=== PATIENT | female | born 1960 | race Caucasian/White ===

== ENCOUNTER → 2017-02-24 09:11 | Outpatient (CLI) | payer BC, SELFPAY ==
[2017-02-24 10:40] LABS: Alanine Aminotransferase 40 U/L (12-78); Albumin Level 3.9 gm/dL (3.4-5.0); Albumin/Globulin Ratio 1.1 (1.1-1.8); Alkaline Phosphatase 78 U/L (46-116); Anion Gap 13.1 mEq/L (5-15); Aspartate Amino Transferase 20 U/L (15-37); Bilirubin,Total 0.7 mg/dL (0.2-1.0); Blood Urea Nitrogen 17 mg/dL (7-18); Carbon Dioxide 27 mmol/L (21.0-32.0); Chloride 99 mmol/L (98-107); Chol/HDL Ratio 3.8 (1-3.5); Cholesterol 176 mg/dL (140-200); Creatinine,Serum 0.55 mg/dL (0.55-1.02); Estimated Glomerular Filt Rate > 60 ml/min (>60); GFR (African American) > 60 ML/MIN (>60); Globulin 3.5 gm/dl (1.3-3.2); Glucose 280 mg/dL (74-106); HDL Cholesterol 46 mg/dL (29-89); LDL Cholesterol 79 mg/dL (0-130); Potassium 4.1 mmoL/L (3.5-5.1); Sodium 135 mmol/L (136-145); Total Protein,Serum 7.4 gm/dL (6.4-8.2); Triglycerides 257 mg/dL (30-200); VLDL Cholesterol 51 mg/dL (0-40)
== END ==
PROVIDERS: PCP Nurse Practitioner Family; Visit Provider Internal Medicine Cardiovascular Disease
DX: I25.10 Atherosclerotic heart disease of native coronary artery without angina pectoris (principal); E78.4 Other hyperlipidemia
CPT/HCPCS: 36415; 80053; 80061

== ENCOUNTER → 2017-03-07 16:15 | Outpatient (CLI) | payer BC, SELFPAY ==
[2017-03-07 17:12] LABS: Hemoglobin A1C 9.4 % (0.0-7.0)
== END ==
PROVIDERS: PCP Nurse Practitioner Family; Visit Provider Nurse Practitioner Family
DX: E11.8 Type 2 diabetes mellitus with unspecified complications (principal)
CPT/HCPCS: 36415; 83036

== ENCOUNTER → 2017-03-14 15:28 | Outpatient (CLI) | payer BC, SELFPAY ==
--- NOTE | 2017-03-14 15:39 | XR_ITS ---
XR chest 2V Ordering Physician: Vidhi Quan Patient Age: 56 years: Female HISTORY: ITS.REASON: COUGH TECHNIQUE: T and lateral chest COMPARISON :Portable chest 11/27/2015 also May 2007 chest film 120 FINDINGS Lungs clear. Nothing definitely acute no definitive pneumonia accentuated markings at the right infrahilar region medial right base are again noted but when current air-contrast digital technique is considered these features appear stable since May 2007. . Calcified nodes right paratracheal and right arminda reflect over elements disease. No pleural effusion no pneumothorax. Normal pulmonary vascularity. Chest wall intact. T-spine stable The heart is normal in size with likely coronary artery stents and calcification evident. . IMPRESSION: Stable chest with nothing definite acute Old granulomatous disease
== END ==
PROVIDERS: PCP Internal Medicine Adolescent Medicine; Visit Provider Nurse Practitioner Family
DX: R05 Cough (principal)
CPT/HCPCS: 71046

== ENCOUNTER → 2017-03-17 13:53 | Outpatient (CLI) | payer BC, SELFPAY | PROVIDERS: Family Provider Internal Medicine Adolescent Medicine; PCP Internal Medicine Adolescent Medicine; Visit Provider Nurse Practitioner Family | DX: E11.8 Type 2 diabetes mellitus with unspecified complications (principal) | CPT/HCPCS: 97802; G0108 ==

== ENCOUNTER → 2017-11-26 09:05 | Outpatient (CLI) | payer BC, SELFPAY ==
[2017-11-26 09:27] LABS: Basophils # 0.1 K/mm3 (0-0.2); Basophils % 0.5 % (0.1-2.0); Eosinophils # 0.3 K/mm3 (0.0-0.4); Eosinophils % 2.1 % (0.1-12.0); Hematocrit 43.1 % (37.0-47.0); Hemoglobin 14.2 g/dL (12.2-16.2); Lymphocytes # 3.3 K/mm3 (0.7-4.5); Lymphocytes % 24.8 K/mm3 (10-50); Mean Corpuscular HGB Conc 33.1 g/dL (31.8-35.4); Mean Corpuscular Volume 87.6 fl (81-99); Mean Platelet Volume 6.9 fl (7.4-10.4); Monocytes # 0.6 K/mm3 (0.1-1.0); Monocytes % 4.1 % (1.7-9.3); Neutrophils # 9.3 K/mm3 (1.8-7.8); Neutrophils % 68.6 % (37.0-80.0); Platelet Count 347 K/mm3 (142-424); Red Blood Count 4.92 M/mm3 (4.20-5.40); Red Cell Distribution Width 12.6 % (11.5-17.5); White Blood Count 13.5 K/mm3 (4.8-10.8)
[2017-11-26 10:27] LABS: Alanine Aminotransferase 106 U/L (12-78); Albumin Level 3.5 gm/dL (3.4-5.0); Albumin/Globulin Ratio 0.9 (1.1-1.8); Alkaline Phosphatase 112 U/L (46-116); Aspartate Amino Transferase 153 U/L (15-37); Bilirubin,Total 0.7 mg/dL (0.2-1.0); Blood Urea Nitrogen 8 mg/dL (7-18); Calcium 8.9 mg/dL (8.5-10.1); Carbon Dioxide 29 mmol/L (21.0-32.0); Chloride 103 mmol/L (98-107); Chol/HDL Ratio 4.7 (1-3.5); Cholesterol 200 mg/dL (140-200); Creatinine,Serum 0.51 mg/dL (0.55-1.02); Estimated Glomerular Filt Rate 125 ml/min (>60); GFR (African American) 151 ML/MIN (>60); Globulin 3.9 gm/dl (1.3-3.2); Glucose 227 mg/dL (74-106); HDL Cholesterol 43 mg/dL (29-89); LDL Cholesterol 130 mg/dL (0-130); Sodium 139 mmol/L (136-145); Thyroid Stimulating Hormone 2.41 uIU/ml (0.358-3.740); Total Protein,Serum 7.4 gm/dL (6.4-8.2); Triglycerides 134 mg/dL (30-200); VLDL Cholesterol 27 mg/dL (0-40)
[2017-11-26 10:37] LABS: Erythrocyte Sedimentation Rate 55 mm/hr (0-30)
[2017-11-29 07:36] LABS: RA Latex Turbid. <10.0 IU/mL (0.0-13.9); Vitamin B12 1041 pg/mL (232-1245)
[2017-11-29 10:20] LABS: Creatinine, Urine 142.3 mg/dL (Not Estab.); Microalbumin, Urine 77.1 ug/mL (Not Estab.)
[2017-11-30 05:14] LABS: Hep A Ab, IgM Negative (Negative); Hepatitis B Core Antibody IgM Negative (Negative); Hepatitis B Surface Antigen Negative (Negative)
[2017-11-30 07:28] LABS: Anti-Cyclic Citrullinated Pept 21 units (0-19); Antinuclear Antibodies, IFA Positive (.)
[2017-11-30 07:30] LABS: Hepatitis C Antibody <0.1 s/co ratio (0.0-0.9)
[2017-12-01 07:10] LABS: Mitochondrial (M2) Antibody <20.0 Units (0.0-20.0)
== END ==
PROVIDERS: Internal Medicine Adolescent Medicine; PCP Nurse Practitioner Family; Visit Provider Nurse Practitioner Family
DX: I10 Essential (primary) hypertension (principal); E11.65 Type 2 diabetes mellitus with hyperglycemia; E11.42 Type 2 diabetes mellitus with diabetic polyneuropathy; E78.2 Mixed hyperlipidemia; M25.50 Pain in unspecified joint; R74.8 Abnormal levels of other serum enzymes; Z86.79 Personal history of other diseases of the circulatory system
CPT/HCPCS: 36415; 80053; 80061; 80074; 82043; 82570; 82607; 83036; 84443; 85025; 85651; 86038; 86200; 86256; 86431

== ENCOUNTER → 2018-02-25 09:32 | Outpatient (CLI) | payer BC, SELFPAY ==
[2018-02-25 11:23] LABS: Hemoglobin A1C 8.9 % (0.0-7.0)
[2018-02-25 13:09] LABS: Alanine Aminotransferase 82 U/L (12-78); Albumin Level 3.5 gm/dL (3.4-5.0); Albumin/Globulin Ratio 0.9 (1.1-1.8); Alkaline Phosphatase 112 U/L (46-116); Anion Gap 12.9 mEq/L (5-15); Aspartate Amino Transferase 81 U/L (15-37); Bilirubin,Total 0.5 mg/dL (0.2-1.0); Blood Urea Nitrogen 10 mg/dL (7-18); Calcium 8.8 mg/dL (8.5-10.1); Carbon Dioxide 30 mmol/L (21.0-32.0); Chloride 100 mmol/L (98-107); Cholesterol 204 mg/dL (140-200); Creatinine,Serum 0.49 mg/dL (0.55-1.02); Estimated Glomerular Filt Rate 131 ml/min (>60); GFR (African American) 159 ML/MIN (>60); Globulin 4.1 gm/dl (1.3-3.2); Glucose 199 mg/dL (74-106); HDL Cholesterol 41 mg/dL (29-89); LDL Cholesterol 134 mg/dL (0-130); Potassium 3.9 mmoL/L (3.5-5.1); Sodium 139 mmol/L (136-145); Total Protein,Serum 7.6 gm/dL (6.4-8.2); Triglycerides 147 mg/dL (30-200); VLDL Cholesterol 29 mg/dL (0-40)
[2018-02-26 04:12] LABS: Creatinine, Urine 177.4 mg/dL (Not Estab.); Microalbumin, Urine 58.7 ug/mL (Not Estab.)
== END ==
PROVIDERS: Internal Medicine Cardiovascular Disease; Visit Provider Nurse Practitioner Family
DX: E11.42 Type 2 diabetes mellitus with diabetic polyneuropathy (principal); E78.49 Other hyperlipidemia
CPT/HCPCS: 36415; 80053; 80061; 82043; 82570; 83036

== ENCOUNTER → 2018-05-30 16:45 | Outpatient (CLI) | payer BC, SELFPAY ==
--- NOTE | 2018-05-30 16:48 | MM_ITS ---
MM Dig screening mamm BI w/CAD ORDERING PHYSICIAN : Vidhi Quan PATIENT AGE: 57 years GENDER: Female COMPARISON: December 2014, November 2013 & December 2016 INDICATION: Routine screening mammogram. No hormones. No new complaints. Previous stereotactic biopsy right breast Noncontributory family history. TECHNIQUE: Standard CC and MLO images were obtained. R2 CAD reviewed. FINDINGS: Mild/moderate residual fibroglandular elements bilaterally, most apparent at the superior left breast. Slight heterogeneous breast with slow progression of fatty replacement over the past few years noted Prior films are helpful and supportive stable appearance. Stable mild asymmetry. . scattered small benign appearing round dense punctate calcifications bilaterally. Benign forms with only very slow progression. Can be followed safely. LEFT BREAST:No new areas of significant concern. Stable appearance of benign appearing likely intramammary lymph node at the deep axillary left breast. . The glandular tissue most evident towards upper-outer quadrant left breast but when all projections are considered I see no significant change here, stable appearance since MLO view from 2016 serves as best comparison Overall left breast shows no significant new findings RIGHT BREAST:No new areas of concern. Follow-up in one year IMPRESSION: ...... . stable bilateral mammogram No significant new findings. Mild/moderate breast density Bilateral follow-up in one year. BI-RADS Category: 2 Benign Finding(s) RECOMMENDED FOLLOW-UP: 1YR 1 YEAR FOLLOW-UP (A letter has been sent to the patient regarding results of the study.)
== END ==
PROVIDERS: PCP Nurse Practitioner Family; Visit Provider Nurse Practitioner Family
DX: Z12.31 Encounter for screening mammogram for malignant neoplasm of breast (principal)
CPT/HCPCS: 77067

== ENCOUNTER → 2018-06-07 15:26 | Outpatient (CLI) | payer BC, SELFPAY ==
--- NOTE | 2018-06-07 15:29 | CT_ITS ---
CT lung screening EXAM: CT LUNG LOW DOSE WO CONTRAST HISTORY: ITS.REASON: H/O NICOTINE DEPENDENCE ORDERING PHYSICIAN: Rosalio Nunez MD PATIENT AGE: 57 years COMPARISON: None TECHNIQUE: The exam was performed on a GE Light Speed [address] scanner using 2.90 mGy CTDI. A low dose helical CT CHEST was performed on a multi-detector scanner. All CT scans at the facility use one or more dose reduction, viz: automated exposure control, ma/kV adjustment per patient size (including targeted exams where dose is matched to indication, i.e. head), or iterative reconstruction technique. The LDCT was performed in a facility that meets the criteria for the screening program. Data regarding this exam was submitted to ACR which is an approved registry. The order for this exam indicates that it came as a result of a lung cancer screening counseling shard decision-making visit that included all the elements required of such a visit including smoking cessation. The radiologist interpreting this exam meets the CMS criteria for the LDCT lung cancer screening program. The exam is reported using the Lung-RADS classification scale and reported to the ACR registry. NOTE: This study was performed for the specific purposes of lung cancer screening and is not an alternative to diagnostic chest CT. RADIATION DOSE: CTDI vol(CT dose Index-volume) = 2.90mG DLP (Dose Length Product) = 107.07 mGcm FINDINGS: 5 mm noncalcified nodule right upper lobe image #20. 4 mm noncalcified nodule left upper lobe image #16 fibrotic changes left lung base. Hyperinflation with mild coarsening of the bronchovascular markings which may be related to smoking-related lung disease. Scattered small calcified nodes present. Severe coronary artery calcification is noted. Prior cholecystectomy. IMPRESSION: 1. Lung RADS Category: 2, benign 2. Other findings: COPD, coronary artery disease RECOMMENDATIONS: 12 month LDCT follow-up
== END ==
PROVIDERS: PCP Nurse Practitioner Family; Visit Provider Internal Medicine Adolescent Medicine
DX: Z12.2 Encounter for screening for malignant neoplasm of respiratory organs (principal); Z87.891 Personal history of nicotine dependence

== ENCOUNTER → 2018-10-14 07:23 | Outpatient (CLI) | payer BC, SELFPAY ==
[2018-10-14 10:38] LABS: Chol/HDL Ratio 5.4 (1-3.5); Cholesterol 211 mg/dL (140-200); HDL Cholesterol 39 mg/dL (29-89); LDL Cholesterol 149 mg/dL (0-130); Triglycerides 116 mg/dL (30-200); VLDL Cholesterol 23 mg/dL (0-40)
== END ==
PROVIDERS: PCP Nurse Practitioner Family; Visit Provider Internal Medicine Cardiovascular Disease
DX: E78.49 Other hyperlipidemia (principal)
CPT/HCPCS: 36415; 80061

== ENCOUNTER → 2019-01-22 09:49 | Outpatient (CLI) | payer BC, SELFPAY ==
--- NOTE | 2019-01-22 09:53 | XR_ITS ---
PROCEDURE: XR SACROILIAC JOINT BI MIN 3V CLINICAL INDICATION: SI JOINT PAIN Low back pain, left hip pain COMPARISON: No exams were available for comparison FINDINGS: No fusion lysis or sclerosis of the SI joints evident. There are mild osteoarthritic changes of the hips. No fracture or dislocation IMPRESSION: Mild osteoarthritic change of the hips, negative SI joints Dictated by: Dre Lynn MD 01/22/2019 20:07 Electronically signed by Dre Lynn MD in [place] 01/22/2019 20:07
== END ==
PROVIDERS: PCP Internal Medicine Adolescent Medicine; Visit Provider Nurse Practitioner Family
DX: M53.3 Sacrococcygeal disorders, not elsewhere classified (principal)
CPT/HCPCS: 72202

== ENCOUNTER → 2019-03-17 08:17 | Outpatient (CLI) | payer BC, SELFPAY ==
[2019-03-17 10:06] LABS: Alanine Aminotransferase 45 U/L (12-78); Albumin Level 3.5 gm/dL (3.4-5.0); Albumin/Globulin Ratio 0.9 (1.1-1.8); Alkaline Phosphatase 111 U/L (46-116); Anion Gap 12.1 mEq/L (5-15); Aspartate Amino Transferase 46 U/L (15-37); Bilirubin,Total 0.4 mg/dL (0.2-1.0); Blood Urea Nitrogen 10 mg/dL (7-18); Calcium 8.6 mg/dL (8.5-10.1); Carbon Dioxide 29 mmol/L (21.0-32.0); Chloride 102 mmol/L (98-107); Chol/HDL Ratio 2.6 (1-3.5); Cholesterol 142 mg/dL (140-200); Creatinine,Serum 0.63 mg/dL (0.55-1.02); Estimated Glomerular Filt Rate 98 ml/min (>60); GFR (African American) 118 ML/MIN (>60); Glucose 217 mg/dL (74-106); HDL Cholesterol 54 mg/dL (29-89); LDL Cholesterol 70 mg/dL (0-130); Potassium 4.1 mmoL/L (3.5-5.1); Sodium 139 mmol/L (136-145); Total Protein,Serum 7.5 gm/dL (6.4-8.2); Triglycerides 88 mg/dL (30-200); VLDL Cholesterol 18 mg/dL (0-40)
== END ==
PROVIDERS: Visit Provider Internal Medicine Cardiovascular Disease
DX: E11.9 Type 2 diabetes mellitus without complications (principal); Z79.4 Long term (current) use of insulin
CPT/HCPCS: 36415; 80053; 80061

== ENCOUNTER → 2019-04-19 10:24 | Outpatient (CLI) | payer BC, SELFPAY ==
[2019-04-22 17:41] LABS: QuantiFERON-TB Gold Plus Negative (Negative)
== END ==
PROVIDERS: Visit Provider Nurse Practitioner Family
DX: Z11.1 Encounter for screening for respiratory tuberculosis (principal)
CPT/HCPCS: 36415; 86480

== ENCOUNTER → 2019-06-18 13:33 | Outpatient (POV) | payer BC, SELFPAY | PROVIDERS: PCP Nurse Practitioner Family; Visit Provider Specialist | DX: M79.601 Pain in right arm (principal); M79.602 Pain in left arm | CPT/HCPCS: 95886; 95910 ==

== ENCOUNTER → 2019-08-07 11:22 | Outpatient (CLI) | payer BC, SELFPAY ==
--- NOTE | 2019-08-07 11:42 | XR_ITS ---
PROCEDURE: XR CHEST 2V CLINICAL HISTORY: PERSISTENT COUGH COMPARISON: CXR CHEST(2 VIEWS-NOT PORTABLE) from 10/04/2014 CXR1 CHEST-PORTABLE from 11/27/2015 CXR2V XR chest 2V from 03/14/2017 FINDINGS: Mild cardiomegaly without failure. There is evidence of old granulomatous disease. No lobar consolidation or collapse is evident. No acute bony abnormalities. IMPRESSION: No acute findings. Dictated by: Dre Lynn MD 08/07/2019 14:18 Electronically signed by Dre Lynn MD in [place] 08/07/2019 14:18
[2019-08-07 12:04] LABS: Basophils # 0.1 K/mm3 (0-0.2); Basophils % 0.5 % (0.1-2.0); Eosinophils # 0.2 K/mm3 (0.0-0.4); Eosinophils % 1.3 % (0.1-12.0); Hematocrit 43.9 % (37.0-47.0); Lymphocytes # 3.8 K/mm3 (0.7-4.5); Lymphocytes % 23.5 % (10-50); Mean Corpuscular HGB Conc 34.2 g/dL (31.8-35.4); Mean Corpuscular Volume 93.5 fl (81-99); Mean Platelet Volume 7.7 fl (7.4-10.4); Monocytes # 0.8 K/mm3 (0.1-1.0); Monocytes % 4.9 % (1.7-9.3); Neutrophils # 11.4 K/mm3 (1.8-7.8); Neutrophils % 69.8 % (37.0-80.0); Platelet Count 271 K/mm3 (142-424); Red Cell Distribution Width 12.4 % (11.5-17.5); White Blood Count 16.3 K/mm3 (4.8-10.8)
[2019-08-07 12:08] LABS: MANUAL DIFFERENTIAL MANUAL DIFFERENTIAL (MANUAL DIFF)
[2019-08-07 12:18] LABS: Eosinophils % 2 % (0-3); Lymphocytes % 25 % (10-50); Monocytes % 5 % (2-9); Neutrophils % 68 % (42-76); Platelet Estimate Normal; RBC Morphology Normal; Total Cells Counted 100
[2019-08-07 12:45] LABS: Alanine Aminotransferase 51 U/L (12-78); Albumin Level 4.6 g/dl (3.5-5.0); Albumin/Globulin Ratio 1.2 (1.1-1.8); Alkaline Phosphatase 113 U/L (38-126); Anion Gap 15.3 mEq/L (5-15); Aspartate Amino Transferase 79 U/L (14-36); Bilirubin,Total 0.6 mg/dl (0.2-1.3); Blood Urea Nitrogen 17 mg/dl (7-17); Calcium 10.6 mg/dl (8.4-10.2); Carbon Dioxide 30 mmol/L (22.0-30.0); Chloride 97 mmol/L (98-107); Estimated Glomerular Filt Rate 128 ml/min (>60); GFR (African American) 154 ML/MIN (>60); Glucose 229 mg/dl (74-100); Potassium 4.3 mmoL/L (3.5-5.1); Sodium 138 mmol/L (136-145); Total Protein,Serum 8.6 g/dl (6.3-8.2)
[2019-08-07 13:02] LABS: 25-OH Vitamin D, Total 18.8 ng/mL (30-100)
[2019-08-08 18:10] LABS: Vitamin B12 721 pg/mL (232-1245)
== END ==
PROVIDERS: Visit Provider Nurse Practitioner Family
DX: R05 Cough (principal); R19.01 Right upper quadrant abdominal swelling, mass and lump; R53.83 Other fatigue; E55.9 Vitamin D deficiency, unspecified
CPT/HCPCS: 36415; 71046; 80053; 82306; 82607; 85007; 85025

== ENCOUNTER → 2019-08-10 11:06 | Outpatient (CLI) | payer BC, SELFPAY ==
--- NOTE | 2019-08-10 11:18 | CT_ITS ---
PROCEDURE: CT ABDOMEN PELVIS WO/W CON CLINICAL INDICATION: ABD PAIN Palpable abnormality in the right upper quadrant, right upper quadrant mass COMPARISON: No exams were available for comparison TECHNIQUE: IV Contrast: 75ML OPTIRAY 350 Oral Contrast 450ml Redicat Axial images obtained with sagittal and coronal reformats. All CT scans at the facility use one or more dose reduction, viz: automated exposure control, ma/kV adjustment per patient size (including targeted exams where dose is matched to indication, i.e. head), or iterative reconstruction technique. FINDINGS: LOWER THORAX: There are mild atelectatic or fibrotic changes in the left lung base. There is extensive coronary artery calcification and/or stents noted ABDOMEN & PELVIS: A BB is placed in the right upper quadrant denoting the area of palpable concern. No subcutaneous soft tissue mass is evident. The liver is slightly enlarged. The liver measures 24 cm cephalad caudad extending to approximately 6 cm above the iliac crest. There is some minimal irregularity of the liver surface. This could be seen with early cirrhosis. Please correlate with liver function test. The only organ deep to the area of palpable concern is a liver. No soft tissue masses are apparent. The spleen, adrenal glands, and pancreas have an unremarkable appearance. There has been a prior cholecystectomy. There are few scattered small mesenteric lymph nodes. There are small stones in the lower pole of the left kidney the largest of which measures approximately 5 mm. No intestinal obstruction or free air. No evidence of appendicitis. There are few colonic diverticula but no evidence of diverticulitis. No pelvic mass or abnormal fluid collection. Suspect small bilateral ovarian cyst which could be confirmed with ultrasound if clinically warranted No acute bony findings. IMPRESSION: 1. Mild hepatomegaly. There is some minimal irregularity of the liver surface anteriorly which could be seen with mild cirrhosis. No space-occupying lesion of the liver. 2. No soft tissue mass to correspond to the area of palpable concern. The area of palpable concern may represent the liver. 3. Left nephrolithiasis Dictated by: Dre Lynn MD 08/11/2019 06:48 Electronically signed by Dre Lynn MD in [place] 08/11/2019 06:48
== END ==
PROVIDERS: PCP Nurse Practitioner Family; Visit Provider Nurse Practitioner Family
DX: R19.01 Right upper quadrant abdominal swelling, mass and lump (principal)
CPT/HCPCS: 74178; Q9967

== ENCOUNTER → 2019-08-24 15:06 | Outpatient (CLI) | payer BC, SELFPAY ==
[2019-08-24 15:40] LABS: Basophils # 0.1 K/mm3 (0-0.2); Basophils % 0.5 % (0.1-2.0); Eosinophils # 0.2 K/mm3 (0.0-0.4); Eosinophils % 1.1 % (0.1-12.0); Hematocrit 42.5 % (37.0-47.0); Lymphocytes # 3.8 K/mm3 (0.7-4.5); Mean Corpuscular HGB Conc 35.3 g/dL (31.8-35.4); Mean Corpuscular Hemoglobin 31.6 pg (27.0-31.2); Mean Corpuscular Volume 89.4 fl (81-99); Mean Platelet Volume 7.3 fl (7.4-10.4); Monocytes # 0.7 K/mm3 (0.1-1.0); Monocytes % 4.7 % (1.7-9.3); Neutrophils # 10.4 K/mm3 (1.8-7.8); Neutrophils % 68.6 % (37.0-80.0); Platelet Count 276 K/mm3 (142-424); Red Blood Count 4.76 M/mm3 (4.20-5.40); Red Cell Distribution Width 12.3 % (11.5-17.5); White Blood Count 15.2 K/mm3 (4.8-10.8)
[2019-08-24 15:55] LABS: MANUAL DIFFERENTIAL MANUAL DIFFERENTIAL (MANUAL DIFF)
[2019-08-24 16:06] LABS: Chloride 100 mmol/L (98-107); Potassium 3.9 mmoL/L (3.5-5.1); Sodium 136 mmol/L (136-145)
[2019-08-24 16:09] LABS: Alanine Aminotransferase 53 U/L (12-78); Albumin Level 4.1 g/dl (3.5-5.0); Albumin/Globulin Ratio 1.1 (1.1-1.8); Alkaline Phosphatase 106 U/L (38-126); Anion Gap 12.9 mEq/L (5-15); Aspartate Amino Transferase 68 U/L (14-36); Bilirubin,Total 0.8 mg/dl (0.2-1.3); Blood Urea Nitrogen 10 mg/dl (7-17); Carbon Dioxide 27 mmol/L (22.0-30.0); Estimated Glomerular Filt Rate 165 ml/min (>60); GFR (African American) 200 ML/MIN (>60); Globulin 3.7 g/dL (1.3-3.2); Total Protein,Serum 7.8 g/dl (6.3-8.2)
[2019-08-24 16:10] LABS: Calcium 9.5 mg/dl (8.4-10.2); Glucose 288 mg/dl (74-100)
[2019-08-24 16:32] LABS: Lymphocytes % 27 % (10-50); Monocytes % 6 % (2-9); Neutrophils % 67 % (42-76); Platelet Estimate Normal; RBC Morphology Normal; Total Cells Counted 100
[2019-08-24 16:44] LABS: Ferritin 84.7 ng/ml (11.1-264)
[2019-08-26 15:08] LABS: Peripheral Smear Review Scanned Result
== END ==
PROVIDERS: Visit Provider Nurse Practitioner Family
DX: D72.829 Elevated white blood cell count, unspecified (principal); K76.0 Fatty (change of) liver, not elsewhere classified
CPT/HCPCS: 36415; 80053; 82728; 85007; 85025

== ENCOUNTER → 2019-10-24 07:48 | Outpatient (CLI) | payer BC, SELFPAY ==
--- NOTE | 2019-10-24 07:51 | CT_ITS ---
PROCEDURE: CT LUNG SCREENING CLINICAL INDICATION: H/O NICOTINE DEPENDENCE Current smoker COMPARISON: CT LUNGSCREEN CT lung screening from 06/07/2018 TECHNIQUE: The exam was performed on a GE Light Speed [address] scanner using 2.90 mGy CTDI. A low dose helical CT CHEST was performed on a multi-detector scanner. All CT scans at the facility use one or more dose reduction, viz: automated exposure control, ma/kV adjustment per patient size (including targeted exams where dose is matched to indication, i.e. head), or iterative reconstruction technique. The LDCT was performed in a facility that meets the criteria for the screening program. Data regarding this exam was submitted to ACR which is an approved registry. The order for this exam indicates that it came as a result of a lung cancer screening counseling shard decision-making visit that included all the elements required of such a visit including smoking cessation. The radiologist interpreting this exam meets the [facility] criteria for the LDCT lung cancer screening program. The exam is reported using the Lung-RADS classification scale and reported to the ACR registry. NOTE: This study was performed for the specific purposes of lung cancer screening and is not an alternative to diagnostic chest CT. RADIATION DOSE: CTDI vol(CT dose Index-volume) = 2.90mG DLP (Dose Length Product) = 96.38 mGcm FINDINGS: COPD. 5 mm nodule right upper lobe image 34 not readily apparent on the previous exam. Calcified granuloma right upper lobe. 3 mm right upper lobe nodule image number 20 unchanged. 3 mm right upper lobe nodule image number 19 probably unchanged. Atelectatic/fibrotic changes are present in the left lung base. OTHER FINDINGS: Extensive coronary artery calcification and/or stents noted IMPRESSION: Lung-RADS Category 3 Probably Benign regarding new 5 mm right upper lobe nodule Follow-up: [address] Chest without and with contrast. Dictated by: Dre Lynn MD 10/30/2019 13:37 Dre Lynn MD in [place] 10/30/2019 13:37
== END ==
PROVIDERS: PCP Nurse Practitioner Family; Visit Provider Nurse Practitioner Family
DX: Z87.891 Personal history of nicotine dependence (principal)

== ENCOUNTER → 2019-11-12 09:42 | Outpatient (CLI) | payer BC, SELFPAY ==
[2019-11-12 10:30] VITALS: PULSE 88; PULSE 90
== END ==
PROVIDERS: PCP Nurse Practitioner Family; Visit Provider Nurse Practitioner Family
DX: R05 Cough (principal)
CPT/HCPCS: 94060; 94618; 94640; 94726; 94729

== ENCOUNTER → 2020-02-04 15:05 | Outpatient (CLI) | payer BC, SELFPAY ==
[2020-02-04 17:00] VITALS: BMI 33.3
== END ==
PROVIDERS: PCP Nurse Practitioner Family; Visit Provider Nurse Practitioner Family
DX: Z71.3 Dietary counseling and surveillance (principal); E11.9 Type 2 diabetes mellitus without complications
CPT/HCPCS: 97802

== ENCOUNTER → 2020-05-22 10:45 | Outpatient (CLI) | payer BC, SELFPAY ==
--- NOTE | 2020-05-22 10:46 | CT_ITS ---
PROCEDURE: CT CHEST WO CON CLINICAL INDICATION: Lung nodule followup COMPARISON: CT CT LUNG SCREENING from 10/24/2019 TECHNIQUE: Axial images obtained with sagittal and coronal reformats. All CT scans at the facility use one or more dose reduction, viz: automated exposure control, ma/kV adjustment per patient size (including targeted exams where dose is matched to indication, i.e. head), or iterative reconstruction technique. FINDINGS: HEART AND MEDIASTINAL STRUCTURES: The heart size is normal. Atherosclerotic vascular calcification of the thoracic aorta and the coronary arteries are noted. No pericardial effusions. Calcified lymph nodes noted in the mediastinum. No significant hilar lymphadenopathy within the limitations of unenhanced study. LUNGS AND PLEURAL SPACES: Atelectasis is noted in the left lower lobe. Calcified granuloma in the right middle lobe. No lobar consolidation, pleural effusions or pneumothorax. No suspicious lung nodules are noted. Centrilobular and paraseptal emphysematous changes are noted bilaterally. 5 millimeter nodule noted on the prior study is not visualized on the current study. The central tracheobronchial tree is patent. BONY STRUCTURES: Minor degenerative changes of the visualized thoracic spine. UPPER ABDOMEN: Cholecystectomy is noted. Few splenic calcifications likely secondary to prior granulomatous disease. Surface irregularity and nodularity of the liver, acute raises the concern for cirrhosis. Otherwise the visualized upper abdominal solid organs are unremarkable within the limitations of the study. ADDITIONAL FINDINGS: No other significant abnormalities. IMPRESSION: Previously noted 5 millimeter nodule is not visualized on the current study. No focal consolidation or pleural effusions. Findings are suggestive of cirrhosis of the liver. Clinical and biochemical correlation is recommended. Dictated by: Anju Magdaleno 05/22/2020 13:57 Anju Magdaleno in [place] 05/22/2020 13:57
== END ==
PROVIDERS: PCP Nurse Practitioner Family; Visit Provider Internal Medicine Pulmonary Disease
DX: R91.8 Other nonspecific abnormal finding of lung field (principal)
CPT/HCPCS: 71250

== ENCOUNTER → 2020-06-25 09:19 | Outpatient (CLI) | payer BC, SELFPAY ==
[2020-06-25 10:39] LABS: Chloride 102 mmol/L (98-107); Potassium 3.9 mmoL/L (3.5-5.1); Sodium 136 mmol/L (136-145)
[2020-06-25 10:42] LABS: Alanine Aminotransferase 31 U/L (12-78); Albumin Level 4.1 g/dl (3.5-5.0); Albumin/Globulin Ratio 1.2 (1.1-1.8); Alkaline Phosphatase 113 U/L (38-126); Anion Gap 11.9 mEq/L (5-15); Aspartate Amino Transferase 39 U/L (14-36); Blood Urea Nitrogen 9 mg/dl (7-17); Calcium 9.1 mg/dl (8.4-10.2); Carbon Dioxide 26 mmol/L (22.0-30.0); Cholesterol 154 mg/dl (140-200); Estimated Glomerular Filt Rate 165 ml/min (>60); GFR (African American) 199 ML/MIN (>60); Globulin 3.3 g/dL (1.3-3.2); Glucose 266 mg/dl (74-100); HDL Cholesterol 64 mg/dl (40-60); Total Protein,Serum 7.4 g/dl (6.3-8.2); Triglycerides 102 mg/dl (30-150); VLDL Cholesterol 20 mg/dL (0-40)
[2020-06-25 10:43] LABS: Chol/HDL Ratio 2.4 (1-3.5)
[2020-06-25 10:53] LABS: Direct LDL Cholesterol 70.31 mg/dL (100-129)
== END ==
PROVIDERS: Visit Provider Internal Medicine Cardiovascular Disease
DX: E78.49 Other hyperlipidemia (principal)
CPT/HCPCS: 36415; 80053; 80061

== ENCOUNTER → 2020-09-13 08:38 | Outpatient (CLI) | payer BC, SELFPAY ==
[2020-09-13 09:10] LABS: Basophils # 0.1 K/mm3 (0-0.2); Basophils % 0.8 % (0.1-2.0); Eosinophils # 0.2 K/mm3 (0.0-0.4); Eosinophils % 1.4 % (0.1-12.0); Hematocrit 43.9 % (37.0-47.0); Hemoglobin 15.1 g/dL (12.2-16.2); Lymphocytes # 4.9 K/mm3 (0.7-4.5); Mean Corpuscular HGB Conc 34.3 g/dL (31.8-35.4); Mean Corpuscular Hemoglobin 30.5 pg (27.0-31.2); Mean Platelet Volume 8.3 fl (7.4-10.4); Monocytes # 0.8 K/mm3 (0.1-1.0); Monocytes % 4.4 % (1.7-9.3); Neutrophils # 10.9 K/mm3 (1.8-7.8); Neutrophils % 64.4 % (37.0-80.0); Platelet Count 263 K/mm3 (142-424); Red Blood Count 4.93 M/mm3 (4.20-5.40); White Blood Count 16.9 K/mm3 (4.8-10.8)
[2020-09-13 09:12] LABS: MANUAL DIFFERENTIAL MANUAL DIFFERENTIAL (MANUAL DIFF)
[2020-09-13 09:19] LABS: Eosinophils % 4 % (0-3); Lymphocytes % 26 % (10-50); Monocytes % 6 % (2-9); Neutrophils % 64 % (42-76); Platelet Estimate Normal; RBC Morphology Normal; Total Cells Counted 100
[2020-09-13 09:28] LABS: Creatinine,Urine Random 242 mg/dL (Not Estab.)
[2020-09-13 09:28] LABS: Hemoglobin A1C 8.7 % (4.0-6.0)
[2020-09-13 09:30] LABS: Microalbumin/Creatinine Ratio 16.8
[2020-09-13 09:33] LABS: Alanine Aminotransferase 38 U/L (12-78); Albumin Level 4.2 g/dl (3.5-5.0); Albumin/Globulin Ratio 1.3 (1.1-1.8); Alkaline Phosphatase 120 U/L (38-126); Anion Gap 9.3 mEq/L (5-15); Aspartate Amino Transferase 44 U/L (14-36); Bilirubin,Total 0.7 mg/dl (0.2-1.3); Blood Urea Nitrogen 9 mg/dl (7-17); Calcium 8.9 mg/dl (8.4-10.2); Carbon Dioxide 31 mmol/L (22.0-30.0); Chloride 101 mmol/L (98-107); Chol/HDL Ratio 2.3 (1-3.5); Cholesterol 162 mg/dl (140-200); Estimated Glomerular Filt Rate 165 ml/min (>60); GFR (African American) 199 ML/MIN (>60); Globulin 3.3 g/dL (1.3-3.2); Glucose 242 mg/dl (74-100); HDL Cholesterol 70 mg/dl (40-60); Potassium 4.3 mmoL/L (3.5-5.1); Sodium 137 mmol/L (136-145); Total Protein,Serum 7.5 g/dl (6.3-8.2); Triglycerides 139 mg/dl (30-150); VLDL Cholesterol 28 mg/dL (0-40)
[2020-09-13 09:44] LABS: Direct LDL Cholesterol 72.37 mg/dL (100-129)
[2020-09-13 10:03] LABS: Thyroid Stimulating Hormone 3.38 uIU/mL (0.465-4.68)
== END ==
PROVIDERS: Visit Provider Internal Medicine Adolescent Medicine
DX: E11.65 Type 2 diabetes mellitus with hyperglycemia (principal); I10 Essential (primary) hypertension; E78.2 Mixed hyperlipidemia; R60.9 Edema, unspecified
CPT/HCPCS: 36415; 80053; 80061; 82043; 82570; 83036; 84443; 85007; 85025

== ENCOUNTER → 2020-11-28 08:00 | Outpatient (CLI) | payer BC, SELFPAY ==
[2020-11-28 08:50] VITALS: PULSE 100; PULSE 97
== END ==
PROVIDERS: PCP Nurse Practitioner Family; Visit Provider Internal Medicine Pulmonary Disease
DX: R06.09 Other forms of dyspnea (principal)
CPT/HCPCS: 94060; 94640; 94727; 94729

== ENCOUNTER → 2021-01-21 13:33 | Outpatient (CLI) | payer BC, SELFPAY ==
--- NOTE | 2021-01-21 | CA_ITS ---
APPROVED REPORT EXAM: Comprehensive 2D, Doppler, and color-flow Echocardiogram Pipe Changer: Arpita Larsen CRT Ht: 5 ft 5 in Wt: 217lbs BSA: 2.05 BP: 137/73 mmHg Indications: Murmur, Diabetes, CAD, Hyperlipidemia, Hypertension/HDD, smoker, CAD, GERD 2D Dimensions LVOT 1.95 cm (M/F) 1.5-2.5 LA Volume 38.10 mL LA Volume Index 18.60 mL/m2 (M/F) 16-34 M-Mode Dimensions RVDd 2.49 cm (0.9-2.6) LA Diam 3.71 cm (1.9-4.0) LVDd 5.99 cm (3.5-5.7) Ao Diam 3.51 cm (2.0-3.7) LVDs 3.21 cm (3.5-5.7) IVSd 1.53 cm (0.6-1.1) PWd 0.92 cm (0.6-1.1) EF (Teich) 77.00% FS 46.40% EDV (Teich) 179.30 mL ESV (Teich) 41.30 mL LV Diastology MED E' 4.20 (< 7 cm/sec) MED A' 8.70 cm/s LAT E' 5.40 (<10 cm/sec) LAT A' 10.50 cm/s Aortic Valve LVOT Max 157.00 (70-110 cm/s) LVOT VTI 33.38 cm AoV Peak Ariel. 253.00 (50-130 cm/s) AO Peak GR. 25.60 mmHg AO Mean GR. 14.00 (<5 mmHg) AO VTI 47.79 (18-25 cm) ERIN (VTI) 2.09 (2.5-4.5 cm2) Pulmonary Valve PV Peak Velocity 115.00 (50-150 cm/s) Tricuspid Valve TR P. Velocity 134.00 cm/s RAP Estimate 10.00 mmHg RVSP 17.20 mmHg Left Ventricle Left atrium is mildly enlarged, left ventricle is normal size, mild concentric left ventricular hypertrophy, visually estimated ejection fraction 55 to 60% with no regional wall motion abnormality, grade 1 diastolic dysfunction seen without tissue Doppler evidence of raise left atrial pressure. Right Ventricle Right atrium and right ventricle are normal size and contractility. Aortic Valve Aortic valve is minimally thickened and fibrosed, the mean gradient across valve is 15 mmHg, valve area is 1.63 cm??? represents mild aortic stenosis, there is no aortic insufficiency. Mitral Valve Mitral valve grossly normal, there is trace mitral regurgitation. Tricuspid Valve Tricuspid grossly normal, there is trace tricuspid regurgitation, tricuspid regurgitation jet velocity is inadequate for calculation of the right ventricular systolic pressure. Pulmonic Valve Pulmonic valve is poorly visualized. Great Vessels Aortic root is normal size. Inferior vena cava normal size with normal inspiratory collapse. Pericardium No significant pericardial effusion noted. Conclusion 1. Mildly enlarged left atrium, normal left ventricular size, mild concentric left ventricular hypertrophy, visually estimated ejection fraction 55% with no regional wall motion abnormality, grade 1 diastolic dysfunction seen without tissue Doppler evidence of raise left atrial pressure. 2. Thickened and calcified aortic valve with mild aortic stenosis, valve area is 1.63 cm???. There is no aortic insufficiency. 3. Trace mitral and tricuspid regurgitation. 4. No significant pericardial effusion noted. 5. Inferior vena cava is normal size with normal inspiratory collapse. Electronically signed by : Thomas Mathew MD 01/21/2021 21:12:51
== END ==
PROVIDERS: PCP Nurse Practitioner Family; Visit Provider Internal Medicine Cardiovascular Disease
DX: R01.1 Cardiac murmur, unspecified (principal)
CPT/HCPCS: 93306

== ENCOUNTER → 2021-02-19 10:46 | Outpatient (CLI) | payer BC, SELFPAY ==
--- NOTE | 2021-02-19 10:50 | CA_ITS ---
APPROVED REPORT Roll Scale Man: Jen Lal RVT Laterality: Bilateral Study Quality: Good Indications: BRUIT,, Carotid stenosis Risk Factors Hypertension: Hyperlipidemia Diabetes Doppler Spectral Velocity Analysis ECA (R) 294.70/30.80 cm/s ECA (L) 262.00/25.00 cm/s dICA (R) 99.40/24.60 cm/s dICA (L) 132.30/33.40 cm/s Ras (R) 81.30/23.50 cm/s Ras (L) 121.20/37.60 cm/s pICA (R) 64.20/20.30 cm/s pICA (L) 96.10/26.50 cm/s dCCA (R) 68.40/17.10 cm/s dCCA (L) 86.40/15.30 cm/s pCCA (R) 81.30/16.00 cm/s pCCA (L) 139.30/25.10 cm/s Vert (R) 40.40/11.10 cm/s Vert (L) 36.20/15.30 cm/s ICA/CCA 1.45 ICA/CCA 1.53 Findings Study suggests 20-49% stenosis of the right internal cartoid artery. Study suggests 20-49% stenosis of the left internal cartoid artery. Antegrade flow seen bilateral vertebral arteries. 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 Study suggests 20-49% stenosis of the left internal cartoid artery. Antegrade flow seen bilateral vertebral arteries. Electronically signed by : Dre Lynn MD 02/19/2021 14:48:50
== END ==
PROVIDERS: PCP Nurse Practitioner Family; Visit Provider Internal Medicine Cardiovascular Disease
DX: I25.10 Atherosclerotic heart disease of native coronary artery without angina pectoris (principal)
CPT/HCPCS: 93880

== ENCOUNTER → 2021-03-05 08:14 | Outpatient (CLI) | payer BC, SELFPAY | PROVIDERS: PCP Nurse Practitioner Family; Visit Provider Nurse Practitioner | DX: Z20.822 Contact with and (suspected) exposure to COVID-19 (principal) | CPT/HCPCS: C9803; U0003; U0005 ==

== ENCOUNTER → 2021-04-16 14:50 | Outpatient (CLI) | payer BC, SELFPAY ==
--- NOTE | 2021-04-16 14:58 | XR_ITS ---
FINAL REPORT CLINICAL HISTORY: PAIN DUE TO TRAUMA, lateral ankle pain post fall FINDINGS: RIGHT ANKLE Three views demonstrate of the right ankle were obtained. There is soft tissue swelling about the ankle, particularly laterally. There is a moderate plantar spur. Tracy deformity is identified. There may be small avulsion along the dorsal aspect of the distal talus. Avulsed fragment measures 7 mm, age indeterminate. IMPRESSION: Possible small avulsion along the dorsal aspect of the distal talus, age indeterminate. Reviewed, Interpreted and Dictated by Parminder Gann MD Transcribed by Ambreen Barrett Authenticated by Parminder Gann MD on 04/16/2021 03:58:[address] [facility]
--- NOTE | 2021-04-16 14:58 | XR_ITS ---
FINAL REPORT CLINICAL HISTORY: PAIN DUE TO TRAUMA, lateral leg pain post fall FINDINGS: RIGHT TIBIA FIBULA Two views demonstrate no acute fracture or dislocation. The joint spaces appear normal. The visualized bony structures are well aligned. No soft tissue abnormality is seen. IMPRESSION: No acute process. Reviewed, Interpreted and Dictated by Parminder Gann MD Transcribed by Ambreen Barrett Authenticated by Parminder Gann MD on 04/16/2021 03:58:39 PM [facility]
== END ==
PROVIDERS: PCP Nurse Practitioner Family; Visit Provider Nurse Practitioner Family
DX: M25.571 Pain in right ankle and joints of right foot (principal); G89.11 Acute pain due to trauma
CPT/HCPCS: 73590; 73610

== ENCOUNTER → 2021-05-01 13:40 | Outpatient (CLI) | payer BC, SELFPAY ==
--- NOTE | 2021-05-01 13:41 | CT_ITS ---
FINAL REPORT TECHNIQUE: Thin section axial CT images with coronal and sagittal reformats were performed of the right ankle. Three-D reformatted images were also obtained and reviewed. This study was performed with techniques to keep radiation doses as low as reasonably achievable (ALARA). Individualized dose reduction techniques using automated exposure control or adjustment of mA and/or kV according to the patient''s size were employed. CLINICAL HISTORY: FRACTURE EVALUATION; patient feel 1 month ago; bruising at proximal ankle and proximal foot FINDINGS: There is a calcification superior to the distal talus, small avulsion fracture not excluded. Small avulsion fracture is seen at the anterior aspect of the lateral malleolus on series 3, image 62. There is also a small, nondisplaced fracture at the lateral aspect of the anterior calcaneus seen on series 3 image 72. There is no significant callus formation seen. Mild degenerative changes are noted. IMPRESSION: Multiple fractures as above without significant callus formation seen. Reviewed, Interpreted and Dictated by Jace Spears III, MD Transcribed by Chetna Zimmer Authenticated by Jace Spears III, MD on 05/01/2021 03:32:19 PM [facility]
== END ==
PROVIDERS: PCP Nurse Practitioner Family; Visit Provider Podiatrist
DX: M25.571 Pain in right ankle and joints of right foot (principal); S92.101A Unspecified fracture of right talus, initial encounter for closed fracture; S92.151A Displaced avulsion fracture (chip fracture) of right talus, initial encounter for closed fracture
CPT/HCPCS: 73700

== ENCOUNTER → 2021-05-06 11:50 | Outpatient (CLI) | payer BC, SELFPAY ==
--- NOTE | 2021-05-06 | CA_ITS ---
APPROVED REPORT Exam: Pharmacologic Technologist: Rajwinder Lackey, Ht: 5 ft 4 in Wt: 227 lbs BSA: 2.06 m2 HR: 90 bpm BP: 138/71 mmHg Indications: CAD, HTN Medical History Medications: Aspirin,,,,, Metoprolol,,,,, Losartan,,,,, Pantoprazole,,,,, Ropinirole,,,,, INSULIN,,,,, Albuterol,,,,, Montelukast,,,,, Januvia,,,,, Nitroglycerin,,,,, AZelastine,,,,, Xyzal,,,,, Stress Test Details Test: LEXISCAN HR Resting HR: 90 bpm Max Heart Rate (APMHR): 162.679610 bpm Max HR Achieved: 112 bpm Target HR (85% APMHR): 137.378912 bpm % of APMHR: 69.14 Recovery HR: 99 bpm BP Resting BP: 138/71 mmHg Max BP: 143/69 mmHg Recovery BP: 143.0/69.0 mmHg ECG Resting ECG: NSR, PVC's, low woltage QRS Clinical Exercise duration: 04:00 min Highest Stage Achieved: Exercise capacity: 1.0 METs Stress ECG Conclusion Symptoms: Fleeting CP (1 episode), SOA, malaise. Arrhythmias/Ectopy: Occ PVC. ST-T Changes: No significant changes. Conclusion: Unremarkable Lexiscan stress. Myoview images reported separately. Electronically signed by : Thomas Mathew MD 05/06/2021 19:28:23
--- NOTE | 2021-05-06 12:06 | NM_ITS ---
APPROVED REPORT Exam: Nuclear Stress Test Indication: CAD, HTN, H/O WA, HYPERLIPIDEMIA, TOB USE, FM HX., Patient Location: Outpatient Stress Tech: Rajwinder Vidal [place] Tech:Leslie Izquierdo, ARRT RT (R)(N)(M) Ht: 5 ft 4 in Wt: 227 lbs Bra Size: 40C HR: 90 bpm BP: 138/71 mmHg BSA: 2.06 m2 BMI: 38.9 History: CAD, HTN, H/O WA, HYPERLIPIDEMIA, TOB USE, FM HX., Procedure: Patient received a 0.4 mg of intravenous Lexiscan, resting heart rate 90 bpm, resting blood pressure 138/71 mmHg, with Lexiscan maximum heart rate achived was 111 bpm which is Less than 85 % of the maximum predicted heart rate and blood pressure was 114/59 mmHg. C.P., SOA Electrocardiogram Resting electrocardiogram shows sinus rhythm, with Lexiscan there is less than 1.[address] segment depression from the baseline EKG. The EKG portion of the Lexiscan is nondiagnostic. Cardiac Stress and Resting SPECT Images: Cardiac Stress and Resting SPECT images were obtained using technetium 99m Myoview 31.8 mCi stress and 10.50 mCi at rest. Gated SPECT analysis of segmental wall motion and calculation of ejection fraction also done. Cardiac stresstest images show uniform myocardial activity without segmental perfusion abnormality computer derived ejection fraction is 61% with no regional wall motion abnormality, there is transient ischemic dilatation of the left ventricle seen. Conclusion: 1. The EKG portion of the Lexiscan is nondiagnostic. 2. No scintigraphic evidence of reversible ischemia seen, computer derived ejection fraction 61% with no regional wall motion abnormality, however there is transient ischemic dilatation of the left ventricle seen, raising the concern for presence of balanced ischemia. 3. Abnormal Lexiscan Myoview study. Electronically signed by : Thomas Mathew MD 05/06/2021 19:31:03
== END ==
PROVIDERS: PCP Nurse Practitioner Family; Visit Provider Nurse Practitioner Family
DX: I25.10 Atherosclerotic heart disease of native coronary artery without angina pectoris (principal)
CPT/HCPCS: 78452; 93017; A9502; J2785

== ENCOUNTER → 2021-05-16 09:22 | Outpatient (CLI) | payer BC, SELFPAY ==
[2021-05-16 11:25] LABS: Chloride 100 mmol/L (98-107); Potassium 4.2 mmoL/L (3.5-5.1); Sodium 137 mmol/L (136-145)
[2021-05-16 11:27] LABS: Alanine Aminotransferase 24 U/L (12-78); Aspartate Amino Transferase 29 U/L (14-36); Blood Urea Nitrogen 11 mg/dl (7-17); Estimated Glomerular Filt Rate 127 ml/min (>60); GFR (African American) 153 ML/MIN (>60)
[2021-05-16 11:28] LABS: Albumin Level 3.8 g/dl (3.5-5.0); Albumin/Globulin Ratio 1.3 (1.1-1.8); Alkaline Phosphatase 115 U/L (38-126); Anion Gap 10.2 mEq/L (5-15); Bilirubin,Total 0.6 mg/dl (0.2-1.3); Calcium 8.6 mg/dl (8.4-10.2); Carbon Dioxide 31 mmol/L (22.0-30.0); Chol/HDL Ratio 1.9 (1-3.5); Cholesterol 148 mg/dl (140-200); Glucose 200 mg/dl (74-100); HDL Cholesterol 78 mg/dl (40-60); Total Protein,Serum 6.8 g/dl (6.3-8.2); Triglycerides 93 mg/dl (30-150); VLDL Cholesterol 19 mg/dL (0-40)
[2021-05-16 11:39] LABS: Direct LDL Cholesterol 63.08 mg/dL (100-129)
== END ==
PROVIDERS: Visit Provider Nurse Practitioner Family
DX: I25.10 Atherosclerotic heart disease of native coronary artery without angina pectoris (principal)
CPT/HCPCS: 36415; 80053; 80061

== ENCOUNTER → 2021-05-18 10:51 | Outpatient (CLI) | payer BC, SELFPAY ==
--- NOTE | 2021-05-18 10:55 | XR_ITS ---
FINAL REPORT CLINICAL HISTORY: fracture evaluation wt bearing views COMPARISON: CT dated May 01, 2021 FINDINGS: RIGHT FOOT: Three views of the right foot were obtained. There is a fracture at the anterolateral aspect of the calcaneus but is suboptimally visualized. There are mild degenerative changes. There is a small plantar calcaneal spur. There is a calcification in the region of the distal Achilles tendon. There is no soft tissue abnormality. IMPRESSION: Fracture at the anterolateral aspect of the calcaneus. Reviewed, Interpreted and Dictated by Jace Spears III, MD Transcribed by Jerome Duarte Authenticated by Jace Spears III, MD on 05/18/2021 12:28:06 PM [facility]
== END ==
PROVIDERS: PCP Nurse Practitioner Family; Visit Provider Podiatrist
DX: S82.61XA Displaced fracture of lateral malleolus of right fibula, initial encounter for closed fracture (principal); S92.001A Unspecified fracture of right calcaneus, initial encounter for closed fracture; S92.101A Unspecified fracture of right talus, initial encounter for closed fracture
CPT/HCPCS: 73630

== ENCOUNTER → 2021-05-26 07:50 | Outpatient (CLI) | payer BC, SELFPAY ==
--- NOTE | 2021-05-26 07:50 | CT_ITS ---
FINAL REPORT TECHNIQUE: Axial images were obtained from the lung apex to the mid abdomen by computed tomography. Coronal reformatted images were obtained. This study was performed with techniques to keep radiation doses as low as reasonably achievable, (ALARA). Individualized dose reduction techniques using automated exposure control or adjustment of mA and/or kV according to the patient''s size were employed. CLINICAL HISTORY: f/u lung nodule COMPARISON: October 24, 2019 and May 22, 2020 FINDINGS: There is no axillary adenopathy. There is no hilar or mediastinal adenopathy. Heart size is normal. There are severe coronary artery calcifications. There is no pericardial or pleural effusion. On the limited images of the upper abdomen, the liver has a nodular contour which is worrisome for cirrhosis. On the lung window images there are stable 3 mm nodules in the right upper lobe on image 16. There is a 2 mm stable nodule in the lateral left upper lobe, also seen on image 16. There is calcified granuloma in the right middle lobe. There is mild scarring. IMPRESSION: Stable nodules as described. Liver has a nodular contour, worrisome for cirrhosis. Reviewed, Interpreted and Dictated by Jace Spaers III, MD Transcribed by Pat Kelley Authenticated by Jace Spears III, MD on 05/26/2021 11:29:39 AM [facility]
== END ==
PROVIDERS: PCP Nurse Practitioner Family; Visit Provider Internal Medicine Pulmonary Disease
DX: R91.8 Other nonspecific abnormal finding of lung field (principal)
CPT/HCPCS: 71250

== ENCOUNTER 2021-05-29 10:00 | Outpatient (RCR) | payer BC, SELFPAY | END 2021-05-29 10:05 | disposition home or self-care (01) | LOC: PT 10:00 | PROVIDERS: PCP Nurse Practitioner Family; Visit Provider Podiatrist | DX: M25.571 Pain in right ankle and joints of right foot (principal); M25.371 Other instability, right ankle; S92.151A Displaced avulsion fracture (chip fracture) of right talus, initial encounter for closed fracture; S92.001A Unspecified fracture of right calcaneus, initial encounter for closed fracture; S82.61XA Displaced fracture of lateral malleolus of right fibula, initial encounter for closed fracture | CPT/HCPCS: 97010; 97014; 97163; G0283 ==

== ENCOUNTER 2021-06-10 15:35 | Emergency (ER) | payer BC, SELFPAY ==
[2021-06-10 16:13] VITALS: BP 141/78; PULSE 76; RESP 16; TEMP 36.6; O2SAT 100; BMI 36.3
[2021-06-10 16:16] LABS: Adenovirus,PCR Not Detected (NotDetected); Bordetella Pertussis Not Detected (NotDetected); Chlamydophila Pneumoniae, PCR Not Detected (NotDetected); Coronavirus 19, PCR Not Detected (NotDetected); Coronavirus 229E Not Detected (NotDetected); Coronavirus NL63 Not Detected (NotDetected); Coronavirus OC43 Not Detected (NotDetected); Coronovirus HKU1,PCR Not Detected (NotDetected); Human Metapneumovirus Not Detected (NotDetected); Influenza A, PCR Not Detected (NotDetected); Influenza AH1, 2009 Not Detected (NotDetected); Influenza AH1, PCR Not Detected (NotDetected); Influenza AH3,PCR Not Detected (NotDetected); Influenza B, PCR Not Detected (NotDetected); Mycoplasma Pneumoniae, PCR Not Detected (NotDetected); Parainfluenza 1, PCR Not Detected (NotDetected); Parainfluenza 2, PCR Not Detected (NotDetected); Parainfluenza 3, PCR Not Detected (NotDetected); Parainfluenza 4, PCR Not Detected (NotDetected); Respiratory Syncytial Virus Not Detected (NotDetected); Rhinovirus/Enterovirus Not Detected (NotDetected)
--- NOTE | 2021-06-10 16:20 | HMH.EDUTC ---
[facility] Disposition Clinical Impression: Encounter for laboratory testing for COVID-19 virus Disposition: Home, Self-Care Condition on Discharge: Good Instructions: DI for COVID-19 (Suspected or Confirmed ) Additional Instructions: Your Test results should be back possible later today or Tomorrow and you can access your results on the [facility] my health portal Follow up with your Family Doctor as needed Return if needed Straight to ER if any life threatening symptoms Referrals: Vidhi Quan APRN [Primary Care Provider] - As needed Time of Disposition: 16:23 Medical Decision Making - [place] Inquiry Pt receiving controlled substance: No [place] was queried for this patient: No Vital Signs: 06/10/21 16:13 Temperature 97.8 F Temperature Source Oral Pulse Rate [Right Radial] 76 Respiratory Rate 16 Blood Pressure [Right Arm] 141/78 H Blood Pressure Mean [Right Arm] 99 Blood Pressure Source [Right Arm] Automatic Cuff Blood Pressure Position [Right Arm] Sitting 02 Sat by Pulse Oximetry 100 Oxygen Delivery Method Room Air - Lab Data Lab results reviewed: Yes: I reviewed the patient's lab results. Orders (Tests/Meds): ORDERS Category Date Time Status Full Resp Panel w/COVID ([facility]) Routine Lab 06/10/21 16:10 Received [facility] HPI - General Stated complaint: covid test Time Seen by Provider: 06/10/21 16:20 Mode of Arrival: Ambulatory Source of Information: Patient Limitations: No Limitations Description of Symptoms (Recalled from Triage Doc. by RN): Requesting COVID test for a procedure HEENT Symptoms (Recalled from RN notes): No Resp Symptoms (Recalled from RN notes): No Skin Symptoms (Recalled from RN notes): No MS Symptoms (Recalled from RN notes): No Functional Status (Recalled from RN notes): n/a - History of Present Illness Provider Complaint: Patient states that she is suppose to have procedure done on Tuesday at [facility] and they wanted her to come in and get a COVID test before her procedure Denies any symptoms or exposures - Related Data Home Medications Medication Instructions Recorded Confirmed Amitriptyline HCl [Elavil 25mg 25 mg PO DAILY 06/15/18 05/18/21 tablet] Aspirin [Aspir 81] 81 mg PO DAILY 06/15/18 05/18/21 Insulin Regular, Human [Humulin R 100 unit SQ TID 06/15/18 05/18/21 U-500 Kwikpen] Levocetirizine Dihydrochloride 5 mg PO DAILY 06/15/18 05/18/21 [Xyzal] Melatonin/Pyridoxine HCl (B6) 1 each PO DAILY 06/15/18 05/18/21 [Melatonin 10 mg Tablet] Metoprolol Succinate 25 mg PO DAILY 06/15/18 05/18/21 Nitroglycerin 0.3 mg SL DAILYP PRN 06/15/18 05/18/21 Pantoprazole Sodium [Protonix 40mg 40 mg PO DAILY 06/15/18 05/18/21 tablet] Ropinirole HCl [Ropinirole ER] 4 mg PO DAILY 06/15/18 05/18/21 evolocumab 140 mg/mL subcutaneous mg SQ 11/14/19 05/18/21 pen injector ropinirole 2 mg tablet 2 mg PO DAILY 11/14/19 05/18/21 losartan 50 mg tablet 50 mg PO tab 04/21/21 05/18/21 sitagliptin 100 mg tablet 100 mg PO tab 04/21/21 05/18/21 Previous Rx's Medication Instructions Recorded benzonatate 100 mg capsule 100 mg PO BID PRN #60 cap 11/14/19 albuterol sulfate 90 mcg/actuation 1 inh INHALATION QID 90 Days #8.5 g 12/08/20 aerosol inhaler azelastine 137 mcg (0.1 %) nasal 1 spray INTRANASAL BID 90 Days #90 12/08/20 spray aerosol ml montelukast 10 mg tablet 10 mg PO DAILY 90 Days #90 tab 12/08/20 triamcinolone acetonide 55 mcg 2 spray INTRANASAL DAILY 90 Days 12/08/20 nasal spray aerosol #16.9 ml budesonide-formoterol HFA 160 2 puff INHALATION BID 90 Days 05/07/21 mcg-4.5 mcg/actuation aerosol #10.2 g inhaler Allergies Allergy/AdvReac Type Severity Reaction Status Date / Time amoxicillin [From AUGMENTIN] Allergy Unknown I-RASH Verified 05/18/21 11:35 clavulanic acid Allergy Unknown I-RASH Verified 05/18/21 11:35 [From AUGMENTIN] nadolol [NADOLOL] Allergy Unknown I-RASH Verified 05/18/21 11:35 neomycin [NEOMYCIN] Allergy Unknown Verified 05/18/21 11
[2021-06-10 16:34] VITALS: BP 141/78; PULSE 76; RESP 16; TEMP 36.6; O2SAT 100
== END 2021-06-10 16:35 | disposition home or self-care (01) ==
PROVIDERS: Emergency Provider Nurse Practitioner; PCP Nurse Practitioner Family
DX: Z11.52 Encounter for screening for COVID-19 (principal)
CPT/HCPCS: 87581; 87632; 87798; 99212; C9803; G0463; U0003; U0005

== ENCOUNTER → 2021-07-22 12:41 | Outpatient (CLI) | payer BC, SELFPAY ==
[2021-07-22 13:09] LABS: Basophils # 0.2 K/mm3 (0-0.2); Basophils % 1.9 % (0.1-2.0); Eosinophils # 0.3 K/mm3 (0.0-0.4); Eosinophils % 2.7 % (0.1-12.0); Hematocrit 37.6 % (37.0-47.0); Hemoglobin 12.1 g/dL (12.2-16.2); Lymphocytes # 2.6 K/mm3 (0.7-4.5); Lymphocytes % 20.8 % (10-50); Mean Corpuscular HGB Conc 32.2 g/dL (31.8-35.4); Mean Corpuscular Hemoglobin 28.5 pg (27.0-31.2); Mean Corpuscular Volume 88.7 fl (81-99); Mean Platelet Volume 7.6 fl (7.4-10.4); Monocytes # 0.9 K/mm3 (0.1-1.0); Monocytes % 7.3 % (1.7-9.3); Neutrophils # 8.3 K/mm3 (1.8-7.8); Neutrophils % 67.4 % (37.0-80.0); Platelet Count 347 K/mm3 (142-424); Red Blood Count 4.25 M/mm3 (4.20-5.40); Red Cell Distribution Width 14.2 % (11.5-17.5); White Blood Count 12.3 K/mm3 (4.8-10.8)
[2021-07-22 13:59] LABS: Alanine Aminotransferase 21 U/L (12-78); Albumin Level 3.6 g/dl (3.5-5.0); Albumin/Globulin Ratio 0.9 (1.1-1.8); Alkaline Phosphatase 139 U/L (38-126); Anion Gap 13.9 mEq/L (5-15); Aspartate Amino Transferase 33 U/L (14-36); Bilirubin,Total 0.4 mg/dl (0.2-1.3); Blood Urea Nitrogen 7 mg/dl (7-17); Carbon Dioxide 30 mmol/L (22.0-30.0); Chloride 99 mmol/L (98-107); Estimated Glomerular Filt Rate 127 ml/min (>60); GFR (African American) 153 ML/MIN (>60); Globulin 3.9 g/dL (1.3-3.2); Glucose 265 mg/dl (74-100); Magnesium 1.6 mg/dl (1.6-2.3); Potassium 3.9 mmoL/L (3.5-5.1); Sodium 139 mmol/L (136-145); Total Protein,Serum 7.5 g/dl (6.3-8.2)
== END ==
PROVIDERS: PCP Nurse Practitioner Family; Visit Provider Nurse Practitioner Family
DX: R06.00 Dyspnea, unspecified (principal); I25.10 Atherosclerotic heart disease of native coronary artery without angina pectoris
CPT/HCPCS: 36415; 80053; 83735; 85025

== ENCOUNTER 2021-08-07 22:11 | Emergency (ER) | payer BC, SELFPAY ==
--- NOTE | 2021-08-07 22:09 | ECG_ITS ---
APPROVED REPORT Exam: Resting ECG HR:115 bpm ECG Measurements Heart Rate 115 AXES DE 183 P 57 QRSd 79 QRS 71 QT 436 T 68 QTc 504 Conclusion SINUS TACHYCARDIA WITH FREQUENT VENTRICULAR PREMATURE COMPLEXES POSSIBLE LEFT ATRIAL ENLARGEMENT [-0.1mV P-WAVE IN V1/V2] NONSPECIFIC ST & T-WAVE ABNORMALITY ABNORMAL RHYTHM ECG UNCONFIRMED REPORT Electronically signed by : Rosalio Nunez MD 08/09/2021 18:43:07
[2021-08-07 22:11] VITALS: BP 134/78; PULSE 121; RESP 26; TEMP 36.9; O2SAT 88; BMI 35.3
[2021-08-07 22:16] VITALS: BP 134/78; PULSE 119; O2SAT 95; BMI 35.3
[2021-08-07 22:17] LABS: Coronavirus 19, PCR Not Detected (NotDetected); Influenza A, PCR Not Detected (NotDetected); Influenza B, PCR Not Detected (NotDetected)
--- NOTE | 2021-08-07 22:17 | XR_ITS ---
PROCEDURE INFORMATION: Exam: XR Chest Exam date and time: 08/07/2021 10:33 PM Age: 60 years old Clinical indication: Shortness of breath; Sternal or substernal pain; Prior surgery; Surgery date: 1-6 months; Patient HX: Cabg 5 weeks ago, chf, SOB, cough, ; additional info: Chest pain TECHNIQUE: Imaging protocol: Radiologic exam of the chest. Views: 2 views. COMPARISON: CT CHEST WO CON 05/26/2021 8:07 AM FINDINGS: Lungs: Bibasilar pulmonary opacities, better evaluated on CT. Pleural spaces: Pleural effusions Heart/Mediastinum: Enlarged cardiac silhouette consistent with pericardial effusion. Metallic cardiac valve prosthesis. Bones/joints: Median sternotomy. Organs: Cholecystectomy. IMPRESSION: 1. Enlarged cardiac silhouette consistent with pericardial effusion. 2. Bibasilar pulmonary opacities, better evaluated on CT. Recommend imaging follow-up until complete resolution.
--- NOTE | 2021-08-07 22:18 | CT_ITS ---
PROCEDURE INFORMATION: Exam: CTA Chest With Contrast Exam date and time: 08/07/2021 10:44 PM Age: 60 years old Clinical indication: Sternal or substernal pain; Prior surgery; Surgery date: 1-6 months; Surgery type: Cabg 6 weeks ago; Additional info: Chest pain TECHNIQUE: Imaging protocol: Computed tomographic angiography of the chest with contrast. 3D rendering (Not supervised by radiologist): MIP and/or 3D reconstructed images were created by the technologist. Radiation optimization: All CT scans at this facility use at least one of these dose optimization techniques: automated exposure control; mA and/or kV adjustment per patient size (includes targeted exams where dose is matched to clinical indication); or iterative reconstruction. Contrast material: ISOVUE 370; Contrast volume: 70 ml; Contrast route: INTRAVENOUS (IV); COMPARISON: CT CHEST WO CON 05/26/2021 8:07 AM FINDINGS: Pulmonary arteries: Evaluation for pulmonary embolism is limited secondary to respiratory motion artifact without definite evidence of pulmonary embolism. Aorta: No thoracic aortic aneurysm. Atherosclerotic calcifications. Lungs: Large consolidative opacity at the right lung base. Pleural spaces: Moderate size left pleural effusion with adjacent atelectasis/consolidation. Heart: Moderate to large pericardial effusion. Lymph nodes: No significant intrathoracic lymphadenopathy. Liver: Nodular contour of the liver consistent with cirrhosis. 3.4 cm low-attenuation lesion in the liver, indeterminate, possibly HCC. Gallbladder and bile ducts: Cholecystectomy. Spleen: Several calcified splenic granulomas. Bones/joints: Median sternotomy. Soft tissues: No discreet soft tissue mass. IMPRESSION: 1. Evaluation for pulmonary embolism is limited secondary to respiratory motion artifact without definite evidence of pulmonary embolism. 2. Nodular contour of the liver consistent with cirrhosis. 3.4 cm low-attenuation lesion in the liver, indeterminate, possibly HCC. Correlate with MR. 3. Moderate to large pericardial effusion. 4. Moderate size left pleural effusion with adjacent atelectasis/consolidation. Recommend imaging follow-up until complete resolution. 5. Large consolidative opacity at the right lung base. Recommend imaging follow-up until complete resolution as malignancy may have a similar appearance.
[2021-08-07 22:29] LABS: Alanine Aminotransferase 17 U/L (12-78); Albumin Level 4.1 g/dl (3.5-5.0); Albumin/Globulin Ratio 0.8 (1.1-1.8); Alkaline Phosphatase 121 U/L (38-126); Amylase 49 U/L (30-110); Anion Gap 12.5 mEq/L (5-15); Aspartate Amino Transferase 31 U/L (14-36); Bilirubin,Total 0.5 mg/dl (0.2-1.3); Blood Urea Nitrogen 6 mg/dl (7-17); Calcium 9.3 mg/dl (8.4-10.2); Carbon Dioxide 31 mmol/L (22.0-30.0); Chloride 101 mmol/L (98-107); Creatinine Clearance Estimated 181 mL/min (50-200); Estimated Glomerular Filt Rate 127 ml/min (>60); GFR (African American) 153 ML/MIN (>60); Globulin 5.3 g/dL (1.3-3.2); Glucose 98 mg/dl (74-100); Lipase 23 U/L (23-300); Potassium 3.5 mmoL/L (3.5-5.1); Sodium 141 mmol/L (136-145); Total Protein,Serum 9.4 g/dl (6.3-8.2)
[2021-08-07 22:35] LABS: C-Reactive Protein 81.9 mg/L (0-4)
[2021-08-07 22:37] LABS: Basophils # 0.4 K/mm3 (0-0.2); Basophils % 1.8 % (0.1-2.0); Eosinophils # 0.2 K/mm3 (0.0-0.4); Hematocrit 43.8 % (37.0-47.0); Hemoglobin 13.9 g/dL (12.2-16.2); Lymphocytes # 2.6 K/mm3 (0.7-4.5); Lymphocytes % 12.5 % (10-50); Mean Corpuscular HGB Conc 31.8 g/dL (31.8-35.4); Mean Corpuscular Hemoglobin 27.4 pg (27.0-31.2); Mean Corpuscular Volume 86.1 fl (81-99); Mean Platelet Volume 7.7 fl (7.4-10.4); Monocytes # 1.2 K/mm3 (0.1-1.0); Monocytes % 5.7 % (1.7-9.3); Neutrophils # 16.7 K/mm3 (1.8-7.8); Platelet Count 449 K/mm3 (142-424); Red Blood Count 5.09 M/mm3 (4.20-5.40); Red Cell Distribution Width 15.1 % (11.5-17.5); White Blood Count 21.2 K/mm3 (4.8-10.8)
--- NOTE | 2021-08-07 22:41 | PC.NURSE ---
PT gone to RAD
[2021-08-07 22:42] LABS: MANUAL DIFFERENTIAL MANUAL DIFFERENTIAL (MANUAL DIFF); NT Pro Brain Natriuretic Pep. 152 pg/mL (0-125)
[2021-08-07 22:48] LABS: Procalcitonin 0.133 ng/mL (0.0-2.0); Troponin I < 0.01 ng/ml (0.00-0.034)
--- NOTE | 2021-08-07 22:53 | PC.NURSE ---
Pt back from RAD
[2021-08-07 23:00] VITALS: BP 170/85; PULSE 80; RESP 24; O2SAT 94
[2021-08-07 23:05] LABS: Hypochromasia 1+; Lymphocytes % 14 % (10-50); Monocytes % 2 % (2-9); Neutrophils % 80 % (42-76); Platelet Estimate Slight Increase; Total Cells Counted 100
[2021-08-07 23:15] LABS: Lactic Acid 1.5 mmol/L (0.7-2.1)
--- NOTE | 2021-08-07 23:22 | HMH.EDCP ---
ED Disposition Clinical Impression: Pericardial effusion, acute Disposition: Xfer Short-Term Hosp Condition on Discharge: Serious Referrals: Vidhi Quan APRN [Primary Care Provider] - - Critical Care Critical Care Time: Yes Attestation: On 08/07/21, the high probability of a clinically significant, sudden or life threatening deterioration of the following system(s) required my full and direct attention, intervention and personal management. The time I documented below is in addition to time spent performing reported procedures but includes the following listed in this critical care notation. Total Critical Care Time: 45 Vital system(s) involved:: Circulatory Failure My critical care processes included: Assessment & monitoring of V/S, Initial and Re-exams, Data Review/Interpretation, Coordinating Care, Medication Orders and management, Documentation Medical Decision Making - Medical Records Medical records reviewed: Yes: I reviewed the patient's medical records. - [place] Inquiry Pt receiving controlled substance: No Vital Signs: 08/07/21 22:11 Temperature 98.4 F Temperature Source Oral Pulse Rate [Left Radial] 121 H Respiratory Rate 26 H Blood Pressure [Right Arm] 134/78 Blood Pressure Mean [Right Arm] 96 Blood Pressure Source [Right Arm] Automatic Cuff Blood Pressure Position [Right Arm] Sitting 02 Sat by Pulse Oximetry 88 L Oxygen Delivery Method Room Air - Lab Data Lab results reviewed: Yes: I reviewed the patient's lab results. Lab Results 08/07/21 22:12: WBC 21.2 H*, RBC 5.09, Hgb 13.9, Hct 43.8, MCV 86.1, MCH 27.4, MCHC 31.8, RDW 15.1, Plt Count 449 H, MPV 7.7, Neut % (Auto) 79.0, Lymph % (Auto) 12.5, [place] % (Auto) 5.7, Eos % (Auto) 1.0, Baso % (Auto) 1.8, Neut # (Auto) 16.7 H, Lymph # (Auto) 2.6, [place] # (Auto) 1.2 H, Eos # (Auto) 0.2, Baso # (Auto) 0.4 H, Total Counted 100, Neutrophils % (Manual) 80 H, Band Neutrophils % 4.0, Lymphocytes % (Manual) 14, Monocytes % (Manual) 2, Platelet Estimate Slight increase, Hypochromasia 1+, ESR 54 H 08/07/21 22:12: Sodium 141, Potassium 3.5, Chloride 101, Carbon Dioxide 31 H, Anion Gap 12.5, BUN 6 L, Creatinine 0.50 L, Estimated Creat Clear 181, Estimated GFR 127, Est GFR ( Amer) 153, Glucose 98, Calcium 9.3, Total Bilirubin 0.5, AST 31, ALT 17, Alkaline Phosphatase 121, Troponin I < 0.01, C-Reactive Protein 81.9 H, Total Protein 9.4 H D, Albumin 4.1, Globulin 5.3 H, Albumin/Globulin Ratio 0.8 L, Amylase 49, Lipase 23, Procalcitonin 0.133 08/07/21 22:12: NT-Pro-B Natriuret Pep 152 H 08/07/21 22:14: SARS-CoV-2 (PCR) Not detected, Influenza A Untype (PCR) Not detected, Influenza Type B (PCR) Not detected 08/07/21 22:59: Lactate 1.5 08/07/21 23:47: Urine Color Yellow, Urine Appearance Clear, Urine pH 8.5, Ur Specific [place] 1.010, Urine Protein Negative, Urine Glucose (UA) Negative, Urine Ketones Negative, Urine Blood Trace-i, Urine Nitrate Negative, Urine Bilirubin Negative, Urine Urobilinogen 0.2, Ur Leukocyte Esterase Negative, Urine RBC 3-5, Ur Squamous Epith Cells 5-10 Result diagrams: 08/07/21 22:12 08/07/21 22:12 Orders (Tests/Meds): ED MEDICATIONS Discontinued Medications Generic Name Dose Route Start Last Admin Trade Name Freq PRN Reason Stop Dose Admin Iopamidol 70 ml 08/07/21 22:56 08/07/21 22:57 Iopamidol-370 (76%);100ml Bottle IV 08/07/21 22:57 70 ml ONCE ONE Administration Nitroglycerin 1 gm 08/07/21 22:22 08/07/21 22:25 Nitroglycerin 1 Gm Ointment TD 08/07/21 22:23 1 gm ONCE ONE Administration Sodium Chloride 10 ml 08/07/21 22:56 08/07/21 22:57 Sodium Chloride 0.9% 10ml Syr (Rad Only) IV 08/07/21 22:57 10 ml ONCE ONE Administration Sodium Chloride 40 ml 08/07/21 22:57 08/07/21 22:58 0.9 % Sodium Chloride 50 Ml Vial IV 08/07/21 22:58 40 ml ONCE ONE Administration ORDERS Category Date Time Status Troponin I Q3H Lab 08/08/21 01:30 Ordered Troponin I Q3H Lab 08/08/21 04:30 [place]
[2021-08-07 23:25] LABS: Erythrocyte Sedimentation Rate 54 mm/hr (0-30)
[2021-08-07 23:51] LABS: Microscopic, Urine URINE MICROSCOPIC (MICROSCOPIC)
[2021-08-07 23:52] LABS: Appearance,Urine CLEAR (Clear); Bilirubin,Urine Negative (Negative); Blood, Urine TRACE-I (Negative); Color,Urine YELLOW (Yellow); Glucose,Urine (UA) Negative (Negative); Ketones,Urine Negative (Negative); Leukocyte Esterase,Urine Negative (Negative); Nitrate,Urine Negative (Negative); PH,Urine 8.5 (5.0-8.5); Protein,Urine Negative (Negative); Urobilinogen,Urine 0.2 EU/dl (0.2)
--- NOTE | 2021-08-08 00:06 | PC.NURSE ---
Dr. Whyte at [facility] being paged at this time
[2021-08-08 00:16] VITALS: BP 139/87; PULSE 111; RESP 24; O2SAT 93
--- NOTE | 2021-08-08 00:17 | PC.NURSE ---
Pt has been accepted at [facility] by Dr. Whyte, waiting for a call back for a bed assignment
[2021-08-08 00:28] VITALS: BP 139/87; PULSE 107; RESP 29; TEMP 36.9; O2SAT 95
[2021-08-08 00:46] VITALS: BP 129/70; PULSE 103; RESP 33; O2SAT 93
--- NOTE | 2021-08-08 00:48 | PC.NURSE ---
PATIENT CONSENT FOR TRANSFER SIGNED. REPORT CALLED TO AUGUST MANRIQUEZ AT [address] [place] [address].
--- NOTE | 2021-08-08 00:50 | PC.NURSE ---
LATE ENTRY 08/07/21 2300: PT REPOSITIONED FOR COMFORT. FAMILY REMAINS AT BEDSIDE. PT UPDATED AND AWARE OF POSSIBLE TRANSFER. WCM.
[2021-08-08 01:08] VITALS: BP 133/87; PULSE 102; RESP 28; TEMP 36.7; O2SAT 95
== END 2021-08-08 01:11 | disposition short-term general hospital (02) ==
PROVIDERS: Emergency Provider Emergency Medicine; PCP Nurse Practitioner Family
DX: I31.3 Pericardial effusion (noninflammatory) (principal); R06.02 Shortness of breath; R07.9 Chest pain, unspecified; Z20.822 Contact with and (suspected) exposure to COVID-19; I10 Essential (primary) hypertension; I25.10 Atherosclerotic heart disease of native coronary artery without angina pectoris; K21.9 Gastro-esophageal reflux disease without esophagitis; E78.5 Hyperlipidemia, unspecified; E11.9 Type 2 diabetes mellitus without complications; F17.200 Nicotine dependence, unspecified, uncomplicated; Z79.02 Long term (current) use of antithrombotics/antiplatelets; Z79.4 Long term (current) use of insulin; Z79.82 Long term (current) use of aspirin; Z99.81 Dependence on supplemental oxygen; Z88.0 Allergy status to penicillin; Z88.1 Allergy status to other antibiotic agents; Z88.3 Allergy status to other anti-infective agents; Z95.5 Presence of coronary angioplasty implant and graft; Z95.1 Presence of aortocoronary bypass graft; Z82.49 Family history of ischemic heart disease and other diseases of the circulatory system; Z81.2 Family history of tobacco abuse and dependence
CPT/HCPCS: 71046; 71275; 80053; 81001; 82150; 83605; 83690; 83880; 84145; 84484; 85007; 85025; 85651; 86140; 87040; 93005; 99285; C9803; Q9967; U0003; U0005

== ENCOUNTER → 2021-09-02 13:03 | Outpatient (CLI) | payer BC, SELFPAY ==
--- NOTE | 2021-09-02 13:07 | XR_ITS ---
FINAL REPORT CLINICAL HISTORY: SOA, f/u for pleural effusion. Smoker, COPD COMPARISON: 07/28/2021 FINDINGS: TWO-VIEW CHEST There is mild cardiomegaly. The patient is status post median sternotomy. Calcified right paratracheal and hilar lymph nodes are identified. There is pleural and parenchymal scarring at the bases. There is no pneumothorax. IMPRESSION: Pleural and parenchymal scarring at the bases. Reviewed, Interpreted and Dictated by Parminder Gann MD Transcribed by Ambreen Barrett Authenticated and . [facility]
== END ==
PROVIDERS: PCP Nurse Practitioner Family; Visit Provider Internal Medicine Pulmonary Disease
DX: R06.02 Shortness of breath (principal)
CPT/HCPCS: 71046

== ENCOUNTER → 2021-09-02 15:14 | Outpatient (CLI) | payer BC, SELFPAY | PROVIDERS: PCP Nurse Practitioner Family; Visit Provider Internal Medicine Pulmonary Disease | DX: J96.92 Respiratory failure, unspecified with hypercapnia (principal) | CPT/HCPCS: 82803 ==

== ENCOUNTER → 2021-09-11 07:41 | Outpatient (CLI) | payer BC, SELFPAY ==
--- NOTE | 2021-09-11 07:41 | CT_ITS ---
FINAL REPORT TECHNIQUE: Axial images were obtained from the lung apex to the mid abdomen by computed tomography. Coronal reformatted images were obtained. This study was performed with techniques to keep radiation doses as low as reasonably achievable, (ALARA). Individualized dose reduction techniques using automated exposure control or adjustment of mA and/or kV according to the patient''s size were employed. CLINICAL HISTORY: Pneumonia COMPARISON: May 26, 2021 and August 07, 2021 FINDINGS: There are postoperative changes from median sternotomy. There is persistent fluid in the anterior mediastinum which is likely postoperative. There is no axillary adenopathy. There is no hilar or mediastinal adenopathy. Heart size is normal. There is a small left pleural effusion which is improved. There is a fluid collection in the medial lower right thorax which is stable and may represent a loculated pleural effusion versus localized pericardial effusion. Limited images of the upper abdomen demonstrate postoperative changes from cholecystectomy. The liver has an irregular contour which may represent cirrhosis, stable. There are several less than 5 mm pulmonary nodules in the upper lobes which are stable. There is right lower lobe atelectasis or pneumonia which is stable. There are mild changes of emphysema. IMPRESSION: Improved small left pleural effusion. Right lower lobe atelectasis or pneumonia, stable. Stable fluid collection in the medial lower right thorax, may represent a loculated pleural effusion versus a localized pericardial effusion. Reviewed, Interpreted and Dictated by Jace Spears III, MD Transcribed by Pat Kelley Authenticated and [facility]
--- NOTE | 2021-09-11 07:41 | FL_ITS ---
FINAL REPORT CLINICAL HISTORY: open heart sx x 2 months ago, difficulty breathing, fluoro time-0.32 FINDINGS: SNIFF TEST HISTORY: Shortness of breath. FINDINGS: A sniff test was performed under fluoroscopy. There is elevation of the right hemidiaphragm. There was paradoxical movement of the right hemidiaphragm with normal breathing and sniff maneuver. FLUOROSCOPY TIME: 32 seconds IMPRESSION: Paradoxical movement of the right hemidiaphragm. Films reviewed , interpreted and dictated by Dr. Spears. Transcribed by Casey Camacho PA-C. Reviewed, Interpreted and Dictated by Jace Spears III, MD Transcribed by JAI Cannon Authenticated and [facility]
== END ==
PROVIDERS: PCP Nurse Practitioner Family; Visit Provider Internal Medicine Pulmonary Disease
DX: R91.8 Other nonspecific abnormal finding of lung field (principal); J98.6 Disorders of diaphragm
CPT/HCPCS: 71250; 76000

== ENCOUNTER → 2021-09-26 09:31 | Outpatient (CLI) | payer BC, SELFPAY | PROVIDERS: PCP Nurse Practitioner Family; Visit Provider Internal Medicine Pulmonary Disease | DX: Z01.812 Encounter for preprocedural laboratory examination (principal); Z20.822 Contact with and (suspected) exposure to COVID-19; R06.09 Other forms of dyspnea | CPT/HCPCS: C9803; U0003; U0005 ==

== ENCOUNTER 2021-09-28 11:48 | Day surgery (SDC) | payer BC, SELFPAY ==
[2021-09-24 11:13] VITALS: BMI 32.9
[2021-09-28] VITALS (10 sets, daily range): BP systolic 115–164; BP diastolic 68–99; PULSE 22–106; RESP 16–24; TEMP 36.2; O2SAT 90–98
--- NOTE | 2021-09-28 | FL_ITS ---
FINAL REPORT CLINICAL HISTORY: Bronchoscopy Fluro Time 2.26 mGy 87.18 FINDINGS: FLUOROSCOPY IN THE OR HISTORY: Bronchoscopy FINDINGS: Fluoroscopy was provided by the radiology department for the clinical service. 3 intraoperative films were obtained during the procedure. Fluoroscopy time:2.26 minutes. IMPRESSION: Intraoperative fluoroscopy Reviewed, Interpreted and Dictated by Jace Spears III, MD Transcribed by JAI Menendez Authenticated and [facility]
[2021-09-28 12:22] LABS: POC Glucose,Bedside 184 (70-110)
--- NOTE | 2021-09-28 12:51 | HMH.ANESCL ---
[facility] Anesthesia Checklist - Patient Identification Patient Identification: Arm Band - Structural Data Admitted From: Home Planned Operative Procedure/s: Bronchoscopy Consent for Planned Operative Procedure(s) Verified: Yes Verified Documents: Surgical Consent, History and Physical - NPO Status Verified Time NPO: 00:00 - Additional verifications Anesthesia Reactions: No Hx Blood Transfusions: No Blood Transfusion Reaction: No - Airway Assessment C-Spine Mobility Assessed: Yes (mp2) TMJ Mobility Assessed: Yes Dentition: Good Dentition - Neurological Assessment Level of Consciousness: Awake, Alert - Anesthesia Plan Anesthesia Risk discussed: Yes Anesthesia Plan: Verified ASA Class: III Anesthesia Type: General [facility] History I have reviewed the patient's past medical history: Yes Medical History: Reports:: Asthma, Chronic Obstructive Pulmonary Disease (COPD), Coronary Artery Disease, Diabetes Mellitus Type 2, Gastroesophageal Reflux Disease(GERD), Hyperlipidemia, Hypertension Denies:: Cancer, Diabetes Mellitus Type 1, Internal Pacemaker, Lung Disease, MRSA, Seizures *Have you ever received a pneumonia vaccine?: Yes *Have you received a flu vaccine this season?: Yes Other Medical History: Reports: Liver Disease. Denies: Blood Transfusion Reaction Anesthesia experience/problems:: nac Laterality Cases: Bilateral: Tonsillectomy Other Surgeries: Yes: Cardiac Catheterization, Cardiac Surgery, Cholecystectomy, Coronary Stent, , Dilation and Curettage, Open Heart Surgery. No: Pacemaker Amputation: No Fractures: No - *Social History Last grade of school completed: 11th or 12th Smoking Status: Current every day smoker Tobacco Type: cigarettes # Packs/Day (cigarettes): 1 Alcohol Intake: never Substance Use Type: denies use *Occupational Status:: retired Housing: house Household Members: spouse *Travel in the last 8 weeks: None Family Hx:: Cancer, Heart Attack
--- NOTE | 2021-09-28 14:37 | XR_ITS ---
FINAL REPORT TECHNIQUE: Single view chest CLINICAL HISTORY: post bronchoscopy, cough COMPARISON: 09/11/2021 FINDINGS: A single view of the chest was obtained. Patient is status post median sternotomy. The heart and mediastinum are within normal limits. There is right base atelectasis or pneumonia, worse from prior exam. There are small bilateral pleural effusions or pleural thickening. Elevation is seen of the right hemidiaphragm. There is no pneumothorax. Osseous structures are unremarkable. IMPRESSION: Worsening right base atelectasis or pneumonia with small bilateral pleural effusions or pleural thickening. Reviewed, Interpreted and Dictated by Jace Spears III, MD Transcribed by Chetna Zimmer Authenticated and [facility]
[2021-09-28 14:48] LABS: POC Glucose,Bedside 191 (70-110)
--- NOTE | 2021-09-28 14:54 | SUR.PHASEI ---
Chest x-ray ordered by Dr. Basilio completed in PACU. Read by Dr. Basilio and OK to be D/C
--- NOTE | 2021-09-28 14:55 | SUR.PHASEI ---
Respiratory at bedside giving duoneb ordered by Dr. Basilio
--- NOTE | 2021-09-28 15:04 | HMH.BRONCH ---
- Procedure: Date: 09/28/21 Patient Date of :: 1960 Procedure Performed:: Bronchoscopy with airway examination, alveolar lavage and transbronchial lung biopsy Indications:: Right lower lobe collapse, recurrent pneumonia Performing Provider:: Ivonne Basilio MD Referring Provider:: Dr: Vidhi Quan APRN Sedation:: General anesthesia Procedure:: Bronchoscopy with airway examination, bronchoalveolar lavage and transbronchial lung biopsy: A clean DIAGNOSTIC bronchoscopy was advanced through the ET tube and airways were examined up to subsegmental bronchi. Airways appeared grossly normal, no evidence of mucoid secretions, mucous plugging active bleeding/old blood clots noted. No evidence of mucous plugging/mucoid secretions noted in the right lower lobe bronchus. Bronchoalveolar lavage was performed in the RIGHT LOWER LOBE with instillation of 60 cc normal saline with return of 30 cc back. BAL fluid was sent for cell count and differential along with bacterial fungal and AFB stain and cultures. Transbronchial biopsy was performed in the RIGHT LOWER LOBE with a total of 7 biopsies performed, 5 biopsy specimens were sent in formalin for cytopathologic examination. The other 2 biopsy samples, were sent one each in two separate normal saline specimen cups for bacterial fungal and AFB stain cultures. Special request was also made for the pathologist to evaluate for AFB and fungal organisms on the cytopathologic examination. Patient tolerated the procedure with no acute complications. We will follow the patient in pulmonary clinic in 7 to 10 days. Findings:: Please see the procedure note Recommendations:: Please see the procedure note. Follow in clinic in 7 to 10 days as previously scheduled Complications:: None Estimated blood obtained (mL): 2
--- NOTE | 2021-09-29 06:57 | P.PN_ITS ---
[facility] Anesthesia Record Part I Intake, IV Amount: 900 Estimated blood loss (mL): 0 Urine output (mL): 0 Blood Pressure: 164/98 SaO2: 94 Pulse Rate: 101 Respiratory Rate: 18 Temperature: 97.1 F Patient is:: Awake Stable to PACU at:: 14:45
[2021-09-29 07:00] VITALS: BP 164/98; PULSE 101; RESP 18; TEMP 36.2; O2SAT 94
--- NOTE | 2021-09-29 14:08 | HMH.ANESII ---
[facility] Anesthesia Record Part II Discharge Time: 15:05 Destination: Surgical Day Care (OP Surgery) PACU nurse assessment reviewed?: Yes Patient Condition:: Good Anesthesia Complications:: None Swallowing reflex intact?: Yes Cyanosis?: No Blood Pressure: 124/77 Pulse Rate: 97 Temperature: 97.2 F Mental Status: Alert & Oriented Pain level:: 0 Nausea and/or vomitting:: None Intake, IV Amount: 0
[2021-09-29 14:09] VITALS: BP 124/77; PULSE 97; TEMP 36.2
== END 2021-09-28 15:40 | disposition home or self-care (01) ==
LOC: OR 11:48
PROVIDERS: PCP Nurse Practitioner Family; Visit Provider Internal Medicine Pulmonary Disease
PROC: (CPT 31624; principal; 2021-09-28 13:15)
DX: J98.11 Atelectasis (principal); Z87.01 Personal history of pneumonia (recurrent); Z79.899 Other long term (current) drug therapy; E11.9 Type 2 diabetes mellitus without complications; Z79.4 Long term (current) use of insulin; I10 Essential (primary) hypertension; R05.3 Chronic cough; J30.9 Allergic rhinitis, unspecified; F17.210 Nicotine dependence, cigarettes, uncomplicated
CPT/HCPCS: 31624; 31628; 71045; 76000; 82962; 87070; 87102; 87116; 87186; 87205; 87206; 89051; 94640; J2405

== ENCOUNTER 2021-10-01 08:52 | Outpatient (RCR) | payer BC, SELFPAY | END 2021-11-27 10:00 | disposition home or self-care (01) | LOC: PT 08:52 | DX: I25.10 Atherosclerotic heart disease of native coronary artery without angina pectoris (principal) | CPT/HCPCS: 93798 ==

== ENCOUNTER → 2021-10-23 11:32 | Outpatient (CLI) | payer BC, SELFPAY | PROVIDERS: PCP Nurse Practitioner Family; Visit Provider Internal Medicine Pulmonary Disease | DX: R06.02 Shortness of breath (principal) | CPT/HCPCS: 94762 ==

== ENCOUNTER → 2021-11-13 11:27 | Outpatient (CLI) | payer BC, SELFPAY | PROVIDERS: PCP Nurse Practitioner Family; Visit Provider Internal Medicine Pulmonary Disease | DX: R06.02 Shortness of breath (principal) | CPT/HCPCS: 94762 ==

== ENCOUNTER 2021-12-08 07:00 | Emergency (ER) | payer BC, SELFPAY ==
[2021-12-08] VITALS (10 sets, daily range): BP systolic 110–160; BP diastolic 56–86; PULSE 79–100; RESP 18–20; TEMP 36.7–37; O2SAT 93–100; BMI 33.1
[2021-12-08 07:42] LABS: Microscopic, Urine URINE MICROSCOPIC (MICROSCOPIC)
[2021-12-08 07:45] LABS: Basophils # 0.1 K/mm3 (0-0.2); Basophils % 0.8 % (0.1-2.0); Eosinophils # 0.2 K/mm3 (0.0-0.4); Eosinophils % 1.2 % (0.1-12.0); Hematocrit 41.5 % (37.0-47.0); Hemoglobin 13.5 g/dL (12.2-16.2); Lymphocytes # 3.4 K/mm3 (0.7-4.5); Lymphocytes % 18.8 % (10-50); Mean Corpuscular HGB Conc 32.5 g/dL (31.8-35.4); Mean Corpuscular Hemoglobin 27.2 pg (27.0-31.2); Mean Corpuscular Volume 83.5 fl (81-99); Mean Platelet Volume 7.6 fl (7.4-10.4); Monocytes % 5.3 % (1.7-9.3); Neutrophils # 13.3 K/mm3 (1.8-7.8); Neutrophils % 73.9 % (37.0-80.0); Platelet Count 352 K/mm3 (142-424); Red Blood Count 4.97 M/mm3 (4.20-5.40); Red Cell Distribution Width 16.9 % (11.5-17.5)
[2021-12-08 07:46] LABS: MANUAL DIFFERENTIAL MANUAL DIFFERENTIAL (MANUAL DIFF)
[2021-12-08 07:47] LABS: Appearance,Urine SL CLOUDY (Clear); Blood, Urine Negative (Negative); Color,Urine YELLOW (Yellow); Glucose,Urine (UA) Negative (Negative); Ketones,Urine Negative (Negative); Leukocyte Esterase,Urine Negative (Negative); Nitrate,Urine Negative (Negative); Protein,Urine TRACE (Negative); Urobilinogen,Urine 0.2 EU/dl (0.2)
[2021-12-08 07:47] LABS: Chloride 98 mmol/L (98-107); Potassium 4.1 mmoL/L (3.5-5.1); Sodium 138 mmol/L (136-145)
[2021-12-08 07:49] LABS: Alanine Aminotransferase 18 U/L (12-78); Aspartate Amino Transferase 33 U/L (14-36); Blood Urea Nitrogen 12 mg/dl (7-17); Creatinine Clearance Estimated 167 mL/min (50-200); Estimated Glomerular Filt Rate 126 ml/min (>60); GFR (African American) 153 ML/MIN (>60)
[2021-12-08 07:50] LABS: Albumin Level 4.2 g/dl (3.5-5.0); Alkaline Phosphatase 131 U/L (38-126); Anion Gap 11.1 mEq/L (5-15); Bilirubin,Total 0.9 mg/dl (0.2-1.3); Calcium 8.9 mg/dl (8.4-10.2); Carbon Dioxide 33 mmol/L (22.0-30.0); Globulin 4.2 g/dL (1.3-3.2); Glucose 186 mg/dl (74-100); Total Protein,Serum 8.4 g/dl (6.3-8.2)
[2021-12-08 07:54] LABS: Eosinophils % 1 % (0-3); Lymphocytes % 26 % (10-50); Monocytes % 5 % (2-9); Neutrophils % 68 % (42-76); Total Cells Counted 100
[2021-12-08 07:55] LABS: Platelet Estimate Normal; RBC Morphology Normal
[2021-12-08 07:56] LABS: Bacteria,Urine Trace /lpf; Bilirubin,Urine 1+ (Negative); RBC,Urine Occasional #/hpf (0-3); Squamous Epithelial Cell,Urine Occasional #/hpf (0-5)
--- NOTE | 2021-12-08 08:16 | PC.NURSE ---
DR. CHEN AT BEDSIDE FOR EVALUATION
--- NOTE | 2021-12-08 08:17 | CT_ITS ---
FINAL REPORT CLINICAL HISTORY: RLQ ABD PAIN COMPARISON: August 10, 2019 FINDINGS: CT OF THE ABDOMEN AND PELVIS WITH CONTRAST Axial CT images of the abdomen and pelvis were obtained after the administration of intravenous contrast. Coronal reformatted images were also obtained and reviewed.This study was performed with techniques to keep radiation doses as low as reasonably achievable (ALARA). Individualized dose reduction techniques using automated exposure control or adjustment of mA and/or kV according to the patient's size were employed. Abdomen: There is right basilar atelectasis. There is elevation of the right hemidiaphragm. The heart is normal in size. The liver has an irregular contour that may represent cirrhosis. There is evidence of cholecystectomy. The spleen is unremarkable. No adrenal mass is present. The pancreas has an unremarkable appearance. There is a 5 mm nonobstructing stone in the lower pole the left kidney. The aorta is normal in caliber. There is moderate vascular calcification. There is no free fluid or adenopathy. No mass or abnormal fluid collection is seen. Pelvis: The appendix is enlarged up to 9 mm with surrounding inflammation consistent with acute appendicitis. The urinary bladder is unremarkable. There is a 5.4 x 4 cm area of fluid in the right lower pelvis of uncertain etiology. There is a small amount of free fluid. There is no evidence of bowel obstruction. There is no free air. IMPRESSION: Acute appendicitis. 5.4 cm area of fluid in the right lower pelvis of uncertain etiology could represent abscess or ovarian cyst. Nonobstructing lower pole left renal stone. Reviewed, Interpreted and Dictated by Jace Spears III, MD Transcribed by Jerome Duarte Authenticated and [facility]
--- NOTE | 2021-12-08 08:17 | HMH.EDABDPAI ---
Discharge Plan Disposition Patient Disposition: Xfer Short-Term Hosp Chief Complaint: Abdominal Pain Prescriptions Prescriptions: No Action diluent, insulin aspart no.1 100 UNITS Insuln.Pen 29 units SQ TID Tresiba FlexTouch U-100 100 unit/mL (3 mL) insulin pen 66 unit SQ DAILY furosemide [Lasix] 20 mg tablet 20 mg PO DAILY potassium chloride 8 mEq capsule, extended release 8 meq PO DAILY levalbuterol tartrate [Xopenex HFA] 45 mcg/actuation HFA aerosol inhaler 2 inh IH Q6H PRN (Reason: shortness of breath or wheezing) 90 Days Qty: 15 3RF carvedilol 6.25 mg tablet 12.5 mg PO BID Rx Instructions: must administer with a meal/food ropinirole 2 mg tablet 2 mg PO DAILY evolocumab 140 mg/mL pen injector 140 mg SQ [id number] Januvia 100 mg tablet 100 mg PO DAILY (DME) pen needle, diabetic [Unifine Pentips] 32 gauge x 5/32 needle See Rx Instructions .ROUTE .MEDSUPPLY Qty: 50 Rx Instructions: As directed clopidogrel 75 mg tablet 75 mg PO DAILY aspirin 81 MG tablet,delayed release (DR/EC) 81 mg PO DAILY amitriptyline 25 MG tablet 25 mg PO DAILY nitroglycerin 0.3 MG tablet, sublingual 0.3 mg SL DAILYP PRN (Reason: Chest Pain) pantoprazole 40 MG tablet,delayed release (DR/EC) 40 mg PO DAILY levocetirizine 5 MG tablet 5 mg PO DAILY montelukast 10 MG tablet 10 mg PO DAILY budesonide-formoterol 10.2 GM HFA aerosol inhaler 2 puff IH BID losartan 25 mg tablet 25 mg PO DAILY budesonide-formoterol [Symbicort] 160-4.5 mcg/actuation HFA aerosol inhaler 2 puff inhalation BID Rx Instructions: Dispense as written azelastine 137 mcg (0.1 %) Aerosol,[place] 2 spray INTRANASAL BID Rx Instructions: administer into each nostril Referrals Follow up/Referrals: Vidhi Quan APRN [Primary Care Provider] - See instructions Clinical Impressions Clinical Impression: Acute appendicitis Instructions Patient Instructions: DI for Acute Abdominal Pain Discharge ED Provider: Pranav Mendoza Abdominal Pain HPI General Chief Complaint: Abdominal Pain Stated Complaint: possible appendicitis Time Seen by Provider: 12/08/21 08:00 Mode of Arrival: Ambulatory Source of Information: Patient and Medical Record Limitations: No Limitations Description of Symptoms (Recalled from ER Triage Doc. by RN): PT REPORTS ABDOMINAL PAIN THAT BEGAN YESTERDAY AM, PAIN NOW CONSTANT IN RLQ. DENIES FEVER, NO N/V/D History of Present Illness HPI narrative: progressive abd pain since yesterday - on rt side MD complaint: abdominal pain Onset (ago): day(s) Consistency: constant Location: RLQ Severity: moderate Associated symptoms: denies other symptoms Related Data Home Medications Medication Instructions Recorded Confirmed amitriptyline 25 mg tablet 25 mg PO DAILY Depression 06/15/18 12/08/21 aspirin 81 mg tablet,delayed 81 mg PO DAILY Heart disease 06/15/18 12/08/21 release levocetirizine 5 mg tablet 5 mg PO DAILY allergies 06/15/18 12/08/21 nitroglycerin 0.3 mg sublingual 0.3 mg sublingual DAILYP PRN Chest 06/15/18 12/08/21 tablet Pain pantoprazole 40 mg tablet,delayed 40 mg PO DAILY GERD 06/15/18 12/08/21 release evolocumab 140 mg/mL subcutaneous 140 mg SQ [id number] Cholesterol 11/14/19 12/08/21 pen injector ropinirole 2 mg tablet 2 mg PO DAILY RESTLESS LEGS 11/14/19 12/08/21 sitagliptin 100 mg tablet (Januvia) 100 mg PO DAILY BLOOD SUGAR 04/21/21 12/08/21 clopidogrel 75 mg tablet 75 mg PO DAILY Blood thinner 08/06/21 12/08/21 pen needle, diabetic 32 gauge x #50 ea 08/06/21 10/06/21/32 (Unifine Pentips) budesonide-formoterol HFA 160 2 puff inhalation BID COPD 08/07/21 12/08/21 mcg-4.5 mcg/actuation aerosol inhaler montelukast 10 mg tablet 10 mg PO DAILY ALLERGIES 08/07/21 12/08/21 furosemide 20 mg tablet (Lasix) 20 mg PO DAILY Fluid 09/02/21 12/08/21 potassium chloride 8
--- NOTE | 2021-12-08 08:25 | PC.NURSE ---
COVID SWAB COLLECTED
--- NOTE | 2021-12-08 08:27 | PC.NURSE ---
PT TO CT AT THIS TIME PER WC
[2021-12-08 08:30] LABS: Coronavirus 19, PCR Not Detected (NotDetected); Influenza A, PCR Not Detected (NotDetected); Influenza B, PCR Not Detected (NotDetected)
--- NOTE | 2021-12-08 08:39 | PC.NURSE ---
PT RETURNED FROM CT AT THIS TIME
--- NOTE | 2021-12-08 08:42 | PC.NURSE ---
PT PROVIDED PILLOW AND WARM BLANKET, CALL LIGHT WITHIN REACH
--- NOTE | 2021-12-08 09:15 | PC.NURSE ---
PT AND FAMILY UPDATED ON POC, AWAITING CT RESULTS. PT REQUESTING ICE CHIPS. MD ADVISES TO WAIT ON CT RESULTS
--- NOTE | 2021-12-08 10:05 | PC.NURSE ---
1000 DR. CHEN CALLED TO CHECK IN ON PT. NO CT RESULTS AVAILABLE AT THIS TIME. DR CHEN REQUESTS THIS NURSE ASK DR. TRINIDAD ASSUME CARE OF PT. DR. TRINIDAD NOTIFIED AT THIS TIME PER THIS NURSE. TRIAGE REPORT GIVEN TO DR. TRINIDAD PER THIS NURSE AT THIS TIME.
--- NOTE | 2021-12-08 10:36 | PC.NURSE ---
PT ASSISTED TO BR
--- NOTE | 2021-12-08 10:40 | PC.NURSE ---
PT AND FAMILY UPDATED ON POC, AWAITING CT RESULTS
--- NOTE | 2021-12-08 11:07 | PC.NURSE ---
PT AND FAMILY UPDATED ON POC, AWAITING CT RESULTS
--- NOTE | 2021-12-08 11:09 | PC.NURSE ---
Called rad to check on status of CT results. They advised they will call me back.
--- NOTE | 2021-12-08 11:29 | PC.NURSE ---
called Dr Urbina per ER Doctor to speak with him about pt with an acute appendicitis. Waiting on Dr Urbina to call back
--- NOTE | 2021-12-08 11:34 | PC.NURSE ---
speaking with Dr Urbina at this time.
--- NOTE | 2021-12-08 11:41 | PC.NURSE ---
DR. CHANG AT BEDSIDE
[2021-12-08 11:48] LABS: POC Glucose,Bedside 162 (70-110)
--- NOTE | 2021-12-08 12:16 | EXP.SURG.CON ---
History of Present Illness *Admission Date: 12/08/21 *Reason for visit:: Appendicitis *History of present illness: I was called to reevaluate patient for acute appendicitis. Patient is a 61-year-old female who reports diffuse abdominal pain beginning yesterday on 12/07/2021 which now focally localized to the right lower quadrant became more constant. She was found to have a leukocytosis of 18,000. She underwent CT scan which revealed findings of an enlarged 9 mm appendix with surrounding inflammation consistent with acute appendicitis. However there is also a 5.4 cm area of loculated fluid in the right lower quadrant which was felt to be possible abscess or ovarian cyst. Surgical consultation was obtained. Patient apparently had undergone coronary artery bypass grafting at [facility] in June. She had developed pericardial effusion and required pericardial window. She had a prolonged ICU stay at that time in July. She has had some ongoing cardiopulmonary sequelae for some time. She had apparently developed findings of acute appendicitis during her critical care stay in the ICU at [facility] and had seen general surgeon, Dr. Morales, who treated her nonoperatively with intravenous antibiotics due to her acute critical illness. 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 Surgical History (Updated 12/08/21 @ 07:54 by Serenity Salmon RN) H/O section History of cholecystectomy S/P CABG x 3 Social History (Updated 12/08/21 @ 07:54 by Serenity Salmon RN) Smoking Status: Current every day smoker tobacco type: cigarettes packs per day: 1 alcohol intake: never substance use type: denies use current occupational status: retired Travel in the last 8 weeks: None household members: spouse housing: house caffeine: No Meds Home Medications and Allergies Home Medications Medication Instructions Recorded Confirmed Type amitriptyline 25 mg tablet 25 mg PO DAILY Depression 06/15/18 12/08/21 History aspirin 81 mg tablet,delayed 81 mg PO DAILY Heart disease 06/15/18 12/08/21 History release levocetirizine 5 mg tablet 5 mg PO DAILY allergies 06/15/18 12/08/21 History nitroglycerin 0.3 mg sublingual 0.3 mg sublingual DAILYP PRN Chest 06/15/18 12/08/21 History tablet Pain pantoprazole 40 mg tablet,delayed 40 mg PO DAILY GERD 06/15/18 12/08/21 History release evolocumab 140 mg/mL subcutaneous 140 mg SQ [id number] Cholesterol 11/14/19 12/08/21 History pen injector ropinirole 2 mg tablet 2 mg PO DAILY RESTLESS LEGS 11/14/19 12/08/21 History sitagliptin 100 mg tablet (Januvia) 100 mg PO DAILY BLOOD SUGAR 04/21/21 12/08/21 History clopidogrel 75 mg tablet 75 mg PO DAILY Blood thinner 08/06/21 12/08/21 History pen needle, diabetic 32 gauge x #50 ea 08/06/21 10/06/21 History /32 (Unifine Pentips) budesonide-formoterol HFA 160 2 puff inhalation BID COPD 08/07/21 12/08/21 History mcg-4.5 mcg/actuation aerosol inhaler montelukast 10 mg tablet 10 mg PO DAILY ALLERGIES 08/07/21 12/08/21 History furosemide 20 mg tablet (Lasix) 20 mg PO DAILY Fluid 09/02/21 12/08/21 History levalbuterol tartrate 45 2 inh inhalation Q6H PRN shortness 09/02/21 12/08/21 Rx mcg/actuation aerosol inhaler of breath or wheezing 90 days #15 (Xopenex HFA) grams potassium chloride 8 mEq 8 meq PO DAILY Supplement 09/02/21 12/08/21 History capsule,extended release carvedilol 6.25 mg tablet 12.5 mg PO BID bp 09/22/21 12/08/21 History diluent, insulin aspart no.1 29 units SQ TID Diabetes 09/22/21 12/08/21 History (Diluting Medium for Novolog injection solution) insulin degludec 100 unit/mL (3 66 unit SQ DAILY Diabetes 09/22/21 12/08/21 History mL) subcutaneous pen (Tresiba FlexTouch U-100 insulin) azelastine 137 mcg (0.1 %) nasal 2 spray intranasal BID Allergy 12/08/21 12/08/21 History spray aeros
--- NOTE | 2021-12-08 12:25 | PC.NURSE ---
called [facility] per ER Doctor to speak with surgeon for this pt. awaiting call back from [facility]
--- NOTE | 2021-12-08 12:31 | PC.NURSE ---
speaking with Dr. Haji, surgeon at [facility]
--- NOTE | 2021-12-08 12:37 | PC.NURSE ---
pt very anxious and crying , requesting something
--- NOTE | 2021-12-08 12:40 | PC.NURSE ---
DR. TRINIDAD AT BEDSIDE TO DISCUSS POC WITH PT
--- NOTE | 2021-12-08 12:45 | PC.NURSE ---
called [facility] per ER Doctor for this pt about being transferred for acute appendicitis.
--- NOTE | 2021-12-08 12:46 | PC.NURSE ---
[facility] asked for us to powershare the xrays to them and they would call us back as soon as they receive and look at them
--- NOTE | 2021-12-08 12:59 | PC.NURSE ---
speaking with [facility]
--- NOTE | 2021-12-08 14:43 | PC.NURSE ---
PT ASSISTED TO BR
--- NOTE | 2021-12-08 14:47 | PC.NURSE ---
speaking with [facility] at this time.
--- NOTE | 2021-12-08 14:51 | PC.NURSE ---
PT ACCEPTED AT AT THIS TIME PER DR. TRISTEN CASTILLO. WAITMICHELLE FOR BED ASSIGNMENT
--- NOTE | 2021-12-08 15:17 | PC.NURSE ---
PT UPDATED ON POC AT THIS TIME. FAMILY AT BEDSIDE NO NEEDS VOICED
--- NOTE | 2021-12-08 17:15 | PC.NURSE ---
made contact with Priscila about transferring pt to [facility]
--- NOTE | 2021-12-08 17:27 | PC.NURSE ---
1727 REPORT GIVEN TO MITRA BANKS AT AT THIS TIME
--- NOTE | 2021-12-08 18:00 | PC.NURSE ---
PT TO [facility]IA [facility] AT THIS TIME
== END 2021-12-08 18:00 | disposition short-term general hospital (02) ==
PROVIDERS: Student in an Organized Health Care Education/Training Program; Emergency Provider Emergency Medicine; PCP Nurse Practitioner Family
DX: K35.80 Unspecified acute appendicitis (principal); R06.02 Shortness of breath; D72.829 Elevated white blood cell count, unspecified; Z20.822 Contact with and (suspected) exposure to COVID-19; I97.89 Other postprocedural complications and disorders of the circulatory system, not elsewhere classified; E11.9 Type 2 diabetes mellitus without complications; F17.210 Nicotine dependence, cigarettes, uncomplicated; Z79.02 Long term (current) use of antithrombotics/antiplatelets; Z79.4 Long term (current) use of insulin; Z79.51 Long term (current) use of inhaled steroids; Z79.82 Long term (current) use of aspirin; Z79.899 Other long term (current) drug therapy; Z88.0 Allergy status to penicillin; Z88.1 Allergy status to other antibiotic agents; Z88.2 Allergy status to sulfonamides; Z88.3 Allergy status to other anti-infective agents; Z88.5 Allergy status to narcotic agent; Z88.8 Allergy status to other drugs, medicaments and biological substances; Z95.1 Presence of aortocoronary bypass graft
CPT/HCPCS: 74177; 80053; 81001; 82962; 85007; 85025; 96374; 96375; 99285; C9803; J0692; Q9967; U0003; U0005

== ENCOUNTER → 2022-01-15 11:23 | Outpatient (CLI) | payer BC, SELFPAY | PROVIDERS: PCP Surgery; Visit Provider Nurse Practitioner Family | DX: Z11.52 Encounter for screening for COVID-19 (principal) | CPT/HCPCS: C9803; U0003; U0005 ==

== ENCOUNTER → 2022-01-27 10:07 | Outpatient (CLI) | payer BC, SELFPAY ==
[2022-01-27 10:53] LABS: Basophils # 0.1 K/mm3 (0-0.2); Basophils % 0.7 % (0.1-2.0); Eosinophils # 0.5 K/mm3 (0.0-0.4); Eosinophils % 3.7 % (0.1-12.0); Hematocrit 35.9 % (37.0-47.0); Hemoglobin 11.7 g/dL (12.2-16.2); Lymphocytes % 15.9 % (10-50); Mean Corpuscular HGB Conc 32.5 g/dL (31.8-35.4); Mean Corpuscular Hemoglobin 27.9 pg (27.0-31.2); Mean Corpuscular Volume 85.7 fl (81-99); Mean Platelet Volume 7.7 fl (7.4-10.4); Monocytes # 0.5 K/mm3 (0.1-1.0); Monocytes % 3.8 % (1.7-9.3); Neutrophils # 9.8 K/mm3 (1.8-7.8); Platelet Count 401 K/mm3 (142-424); Red Blood Count 4.19 M/mm3 (4.20-5.40); Red Cell Distribution Width 14.4 % (11.5-17.5); White Blood Count 12.9 K/mm3 (4.8-10.8)
[2022-01-27 11:25] LABS: Alanine Aminotransferase 17 U/L (12-78); Albumin Level 3.3 g/dl (3.5-5.0); Albumin/Globulin Ratio 1.2 (1.1-1.8); Alkaline Phosphatase 128 U/L (38-126); Anion Gap 11.6 mEq/L (5-15); Aspartate Amino Transferase 24 U/L (14-36); Bilirubin,Total 0.8 mg/dl (0.2-1.3); Blood Urea Nitrogen 16 mg/dl (7-17); Calcium 8.9 mg/dl (8.4-10.2); Carbon Dioxide 32 mmol/L (22.0-30.0); Chloride 96 mmol/L (98-107); Estimated Glomerular Filt Rate 126 ml/min (>60); GFR (African American) 153 ML/MIN (>60); Globulin 2.8 g/dL (1.3-3.2); Glucose 246 mg/dl (74-100); Magnesium 1.3 mg/dl (1.6-2.3); Phosphorous 3.6 mg/dl (2.5-4.5); Potassium 3.6 mmoL/L (3.5-5.1); Sodium 136 mmol/L (136-145); Total Protein,Serum 6.1 g/dl (6.3-8.2)
== END ==
PROVIDERS: PCP Internal Medicine Adolescent Medicine; Visit Provider Nurse Practitioner Acute Care
DX: C18.1 Malignant neoplasm of appendix (principal); K75.81 Nonalcoholic steatohepatitis (NASH); K74.60 Unspecified cirrhosis of liver; D72.829 Elevated white blood cell count, unspecified; E11.9 Type 2 diabetes mellitus without complications; Z79.4 Long term (current) use of insulin
CPT/HCPCS: 36415; 80053; 83735; 84100; 85025

== ENCOUNTER → 2022-02-16 10:10 | Outpatient (CLI) | payer BC, SELFPAY ==
--- NOTE | 2022-02-16 10:16 | CT_ITS ---
FINAL REPORT CLINICAL HISTORY: ADENOCARCINOMA OF APPENDIX COMPARISON: 12/22/2021 FINDINGS: Axial CT images of the chest were obtained with contrast. Coronal reformatted images were also obtained. This study was performed with techniques to keep radiation doses as low as reasonably achievable, (ALARA). Individualized dose reduction techniques using automated exposure control or adjustment of mA and/or KV according to the patient's size were employed. The patient is status post median sternotomy. There is no evidence of mediastinal or hilar mass or adenopathy. No axillary mass or adenopathy is identified. On lung window images, no pulmonary mass or dominant pulmonary nodule is identified. No localized pulmonary inflammatory process is identified. There is right lower lobe atelectasis. Note is made of mild scarring. IMPRESSION: No mass or localized inflammatory process. Reviewed, Interpreted and Dictated by Jace Spears III, MD Transcribed by Ambreen Barrett Authenticated and [facility]
--- NOTE | 2022-02-16 10:16 | CT_ITS ---
FINAL REPORT TECHNIQUE: Postcontrast axial images through the abdomen and pelvis were performed. This study was performed with techniques to keep radiation doses as low as reasonably achievable, (ALARA). Individualized dose reduction techniques using automated exposure control or adjustment of mA and/or kV according to the patient's size were employed. CLINICAL HISTORY: ADENOCARCINOMA OF APPENDIX COMPARISON: 12/08/2021 FINDINGS: Abdomen: The liver is normal in size and attenuation. The patient is status post cholecystectomy. There is no evidence of biliary ductal dilatation. The spleen is unremarkable. The adrenals are normal. The pancreas is unremarkable. There is a 3 mm nonobstructing left renal stone. The aorta is normal in caliber. There is no evidence of adenopathy. There is a small amount of ascites. Pelvis: There are postoperative changes from appendectomy. There is a small amount of free fluid. There has been interval hysterectomy. Previously identified right adnexal cystic mass is no longer visualized. The urinary bladder is unremarkable. No free air, abscess or adenopathy is identified. IMPRESSION: Interval postoperative changes from appendectomy and hysterectomy. Small amount of abdominal and pelvic ascites. Nonobstructing left renal stone. Reviewed, Interpreted and Dictated by Jace Spears III, MD Transcribed by Ambreen Barrett Authenticated and [facility]
== END ==
PROVIDERS: PCP Internal Medicine Adolescent Medicine; Visit Provider Internal Medicine
DX: C18.1 Malignant neoplasm of appendix (principal)
CPT/HCPCS: 71260; 74177; Q9967

== ENCOUNTER 2022-03-10 08:28 | Outpatient (CLI) | payer BC, SELFPAY ==
[2022-03-10] VITALS (24 sets, daily range): BP systolic 102–135; BP diastolic 53–72; PULSE 75–98; RESP 16–18; O2SAT 95–97; BMI 30.2
[2022-03-10 09:03] LABS: Basophils % 0.3 % (0.1-2.0); Eosinophils # 0.2 K/mm3 (0.0-0.4); Eosinophils % 1.9 % (0.1-12.0); Hematocrit 32.1 % (37.0-47.0); Hemoglobin 10.3 g/dL (12.2-16.2); Lymphocytes # 2.3 K/mm3 (0.7-4.5); Lymphocytes % 28.3 % (10-50); Mean Corpuscular HGB Conc 32.2 g/dL (31.8-35.4); Mean Corpuscular Hemoglobin 26.8 pg (27.0-31.2); Mean Corpuscular Volume 83.1 fl (81-99); Mean Platelet Volume 7.9 fl (7.4-10.4); Monocytes # 0.4 K/mm3 (0.1-1.0); Monocytes % 4.6 % (1.7-9.3); Neutrophils # 5.2 K/mm3 (1.8-7.8); Neutrophils % 64.9 % (37.0-80.0); Platelet Count 251 K/mm3 (142-424); Red Blood Count 3.86 M/mm3 (4.20-5.40); Red Cell Distribution Width 15.2 % (11.5-17.5)
[2022-03-10 09:08] LABS: Alanine Aminotransferase 16 U/L (12-78); Albumin Level 3.4 g/dl (3.5-5.0); Albumin/Globulin Ratio 1.1 (1.1-1.8); Alkaline Phosphatase 93 U/L (38-126); Anion Gap 8.5 mEq/L (5-15); Aspartate Amino Transferase 24 U/L (14-36); Bilirubin,Total 0.2 mg/dl (0.2-1.3); Blood Urea Nitrogen 12 mg/dl (7-17); Calcium 8.4 mg/dl (8.4-10.2); Carbon Dioxide 29 mmol/L (22.0-30.0); Chloride 105 mmol/L (98-107); Creatinine Clearance Estimated 191 mL/min (50-200); Estimated Glomerular Filt Rate 163 ml/min (>60); GFR (African American) 198 ML/MIN (>60); Globulin 3.2 g/dL (1.3-3.2); Glucose 306 mg/dl (74-100); Potassium 3.5 mmoL/L (3.5-5.1); Sodium 139 mmol/L (136-145); Total Protein,Serum 6.6 g/dl (6.3-8.2)
== END 2022-03-10 16:35 | disposition home or self-care (01) ==
LOC: INF 08:28
PROVIDERS: PCP Internal Medicine Adolescent Medicine; Visit Provider Internal Medicine Medical Oncology
DX: Z51.11 Encounter for antineoplastic chemotherapy (principal); C7A.020 Malignant carcinoid tumor of the appendix
CPT/HCPCS: 80053; 85025; 96411; 96413; 96415; 96417; J0640; J2469; J7060; J9190; J9263

== ENCOUNTER → 2022-03-15 10:00 | Outpatient (CLI) | payer BC, SELFPAY ==
[2022-03-15 10:08] VITALS: BMI 30.4
[2022-03-15 10:15] LABS: Microscopic, Urine URINE MICROSCOPIC (MICROSCOPIC)
[2022-03-15 10:17] LABS: Appearance,Urine CLEAR (Clear); Bilirubin,Urine Negative (Negative); Blood, Urine 2+ (Negative); Color,Urine YELLOW (Yellow); Glucose,Urine (UA) TRACE (Negative); Ketones,Urine TRACE (Negative); Leukocyte Esterase,Urine TRACE (Negative); Nitrate,Urine Negative (Negative); Protein,Urine TRACE (Negative); Specific Gravity, Urine 1.025 (1.005-1.030); Urobilinogen,Urine 0.2 EU/dl (0.2)
[2022-03-15 10:39] LABS: Bacteria,Urine Trace /lpf; Squamous Epithelial Cell,Urine Occasional #/hpf (0-5)
== END ==
PROVIDERS: PCP Nurse Practitioner Family; Visit Provider Internal Medicine Medical Oncology
DX: C18.1 Malignant neoplasm of appendix (principal)
CPT/HCPCS: 81001; 87086

== ENCOUNTER 2022-03-17 09:47 | Outpatient (CLI) | payer BC, SELFPAY ==
[2022-03-17 09:52] VITALS: BMI 30.4
[2022-03-17 10:09] LABS: Basophils # 0.1 K/mm3 (0-0.2); Basophils % 0.5 % (0.1-2.0); Eosinophils # 0.1 K/mm3 (0.0-0.4); Eosinophils % 1.5 % (0.1-12.0); Hematocrit 31.8 % (37.0-47.0); Hemoglobin 10.7 g/dL (12.2-16.2); Lymphocytes # 1.9 K/mm3 (0.7-4.5); Lymphocytes % 23.2 % (10-50); Mean Corpuscular HGB Conc 33.7 g/dL (31.8-35.4); Mean Corpuscular Hemoglobin 27.4 pg (27.0-31.2); Mean Corpuscular Volume 81.4 fl (81-99); Mean Platelet Volume 8.5 fl (7.4-10.4); Monocytes # 0.2 K/mm3 (0.1-1.0); Monocytes % 2.8 % (1.7-9.3); Platelet Count 269 K/mm3 (142-424); Red Blood Count 3.91 M/mm3 (4.20-5.40); Red Cell Distribution Width 15.2 % (11.5-17.5); White Blood Count 8.4 K/mm3 (4.8-10.8)
[2022-03-17 10:10] VITALS: BP 114/59; PULSE 92; RESP 18; O2SAT 96
[2022-03-17 10:14] LABS: Chloride 102 mmol/L (98-107); Potassium 3.6 mmoL/L (3.5-5.1); Sodium 137 mmol/L (136-145)
[2022-03-17 10:16] LABS: Alanine Aminotransferase 18 U/L (12-78); Aspartate Amino Transferase 23 U/L (14-36); Blood Urea Nitrogen 10 mg/dl (7-17); Creatinine Clearance Estimated 192 mL/min (50-200); Estimated Glomerular Filt Rate 163 ml/min (>60); GFR (African American) 198 ML/MIN (>60)
[2022-03-17 10:17] LABS: Albumin Level 3.6 g/dl (3.5-5.0); Albumin/Globulin Ratio 1.1 (1.1-1.8); Alkaline Phosphatase 86 U/L (38-126); Anion Gap 10.6 mEq/L (5-15); Bilirubin,Total 0.3 mg/dl (0.2-1.3); Calcium 8.5 mg/dl (8.4-10.2); Carbon Dioxide 28 mmol/L (22.0-30.0); Globulin 3.3 g/dL (1.3-3.2); Glucose 297 mg/dl (74-100); Total Protein,Serum 6.9 g/dl (6.3-8.2)
[2022-03-17 11:10] VITALS: BP 123/75; PULSE 86; RESP 16
== END 2022-03-17 11:15 | disposition home or self-care (01) ==
LOC: INF 09:47
PROVIDERS: PCP Nurse Practitioner Family; Visit Provider Internal Medicine Medical Oncology
DX: C18.1 Malignant neoplasm of appendix (principal); E86.0 Dehydration
CPT/HCPCS: 80053; 85025; 96360; J1642

== ENCOUNTER 2022-03-24 08:22 | Outpatient (CLI) | payer BC, SELFPAY ==
[2022-03-24] VITALS (13 sets, daily range): BP systolic 88–154; BP diastolic 55–77; PULSE 75–98; RESP 16–18; O2SAT 97; BMI 30.4
[2022-03-24 08:50] LABS: Basophils # 0.1 K/mm3 (0-0.2); Basophils % 0.7 % (0.1-2.0); Eosinophils # 0.2 K/mm3 (0.0-0.4); Hematocrit 35.1 % (37.0-47.0); Hemoglobin 11.4 g/dL (12.2-16.2); Lymphocytes # 2.6 K/mm3 (0.7-4.5); Lymphocytes % 29.7 % (10-50); Mean Corpuscular HGB Conc 32.5 g/dL (31.8-35.4); Mean Corpuscular Hemoglobin 26.1 pg (27.0-31.2); Mean Corpuscular Volume 80.4 fl (81-99); Mean Platelet Volume 7.7 fl (7.4-10.4); Monocytes # 0.6 K/mm3 (0.1-1.0); Monocytes % 6.8 % (1.7-9.3); Neutrophils # 5.3 K/mm3 (1.8-7.8); Neutrophils % 60.7 % (37.0-80.0); Platelet Count 281 K/mm3 (142-424); Red Blood Count 4.37 M/mm3 (4.20-5.40); White Blood Count 8.7 K/mm3 (4.8-10.8)
[2022-03-24 08:51] LABS: Chloride 104 mmol/L (98-107); Potassium 4.1 mmoL/L (3.5-5.1); Sodium 139 mmol/L (136-145)
[2022-03-24 08:54] LABS: Alanine Aminotransferase 18 U/L (12-78); Albumin Level 3.8 g/dl (3.5-5.0); Albumin/Globulin Ratio 1.1 (1.1-1.8); Alkaline Phosphatase 109 U/L (38-126); Anion Gap 10.1 mEq/L (5-15); Aspartate Amino Transferase 26 U/L (14-36); Bilirubin,Total 0.3 mg/dl (0.2-1.3); Blood Urea Nitrogen 11 mg/dl (7-17); Carbon Dioxide 29 mmol/L (22.0-30.0); Creatinine Clearance Estimated 154 mL/min (50-200); Estimated Glomerular Filt Rate 126 ml/min (>60); GFR (African American) 153 ML/MIN (>60); Globulin 3.4 g/dL (1.3-3.2); Total Protein,Serum 7.2 g/dl (6.3-8.2)
[2022-03-24 08:55] LABS: Calcium 8.8 mg/dl (8.4-10.2); Glucose 309 mg/dl (74-100)
--- NOTE | 2022-03-24 14:46 | PC.NURSE ---
1335-5FU 750MG GIVEN IVP AT THIS TIME. 5 FU 4450MG DELIVERED FROM [facility]. MED AND DOSE VERIFIED WITH FROYLAN NICHOLS RN. HOOKED PT UP TO INFUSE OVER 46 HRS AT HOME. MADE CALL TO HOME HEALTH TO UNHOOK FROM 5FU ON 03/26/22 AT 1140.
== END 2022-03-24 13:50 | disposition home or self-care (01) ==
LOC: INF 08:22
PROVIDERS: PCP Nurse Practitioner Family; Visit Provider Internal Medicine Medical Oncology
DX: Z51.11 Encounter for antineoplastic chemotherapy (principal); C7A.020 Malignant carcinoid tumor of the appendix; C18.1 Malignant neoplasm of appendix
CPT/HCPCS: 80053; 85025; 96368; 96411; 96413; 96415; J0640; J2469; J7060; J9190; J9263

== ENCOUNTER 2022-04-07 08:19 | Outpatient (CLI) | payer BC, SELFPAY ==
[2022-04-07] VITALS (15 sets, daily range): BP systolic 92–143; BP diastolic 51–83; PULSE 73–92; RESP 16–18; O2SAT 96; BMI 30.4
[2022-04-07 08:46] LABS: ABG Base Excess 0.1 mmol/L (-2.4-2.3); ABG HCO3 24.6 mmhg (22.0-26.0); ABG Oxygen Saturation 95 % (90-100); ABG PCO2 38.6 mmhg (35.0-45.0); ABG PH 7.42 mmol/L (7.35-7.45); ABG PO2 74.5 mmhg (80-100); ABG TCO2 25.8 mmhg (23-27)
[2022-04-07 08:47] LABS: Allen's Test ACCEPTABLE; Oxygen ROOM AIR %; Source Right Radial
[2022-04-07 08:56] LABS: Basophils # 0.1 K/mm3 (0-0.2); Basophils % 1.3 % (0.1-2.0); Eosinophils # 0.1 K/mm3 (0.0-0.4); Eosinophils % 1.4 % (0.1-12.0); Hematocrit 33.6 % (37.0-47.0); Hemoglobin 10.8 g/dL (12.2-16.2); Lymphocytes # 2.8 K/mm3 (0.7-4.5); Lymphocytes % 29.6 % (10-50); Mean Corpuscular HGB Conc 32.1 g/dL (31.8-35.4); Mean Corpuscular Hemoglobin 26.3 pg (27.0-31.2); Mean Corpuscular Volume 81.9 fl (81-99); Mean Platelet Volume 7.6 fl (7.4-10.4); Monocytes # 0.5 K/mm3 (0.1-1.0); Monocytes % 5.1 % (1.7-9.3); Neutrophils % 62.6 % (37.0-80.0); Platelet Count 187 K/mm3 (142-424); Red Cell Distribution Width 17.2 % (11.5-17.5); White Blood Count 9.6 K/mm3 (4.8-10.8)
[2022-04-07 08:58] LABS: Chloride 106 mmol/L (98-107); Potassium 3.4 mmoL/L (3.5-5.1); Sodium 138 mmol/L (136-145)
[2022-04-07 09:00] LABS: Blood Urea Nitrogen 11 mg/dl (7-17); Creatinine Clearance Estimated 192 mL/min (50-200); Estimated Glomerular Filt Rate 163 ml/min (>60); GFR (African American) 198 ML/MIN (>60)
[2022-04-07 09:01] LABS: Alanine Aminotransferase 19 U/L (12-78); Albumin Level 3.5 g/dl (3.5-5.0); Albumin/Globulin Ratio 1.1 (1.1-1.8); Alkaline Phosphatase 109 U/L (38-126); Anion Gap 6.4 mEq/L (5-15); Aspartate Amino Transferase 25 U/L (14-36); Bilirubin,Total 0.4 mg/dl (0.2-1.3); Calcium 8.1 mg/dl (8.4-10.2); Carbon Dioxide 29 mmol/L (22.0-30.0); Globulin 3.3 g/dL (1.3-3.2); Glucose 301 mg/dl (74-100); Total Protein,Serum 6.8 g/dl (6.3-8.2)
--- NOTE | 2022-04-07 15:02 | PC.NURSE ---
1415-5FU 4450MG DELIVERED BY [facility] FOR CONTINUOUS IV INFUSION X46 HRS. MED AND DOSE VERIFIED WITH FROYLAN NICHOLS RN AND HOOKED UP TO PORT FOR HOME INFUSION. NOTIFIED HOME HEALTH THAT PT WOULD BE DUE TO BE UNHOOKED AT 1215 ON 04/09/22.
--- NOTE | 2022-04-09 14:36 | PC.NURSE ---
Home health nurse, paco robertson called to report pt c/o cramping in hands, lips and legs. pt reported having difficulty walking due to cramps. Sergei BENTON was contacted at 1431, gave orders to have pt come in and have her cmp, mag and phos checked and give 1 liter of fluids, or have the pt go to the ER. Pt was called immediately afterwards at 1433 and was given the options. pt refused to come have labs checked. she stated that she didnt think it was a fluid problem because she had been drinking lots of fluids. pt was instructed to go to the ER if condition worsens.
--- NOTE | 2022-04-09 14:43 | PC.NURSE ---
pt called back at 1443 and had changed her mind and wanted to come in to have her labs checked and get a liter of fluids. pt was instructed to come in as soon as she could and was agreeable.
== END 2022-04-07 14:20 | disposition home or self-care (01) ==
LOC: INF 08:20
PROVIDERS: Internal Medicine Pulmonary Disease; PCP Nurse Practitioner Family; Visit Provider Internal Medicine Medical Oncology
DX: C18.1 Malignant neoplasm of appendix (principal); Z51.11 Encounter for antineoplastic chemotherapy
CPT/HCPCS: 80053; 82803; 85025; 96368; 96411; 96413; 96415; J0640; J2469; J7060; J9190; J9263

== ENCOUNTER 2022-04-09 14:54 | Outpatient (CLI) | payer BC, SELFPAY ==
--- NOTE | 2022-04-09 10:10 | PC.NURSE ---
1010-pt appears to be ok; v/s stable; no cramps at this time;pt walking normally and up to restroom
--- NOTE | 2022-04-09 13:55 | PC.NURSE ---
1555-notified with lab results; notified rn immediately; new order for calcium carbonate 500mg po once and pt to d/c home.
[2022-04-09 14:59] VITALS: BMI 30.4
[2022-04-09 15:05] VITALS: BP 135/73; PULSE 88; RESP 18; TEMP 36.1; O2SAT 96
[2022-04-09 15:20] LABS: Basophils # 0.1 K/mm3 (0-0.2); Basophils % 0.7 % (0.1-2.0); Eosinophils # 0.1 K/mm3 (0.0-0.4); Eosinophils % 0.7 % (0.1-12.0); Hematocrit 34.1 % (37.0-47.0); Hemoglobin 11.1 g/dL (12.2-16.2); Lymphocytes # 2.5 K/mm3 (0.7-4.5); Lymphocytes % 26.4 % (10-50); Mean Corpuscular HGB Conc 32.6 g/dL (31.8-35.4); Mean Corpuscular Hemoglobin 26.6 pg (27.0-31.2); Mean Corpuscular Volume 81.7 fl (81-99); Mean Platelet Volume 8.3 fl (7.4-10.4); Monocytes # 0.3 K/mm3 (0.1-1.0); Monocytes % 2.7 % (1.7-9.3); Neutrophils # 6.6 K/mm3 (1.8-7.8); Neutrophils % 69.4 % (37.0-80.0); Platelet Count 200 K/mm3 (142-424); Red Blood Count 4.17 M/mm3 (4.20-5.40); Red Cell Distribution Width 17.1 % (11.5-17.5); White Blood Count 9.5 K/mm3 (4.8-10.8)
[2022-04-09 15:24] LABS: Chloride 103 mmol/L (98-107); Potassium 3.6 mmoL/L (3.5-5.1); Sodium 137 mmol/L (136-145)
[2022-04-09 15:27] LABS: Alanine Aminotransferase 20 U/L (12-78); Albumin Level 3.7 g/dl (3.5-5.0); Albumin/Globulin Ratio 1.1 (1.1-1.8); Alkaline Phosphatase 103 U/L (38-126); Anion Gap 6.6 mEq/L (5-15); Aspartate Amino Transferase 29 U/L (14-36); Bilirubin,Total 0.6 mg/dl (0.2-1.3); Blood Urea Nitrogen 15 mg/dl (7-17); Calcium 8.3 mg/dl (8.4-10.2); Carbon Dioxide 31 mmol/L (22.0-30.0); Creatinine Clearance Estimated 192 mL/min (50-200); Estimated Glomerular Filt Rate 163 ml/min (>60); GFR (African American) 198 ML/MIN (>60); Globulin 3.3 g/dL (1.3-3.2); Glucose 248 mg/dl (74-100); Magnesium 1.9 mg/dl (1.6-2.3)
[2022-04-09 15:28] LABS: Phosphorous 3.2 mg/dl (2.5-4.5)
--- NOTE | 2022-04-09 16:20 | PC.NURSE ---
1620-pt d/c home; pt ambulate out the door;
== END 2022-04-09 16:20 | disposition home or self-care (01) ==
LOC: INF 14:55
PROVIDERS: PCP Nurse Practitioner Family; Visit Provider Internal Medicine Medical Oncology
DX: Z45.2 Encounter for adjustment and management of vascular access device (principal); C18.1 Malignant neoplasm of appendix
CPT/HCPCS: 80053; 83735; 84100; 85025; 96360; J1642

== ENCOUNTER → 2022-11-03 12:58 | Outpatient (CLI) | payer BC, SELFPAY | PROVIDERS: PCP Nurse Practitioner Family; Visit Provider Internal Medicine Pulmonary Disease | DX: R06.09 Other forms of dyspnea (principal) | CPT/HCPCS: 94010; 94618 ==

== ENCOUNTER 2022-11-23 13:23 | Outpatient (CLI) | payer BC, SELFPAY | END 2022-11-23 13:40 | disposition home or self-care (01) | LOC: INF 13:25 | PROVIDERS: PCP Nurse Practitioner Family; Visit Provider Nurse Practitioner Family | DX: Z45.2 Encounter for adjustment and management of vascular access device (principal) | CPT/HCPCS: 96523; J1642 ==

== ENCOUNTER → 2022-12-22 09:47 | Outpatient (POV) | payer BC, SELFPAY ==
--- NOTE | 2022-12-22 10:01 | EXP.PAIN.OV ---
HPI Data of Consult Patient: new to practice Consult date: 12/22/22 Requesting Physician: Domenica Brown APRN Primary Care Provider: Vidhi Quan APRN Consult Narrative Reason for consult: Shingles History of present illness: Ms. Javier is a 62 year old female who presents today as a new patient. She is a referral from Ronna Quan's office. Today she rates her pain a 4 out of 10. Patient states the pain is on at her right flank/right abdomen area. Patient states this has been going on for the last 5 weeks and states she had not had any specific injury or trauma. She states all of a sudden that she started experiencing burning, stabbing, electrical sensations in and around her abdomen on the right side. Patient states she did go to her primary care provider who did do additional examination and work-up and did believe it was related to a shingles outbreak. Patient was prescribed Valtrex and gabapentin however she states she did not notice any additional improvement with this. Patient states she still has not had any rash appearing in this area however the pain sensations continue. She states that the pain can be random and does change from the different sensations. Patient does state the pain interferes with her ability perform activities of daily living such as cooking and cleaning. Patient does state that she has diabetes and can be affected by steroids. She states that her primary care provider did want us to know that she does not need any additional steroids in the injection if possible. Patient was recently prescribed lidocaine patches that she does state have started to help. She does also state that the symptoms seem worse at night. Patient is currently managed with diazepam 5 mg and gabapentin 100 mg. Her [place] has been reviewed and is appropriate. CC: Domenica Brown APRN [facility] Disclaimer: The information contained in this section may have been updated after the patient was seen, as this information can be updated by other users. 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 Sleep disorder breathing Smoking greater than 30 pack years Surgical History H/O section History of appendectomy History of cholecystectomy S/P CABG x 3 Family History Other Cancer Coronary artery disease Social History Smoking Status: Current every day smoker tobacco type: cigarettes packs per day: 1 alcohol intake: never substance use type: denies use current occupational status: retired Travel in the last 8 weeks: None household members: spouse housing: house caffeine: No Review of Systems Review of Systems Review of systems:: pertinent systems reviewed and negative unless documented below Review of systems (narrative): Review of Systems: General: No recent weight changes, no fever, no sleep disturbances Respiratory: No cough, no shortness of air, no recurring pulmonary infections Cardiovascular/peripheral vascular: No chest pain, no palpitations, no edema, no shortness of breath Gastrointestinal: No new onset incontinence, normal bowel movements reported Genitourinary: No new onset incontinence Musculoskeletal: Right abdomen, right flank pain Psychiatric: [Normal mood/affect] Neurological: [Denies weakness in extremities], [denies balance issues] Meds Home Medications and Allergies Home Medications Medication Instructions Recorded Confirmed Type amitriptyline 25 mg tablet 25 mg PO DAILY Depression
[2022-12-22 10:21] VITALS: BP 127/61; PULSE 89; RESP 18; O2SAT 97; BMI 33.5
== END ==
PROVIDERS: PCP Nurse Practitioner Family; Visit Provider Nurse Practitioner Family
DX: B02.9 Zoster without complications (principal)
CPT/HCPCS: 99202; G0463

== ENCOUNTER 2022-12-23 11:41 | Day surgery (SDC) | payer BC, SELFPAY ==
--- NOTE | 2022-12-23 11:52 | EXP.PAIN.PRO ---
Procedure Date: 12/23/22 Time: 11:52 Anesthesiologist:: Domenica Brown APRN Complications:: None Pre-procedure Diagnosis:: Acute shingles right flank/right abdomen Post-procedure Diagnosis:: Same Indications for Procedure:: Patient is a pleasant 62-year-old female who presents today for trigger point injections of her right flank and right abdomen related to an acute shingles outbreak. Patient does rate her pain today a 4/10. patient denies any new trauma or injury. She does state that today seems a little bit better than yesterday. Patient is currently prescribed Valtrex and gabapentin along with numbing cream and lidocaine patches. Patient is prescribed diazepam 5 mg and gabapentin 100 mg from outside providers. Her [place] has been reviewed and is appropriate. Physical Exam: General: Alert and oriented x3, no acute distress, pleasant and cooperative Lungs: Respirations even and unlabored, symmetrical chest expansion Eyes: PERRL Musculoskeletal: Flexion and extension of lumbar [spine] somewhat guarded secondary to pain, point tenderness along right abdomen/right flank Neurological: Speech clear, no gross sensory deficit Procedure Details:: Patient was taken to the procedure room with noninvasive monitoring such as a noninvasive blood pressure cuff and pulse oximeter applied to the patient. The area around her right flank/right abdomen were cleansed with ChloraPrep as a cleansing solution. Palpating around her right flank and abdomen areas of point tenderness or marked and using a 25-gauge sterile needle approximately 2 mL of bupivacaine 0.25% were injected incrementally with a total of 10 mL injected in total. Needle was withdrawn and Band-Aids applied to the sites of the injections. Patient tolerated the procedure well with no complications. Plan and Disposition:: Patient tolerated the procedure well and was discharged neurologically intact. Patient will return to clinic in 2 weeks for reevaluation of symptoms and plan of care. Patient has been instructed to contact the clinic with any concerns before the next appointment. Dr. Song has reviewed this note and agrees with this plan of care. This note was dictated using voice recognition software and make contain errors or omissions.
[2022-12-23 12:38] VITALS: BP 121/62; PULSE 86; RESP 18; O2SAT 97
[2022-12-23 12:43] VITALS: BP 121/62; PULSE 86; RESP 18; O2SAT 97; BMI 33.5
== END 2022-12-23 12:10 | disposition home or self-care (01) ==
PROVIDERS: PCP Nurse Practitioner Family; Visit Provider Nurse Practitioner Family
DX: B02.8 Zoster with other complications (principal)
CPT/HCPCS: 20552

== ENCOUNTER 2023-01-28 14:33 | Outpatient (CLI) | payer BC, SELFPAY ==
[2023-01-28 14:43] VITALS: BMI 33.5
== END 2023-01-28 15:30 | disposition home or self-care (01) ==
PROVIDERS: PCP Nurse Practitioner Family; Visit Provider Nurse Practitioner Acute Care
DX: K75.81 Nonalcoholic steatohepatitis (NASH) (principal); K74.60 Unspecified cirrhosis of liver; Z45.2 Encounter for adjustment and management of vascular access device
CPT/HCPCS: 36591; J1642

== ENCOUNTER 2023-03-22 13:56 | Outpatient (CLI) | payer BC, SELFPAY ==
[2023-03-22] MEDS: SODIUM CHLORIDE 0.9% 10ML FLUSH SYRINGE 10 ML IV (14:17)
== END 2023-03-22 14:20 | disposition home or self-care (01) ==
LOC: INF 13:57
PROVIDERS: PCP Nurse Practitioner Family; Visit Provider Nurse Practitioner Family
DX: Z45.2 Encounter for adjustment and management of vascular access device (principal)
CPT/HCPCS: 96523; J1642

== ENCOUNTER 2023-03-24 12:13 | Outpatient (CLI) | payer BC, SELFPAY ==
--- NOTE | 2023-03-24 12:24 | XR_ITS ---
FINAL REPORT CLINICAL HISTORY: RT SIDED CHEST PAIN,ACUTE FEBRILE ILLNESS FINDINGS: 2 views of the chest were obtained . The heart is normal in size. A right chest port is in place with the tip in the SVC. Calcified right paratracheal lymph nodes are noted. Patient is status post CABG. The mediastinum is within normal limits. The lungs are clear. There is no pneumothorax. Osseous structures are unremarkable. IMPRESSION: No acute cardiopulmonary process. Reviewed, Interpreted and Dictated by Nica Sultana MD Transcribed by Chetna Zimmer Authenticated and [facility]
== END 2023-03-24 23:59 ==
LOC: RAD 12:14
PROVIDERS: PCP Nurse Practitioner Family; Visit Provider Nurse Practitioner Family
DX: R07.89 Other chest pain (principal); R50.9 Fever, unspecified; Z95.9 Presence of cardiac and vascular implant and graft, unspecified
CPT/HCPCS: 71046

== ENCOUNTER 2023-06-15 11:46 | Outpatient (CLI) | payer BC, SELFPAY ==
[2023-06-15] MEDS: SODIUM CHLORIDE 0.9% 10ML FLUSH SYRINGE 10 ML IV (12:00)
== END 2023-06-15 12:10 | disposition home or self-care (01) ==
PROVIDERS: PCP Nurse Practitioner Family; Visit Provider Nurse Practitioner Family
DX: Z45.2 Encounter for adjustment and management of vascular access device (principal)
CPT/HCPCS: 96523; J1642

== ENCOUNTER 2023-08-08 10:11 | Outpatient (CLI) | payer BC, SELFPAY | END 2023-08-08 23:59 | disposition home or self-care (01) | LOC: LAB.DROPOF 10:13 | PROVIDERS: PCP Nurse Practitioner Family; Visit Provider Internal Medicine Pulmonary Disease | DX: J18.9 Pneumonia, unspecified organism (principal); R05.9 Cough, unspecified; F17.210 Nicotine dependence, cigarettes, uncomplicated | CPT/HCPCS: 87070; 87116; 87186; 87205; 87206 ==

== ENCOUNTER 2023-09-01 12:48 | Outpatient (CLI) | payer BC, SELFPAY ==
[2023-09-01 14:55] VITALS: BMI 34.3
== END 2023-09-01 23:59 | disposition home or self-care (01) ==
LOC: DIETICIAN 12:49
PROVIDERS: PCP Nurse Practitioner Family; Visit Provider Nurse Practitioner Family
DX: E11.9 Type 2 diabetes mellitus without complications; K75.81 Nonalcoholic steatohepatitis (NASH)
CPT/HCPCS: 97802

== ENCOUNTER 2023-09-23 12:45 | Outpatient (CLI) | payer BC, SELFPAY ==
[2023-09-23] MEDS: SODIUM CHLORIDE 0.9% 10ML FLUSH SYRINGE 10 ML IV (12:50)
== END 2023-09-23 12:50 | disposition home or self-care (01) ==
LOC: INF 12:46
PROVIDERS: PCP Nurse Practitioner Family; Visit Provider Nurse Practitioner Family
DX: R42 Dizziness and giddiness (principal)
CPT/HCPCS: 96523; J1642

== ENCOUNTER 2023-10-05 13:52 | Outpatient (POV) | payer BC, SELFPAY | END 2023-10-05 23:59 | disposition home or self-care (01) | LOC: SC 13:52 | PROVIDERS: Visit Provider Specialist/Technologist | DX: Z00.00 Encounter for general adult medical examination without abnormal findings (principal) ==

== ENCOUNTER 2023-11-29 08:32 | Outpatient (CLI) | payer BC, SELFPAY ==
--- NOTE | 2023-11-29 08:37 | MM_ITS ---
PROCEDURE INFORMATION: Exam: MG Bilateral Screening 3D Mammography Exam date and time: 11/29/2023 8:31 AM Age: 63 years old Clinical indication: Screening. No family history of breast cancer. TECHNIQUE: Imaging protocol: Bilateral Screening tomosynthesis and 2D mammography including computer-aided detection (CAD) when performed. COMPARISON: 1. MG SCBI MM Dig screening mamm BI w/CAD 05/30/2018 4:55 PM 2. MG DMSB DIG MAMM-SCREEN NISHANT W/CAD 01/11/2017 4:57 PM 3. MG DMDBAV DIG MAMM-DX NISHANT W ADD VIEWS 12/19/2015 2:56 PM 4. MG DMSB DIG MAMM-SCREEN NISHANT 12/08/2015 8:53 AM FINDINGS: MAMMOGRAPHY: Breast composition: There are scattered areas of fibroglandular density. Mass: No suspicious mass. Architectural distortion: None. Calcifications: No suspicious calcifications. Asymmetric density: None. Skin thickening: None. Axillary adenopathy: None. IMPRESSION: No mammographic evidence of malignancy. Annual screening is recommended unless otherwise clinically indicated. ASSESSMENT: BI-RADS Category 1: Negative.
--- NOTE | 2023-11-29 08:37 | XR_ITS ---
FINAL REPORT CLINICAL HISTORY: screening COMPARISON: None FINDINGS: Using L1-4, the bone mineral density of the spine is 1.253 g/cm2, corresponding to T-score of 1.9 which is within normal limits. Using the left hip, the bone mineral density of the femoral neck is 0.775 g/cm2, corresponding to a T-score of -0.7 which is within normal limits. Using the right hip, the bone mineral density of the femoral neck is 0.803 g/cm2, corresponding to a T-score of -0.4 which is within normal limits. FRAX not reported because all T-scores at or above -1.0. NOTE: T-score: Standard deviation compared with peak bone mass of young adult mean. *Following the recommendations of the International Society of Bone densitometry, classification of hip BMD is based on the lower of two T-scores; total hip or femoral neck. IMPRESSION: Normal bone mineral density of the lumbar spine and hips. Reviewed, Interpreted and Dictated by Jace Spears III, MD Transcribed by Sangita Marroquin Authenticated and [facility]
== END 2023-11-29 23:59 | disposition home or self-care (01) ==
LOC: RAD 08:33
PROVIDERS: PCP Nurse Practitioner Family; Visit Provider Nurse Practitioner Family
DX: Z78.0 Asymptomatic menopausal state (principal); Z12.31 Encounter for screening mammogram for malignant neoplasm of breast
CPT/HCPCS: 77063; 77067; 77080

== ENCOUNTER 2023-12-20 12:59 | Outpatient (CLI) | payer BC, SELFPAY ==
[2023-12-20] MEDS: SODIUM CHLORIDE 0.9% 10ML FLUSH SYRINGE 10 ML IV (13:15)
== END 2023-12-20 13:15 | disposition home or self-care (01) ==
LOC: INF 13:00
PROVIDERS: PCP Nurse Practitioner Family; Visit Provider Nurse Practitioner Family
DX: Z45.2 Encounter for adjustment and management of vascular access device (principal)
CPT/HCPCS: 96523; J1642

== ENCOUNTER 2024-02-08 12:46 | Outpatient (CLI) | payer BC, SELFPAY ==
[2024-02-08] MEDS: SODIUM CHLORIDE 0.9% 10ML FLUSH SYRINGE 10 ML IV (13:20)
== END 2024-02-08 13:25 | disposition home or self-care (01) ==
LOC: INF 12:47
PROVIDERS: PCP Nurse Practitioner Family; Visit Provider Nurse Practitioner Family
DX: Z45.2 Encounter for adjustment and management of vascular access device (principal)
CPT/HCPCS: 96523; J1642

== ENCOUNTER 2024-05-17 12:39 | Outpatient (CLI) | payer BC, SELFPAY ==
[2024-05-17 13:30] VITALS: PULSE 73; PULSE 74
[2024-05-17] MEDS: LEVALBUTEROL 1.25MG/3ML NEB 1.25 MG IH (13:30)
== END 2024-05-17 23:59 | disposition home or self-care (01) ==
LOC: RT 12:41
PROVIDERS: PCP Nurse Practitioner Family; Visit Provider Internal Medicine Pulmonary Disease
DX: R06.09 Other forms of dyspnea (principal)
CPT/HCPCS: 94060; 94618; 94640; 94726; 94729; J7614

== ENCOUNTER 2024-05-21 12:13 | Outpatient (CLI) | payer BC, SELFPAY ==
--- NOTE | 2024-05-21 12:18 | XR_ITS ---
FINAL REPORT CLINICAL HISTORY: LT HIP PAIN..no truama COMPARISON: None FINDINGS: LEFT HIP: 3 views of the left hip demonstrate no acute fracture or dislocation. Moderate degenerative change of the left hip joint is present. The visualized bony structures are well aligned. No soft tissue abnormality is seen. IMPRESSION: Moderate degenerative change with no acute bony abnormality. Reviewed, Interpreted and Dictated by Nica Sultana MD Transcribed by Marquita Lamas Authenticated and . [facility]
== END 2024-05-21 23:59 | disposition home or self-care (01) ==
LOC: RAD 12:14
PROVIDERS: PCP Nurse Practitioner Family; Visit Provider Nurse Practitioner Family
DX: M25.552 Pain in left hip (principal)
CPT/HCPCS: 73502

== ENCOUNTER 2024-06-19 09:00 | Outpatient (RCR) | payer BC, SELFPAY ==
--- NOTE | 2024-06-01 17:44 | HMH.PTOPEV ---
PT Outpatient Evaluation Rehab PT Outpatient Evaluation Start: 06/01/24 17:29 Freq: Status: Active Protocol: Document 06/01/24 17:29 CARISSA (Rec: 06/01/24 17:44 PHOCAMILA [id number]) E-signed By Eugene Cee, PT Outpatient Therapy Subjective History Subjective History This is the initial PT eval for Jada Javier, 63 yowf who presents with c/o L hip pain x ~ 6 mos, since I started line dancing. She reports increased activity continues to contribute to her pain, but she wants to remain as active as possible. She reports pain ins activity dependent and worse with dancing or walking. She has no c/o numbness or tingling at this time. 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 She underwent multiple rounds of chemo due to her cancer. Chief Complaint Pain,Stiff Symptom Type Ache,Sharp,Dull,Stabbing Symptoms Relieved By Rest/Positioning Symptoms Aggravated By Physical Activity Prior Functional Limitations None Current Functional Limitations Housework,Standing,Recreation Activity,Walking,Bending/ Stooping Symptom Description Activity Dependent Level of pain today (0-10) 4 Pain scale - at its best (0-10) 0 Pain scale - at its worst (0-10) 8 Hip/Knee Eval Gait Observation General Gait Pattern Observation No Deviations/Normal Assistive Device Assistive Devices None / NA Palpation Tenderness left Knee Palpation Overall Comment L greater troch and piriformis 2/4, B psoas and ASIS 2/4. Hip Palpation Findings Tenderness MMT Hip Flexion Strength Grade 4 Good Hip Abduction Strength Grade 4 Good Hip Adduction Strength Grade 5 Normal Hip External Rotation Strength Grade 5 Normal Hip Internal Rotation Strength Grade 5 Normal Knee Extension Strength Grade 5 Normal Knee Flexion Strength Grade 5 Normal ROM Hip ROM Reason Not Measured Within Functional Limits Knee ROM Reason Not Measured Within Functional Limits Special Tests Hip Bowstring (Cram) Test Negative Right,Positive Left Hip Olivia Test Negative Left,Negative Right Sciatic Nerve Tension Test Negative Left,Negative Right Hip Scouring (Quadrant) Test Negative Left,Negative Right Lower Extremity Functional Index Activities Today, do you or would you have any difficulty at all with: a.Any of your usual work, housework or A little bit of difficulty school activities b. Your usual hobbies, recreational or A little bit of difficulty sporting activities c. Getting into or out of the bath No difficulty d. Walking between rooms No difficulty e. Putting on your shoes or socks A little bit of difficulty f. Squatting Quite a bit of difficulty g. Lifting an object, like a bag of No difficulty groceries from the floor h. Performing light activities around No difficulty your home i. Performing heavy activities around A little bit of difficulty your home j. Getting into or out of a car No difficulty k. Walking 2 blocks A little bit of difficulty l. Walking a mile A little bit of difficulty m. Going up or down 10 stairs (about 1 No difficulty flight of stairs) n. Standing for 1 hour A little bit of difficulty o. Sitting for 1 hour No difficulty p. Running on even ground Moderate difficulty q. Running on uneven ground Moderate difficulty r. Making sharp turns while running fast A little bit of difficulty s. Hopping Moderate difficulty t. Rolling over in bed No difficulty LEFI Score Lower Extremity Functional Index Score 63 Miscellaneous Dx PT Eval Objective Objective NICOLE test: negative B, FADIR test: negative B, Post hip thrust test: negative B, SI gapping and compression test: negative B. L hamstring and L piriformis with mildly increased tightness. Outpatient Therapy Assessment Impairments Problems/Impairmments Palpation Tenderness,Impaired Strength,Impaired Endurance, Impaired Walking,Impaired Standing,Impaired Household Care,Impaired Recreational Activities,Subjective C/O Pain ,Impaired Self Care/Self Management Prognosis Rehab Potential Good Comment Signs and symptoms most consistent with L side trochanteric bursitis with associated muscle tightness and tendinopathy. Skilled therapy is indicated to aid pt improvement in strength of the L hip and core, decrease pain, and to decrease muscle tightness in order to aid pt return to PLOF with all recreational activity. 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 Number of Weeks 4 Decreased Palpation Tenderness Yes: 0/4 L hip Increase Strength Yes: L hip 5/5 throughout Improve Ability For Household Care Yes: without increased pain Return to Recreational Activities Yes: without increased pain Improve LEFI Score Yes: at least 75 Decrease Subjective C/O Pain Yes: 3/10 at worst L hip Patient to be Ind w/ Advanced HEP Yes Outpatient Therapy Plan of Care Treatment Plan May Include Therapeutic Exercise Including Home Yes Exercise Program Manual Therapy Techniques Yes Neuromuscular Re-education Yes Therapeutic Activities to Return to Yes Previous Functional/Work Level ADL/Self Care Education Yes Dry Needling Yes Thermal Modalities Yes Electrical Stimulation Yes Ultrasound/Phonophoresis Yes Orthotics/Bracing/Splinting Yes Massage Yes Eval/Re-Eval Yes Frequency Times per week 2 Duration Number of Weeks 4 Addendums This patient is a candidate for social No or vocational rehab? Patient/Guardian verbally acknowledges Yes understanding of treatment program and consents to further treatment? Patient/Guardian verbally acknowledges Yes understanding of diagnosis, prognosis and goals for treatment? Eval Complexity PT Charges 75242 - High Complexity Shoulder/Elbow Eval Shoulder Objective Measurements Elbow Objective Measurements PHYSICIAN CERTIFICATION: I certify the specified therapy services for Milena Javier are required, authorized, and reviewed every 30 days.
== END 2024-06-19 23:59 | disposition home or self-care (01) ==
LOC: PT 09:00
PROVIDERS: Visit Provider Nurse Practitioner Family
DX: M25.552 Pain in left hip (principal)
CPT/HCPCS: 97014; 97035; 97110; 97163; G0283

== ENCOUNTER 2024-06-26 10:52 | Outpatient (RCR) | payer BC, SELFPAY | END 2024-06-26 23:59 | disposition home or self-care (01) | LOC: PT 10:52 | PROVIDERS: Visit Provider Nurse Practitioner Family | DX: S03.00XA Dislocation of jaw, unspecified side, initial encounter (principal); R42 Dizziness and giddiness; X58.XXXA Exposure to other specified factors, initial encounter ==

== ENCOUNTER 2024-12-14 15:42 | Outpatient (CLI) | payer BC, SELFPAY ==
--- OUTSIDE RECORDS SUMMARY | 2024-11-05 11:38 | XMS_ITS | Encounter Summary ---
Author Organization Healthcare Address [address] [place] [address] Care Team Providers Care Trace Evidence Technician Name Role Phone Rosalio Nunez MD Primary Care Provider [phone] Eddie Joy MD Unavailable Reason for Referral * Imaging (Routine) - Closed Specialty Diagnoses / Procedures Referred By Contac t Referred To Contact Radiology Diagnoses Mucinous adenocarcinoma of appendix (CMS/HCC) Procedures CT Abdomen Pelvis w IV Contrast Ondina Hooks MD [address] [address] Phone: tel: fax: Referral ID Status Reason Start Date Expiration Date Visits Re quested Visits Authorized [id number] Closed 08/06/2024 02/05/2026 1 1 * Imaging (Routine) - Closed Specialty Diagnoses / Procedures Referred By Contdimitry t Referred To Contact Radiology Diagnoses Mucinous adenocarcinoma of appendix (CMS/HCC) Procedures CT Chest w IV Contrast Ondina Hooks MD [address] [address] Phone: tel: fax: Referral ID Status Reason Start Date Expiration Date Visits Re quested Visits Authorized [id number] Closed 08/06/2024 02/05/2026 1 1 Reason for Visit * Imaging (Routine) - Closed Specialty Diagnoses / Procedures Referred By Contac t Referred To Contact Radiology Diagnoses Mucinous adenocarcinoma of appendix (CMS/HCC) Procedures CT Abdomen Pelvis w IV Contrast Ondina Hooks MD [address] [place] [address] Phone: tel: fax: Referral ID Status Reason Start Date Expiration Date Visits Re quested Visits Authorized [id number] Closed 08/06/2024 02/05/2026 1 1 Encounter Details Date Type Department Care Team (Latest Contact Info) Description 11/05/2024 11:38 AM EDT - 11/05/2024 11:59 PM EDT Hospital Encounter [facility] [address] [place] [address] Mucinous adenocarcinoma of appendix (CMS/HCC) Discharge Disposition: Home or Self Care Social History Tobacco Use Types Packs/Day Years Used Date Smoking Tobacco: Every Day Cigarettes 1 46.8 Started: 02/21/1978 Passive Smoke Exposure: Current Smokeless Tobacco: Never Alcohol Use Standard Drinks/Week Comments Not Currently 0 (1 standard drink = 0.6 oz pur e alcohol) Prior history PHQ-2 Answer Date Recorded Patient Health Questionnaire-2 Score 0 11/05/2024 PHQ-9 Answer Date Recorded Patient Health Questionnaire-9 Score 0 09/13/2024 CAGE ASSESSMENT Answer Date Recorded Cage unable to access Not on file 01/22/2022 Cage max number of drinks Not on file 2021 Cage Beverages a week Not on file 01/22/2022 Have you ever felt you should CUT down on your d rinking? 0 01/22/2022 Have you been ANNOYED by people criticizing your drinking? 0 01/22/2022 Have you felt GUILTY about your drinking? 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 0 01/22/2022 CAGE Questionnaire Score 0 022 PHQ-2A Answer Date Recorded Patient Health Questionnaire-2 Score 0 01/18/2023 Comments No Sex and Gender Information Value Date Recorded Sex Assigned at Not on file Legal Sex Female 7:48 PM EDT Gender Identity Female 12/08/2021 10:37 PM EDT Sexual Orientation Straight 12/08/2021 10 :37 PM EDT documented as of this encounter Functional Status * Are you deaf or do you have serious difficulty hearing? Answer Date of Assessment Author No 12/09/2021 4:30 PM EDT Darinel Acosta * Are you blind or do you have serious difficulty seeing, even when wearing glasses? Answer Date of Assessment Author No 12/09/2021 4:30 PM EDT Darinel Acosta * Do you have serious difficulty walking or climbing stairs? Answer Date of Assessment Author No 12/09/2021 4:30 PM EDT Darinel Acosta * Do you have serious difficulty dressing or bathing? Answer Date of Assessment Author No 12/09/2021 4:30 PM EDT Darinel Acosta * Over the past 2 weeks, how often have you been bothered by any of the following problems? Question Answer Date of Assessment Author Little interest or pleasure in doing things Not at all 11/05/2024 3:15 PM EDT Paulina Ojeda Feeling down, depressed, or hopeless Not at all 11/05/2024 3:15 PM EDT Paulina Ojeda Patient Health Questionnaire -2 Score 0 11/05/2024 3:15 PM EDT Paulina Ojeda * Question Answer Date of Assessment Author Thoughts that you would be b genesis off or hurting yourself in some way Not at all 11/05/2024 3:15 PM EDT Paulina Ojeda * How difficult have these problems made it for you to do your work, take care of things at home, or get along with other people? Answer Date of Assessment Author Somewhat difficult 11/05/2024 3:15 PM EDT Paulina Ojeda documented as of this encounter Mental Status * Because of a physical, mental, or emotional condition, do you have serious difficulty concentrating, remembering, or making decisions? (5 years old or older) Answer Entry Date Author No 12/09/2021 4:30 PM EDT Darinel Acosta documented in this encounter Medications at Time of Discharge amitriptyline (Elavil) 25 MG tablet Take 1 tablet by mouth nightly. b complex vitamins capsule Take 1 capsule by mouth daily. Basaglar KwikPen 100 UNIT/ML injection pen 4 budesonide-formoter ol (Symbicort) 160-4.5 MCG/ACT inhaler Inhale 2 puffs 2 times a day. Rinse mouth with water after use to reduce aftertaste and incidence of candidiasis. Do not swallow. ELDERBERRY PO Take 1 tablet by mouth 1 (one) time each day. empagliflozin (Jardiance) 25 MGIndications:Type 2 diabetes mellitus with other specified complication, with long-term current use of insulin Take 1 tablet (25 mg) by mouth 1 (one) time each day. 90 tablet 2 5 fluconazole (Diflucan) 150 MG tablet 5 furosemide (Lasix) 20 MG tablet Take 1 tablet by mouth daily as needed. hydrocortisone 2.5 % ointment 5 insulin aspart (NovoLOG) 100 UNIT/ML injection vial Take as directed in writtensliding scale directions before meals. 2 units: 50 for glucose greater than 150 2 Lactobacillus Rhamnosus, GG, ( Probiotic Digestive Care) capsule Take 1 capsule by mouth 1 (one) time each day. levalbuterol (Xopenex) 45 MCG/ACT inhaler Inhale 2 puffs every 6 hours as needed. levocetirizine (Xyzal Allergy 24HR) 5 MG tablet Take by mouth 1 (one) time each day in the evening. losartan (Cozaar) 25 MG tabletIndications:C oronary artery disease involving chalk[place] heart, unspecified vessel or lesion type, unspecified whether angina present Take 0.5 tablets (12.5 mg) by mouth 1 (one) time each day. 45 tablet 3 5 03/23/19 26 mometasone (Nasonex) 50 MCG/ACT nasal spray 09/07/19 2 3 montelukast (Singulair) 10 MG tablet Take 1 tablet by mouth nightly. Mounjaro 5 MG/0.5ML solution auto-injector solution pen-injector INJECT 1 PEN SUBCUTANEOUSLY ONCE A WEEK 5 nitroglycerin (Nitrostat) 0.[address] 1 tablet under the tongue. Nurtec 75 MG orally disintegrating tablet 5 ondansetron ODT (Zofran-ODT) 8 MG disintegrating tablet 5 pantoprazole (Protonix) 40 MG EC tablet Take 1 tablet by mouth daily before breakfast. Do not crush, chew, or split. potassium chloride ER (Micro-K) 10 MEQ ER capsule 5 Repatha SureClick 140 MG/ML solution auto-injector autoinjectorIndicat ions:Coronary artery disease involving chalk[place] heart, unspecified vessel or lesion type, unspecified whether angina present INJECT 1 ML (140 MG) UNDER THE SKIN EVERY 14 (FOURTEEN) DAYS KEEP IN REFRIGERATOR 2 mL 2 5 rOPINIRole (Requip) 2 MG tablet Take 2 tablets by mouth nightly. traZODone (Desyrel) 100 MG tablet 5 bisacodyl (Bisacodyl EC) 5 MG EC tablet Take all 4 tablets at 4 PM on day before colonoscopy 4 tablet 5 clopidogrel (Plavix) 75 MG tabletIndications:C oronary artery disease involving chalk[place] coronary artery of chalk[place] heart without angina pectoris Take 1 tablet (75 mg) by mouth 1 (one) time each day. 90 tablet 2 5 Continuous Glucose Sensor (FreeStyle Oneal 3 Sensor) misc change every 14 days as directed 5 diazePAM (Valium) 5 MG tablet every 6 (six) hours if needed. 3 Insulin Aspart FlexPen 100 UNIT/ML solution pen-injector 5 lidocaine-prilocain e (Emla) 2.5-2.5 % cream FOR PORT 30 g 1 4 ondansetron ODT (Zofran-ODT) 4 MG disintegrating tablet Take 1 tablet (4 mg) by mouth every 8 hours as needed for nausea or vomiting. 20 tablet 5 ASX-BIg-LdOi-NaSulf -Na Asc-C (MoviPrep) 100 g reconstituted solution At 5 PM on day before colonoscopy, mix and drink first dose. Mix and drink second dose 6 hours before you leave home on day of colonoscopy 1 each 5 Procto-Med HC 2.5 % rectal cream 3 Sodium Fluoride 5000 PPM 1.1 % gel dental gel 5 apixaban (Eliquis) 5 MG tablet Take 1 tablet by mouth 2 times a day. 60 tablet 2 5 11/27/19 25 carvedilol (Coreg) 12.5 MG tabletIndications:C oronary artery disease involving chalkyitsik heart, unspecified vessel or lesion type, unspecified whether angina present,Primary hypertension TAKE 1 TABLET (12.5 MG) BY MOUTH 2 (TWO) TIMES A DAY WITH MEALS 180 tablet 2 5 11/20/19 25 documented as of this encounter Miscellaneous Notes * Tucker Ceron Larisa - 11/05/2024 11:54 AM EDT Images from the original note were not included. 1639 Caring for Yourself after Contrast Imaging If you had ORAL contrast: ? You can go back to your normal diet and activities as tolerated. ? Drink plenty of fluids, unless told otherwise. If you had IV contrast: ? You can go back to your normal diet and activities as tolerated. ? Drink plenty of fluids, unless told otherwise. ? Leave a bandage on the site for 30 minutes (where the IV was inserted or blood was drawn). If you had Intravesical (bladder) contrast: ? Return to normal diet and activity. What you need to know about delayed reaction to IV contrast What is IV Contrast? ? Contrast is a dye that is put into your body through an IV. ? It is used for imaging scans such as CT scans and MRIs. ? The contrast makes blood vessels, organs and other parts of your body show up better on the scan. What do I need to do after IV contrast? ? Drink lots of fluids. This will help flush the contrast out of your system. ? Drink 2-3 extra glasses or bottles of water within 4 hours of your scan. What is a contrast reaction? ? A contrast reaction is a bad side effect from the contrast dye. ? It is rare but it does happen. ? They can be mild - such as sneezing, itching, or hives. ? They can be severe - such as trouble breathing, throat swelling, and irregular heart beat. When do these reactions happen? ? They often happen right after the contrast is injected. ? Some happen hours after going home. Go to the nearest Emergency Department right away if you have any of these symptoms after you leavethe clinic or hospital. ? Sneezing ? Itching in your mouth, throat, eyes, ears, or skin ? Rash or hives ? Throwing up or stomach sickness ? High heart rate or ?racing? of your heart ? Feeling dizzy or woozy ? Feeling short of breath or like you can?t take a deep breath ? Feeling very anxious for no other reason It is very important that these reactions be treated. Tell the doctor or nurse that you are having a reaction to IV contrast dye. Do not ignore any sign of a reaction! All reactions must be assessed by a doctor. Call 911 if you are alone and your reaction is more than mild sneezing or itching. If you have a mild reaction, call to speak with a Radiologist, explain that you havehad a contrast reaction, as this needs to be added to your medical record. documented in this encounter Plan of Treatment Upcoming Encounters Date Type Department Care Team (Late st Contact Info) Description 03/26/2025 1:30 PM EST Office Visit [facility] [address] [place] [address] Ab Blair PA [address] [facility] [address] [place] [address] 04/29/2025 12:20 PM EDT Appointment [facility] [address] [place] [id number] 04/29/2025 3:10 PM EDT Office Visit [facility] [address] [place] [id number] Ondina Hooks MD [address] [facility] [address] [place] [address] 09/24/2025 1:00 PM EDT Appointment [facility] [address] [facility] [address] [place] [address] 09/24/2025 3:00 PM EDT Office Visit [facility] [address] [facility] [place] [address] documented as of this encounter Procedures Procedure Name Priority Date/Time Associated Diagnosis Comments CT ABDOMEN PELVIS W IV CONTRAST Routine 11/05/2024 12:49 PM EDT Mucinous adenocarcinoma of appendix (CMS/HCC) CT CHEST W IV CONTRAST Routine 11/05/2024 12:49 PM EDT Mucinous adenocarcinoma of appendix (CMS/HCC) documented in this encounter Results * CT Abdomen Pelvis w IV Contrast (11/05/2024 12:49 PM EDT) Anatomical Region Laterality Modality Abdomen, Pelvis Computed Tomogra phy Impressions 11/05/2024 1:23 PM EDT Chest: Improvement seen in the previously noted nodules within the lung. No signs of progression of disease. Abdomen/pelvis: No evidence of local recurrence or metastatic disease. CRITICAL RESULT: No. COMMUNICATION: Per this written report. Drafted by Eva Fierro MD on 11/05/2024 1:16 PM Final report signed by Eva Fierro MD on 11/05/2024 1:23 PM Narrative 11/05/2024 1:23 PM EDT CLINICAL INDICATION: adenocarcinoma of appendix TECHNIQUE: Multiple axial CT images were obtained from thoracic inlet through pubic symphysis following administration of IV contrast, Omnipaque 300, 100 mL. Reformatted images of the abdomen and pelvis in the coronal and sagittal planes were generated from the axial data set to facilitate diagnostic accuracy. Total DLP (Dose-Length Product): 627.16 mGy.cm (accession [id number]), 627.16 mGy.cm (accession [id number]). Please note: The reported value represents the total of one or more individual components during the CT acquisition on this date and at this time, and as such, the same value may appear in more than one CT report depending on the interpreting/reporting physicians. COMPARISON: 07/23/2024 FINDINGS: Chest: Mediastinum: Slight Improvement in the filling defects within the SVC suggesting chronic thrombus. Vascular calcification seen within the thoracic aorta and great vessels. Thyroid is homogeneous. Cardiac chambers are within normal limits. Extensive coronary artery calcifications identified. Calcification seen within the lymph nodes suggesting old healed granulomatous disease. There is no bulky hilar or axillary adenopathy. Minimal bronchial wall thickening in the perihilar regions. Lungs/pleura: Previously seen tiny 2 mm nodule posteriorly within the left lung apex is no longer visualized. The previously described nodule within the right lower lobe near the fissure is no longer visualized on today's examination. A 5 mm nodule seen near the left fissure in the left lower lobe has decreased in size on today's examination. There are no new pulmonary nodules identified. Some atelectatic changes identified lung bases. Calcified granuloma identified within the right middle lobe is stable. No pleural effusion or pneumothorax. Musculoskeletal and Body Wall: The bony structures are unremarkable. Minimal multilevel degenerative changes seen within the spine. Sternotomy wires are in place. Mild diastases identified and lower sternum. Abdomen/Pelvis: Solid abdominal organs: Liver is homogeneous in appearance. Gallbladder is been surgically removed. No biliary ductal dilatation. The pancreas is homogeneous in appearance. The spleen is unremarkable. Both adrenal glands are within normal limits. Symmetric enhancement of the renal parenchyma. No stones or distention seen of the renal collecting system. Lymph Nodes: No abdominal or retroperitoneal lymphadenopathy. No pelvic adenopathy. Vasculature: Vasculature calcification seen diffusely throughout the abdominal aorta and iliac vessels. GI Tract: Stomach is unremarkable. No significant wall thickening. No obvious obstruction. The small bowel is unremarkable. Some nonspecific fluid-filled mid small bowel loops. Surgical staple line identified at the cecum from prior appendectomy. Colon is unremarkable. No obvious obstruction. Decompression of the sigmoid colon with wall thickening likely related to the underdistention. No significant surrounding inflammatory changes present. Mesentery/Peritoneum: No suspicious mesenteric or peritoneal abnormality. Pelvic Viscera: The bladder is mildly distended. No gross mass or lesion. The uterus has been surgically removed. Free Fluid: None Musculoskeletal and Body Wall: Bony structures reveal degenerative changes seen within the spine. No ventral abdominal wall mass. Small umbilical hernia containing fat and bowel with no signs of strangulation. Procedure Note Eva Fierro MD - 11/05/2024 CLINICAL INDICATION: adenocarcinoma of appendix TECHNIQUE: Multiple axial CT images were obtained from thoracic inlet through pubicsymphysis following administration of IV contrast, Omnipaque 300, 100 mL.Reformatted images of the abdomen and pelvis in the coronal and sagittalplanes were generated from the axial data set to facilitate diagnosticaccuracy. Total DLP (Dose-Length Product): 627.16 mGy.cm (accession [id number]),627.16 mGy.cm (accession [id number]). Please note: The reported valuerepresents the total of one or more individual components during the CTacquisition on this date and at this time, and as such, the same value mayappear in more than one CT report depending on the interpreting/reportingphysicians. COMPARISON: 07/23/2024 FINDINGS: Chest: Mediastinum: Slight Improvement in the filling defects within the SVCsuggesting chronic thrombus. Vascular calcification seen within thethoracic aorta and great vessels. Thyroid is homogeneous. Cardiac chambersare within normal limits. Extensive coronary artery calcificationsidentified. Calcification seen within the lymph nodes suggesting oldhealed granulomatous disease. There is no bulky hilar or axillaryadenopathy. Minimal bronchial wall thickening in the perihilar regions. Lungs/pleura: Previously seen tiny 2 mm nodule posteriorly within the leftlung apex is no longer visualized. The previously described nodule withinthe right lower lobe near the fissure is no longer visualized on today'sexamination. A 5 mm nodule seen near the left fissure in the left lowerlobe has decreased in size on today's examination. There are no newpulmonary nodules identified. Some atelectatic changes identified lungbases. Calcified granuloma identified within the right middle lobe isstable. No pleural effusion or pneumothorax. Musculoskeletal and Body Wall: The bony structures are unremarkable.Minimal multilevel degenerative changes seen within the spine. Sternotomywires are in place. Mild diastases identified and lower sternum. Abdomen/Pelvis: Solid abdominal organs: Liver is homogeneous in appearance. Gallbladder isbeen surgically removed. No biliary ductal dilatation. The pancreas ishomogeneous in appearance. The spleen is unremarkable. Both adrenal glandsare within normal limits. Symmetric enhancement of the renal parenchyma.No stones or distention seen of the renal collecting system. Lymph Nodes: No abdominal or retroperitoneal lymphadenopathy. No pelvicadenopathy. Vasculature: Vasculature calcification seen diffusely throughout theabdominal aorta and iliac vessels. GI Tract: Stomach is unremarkable. No significant wall thickening. Noobvious obstruction. The small bowel is unremarkable. Some nonspecificfluid-filled mid small bowel loops. Surgical staple line identified at thececum from prior appendectomy. Colon is unremarkable. No obviousobstruction. Decompression of the sigmoid colon with wall thickeninglikely related to the underdistention. No significant surroundinginflammatory changes present. Mesentery/Peritoneum: No suspicious mesenteric or peritonealabnormality. Pelvic Viscera: The bladder is mildly distended. No gross mass or lesion.The uterus has been surgically removed. Free Fluid: None Musculoskeletal and Body Wall: Bony structures reveal degenerative changesseen within the spine. No ventral abdominal wall mass. Small umbilicalhernia containing fat and bowel with no signs of strangulation. IMPRESSION: Chest: Improvement seen in the previously noted nodules within the lung.No signs of progression of disease. Abdomen/pelvis: No evidence of local recurrence or metastatic disease. CRITICAL RESULT: No. COMMUNICATION: Per this written report. Drafted by Eva Fierro MD on 11/05/2024 1:16 PM Final report signed by Eva Fierro MD on 11/05/2024 1:23 PM Ondina Hooks MD IMG CT PROCEDURES Final Result * CT Chest w IV Contrast (11/05/2024 12:49 PM EDT) Anatomical Region Laterality Modality Chest Computed Tomogra phy Impressions 11/05/2024 1:23 PM EDT Chest: Improvement seen in the previously noted nodules within the lung. No signs of progression of disease. Abdomen/pelvis: No evidence of local recurrence or metastatic disease. CRITICAL RESULT: No. COMMUNICATION: Per this written report. Drafted by Eva Fierro MD on 11/05/2024 1:16 PM Final report signed by Eva Fierro MD on 11/05/2024 1:23 PM Narrative 11/05/2024 1:23 PM EDT CLINICAL INDICATION: adenocarcinoma of appendix TECHNIQUE: Multiple axial CT images were obtained from thoracic inlet through pubic symphysis following administration of IV contrast, Omnipaque 300, 100 mL. Reformatted images of the abdomen and pelvis in the coronal and sagittal planes were generated from the axial data set to facilitate diagnostic accuracy. Total DLP (Dose-Length Product): 627.16 mGy.cm (accession [id number]), 627.16 mGy.cm (accession [id number]). Please note: The reported value represents the total of one or more individual components during the CT acquisition on this date and at this time, and as such, the same value may appear in more than one CT report depending on the interpreting/reporting physicians. COMPARISON: 07/23/2024 FINDINGS: Chest: Mediastinum: Slight Improvement in the filling defects within the SVC suggesting chronic thrombus. Vascular calcification seen within the thoracic aorta and great vessels. Thyroid is homogeneous. Cardiac chambers are within normal limits. Extensive coronary artery calcifications identified. Calcification seen within the lymph nodes suggesting old healed granulomatous disease. There is no bulky hilar or axillary adenopathy. Minimal bronchial wall thickening in the perihilar regions. Lungs/pleura: Previously seen tiny 2 mm nodule posteriorly within the left lung apex is no longer visualized. The previously described nodule within the right lower lobe near the fissure is no longer visualized on today's examination. A 5 mm nodule seen near the left fissure in the left lower lobe has decreased in size on today's examination. There are no new pulmonary nodules identified. Some atelectatic changes identified lung bases. Calcified granuloma identified within the right middle lobe is stable. No pleural effusion or pneumothorax. Musculoskeletal and Body Wall: The bony structures are unremarkable. Minimal multilevel degenerative changes seen within the spine. Sternotomy wires are in place. Mild diastases identified and lower sternum. Abdomen/Pelvis: Solid abdominal organs: Liver is homogeneous in appearance. Gallbladder is been surgically removed. No biliary ductal dilatation. The pancreas is homogeneous in appearance. The spleen is unremarkable. Both adrenal glands are within normal limits. Symmetric enhancement of the renal parenchyma. No stones or distention seen of the renal collecting system. Lymph Nodes: No abdominal or retroperitoneal lymphadenopathy. No pelvic adenopathy. Vasculature: Vasculature calcification seen diffusely throughout the abdominal aorta and iliac vessels. GI Tract: Stomach is unremarkable. No significant wall thickening. No obvious obstruction. The small bowel is unremarkable. Some nonspecific fluid-filled mid small bowel loops. Surgical staple line identified at the cecum from prior appendectomy. Colon is unremarkable. No obvious obstruction. Decompression of the sigmoid colon with wall thickening likely related to the underdistention. No significant surrounding inflammatory changes present. Mesentery/Peritoneum: No suspicious mesenteric or peritoneal abnormality. Pelvic Viscera: The bladder is mildly distended. No gross mass or lesion. The uterus has been surgically removed. Free Fluid: None Musculoskeletal and Body Wall: Bony structures reveal degenerative changes seen within the spine. No ventral abdominal wall mass. Small umbilical hernia containing fat and bowel with no signs of strangulation. Procedure Note Eva Fierro MD - 11/05/2024 CLINICAL INDICATION: adenocarcinoma of appendix TECHNIQUE: Multiple axial CT images were obtained from thoracic inlet through pubicsymphysis following administration of IV contrast, Omnipaque 300, 100 mL.Reformatted images of the abdomen and pelvis in the coronal and sagittalplanes were generated from the axial data set to facilitate diagnosticaccuracy. Total DLP (Dose-Length Product): 627.16 mGy.cm (accession [id number]),627.16 mGy.cm (accession [id number]). Please note: The reported valuerepresents the total of one or more individual components during the CTacquisition on this date and at this time, and as such, the same value mayappear in more than one CT report depending on the interpreting/reportingphysicians. COMPARISON: 07/23/2024 FINDINGS: Chest: Mediastinum: Slight Improvement in the filling defects within the SVCsuggesting chronic thrombus. Vascular calcification seen within thethoracic aorta and great vessels. Thyroid is homogeneous. Cardiac chambersare within normal limits. Extensive coronary artery calcificationsidentified. Calcification seen within the lymph nodes suggesting oldhealed granulomatous disease. There is no bulky hilar or axillaryadenopathy. Minimal bronchial wall thickening in the perihilar regions. Lungs/pleura: Previously seen tiny 2 mm nodule posteriorly within the leftlung apex is no longer visualized. The previously described nodule withinthe right lower lobe near the fissure is no longer visualized on today'sexamination. A 5 mm nodule seen near the left fissure in the left lowerlobe has decreased in size on today's examination. There are no newpulmonary nodules identified. Some atelectatic changes identified lungbases. Calcified granuloma identified within the right middle lobe isstable. No pleural effusion or pneumothorax. Musculoskeletal and Body Wall: The bony structures are unremarkable.Minimal multilevel degenerative changes seen within the spine. Sternotomywires are in place. Mild diastases identified and lower sternum. Abdomen/Pelvis: Solid abdominal organs: Liver is homogeneous in appearance. Gallbladder isbeen surgically removed. No biliary ductal dilatation. The pancreas ishomogeneous in appearance. The spleen is unremarkable. Both adrenal glandsare within normal limits. Symmetric enhancement of the renal parenchyma.No stones or distention seen of the renal collecting system. Lymph Nodes: No abdominal or retroperitoneal lymphadenopathy. No pelvicadenopathy. Vasculature: Vasculature calcification seen diffusely throughout theabdominal aorta and iliac vessels. GI Tract: Stomach is unremarkable. No significant wall thickening. Noobvious obstruction. The small bowel is unremarkable. Some nonspecificfluid-filled mid small bowel loops. Surgical staple line identified at thececum from prior appendectomy. Colon is unremarkable. No obviousobstruction. Decompression of the sigmoid colon with wall thickeninglikely related to the underdistention. No significant surroundinginflammatory changes present. Mesentery/Peritoneum: No suspicious mesenteric or peritonealabnormality. Pelvic Viscera: The bladder is mildly distended. No gross mass or lesion.The uterus has been surgically removed. Free Fluid: None Musculoskeletal and Body Wall: Bony structures reveal degenerative changesseen within the spine. No ventral abdominal wall mass. Small umbilicalhernia containing fat and bowel with no signs of strangulation. IMPRESSION: Chest: Improvement seen in the previously noted nodules within the lung.No signs of progression of disease. Abdomen/pelvis: No evidence of local recurrence or metastatic disease. CRITICAL RESULT: No. COMMUNICATION: Per this written report. 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) documented in this encounter Administered Medications Inactive Administered Medications - up to 3 most recent administrations Medication Order MAR Action Action Date Dose Rate Site iohexol (OMNIPaque) 300 MG/ML injection 100 mL 100 mL, Intravenous, Once in imaging, 1 dose, Starting on 11/05/24 at 1154, Until Tue11/05/24 at 1240, Routine, Imaging Protocol Orders Given 11/05/2024 12:40 PM EDT 100 mL iohexol (OMNIPaque) 9 MG/ML oral contrast 500 mL 500 mL, Oral, Once in imaging, 1 dose, Starting on Tue11/05/24 at 1154, Until Tue11/05/24 at 1243, Routine, Imaging Protocol Orders Given 11/05/2024 12:43 PM EDT 500 mL documented in this encounter Additional Health Concerns Assessment Noted Time PHQ-9 Depression Total Score: 0 09/14/19 3:36 PM EDT A fall risk assessment has been complete d for the patient 11/05/2024 3:14 PM EDT A Body Mass Index follow-up plan has been documented for the patient 09/14/2024 9:17 AM EDT documented as of this encounter Care Teams Trace Evidence Technician Relationship Specialty Start Date End Date Rosalio Nunez MD [address] [place] [address] PCP - General 07/04/20 Eddie Joy MD [address] [place] [phone] Service Attending Cardiology 01/01/22 documented as of this encounter
--- OUTSIDE RECORDS SUMMARY | 2024-11-05 15:10 | XMS_ITS | Encounter Summary ---
Author Organization Healthcare Address [address] [place] [address] Care Team Providers Care Conference Center Manager Name Role Phone Rosalio Nunez MD Primary Care Provider [phone] Eddie Joy MD Unavailable Reason for Visit * Reason Comments Follow-up Encounter Details Date Type Department Care Team ([facility] st Contact Info) Description 11/05/2024 3:10 PM EDT Office Visit [facility] Multidisciplinary Oncology Clinic [address] [place] [address] Ondina Hooks MD [address] [address] Mucinous adenocarcinoma of appendix (CMS/HCC) (Primary Dx) Social History Tobacco Use Types Packs/Day Years [...] drink first t keith in the morning (EYE-GI TECH) to steady your nerves or to get [...] PM EDT documented as of this encounter Last Filed Vital Signs Vital Sign Reading Time Taken Comments Blood Pressure 121/73 11/05/2024 3:03 PM EDT Pulse 88 11/05/2024 3:03 PM EDT Temperature 36.8 C (98.2 F) 11/05/2024 3:03 PM EDT Respiratory Rate - - Oxygen Saturation 97% 11/05/2024 3:03 PM EDT Inhaled Oxygen Concentration - - Weight 89.4 kg (197 lb 1.5 oz) 11/05/2024 3:03 P M EDT Height 175.3 cm (5' 9 ) 11/05/2024 3:03 PM EDT Body Mass Index 29.11 11/05/2024 3:03 PM EDT documented in this encounter Functional Status * Are you [...] EDT Darinel Acosta documented in this encounter Miscellaneous Notes * Progress Notes - Beatriz Garcia, - 11/05/2024 3:10 PM EDT Images from the original note were not included. MEDICAL ONCOLOGY FOLLOW-UP NOTE Patient Information Patient Name: Milena Javier Date of : 1960 REFERRING PHYSICIAN: No referring provider defined for this encounter. 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 See Oncology History below. 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 Patient underwent a CABG in June at [place]. This was complicated by a pericardial effusion, and had to be readmitted for that. She also had a pleural effusion diagnosed during that time. She did cardiac and pulmonary rehab, and was doing much better. In July, she was diagnosed at outside hospitalwith appendicitis, but given her significant history, was treated with antibiotics. 12/09/21 she presented to with recurrent appendicitis, and was taken to the operating room for laparoscopic appendectomy. At that time, she had finished cardiac rehab and was exercising an hour a day and was feltsafe for surgery. She was discharged from the hospital the same day. Unfortunately, pathology came b k as goblet cell adenocarcinoma. Intraoperatively, patient was noted to have contained perforatedappendix with surrounding abscess to the cecum, terminal ileum, other small bowel, lateral abdominal wall, mesentery, and omentum. There was no succus or purulent drainage noted. -Diagnosed with appendiceal goblet cell adenocarcinoma: G1, pT3, LVI+ and invasion of the proximal margin. Contained abscess to cecum with contained perforation. -12/22/21: CT CAP w/ nonspecific pulmonary nodules but no evidence of metastatic disease. -01/20/22: Exploratory Laparotomy, Omentectomy, Destruction of Intra-abdominal tumor 5 cm, Deliveryof Heated Intraperitoneal Chemotherapy to deep tissue space ([facility] weight-based dose 90 min) Pathology: focal residual goblet cell adenocarcinoma, pN1a (1 of 15 Lns) -03/18/22: CT AP postsurgical changes, no evidence of disease -04/13/22: Patient had been undergoing treatment at [facility] with FOLFOX. Completed 3 cycles, last cycle 04/07/22. Transferring care to . -10/12/22: CT C/A/P: ADALGISA Mucinous adenocarcinoma of appendix (CMS/HCC) 12/17/2021 Initial Diagnosis Mucinous adenocarcinoma of appendix (CMS/HCC) 01/20/2022 - 01/20/2022 Research Study Participant [id number] Arm B: mitoMYcin Weight-Based HiPEC Plan Provider: Ondina Hooks MD Treatment goal: [No plan goal] Line of treatment: [No plan line of treatment] Associated studies: Flat dose vs. weight-based IP chemotherapy for CRS/HIPEC 01/20/2022 Cancer Staged Staging form: Appendix - Carcinoma, AJCC 8th Edition, Pathologic stage from 01/20/2022: Stage IIIB (pT3, pN1a, cM0) - Signed by Ondina Hooks MD on 02/18/2022 04/21/2022 - 08/17/2022 Chemotherapy fluorouracil (Adrucil) 4,450 mg in sodium chloride 0.9% 500 mL chemo infusion - for home use, 2,400mg/m2 = 4,450 mg, Intravenous, Over 46 hours, 5 of 5 cycles Dose modification: 1,920 mg/m2 (original dose 2,400 mg/m2, Cycle 3), 1,800 mg/m2 (original dose 2,400 mg/m2, Cycle 4) Administration: 4,450 mg (04/21/2022), 4,450 mg (05/04/2022), 4,450 mg (05/18/2022), 4,450 mg (06/01/2022), 3,550 mg (06/15/2022), 3,550 mg (06/29/2022), 3,550 mg (07/20/2022), 3,350 mg (08/03/2022), 3,350 mg (08/17/2022) OXALIplatin (Eloxatin) 125 mg in dextrose 5 % 250 mL chemo IVPB, 68 mg/m2 = 125 mg (80 % of original dose 85 mg/m2), Intravenous, Once, 5 of 5 cycles Dose modification: 68 mg/m2 (original dose 85 mg/m2, Cycle 1), 50 mg/m2 (original dose 85 mg/m2, Cycle 3, Reason: Toxicity/Complication, Comment: neuropathy) Administration: 125 mg (04/21/2022), 125 mg (05/04/2022), 127.5 mg (05/18/2022), 125 mg (06/01/2022), 95mg (06/15/2022), 95 mg (06/29/2022), 95 mg (07/20/2022), 95 mg (08/03/2022), 95 mg (08/17/2022) aprepitant (Cinvanti) 130 MG/18ML IV 130 mg, 130 mg, Intravenous, Once, 5 of 5 cycles Administration: 130 mg (04/21/2022), 130 mg (05/04/2022), 130 mg (05/18/2022), 130 mg (06/01/2022), 130 mg (06/15/2022), 130 mg (06/29/2022), 130 mg (07/20/2022), 130 mg (08/03/2022), 130 mg (08/17/2022) Past Medical, Surgical, Family and Social History Reviewed in this encounter by me personally. Subjective She presents today to clinic with her sister. She voices that overall she is feeling very well. Sheis pleased to know that her lung nodules have disappeared. Spending time with close family frequently and going to adventism. Denies shortness of air, nausea, vomiting, diarrhea, constipation, abdominalpain. Review of Systems: 14 ROS was conducted and is otherwise negative unless noted in HPI. Objective Visit Vitals BP 121/73 Pulse 88 Temp 36.8 ??C (98.2 ??F) Wt Readings from Last 6 Encounters: 11/05/24 89.4 kg (197 lb 1.5 oz) 09/21/24 90.6 kg (199 lb 11.8 oz) 09/13/24 88.9 kg (196 lb) 08/06/24 90 kg (198 lb 8 oz) 04/24/24 88.5 kg (195 lb 1.7 oz) 03/23/24 87.7 kg (193 lb 5.5 oz) BSA: Estimated body surface area is 1.91 meters squared as calculated from the following: Height as of this encounter: 1.626 m (5' 4 ). Weight as of this encounter: 81.1 kg (178 lb 12.7 oz). Performance Status ECOG 0 EXAM General: No acute distress; sitting upright in a chair, speaking in full sentences Head: normocephalic, atraumatic EENT: sclera clear , no proptosis or lid lag; nose patent Cardiac: 1+ bilateral lower extremity edema, systolic murmur appreciated in aortic and pulmonic areas, capillary refill <3 seconds Lungs: no audible wheezing or cough, on room air Abdomen: soft, NTND, umbilical hernia, weight stable Neuro: AAOx3, follows commands, speech intact , normal hearing Skin: no obvious rashes : deferred, no urinary complaints, no CVA tenderness per pt MSK: moving upper extremities well , ROM intact. facial muscles appear symmetrical Heme: no obvious bruising, no pallor Psych: appropriate mood & affect LABORATORIES AND STUDIES: reviewed by me personally WBC 13.42 (H) Hgb 12.2 PLT 279 HCT 39.3 PTT ?? INR ?? antiXa ?? Na 137 Cl 103 BUN 8 Gluc 168 (H) K 4.1 Co2 22 Creat 0.53 (L) Tot Prot 6.9 AST 24 Tot bili 0.4 Alkphos 89 Alb ?? ALT 18 Dir bili ?? Ca 9.0 iCa ?? Mg ?? Phos ?? Lactate ?? Prealbumin, Plasma Date Value Ref Range Status 01/07/2022 11.7 (L) 20.0 - 41.0 mg/dL Final 12/17/2021 14.6 (L) 20.0 - 41.0 mg/dL Final 12/09/2021 9.5 (L) 20.0 - 41.0 mg/dL Final CEA, Serum Date Value Ref Range Status 08/06/2024 5.6 (H) <4.0 ng/mL Final 04/24/2024 4.3 (H) <4.0 ng/mL Final 11/01/2023 4.0 (H) <4.0 ng/mL Final Narrative & Impression CLINICAL INDICATION: adenocarcinoma of appendix TECHNIQUE: Multiple axial CT images were obtained from thoracic inlet through pubic symphysis following administration of IV contrast, Omnipaque 300, 100 mL. Reformatted images of the abdomen and pelvis in the coronal and sagittal planes were generated from the axial data set to facilitate diagnostic accuracy. Total DLP (Dose-Length Product): 627.16 mGy.cm (accession [id number]), 627.16 mGy.cm (accession [id number]). Please note: The reported value represents the [...] lower lobe near the fissure is no longervisualized on today's examination. A 5 mm nodule seen near the left fissure in the left lower lobe has decreased in size on today's examination. There are no new pulmonary nodules identified. Some atelectatic changes identified lung bases. Calcified granuloma identified within the right middle lobeis stable. No pleural effusion or pneumothorax. Musculoskeletal and Body Wall: The bony structures are unremarkable. Minimal multilevel degenerative changes seen within the spine. Sternotomy wires are in place. Mild diastases identified and lower sternum. Abdomen/Pelvis: Solid abdominal organs: Liver is homogeneous in appearance. Gallbladder is been surgically removed.No biliary ductal dilatation. The pancreas is homogeneous [...] within the lung. No signs of progression ofdisease. Abdomen/pelvis: No evidence of local recurrence or metastatic disease. Assessment/Plan 1. Cancer management : Milena Javier is a 61 y.o. female with pT3, grade 1 appendcieal goblet adenocarcinoma. This represents a life threatening illness for which urgent cancer treatment is indicated. - s/p CRS and HIPEC Dec 2021 - Next Gen Sequencing: see above - Regimen: FOLFOX completed a total of 6 cycles July 2022 PLAN - Okay to continue with surveillance scans - Scans, labs and Signatera today - CT scans performed today prior to appointment demonstrate improvement seen in the previously noted nodules within the lung. No signs of progression of disease in chest or abdomen. - RTC in [address] CAP and Yang. #Filling defect in SVT poss from thrombosis - Demonstrated on CT scan 07/2024. CT scan performed 11/05/2024 demonstrates slight improvement in filling defect within SVC. - She is currently on Plavix - Following with cardio Oncology, has planned follow-up echo in 1 year #Pulmonary nodules - Significantly improved as above, most of the nodules have disappeared. Has single remaining 5 mm nodule in left lower lobe that has decreased in size. 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 Following w/ Dr. Joy #Insulin Dependent Type 2 DM - A1c improving per patient #Pulmonary Dysfunction - complicated by ongoing tobacco use and recent pneumothorax/effusion. # on Plavix for stent and s/p CABG # Tobacco use disorder - Have previously counseled extensively at other appointments, she was contemplative at that time I updated the plan of care. Modifications of drug dose and schedule as well as the initiation of supportive care interventions are often necessary because of expected toxicities. This varies individually based on patient tolerability, prior treatments and comorbidities. The optimal delivery of anticancer agents requires a healthcare delivery team experienced in the use of anticancer agents and the management of associated toxicities in patients with cancer. 45 minutes were spent with the patient of which 30 or more were counseling minutes regarding plan and coordination of care and follow up lab and/or scan review, scheduling, symptom management, and possible treatment side effects of anti-cancer therapy. Beatriz Garcia DO, MS Hematology & Oncology Fellow Physician Cosigned by Ondina Hooks MD at 11/06/2024 9:07 AM EDT Associated attestation - Ondina Hooks MD - 11/06/2024 9:07 AM EDT I saw and evaluated the patient with the resident/fellow. I discussed the case with the resident/fellow and agree with the findings and plan as documented. I personally visualized the radiology scans above and gave copies of scans. No evidence of disease. Yang pending today 35 minutes were spent with the patient of which 23 or more were counseling minutes regarding plan and coordination of care and follow up scheduling, symptom management, and possible treatment side effects. documented in this encounter Plan of Treatment Upcoming Encounters Date Type Department Care Team ([facility] st Contact Info) Description 03/26/2025 1:30 PM EST Office Visit [facility] Medicine Specialties [address] [place] [address] Ab Blair PA [address] [place] [address] 04/29/2025 12:20 PM EDT Appointment [facility] [address] [place] [address] 04/29/2025 3:10 PM EDT Office Visit [facility] Multidisciplinary Oncology [facility] [address] [place] [phone] Ondina Hooks MD 800 [facility] [address] [place] [address] 09/24/2025 1:00 PM EDT Appointment [facility] Echo [address] [facility] [address] [place] [phone] 09/24/2025 3:00 PM EDT Office Visit [facility] [address] [facility] [address] [place] [phone] documented as of this encounter Procedures Procedure Name Priority Date/Time Associated Diagnosis Comments CBC WITH AUTO DIFFERENTIAL Routine 11/05/2024 2:28 PM EDT Mucinous adenocarcinoma of appendix (CMS/HCC) COMPREHENSIVE METABOLIC PANEL, PLASMA Routine 11/05/2024 2:28 PM EDT Mucinous adenocarcinoma of appendix (CMS/HCC) documented in this encounter Results * Signatera Only Single Draw (11/05/2024 2:28 PM EDT) SIGNATERA TEST RESULT NEGATIVE 6:02 PM EDT [facility] SIGNATERA MTM READOUT 0 MTM/ml 6:02 PM EDT [facility] Comment: Please see the attached PDF for more information. Limitations Signatera is a personalized, tumor-informed test for the longitudinal detection of circulating tumor DNA (ctDNA). Interval testing is recommended for all patients. Studies have demonstrated that when ctDNA is detected (Signatera Positive) following surgery or definitive treatment, the risk for disease relapse is high without further treatment. Conversely, when ctDNA is not detected, the patient may be considered at lower risk for relapse. For those with multiple timepoints, upward trending ctDNA levels are suggestive of increasing tumor burden (1,2). For a single time point in isolation, the absolute MTM/mL value has no known clinical significance and should not be compared across patients. Test results should be interpreted in context of other clinicopathological features. ctDNA detection sensitivity may be limited due to blood collection within two weeks of surgery and while the patient is on therapy. Signatera is a quantitative test and reports in units of mean tumor molecules per ml (MTM/mL), which is comprised of three measured components (plasma volume, cell free DNA (cfDNA) concentration, and Variant Allele Frequency (VAF)). The MTM/mL number will be qualified if any measured component falls outside the analytical measurement range for that component. The analytical sensitivity is 95% at the limit of detection (0.3 MTM/mL). Results obtained are specific to the assessed time point. A negative test result does not definitively indicate the absence of cancer. This test is not designed to detect or report germline variation, nor does it infer hereditary cancer risk for the patient. Each Signatera assay is designed to a single tumor for a given patient. At this time, multiple personalized Signatera assays cannot be developed for the same patient. This test is designed to detect ctDNA from the assayed tumor only; new primary tumors will not be detected. There is a low risk that a new primary may share a variant that could interfere with the Signatera test. Testing cannot be performed in patients who are , have a history of bone marrow transplant, or history of blood transfusion within three months. This test is expected to have limited sensitivity in cancer types such as GIST, renal cell carcinomas, primary brain tumors, and lymphoma due to limited ctDNA shed. 1 Paul SV, Edmar SYC, Janene LOVE, et al. Personalized circulating tumor DNA analysis as a predictive biomarker in solid tumor patients treated with pembrolizumab. Nature Cancer. 2020;1(9):873-881. 2 Alisa MENDEZ, Alina Hart, et al., Circulating Tumor DNA in Stage III Colorectal Cancer, beyond Minimal Residual Disease Detection, toward Assessment of Adjuvant Therapy Efficacy and Clinical Behavior of Recurrences. Clin Cancer Res. 202; 28(3):507-517. Methodology FFPE samples are assessed by a pathologist to identify tumor margins and percent tumor content. Tumor DNA is extracted using Qiagen AllPrep. Whole genomic DNA is isolated from peripheral blood using QIAamp DNA Blood Mini Kit to provide a baseline DNA sequence. Circulating tumor DNA (ctDNA) is extracted from plasma derived from whole blood samples collected in cell-free DNA blood tubes (Yahoo!) using the QIAsymphony automated or manual extraction method (Qiagen). Using a proprietary algorithm, putative, clonal variants present in the tumor but absent in the germline DNA are identified to design the customized multiplex PCR assay. Whole-exome sequencing is performed on tumor and peripheral blood DNA using the proprietary Questli whole-exome sequencing assay. Pathology services are performed at [facility], [address] [place] [address] A, [place], [place] [address] [place] [address], and whole exome sequencing is performed at [facility] (CLIA ID# [id number]), [address] [place] [address]. Disclaimer The extraction, library preparation, and sequencing for this test were performed by [employer] [address] [place] [address] [address] [place] [address], [place] [address] (CLIA ID [id number]). The data analysis and reporting for this test were performed by [email or web address] [address], [place] [address] (CLIA ID [id number]). This test was developed and its performance characteristics determined by [email or web address]. The test has not been cleared or approved by the U.S. Food and Drug Administration (FDA). CAP accredited, ISO 72697 certified, and CLIA certified. Pathology services and whole exome sequencing for this test were performed by [facility], [address] [place] [address] (CLIA ID [id number]). 2020 [employer]. All Rights Reserved. Blood Venous blood specimen / Unknown Venipuncture / Unknown 11/05/2024 2:28 PM EDT 11/05/2024 2:30 PM EDT us Ondina Hooks MD [facility] BLOOD ORDERABLES Final R esult [facility] [address] [place] [address], * (ABNORMAL) Comprehensive Metabolic Panel, Plasma (11/05/2024 2:28 PM EDT) Glucose, Plasma 168(H) 74 - 99 mg/dL 11/05/2024 3:39 PM EDT [facility] BUN, Plasma 8 8 - 23 mg/dL 11/05/2024 3:39 PM EDT [facility] Creatinine, Plasma 0.53(L) 0.60 - 1.10 mg/dL 11/05/2024 3:39 PM EDT [facility] BUN/Creatinine Ratio 11/05/2024 3:39 PM EDT [facility] Sodium, Plasma 137 136 - 145 mmol/L 11/05/2024 3:39 PM EDT [facility] Potassium, Plasma 4.1 3.6 - 4.9 mmol/L 11/05/2024 3:39 PM EDT [facility] Chloride, Plasma 103 97 - 107 mmol/L 11/05/2024 3:39 PM EDT [facility] CO2, Plasma 22 22 - 29 mmol/L 11/05/2024 3:39 PM EDT [facility] Anion Gap 12 6 - 16 mmol/L 11/05/2024 3:39 PM EDT [facility] Total Calcium, Plasma 9.0 8.9 - 10.2 mg/dL 11/05/2024 3:39 PM EDT [facility] Total Protein 6.9 6.3 - 7.9 g/dL 11/05/2024 3:39 PM EDT [facility] Albumin, Plasma 4.0 3.5 - 5.2 g/dL 11/05/2024 3:39 PM EDT [facility] AST, Plasma 24 10 - 35 U/L 11/05/2024 3:39 PM EDT [facility] Comment:Hemolyzed, result ma y be falsely increased. ALT, Plasma 18 10 - 35 U/L 11/05/2024 3:39 PM EDT [facility] Alkaline Phosphatase, Plasma 89 46 - 142 U/L 11/05/2024 3:39 PM EDT [facility] Total Bilirubin, Plasma 0.4 0.2 - 1.1 mg/dL 11/05/2024 3:39 PM EDT [facility] eGFRcr 104.7 mL/min/1.7 3m*2 11/05/2024 3:39 PM EDT [facility] Comment:Reported eGFRcr in m L/min/1.73m2 is based the CKD-EPI 2020 equation that does not use a race coefficient. Blood Venous blood specimen / Unknown Venipuncture / Unknown 11/05/2024 2:28 PM EDT 11/05/2024 3:07 PM EDT us Ondina Hooks MD LAB BLOOD ORDERABLES Final Resu lt [facility] [address] [place] [address] * (ABNORMAL) CBC and Differential (11/05/2024 2:28 PM EDT) WBC Count 13.42(H) 3.70 - 10.30 10*3/uL LAB HEMATOLOGY METHOD 11/05/2024 3:48 PM EDT [facility] RBC Count 5.33(H) 3.90 - 5.20 10*6/uL LAB HEMATOLOGY METHOD 11/05/2024 3:48 PM EDT [facility] HGB 12.2 11.2 - 15.7 g/dL LAB HEMATOLOGY METHOD 11/05/2024 3:48 PM EDT [facility] HCT 39.3 34.0 - 45.0 % LAB HEMATOLOGY METHOD 11/05/2024 3:48 PM EDT [facility] Platelet Count 279 155 - 369 10*3/uL LAB HEMATOLOGY METHOD 11/05/2024 3:48 PM EDT [facility] MCV 74(L) 79 - 98 fL LAB HEMATOLOGY METHOD 11/05/2024 3:48 PM EDT [facility] MCH 22.9(L) 26.0 - 32.0 pg LAB HEMATOLOGY METHOD 11/05/2024 3:48 PM EDT [facility] MCHC 31.0 30.7 - 35.5 g/dL LAB HEMATOLOGY METHOD 11/05/2024 3:48 PM EDT [facility] RDW 20.1(H) 11.5 - 14.5 % LAB HEMATOLOGY METHOD 11/05/2024 3:48 PM EDT [facility] MPV 9.3 8.8 - 12.5 fL LAB HEMATOLOGY METHOD 11/05/2024 3:48 PM EDT [facility] nRBC 0.0 <=0.0 per 100 WBCs LAB HEMATOLOGY METHOD 11/05/2024 3:48 PM EDT [facility] Differential Type Automated LAB HEMATOLOGY METHOD 11/05/2024 3:48 PM EDT [facility] Neutrophils % 68 % LAB HEMATOLOGY METHOD 11/05/2024 3:48 PM EDT [facility] Lymphocytes % 23 % LAB HEMATOLOGY METHOD 11/05/2024 3:48 PM EDT [facility] Monocytes % 6 % LAB HEMATOLOGY METHOD 11/05/2024 3:48 PM EDT [facility] Eosinophils % 2 % LAB HEMATOLOGY METHOD 11/05/2024 3:48 PM EDT [facility] Basophils % 0 % LAB HEMATOLOGY METHOD 11/05/2024 3:48 PM EDT [facility] Immature Granulocytes % 1 % LAB HEMATOLOGY METHOD 11/05/2024 3:48 PM EDT [facility] Neutrophils Absolute 9.18(H) 1.60 - 6.10 10*3/uL LAB HEMATOLOGY METHOD 11/05/2024 3:48 PM EDT [facility] Lymphocytes Absolute 3.05 1.20 - 3.90 10*3/uL LAB HEMATOLOGY METHOD 11/05/2024 3:48 PM EDT [facility] Monocytes Absolute 0.86 0.30 - 0.90 10*3/uL LAB HEMATOLOGY METHOD 11/05/2024 3:48 PM EDT [facility] Eosinophils Absolute 0.20 0.00 - 0.50 10*3/uL LAB HEMATOLOGY METHOD 11/05/2024 3:48 PM EDT [facility] Basophils Absolute 0.06 0.00 - 0.10 10*3/uL LAB HEMATOLOGY METHOD 11/05/2024 3:48 PM EDT [facility] Immature Granulocytes Absolute 0.07(H) 0.00 - 0.06 10*3/uL LAB HEMATOLOGY METHOD 11/05/2024 3:48 PM EDT [facility] Blood Venous blood specimen / Unknown Venipuncture / Unknown 11/05/2024 2:28 PM EDT 11/05/2024 3:37 PM EDT Narrative [facility] - 11/05/2024 3:48 PM EDT Therapeutic decision making should be based on absolute values, rather than percentages. us Ondina Hooks MD LAB BLOOD ORDERABLES Final Resu lt [facility] [address] [place] [address] documented in this encounter Visit Diagnoses Diagnosis Mucinous adenocarcinoma of appendix (CMS/HCC)- Primary documented in this encounter Additional Health Concerns Assessment Noted Time PHQ-9 Depression Total Score: 0 09/14/19 3:36 PM EDT A fall risk assessment has been complete d for the patient 11/05/2024 3:14 PM EDT A Body Mass Index follow-up plan has been documented for the patient 09/14/2024 9:17 AM EDT documented as of this encounter Care Teams Conference Center Manager Relationship Specialty Start Date End Date Rosalio Nunez MD [address] [place] [address] PCP - General 07/04/20 Eddie Joy MD [address] [place] [address] Service Attending Cardiology 01/01/22 documented as of this encounter
--- NOTE | 2024-12-14 15:44 | MM_ITS ---
PROCEDURE INFORMATION: Exam: MG Bilateral Screening 3D Mammography Exam date and time: 12/14/2024 3:58 PM Age: 64 years old Clinical indication: Screening examination TECHNIQUE: Imaging protocol: Bilateral Screening tomosynthesis and 2D mammography including computer-aided detection (CAD) when performed. COMPARISON: MG MM DIG SCREENING MAMM BI W/CAD 11/29/2023 8:31 AM FINDINGS: MAMMOGRAPHY: Breast composition: There are scattered areas of fibroglandular density. Mass: None. Architectural distortion: None. Calcifications: No suspicious calcifications. Asymmetric density: None. Skin thickening: None. Axillary adenopathy: None. IMPRESSION: No mammographic evidence of malignancy. Annual screening is recommended unless otherwise clinically indicated. ASSESSMENT: BI-RADS Category 1: Negative.
--- OUTSIDE RECORDS SUMMARY | 2024-12-14 15:46 | XMS_ITS | Data Portability ---
Author Organization [facility], CKS OCALA CLOSED Address [address] [place] [address] Care Team Providers Care Spin Instructor Name Role Phone TRUNG YEH Primary Care Provider [phone] LA NENA ARMSTRONG [employer] [phone] DULCE MARIA ANDERSON Director Corporate Security JAMES ARORA Youth Teacher Assessment Encounter Date Assessment Date Assessment LastModified by Organization Details LastModified Time 10/18/2024 10/18/2024 3 mo f/u [email or web address] Not available 09/22 10:50:47 11/28/2024 11/28/2024 3 mo f/u [email or web address] Not available 09/2024 08:29:36 Plan of Treatment Reminders Order Date Submit Date Provider Last Modified By Organization Details Last Modified Time Details Appointments DERM VISIT 2024 01:10P Sheng LOPEZ MD Not available Not available Not available DERM PROCEDUR E 2024 02:40P Sheng KNIGHT MD Not available Not available Not available RECHECK 2025 10:45A Sheng METZGER APRN Not available Not available Not available Lab glucose, fingerst ick, blood 2024 [id number] 8 [facility], [address] [facility] [address] [facility], [place], [address], 12/06/2024 10:59:28 hemoglob in A1C, fingerst ick 2024 025 [email or web address] 8 [facility], [address] [place], [address], 12/06/2024 10:59:28 glucose, fingerst ick, blood 2024 025 [email or web address] [id number] [facility], [address] [place], [address], 08/22/2024 11:35:29 hemoglob in A1C, fingerst ick 2024 025 [email or web address] 8 [facility], [address] [place], [address], 08/22/2024 11:35:29 Referral None recorded . Procedures None recorded . Surgeries excision of cyst (SURG) 2024 025 [facility], [address] [place] [address], [address], 10/24/2024 10:07:09 Imaging None recorded . Medication Orders Mounjaro 5 mg/0.5 mL subcutan eous pen injector 2024 025 [facility], [address], [place], [address], 12/06/2024 10:59:34 Basaglar KwikPen U-100 Insulin 100 unit/mL (3 mL) subcutan eous [address] [facility], [address] [place] [address], [facility], [place], [address], 12/06/2024 11:06:28 insulin aspart (U-100) 100 unit/mL (3 mL) subcutan eous pen [address] [facility], [address] [place] [address], [facility], [place], [address], 12/06/2024 11:06:27 Jardianc e [address] [facility], [address] [place] [address], [facility], [place], [address], 12/06/2024 11:06:29 desonide 0.05 % topical cream [address] [place] [address], [address] [place] [address] 2, [place], [address], 11/28/2024 08:47:50 fluticas one propiona te 0.005 % topical ointment [address] [place] [address], [address] [place] [address] 2, [place], [address], 10/18/2024 12:31:11 hydrocor tisone 2.5 % topical ointment [address], [address] [place] [address] 2, [place], [address], 09/03/2024 15:52:20 Mounjaro 2.5 mg/0.5 mL subcutan eous pen injector 2024 [facility], [address] [place] [address] 2, [place], [address], 09/14/2024 11:09:04 Mounjaro 5 mg/0.5 mL subcutan eous pen injector [address] [facility], [address] [place] [address] 2, [place], [address], 08/22/2024 11:38:54 Patient TargetsNo targets recorded. Patient Instructions Encounter Date Encounter Id Patient Instructions Last Modified By Organization Details Last Modified Time 08/22/2024 [id number] [email or web address] Not available 02/2024 08:14:19 12/06/2024 [id number] medical record request* - Please send last lab results: BMP/CMP, TSH, LIPID PANEL, URINE MICROALBUMIN (if available). Thanks! [email or web address] Not available 12/13/2024 10:41:35 [email or web address] Not available 11/21 10:06:40 Reason for Referral None Reported. Results Created Date Observation Date Name Description Value Unit Range Abnormal Flag Note LastModifiedBy Organization Detail LastModifiedTime 08/23/1908/22/2024 hemog lobin A1C, finge rstic k hemoglobin A1C % 7.3 4.0 - 5.6 Not Available [facility] [address], [address], 08/21/2024 08:14:20 08/23/19 25 08/22/2024 gluco se, finge rstic k, blood glucose, fingerstick 154 mg/dL 70 - 100 Not Available [facility] [address], [address], 08/21/2024 08:14:20 12/07/19 25 12/06/2024 hemog lobin A1C, finge rstic k hemoglobin A1C % 6.1 4.0 - 5.6 Not Available [facility] [address], [address], 12/05/2024 10:06:42 12/07/1912/06/2024 gluco se, finge rstic k, blood glucose, fingerstick 227 mg/dL 70 - 100 Not Available [facility] [address], [address], 12/05/2024 10:06:41 Result Notes None recorded. Problems Name Problem SNOMED Code Status Onset Date Resolution Date Notes Provider Name and Address Organization Details Recorded Time Malignant neoplasm of appendix 016629050 Active 2022 Diagnosed Nov [address] [facility] LUL LANZA PA-C [address] [place] [address], [address], [facility] 3 10:02:59 Uncontrol led type 2 diabetes mellitus 882903177 Active 2024 RAY METZGER, PATIENT INSURANCE CLERK [address] [place], [address], [facility] 5 10:07:29 Hyperlipi demia 14753790 Active 2024 RAY METZGER, PATIENT INSURANCE CLERK [address] [place], [address], [facility] 5 10:06:43 Hypoglyce vivek due to type 2 diabetes mellitus 992519270195 103 Active 2024 RAY METZGER, PATIENT INSURANCE CLERK [address] [place], [address], [facility] 5 10:06:43 Essential hypertens ion 33708472 Active 2024 RAY METZGER, PATIENT INSURANCE CLERK [address] [place], [address], [facility] 5 10:06:43 Obesity 147231630 Active 2024 RAY METZGER, PATIENT INSURANCE CLERK [address] [place], [address], [facility] 5 10:06:43 Problem Notes None recorded. Procedures Surgical History Date Name Laterality Status Provider Name and Address Organization Details Recorded Time 5 DAK - Destruction BN Lesions completed Lul Huggins [facility] 09/03/2024 11:56:54 3 Destruction BN Lesions completed Sangita Marie [facility] 07/06/2022 09:44:45 tooth extraction, multiple completed Rebecca Kennedy [facility] 12/06/2024 10:36:05 Imaging Results None recorded. Procedure Notes None recorded. Medical Equipment None Reported. Allergies Allergen ID Allergen Name Allergen Category Reaction Reaction Severity Criticality Documentation Date Start Date Code Code System Note Provider Name and Address Organization Details Recorded Time 442948 Augmentin medicatio n Not available Not available Not available 01/16/20162006 43087 2 RxNorm Comme nt: Creat ed By: Gulshan navarroCr eated Date: 2006 9:48: 09 AM; Not Available [facility] 6 02:49:04 399243 Levaquin medicatio n Not available Not available Not available 01/16/20162006 19564 2 RxNorm Comme nt: Creat ed By: Gulshan mckeon;Cr eated Date: 2006 9:49: 17 AM; Not Available [facility] 6 02:49:05 626708 nadolol medicatio n Not available Not available Not available 01/16/20162006 7226 RxNorm Comme nt: Creat ed By: Gulshan mckeon;Cr eated Date: 2006 9:49: 43 AM; Not Available [facility] 6 02:49:05 008559 Topamax medicatio n Not available Not available Not available 01/16/20162006 07008 3 RxNorm Comme nt: Creat ed By: Gulshan mckeon;Cr eated Date: 2006 9:48: 44 AM; Not Available [facility] 6 03:08:18 567006 neomycin medicatio n Not available Not available Not available 12/19/2017 7299 RxNorm [facility] 8 10:27:25 968187 Tanzeum medicatio n Not available Not available Not available 12/19/2017 12953 01 RxNorm [facility] 8 10:27:35 224306 Substance with sulfonami de structure and antibacte rial mechanism of action (substanc e) medicatio n Not available Not available Not available 12/19/2017 17370 8003 SNOMED [facility] 8 10:28:06 148855 atorvasta tin medicatio n myalgias (muscle pain) severe Not available 08/02/2018 99646 RxNorm Pt repor ts stati ns cause leg cramp s and pain. [facility] 9 13:19:59 Medications Name Sig Start Date Stop Date Status Note LastModified by Organization Details LastModified Time roseann jeronimo request 12/09 completed Not Available Not Available Not Available Singulair 10 mg tablet Take 1 tablet every day by oral route. active Not Available Not Available No t Available desonide 0.05 % topical cream apply to affected areas on underarm s Once to twice daily for up to 2 weeks then prn for flares 2024 active Not Available Not Available Not Avai lable carvedilo l 6.25 mg tablet Take 2 tablets twice a day by oral route. active Not Available Not Available No t Available benzonata te 200 mg capsule Take 1 capsule 3 times a day by oral route. active Not Available Not Available No t Available Diflucan 150 mg tablet Take 1 tab today and 1 tab in 3 days 07/30 completed Not Available Not Available Not Available clopidogr el 75 mg tablet Take 1 tablet every day by oral route. active no longer taking Not Available Not Available Not Available fluticaso ne propionat e 0.005 % topical ointment apply to affected area on under arms twice daily for up to 10-14 days or until clear then decrease to 1-2 times weekly to maintain improvem ent 2024 active Not Available Not Available Not Avai lable amitripty line 25 mg tablet Take 1 tablet every day by oral route. active Not Available Not Available No t Available ropinirol e 2 mg tablet Take 1 tablet every day by oral route at bedtime. active Not Available Not Available No t Available Lasix 20 mg tablet Take 1 tablet every day by oral route. active Not Available Not Available No t Available pantopraz ole 40 mg tablet,de layed release Take 1 tablet every day by oral route. active Not Available Not Available No t Available losartan 25 mg tablet Take 0.5 tablets every day by oral route. active 1/2 tablet daily Not Available Not Available Not Available Valtrex 1 gram tablet Take 1 tablet 3 times a day by oral route. active pt currentl y has shingles Not Available Not Available Not Available lisinopri l 5 mg tablet Take 1 tablet every day by oral route. 12/24 completed Not Available Not Available Not Available Levaquin 500 mg tablet Take 1 tablet every 24 hours by oral route. active Not Available Not Available No t Available gabapenti n 100 mg capsule Take 1 capsule 3 times a day by oral route. active pt currentl y has shingles Not Available Not Available Not Available metoprolo l succinate ER 25 mg tablet,ex tended release 24 hr Take 1 tablet every day by oral route. 09/14 completed Not Available Not Available Not Available Nasonex 50 mcg/actua tion [place] 2 sprays every day by intranas al route. 09/14 completed Not Available Not Available Not Available hydrocort isone 2.5 % topical ointment APPLY A THIN LAYER TO THE AFFECTED AREA (armpits ) BY TOPICAL ROUTE 2 TIMES PER DAY FOR 2 WEEKS, THEN USE 2X WEEKLY NEEDED 2024 active Not Available Not Available Not Avai lable Depakote 250 mg tablet,de layed release Two times a day 12/19 completed Duration : 10 days;New quency: bid;Medi cation Descript ion: divalpro ex sodium; Dosage:1 ; Route:or al; refills: 5; Quantity :60 enteric coated tablet Not Available Not Available Not Available Asprin Ec Low Dose 81 mg tablet,de layed release Take 1 tablet every day by oral route. 09/02 completed Not Available Not Available Not Available Novolog Mix 70-30 FlexPen U-100 Insulin 100 unit/mL subcutane ous pen Inject 60 units 3 times a day by subcutan eous route. 06/09 completed Not Available Not Available Not Available insulin aspart (U-100) 100 unit/mL (3 mL) subcutane ous pen Inject 20units before breakfas t, 20u before lunch, and 20u before dinner Plus SSI. Max daily dose 75 units 2024 active Not Available Not Available Not Avai lable levalbute rol HFA 45 mcg/actua tion aerosol inhaler Inhale 2 puffs every 6 hours by inhalati on route. active Not Available Not Available No t Available vitamin B complex 08/01 completed Not Available Not Available Not Available potassium OTC 1QD 06/09 completed Not Available Not Available Not Available Coretta 12/26 completed Not Available Not Available Not Available [place] 3 08/01 completed Not Available Not Available Not Available Nitrogylc viridiana active Not Available Not Available Not Available Seroquel 50 mg tablet Take 1 tablet every day by oral route. active no longer taking Not Available Not Available Not Available Januvia 100 mg tablet Take 1 tablet every day by oral route for 90 days. 01/17 completed Not Available Not Available Not Available Symbicort 160 mcg-4.5 mcg/actua tion HFA aerosol inhaler Inhale 2 puffs twice a day by inhalati on route. active Not Available Not Available No t Available Xyzal 5 mg tablet Take 1 tablet every day by oral route. active Not Available Not Available No t Available Probiotic UNKNOWN DOSE 1QD active Not Available Not Available No t Available melatonin -WILLIE-wili erian 6 mg-30 mg-50 mg tablet Take by oral route. 07/30 completed Not Available Not Available Not Available Eliquis 5 mg tablet Take 1 tablet every day by oral route in the morning. active Not Available Not Available No t Available Jardiance 10 mg tablet Take 1 tablet every day by oral route. 06/09 completed Not Available Not Available Not Available Jardiance 25 mg tablet Take 1 tablet every day by oral route in the morning for 30 days. 2024 active Not Available Not Available Not Avai lable mometason e 100 mcg/actua tion HFA aerosol inhaler Inhale 2 puffs twice a day by inhalati on route. 09/14 completed Not Available Not Available Not Available Repatha SureClick 140 mg/mL subcutane ous pen injector Inject 1 mL every 2 weeks by subcutan eous route. active Not Available Not Available No t Available Tresiba FlexTouch U-100 insulin 100 unit/mL (3 mL) subcutane ous pen Inject 60 units every day by subcutan eous route at bedtime for 30 days. 04/13 completed Not Available Not Available Not Available Humulin R U-500 (Conc) Insulin Kwikpen 500 unit/mL (3 mL) subcutane ous Inject up to 140u before meals 3x/day 10/09 completed Not Available Not Available Not Available Basaglar KwikPen U-100 Insulin 100 unit/mL (3 mL) subcutane ous Inject 50 units every day by subcutan eous route in the evening for 30 days. 2024 active Not Available Not Available Not Avai lable Omnipod Dash Pods (Gen 4) subcutane ous cartridge 09/14 completed Not Available Not Available Not Available Glucagon (HCl) Emergency Kit 1 mg solution for injection Inject 1mg in case of EMERGENC Y and call 9-1-1 2021 active Not Available Not Available Not Avai lable Mounjaro 5 mg/0.5 mL subcutane ous pen injector INJECT 1 PEN SUBCUTAN EOUSLY ONCE A WEEK active Not Available Not Available No t Available Mounjaro 2.5 mg/0.5 mL subcutane ous pen injector INJECT 1 SYRINGE SUBCUTAN EOUSLY ONCE A WEEK active Not Available Not Available No t Available Mounjaro 12/05 completed Not Available Not Available Not Available FreeStCreativeLive Oneal 3 Sensor device CHANGE SENSOR EVERY 14 DAYS 2024 active Not Available Not Available Not Avai lable Vitals Date Recorded Body height Body mass index (BMI) Body weight Heart rate Systolic And Diastolic Provider Name and Address Organization Details Last Updated DateTime 08/22/2024 162.56 cm 34.7 kg/m2 29240.66 g 78 /min 112/70 mm[Hg] [facility] 11:09:37 Date Recorded Body height Body mass index (BMI) Body weight Heart rate Systolic And Diastolic Provider Name and Address Organization Details Last Updated DateTime 12/06/2024 162.56 cm 32.8 kg/m2 49916.14 g 96 /min 110/66 mm[Hg] Rebecca Kennedy [facility] 12/06/2024 10:31:21 Social History Question Answer Notes LastModified by Organizat ion Details LastModified Time Tobacco Smoking Status Current Every Day Smoker Isabel Arias [facility] 12/19/2017 10:33:40 What Is Your Level Of Caffeine Consumption? Moderate Information not available 12/19/2017 Sunscreen Use? Yes Informati on not available 09/03/2024 Tanning Bed Use No Informat ion not available 09/03/2024 What Was The Date Of Your Most Recent Tobacco Screening? 12/06/2024 [email or web address] Information not available 12/06/2024 How Much Tobacco Do You Smoke? 0.5 PPD Information not available 12/19/2017 Sex: Female Functional Status Question Answer Note LastModified by Organizat ion Details LastModified Time Do you or have you ever used any other forms of tobacco or nicotine? No Information not available 09/03/2024 What is your level of alcohol consumption? Occasional Information not available 12/19/2017 Mental Status None recorded. Family History Relationship Description Onset Age of this Age Resolved Age Notes LastModified by Organization Details LastModified Time Father Malignant neoplasm of colon travizee Not available 2024 11:23:49 Father Heart disease travizee Not available 2024 11:23:49 Mother Malignant neoplasm of uterus travizee Not available 2024 11:23:49 Mother Peptic ulcer travizee Not avail able 05/02/2024 11:23:49 Mother Heart disease [email or web address] Not available 08/21 11:46:45 Brother Heart disease travizee Not available 2024 11:23:49 Brother Diabetes mellitus travizee Not available 2024 11:23:49 Paternal Grandmother Arthritis travizee Not available 01/2025 11:23:49 Paternal Aunt Arthritis travizee Not a vailable 05/02/2024 11:23:49 Son Seizure travizee Not available 05/02/2024 11:23:49 Notes:HEART STENT- 2X MOTHER Medical History Condition Response Pancreatitis N Gout N Thyroid Disease N Macular Degeneration N Kidney Stones N Hyperthyroidism N Heart Arrhythmia N Emphysema Y Hernia Y Glaucoma N Hypothyroidism N Depression Y COPD Y Pneumonia Y Thyroid nodule mass N Varicose Veins N Anxiety Disorder N Hypercalcemia N Autoimmune disease N Arthritis N Esophagus/swallowing trouble N Shingles Y Acid Reflux (GERD) Y Cancer Y Hypoglycemia N Stroke N Melanoma N Thyroid cyst N Alcohol Overuse/Alcohol Abuse N High Cholesterol Y Skin Cancer N Liver Disease Y Rheumatoid Arthritis N Kidney Disease N Allergies/Hayfever Y Heart Problems Y Squamous Cell Carcinoma N Black Lung N Gallbladder Disease Y Migraines Y Kidney or Bladder Problems N Goiter N Acne Y Skin Problems N Nervous Breakdown N Chest Pain Y Stomach trouble Y Colon Polyps Y Ulcers N Heart Attack (ME) Y Osteopenia N Other Skin Condition Y Diabetes Y Rheumatic Fever N High triglycerides Y Bleeding Disorder N Tuberculosis N AIDS/HIV N Congestive Heart Failure (CHF) N Eczema N Diverticulitis N Cataract N Asthma Y Epilepsy/Seizures N Basal Cell Carcinoma N Sleep Apnea N Heart Disease Y Hypertension Y Osteoporosis N Gynecological HistoryNo gynecological history recorded. Obstetrics History GPAL:G 0 P 0 0 0 0 Immunizations Vaccine Type Date Status Note Provider Nam e and Address Organization Details Recorded Time Td (adult), 2 Lf tetanus toxoid, preservative free, adsorbed 6 completed Not Available [facility] 12/06/2024 10:17:32 Tdap 2 completed Not Available [facility] 12/06/2024 10:17:32 Hep A, adult 2 completed Not Available [facility] 12/06/2024 10:17:32 Influenza, split virus, quadrivalent, PF 9 completed Not Available [facility] 12/06/2024 10:17:32 Influenza, split virus, quadrivalent, PF 1 completed Not Available [facility] 12/06/2024 10:17:32 COVID-19, mRNA, LNP-S, PF, 100 mcg/0.5mL dose or 50 mcg/0.25mL dose 1 completed Not Available [facility] 12/06/2024 10:17:32 Influenza, recombinant, quadrivalent, PF 2 completed Not Available [facility] 12/[facility]/2024 10:17:32 COVID-19, mRNA, LNP-S, bivalent, PF, 50 mcg/0.5 mL or 25mcg/0.25 mL dose 2 completed Not Available [facility] 12/06/2024 10:17:32 Pneumococcal conjugate PCV20, polysaccharide [id number] conjugate, adjuvant, PF 3 completed Not Available [facility] 12/06/2024 10:17:32 Influenza, split virus, quadrivalent, PF 3 completed Not Available [facility] 12/06/2024 10:17:32 RSV, bivalent, protein subunit RSVpreF, diluent reconstituted, 0.5 mL, PF 3 completed Not Available [facility] 12/06/2024 10:17:32 COVID-19, mRNA, LNP-S, PF, александр-sucrose, 30 mcg/0.3 mL 3 completed Not Available [facility] 12/06/2024 10:17:32 Influenza, split virus, quadrivalent, PF 3 completed Not Available [facility] 12/06/2024 10:17:32 zoster recombinant 4 completed Not Available [facility] 12/06/2024 10:17:32 Influenza, recombinant, quadrivalent, PF 4 completed Not Available [facility] 12/06/2024 10:17:32 COVID-19, mRNA, LNP-S, PF, 50 mcg/0.5 mL 4 completed Not Available [facility] 12/06/2024 10:17:32 Tdap 4 completed Not Available [facility] 12/06/2024 10:17:32 Influenza, split virus, quadrivalent, preservative 8 completed Isabel Arias [facility] 03/14/2018 12:09:27 Influenza, split virus, quadrivalent, preservative 0 completed RAY METZGER APRN [address] [place], [address], [facility] 02/04/2020 11:14:47 SARS-COV-2 (COVID-19) vaccine, UNSPECIFIED 1 completed RAY METZGER APRN [address] [place], [address], [facility] 05/05/2020 15:01:14 SARS-COV-2 (COVID-19) vaccine, UNSPECIFIED 1 completed RAY METZGER APRN [address] [place], [address], [facility] 05/05/2020 15:01:31 Past Encounters Encounter ID Performer Location Encounter Start Date Encounter Closed Date Diagnosis/Indication Diagnosis SNOMED-CT Code Diagnosis ICD10 Code Diagnosis IMO Codes Diagnosis Note [id number] RAY METZGER APRN ENDOCRINO [facility] [address] [place] [address] 12/19/2017 10:09:53 12/19/2017 17:09:14 Uncontrolled type 2 diabetes mellitus 614224433 E11.65 Diabetes mellitus Type 2, uncontroll ed. L ast A1c 10 % 03/03/17. G oal A1C by ADA criteria is less than 7%. Random blood glucose 130. Recommenda tions: -Discussed diabetes and impact of diet and exercise. Discussed potential treatment options, side effects, and cost. Discussed that our options are limited. She has only been on Jardiance for 1-2 weeks and states that her blood sugar has improved significan tly. Discussed risk of recurrent yeast infections with SGLT2 medication s. Patient states she has an RX for diflucan as she thinks she is starting to get a yeast infection now. Will continue Jardiance another 2-3 weeks. If recurrent yeast infections , we will stop and switch from basal-bolu s to Humulin R U-500 d/t the current volume/dos e she is taking (i.e. >200unit/d ay). Agreed on the following: -Continue januvia 100mg daily -Continue jardiance 10mg daily -Continue tresiba 80 units every bedtime. -For now, continue novolog 70/30 60 units three time daily with meals. - Patient is instructed to restrict her carbohydra rock (less than 45 g per meal and less than 15 g per snack). Instructed on carbohydra te counting and importance of carbohydra te consistenc y. Handout given and reviewed. Patient states she has already made changes to her diet and does not think she could improve any more at this time. - Monitor blood glucose at least 2 times per day before breakfast and before dinner or at bedtime and any time she feels low. Blood glucose goals reviewed (i.e. fasting 80-130, post-prand ial <180, and hypoglycem ia <70). Patient advised to call our office if recurrent hypoglycem ia. - Untoward consequenc es of uncontroll ed diabetes discussed, including but not limited to peripheral diabetic neuropathy , diabetic nephropath y, diabetic retinopath y, heart attack, and stroke. - Dietitian referral: Declined - Encouraged to be active (30 minutes of moderate intensity exercise i.e. walking 5 times weekly). Weight loss will help with insulin sensitizat ion. - Hypoglycem ia symptoms explained and treatment for this reviewed. - Patient is up to date on foot exam. - Patient is up to date on eye exam. - Patient is up to date on urine testing for microalbum in. JIMBO yes; ARB no - Patient verbalized understand ing of treatment plan. All questions answered. -Last labs on 12/01/17 BUN 8 Cr 0.51 GFR 151 AST 153 ALT 106 TSH 2.41 MACR positive Hyperlipidemia [id number] E78.5 Goal LDL is under 100 mg/dl. Last LDL: 130 on 12/01/17 Triglyceri selam: 134 Continue dietary changes as recommende d. LFTs are currently elevated. Statin not recommende d at this time. Will continue to monitor. Essential hypertension [id number] I10 Goal B.P is less than 140/90 mmHg. Continue current anti-hyper tensive medication s as appropriat e per patient s PCP. Obesity [id number] E66.9 Dietary recommenda tions as above. Exercise recommenda tions as above. [id number] DELPHINEFAMILIA TESFAYE MD RHEUMATOL [facility] [address] [place] [address] 12/26/2017 13:13:39 12/27/2017 08:14:44 Generalized osteoarthritis [id number] M15.9 she has clinical evidence of generalize d osteoarthr itis. Has modest involvemen t of the hands especially the first carpometac arpal joints modest involvemen t of the acromiocla vicular joints. Modest involvemen t of bilateral knee joints as well as bilateral hip joints. These osteoarthr itic joints are contributi ng to her pains. Further, she has evidence of chronic uncontroll ed diabetes as well as significan t elevation of liver enzymes which could be multifacto rial. Has some component of peripheral neuropathy likely secondary to her underlying diabetes. No evidence of any inflammato ry joint disease or inflammato ry muscle disease noted. Similarly no evidence of any connective tissue disease process noted. I educated her about her osteoarthr itis and its natural course. I emphasized on lifestyle modificati ons including weight loss along with low impact exercises. I also encouraged her to participat e in good diabetes control. I do not see indication s for the use of any additional anti inflammato ry medication s and especially with her recent elevated liver enzymes, would suggest to avoid nonsteroid al anti-infla mmatory medication s. However, a low-dose Cymbalta at 30 mg once a day can be helpful. Erythrocyt e sedimentation rate above reference range [id number] R70.0 Modest at 55 mm/hr, if calculated for her age, gender and weight besides co-morbid conditions , falls around 40 mm/hr. Further is influenced by Diabetes and liver inflammati on. I do not see any evidence of an inflammato ry joint or inflammato ry muscle disease. in summary, at present she does not have any evidence of systemic inflammato ry autoimmune disease process and I do not see any need for further investigat ions. [id number] RAY METZGER APRN ENDOCR[facility] [address] [place] [address] 03/14/2018 11:11:33 03/14/2018 15:16:51 Uncontrolled type 2 diabetes mellitus [id number] E11.65 Diabetes mellitus Type 2, uncontroll ed. R ecent A1c 8.9% on 02/25/18, down from 10 % 03/03/17. G oal A1C by ADA criteria is less than 7%. Random blood glucose 185. Recommenda tions: -Discussed the [place] Food and Drug Administra tion (FDA) is warning that cases of a rare but serious infection of the genitals and area around the genitals have been reported with the class of type 2 diabetes medicines called sodium-glu cose cotranspor ter-2 (SGLT2) inhibitors . This serious rare infection, called necrotizin g fasciitis of the perineum, is also referred to as Hilda s gangrene. Patient would be at higher risk given her history of recurrent yeast infections . Recommend that she stop jardiance. Also, discussed switching to U-500 for better stability and convenienc e. -Continue januvia 100mg daily -Stop jardiance 10mg daily -Stop tresiba -Stop novolog 70/30. -Start Humulin R U-500. Inject 95 units three times daily before meals. Give this insulin 20-30 before the meal. - Patient is instructed to restrict her carbohydra rock (less than 45 g per meal and less than 15 g per snack). Reinforced importance of carbohydra te consistenc y. - Monitor blood glucose at least 2 times per day before breakfast and before dinner or at bedtime and any time she feels low. Blood glucose goals reviewed (i.e. fasting 80-130, post-prand ial <180, and hypoglycem ia <70). Patient advised to call our office if recurrent hypoglycem ia. - Untoward consequenc es of uncontroll ed diabetes discussed, including but not limited to peripheral diabetic neuropathy , diabetic nephropath y, diabetic retinopath y, heart attack, and stroke. - Dietitian referral: No: Discussed again today, patient to consider. - Encouraged to be active (30 minutes of moderate intensity exercise i.e. walking 5 times weekly). Weight loss will help with insulin sensitizat ion. - Hypoglycem ia symptoms explained and treatment for this reviewed. - Patient is up to date on foot exam. - Patient is up to date on eye exam. - Patient is up to date on urine testing for microalbum in. JIMBO yes; ARB no - Patient verbalized understand ing of treatment plan. All questions answered. -Last labs on 12/01/17 BUN 8 Cr 0.51 GFR 151 AST 153 ALT 106 TSH 2.41 MACR positive Hyperlipidemia [id number] E78.5 Goal LDL is under 100 mg/dl. Last LDL: 130 on 12/01/17 Triglyceri selam: 134 Continue dietary changes as recommende d. LFTs are currently elevated. Statin not recommende d at this time. Will continue to monitor. Essential hypertension [id number] I10 Goal B.P is less than 140/90 mmHg. Continue current anti-hyper tensive medication s as appropriat e per patient s PCP. [id number] RAY METZGER APRN ENDOCR[facility] [address] [place] [address] 06/09/2018 13:55:43 06/12/2018 10:43:32 Uncontrolled type 2 diabetes mellitus [id number] E11.65 Diabetes mellitus Type 2, uncontroll ed. A 1c in office today 9.0%, slightly up from 8.9% on 02/25/18. G oal A1C by ADA criteria is less than 7%. Random blood glucose 313. Recommenda tions: -Recommend increasing dinner dose of U-500, patient declined. Encouraged optimized diet and exercise. -Continue januvia 100mg daily -Continue Humulin R U-500. Inject 100u before breakfast, 100u before lunch, and 120 units before dinner before meals. Give this insulin 20-30 before the meal. - Patient is instructed to restrict her carbohydra rock (less than 45 g per meal and less than 15 g per snack). Reinforced importance of carbohydra te consistenc y and dietary discretion . - Monitor blood glucose at least 2 times per day before breakfast and before dinner or at bedtime and any time she feels low. Blood glucose goals reviewed (i.e. fasting 80-130, post-prand ial <180, and hypoglycem ia <70). Patient advised to call our office if recurrent hypoglycem ia. - Untoward consequenc es of uncontroll ed diabetes discussed, including but not limited to peripheral diabetic neuropathy , diabetic nephropath y, diabetic retinopath y, heart attack, and stroke. - Dietitian referral: Declined: Referral declined. - Encouraged to be active (30 minutes of moderate intensity exercise i.e. walking 5 times weekly). Weight loss will help with insulin sensitizat ion. - Hypoglycem ia symptoms explained and treatment for this reviewed. - Patient is up to date on foot exam. - Patient is up to date on eye exam. - Patient is up to date on urine testing for microalbum in. JIMBO yes; ARB no - Patient verbalized understand ing of treatment plan. All questions answered. -Last labs on 12/01/17 BUN 8 Cr 0.51 GFR 151 AST 153 ALT 106 TSH 2.41 MACR positive Hyperlipidemia 42758704 E78.5 Goal LDL is under 100 mg/dl. Last LDL: 130 on 12/01/17 Triglyceri selam: 134 Continue dietary changes as recommende d. LFTs are currently elevated. Statin not recommende d at this time. Will continue to monitor. Essential hypertension [id number] I10 Goal B.P is less than 140/90 mmHg. Continue current anti-hyper tensive medication s as appropriat e per patient s PCP. [id number] RAY METZGER APRN END[facility]CR[facility] [address] [place] [address] 09/08/2018 14:25:40 09/11/2018 06:26:40 Uncontrolled type 2 diabetes mellitus [id number] E11.65 Diabetes mellitus Type 2, uncontroll ed. A 1c in office today 10.3%, up from 9.0% 06/09/18. G oal A1C by ADA criteria is less than 7%. Random blood glucose 276. Recommenda tions: -Discussed adding GLP-1. However, patient reports feeling deathly ill for 1 week after trying tanzeum in the past. Agreed to continue to adjust the insulin. -Continue januvia 100mg daily -Increase Humulin R U-500. Inject 105u before breakfast, 105u before lunch, and 125 units before dinner before meals. Give this insulin 20-30 before the meal. - Patient is instructed to restrict her carbohydra rock (less than 45 g per meal and less than 15 g per snack). Reinforced importance of carbohydra te consistenc y and dietary discretion . - Monitor blood glucose at least 2 times per day before breakfast and before dinner or at bedtime and any time she feels low. Blood glucose goals reviewed (i.e. fasting 80-130, post-prand ial <180, and hypoglycem ia <70). Patient advised to call our office if recurrent hypoglycem ia. - Untoward consequenc es of uncontroll ed diabetes discussed, including but not limited to peripheral diabetic neuropathy , diabetic nephropath y, diabetic retinopath y, heart attack, and stroke. - Dietitian referral: Declined: - Encouraged to be active (30 minutes of moderate intensity exercise i.e. walking 5 times weekly). Weight loss will help with insulin sensitizat ion. - Hypoglycem ia symptoms explained and treatment for this reviewed. - Patient is up to date on foot exam. - Patient is up to date on eye exam. - Patient is up to date on urine testing for microalbum in. JIMBO yes; ARB no - Patient verbalized understand ing of treatment plan. All questions answered. -Last labs on 12/01/17 BUN 8 Cr 0.51 GFR 151 AST 153 ALT 106 TSH 2.41 MACR positive Hyperlipidemia 72248543 E78.5 Goal LDL is under 100 mg/dl. Last LDL: 130 on 12/01/17 Triglyceri selam: 134 Continue dietary changes as recommende d. LFTs elevated. Statin not recommende d at this time. Will continue to monitor. Essential hypertension [id number] I10 Goal B.P is less than 140/90 mmHg. Continue current anti-hyper tensive medication s as appropriat e per patient s PCP. [id number] RAY METZGER APRN END[facility] [address] [place] [address] 12/20/2018 09:34:58 12/20/2018 10:22:12 Uncontrolled type 2 diabetes mellitus [id number] E11.65 Diabetes mellitus Type 2, uncontroll ed. A 1c in office today 9.3%, down from 10.3% 09/08/18. G oal A1C by ADA criteria is less than 7%. Random blood glucose 279. Recommenda tions: -Discussed adding GLP-1 but pt reports previous intoleranc e. Discussed adding SGLT2 but pt had recurrent yeast infections in the past. Discussed insulin pump therapy (i.e. omnipod), pt declined. Offered referral to MNT, pt declined stating she doesn't want anyone telling her what to eat, as she is not ready to give up candy and freeze drinks. Agreed on the following: -Continue januvia 100mg daily -Increase Humulin R U-500. Inject 115u before breakfast, 115u before lunch, and 140 units before dinner before meals. Give this insulin 20-30 before the meal. - Patient is instructed to restrict her carbohydra rock (less than 45 g per meal and less than 15 g per snack). Reinforced importance of carbohydra te consistenc y and dietary discretion . - Monitor blood glucose at least 2 times per day before breakfast and before dinner or at bedtime and any time she feels low. Blood glucose goals reviewed (i.e. fasting 80-130, post-prand ial <180, and hypoglycem ia <70). Patient advised to call our office if recurrent hypoglycem ia. - Untoward consequenc es of uncontroll ed diabetes discussed, including but not limited to peripheral diabetic neuropathy , diabetic nephropath y, diabetic retinopath y, heart attack, and stroke. - Dietitian referral: Declined: - Encouraged to be active (30 minutes of moderate intensity exercise i.e. walking 5 times weekly). Weight loss will help with insulin sensitizat ion. - Hypoglycem ia symptoms explained and treatment for this reviewed. - Patient is up to date on foot exam. - Patient is up to date on eye exam. - Patient is up to date on urine testing for microalbum in. JIMBO yes; ARB no - Patient verbalized understand ing of treatment plan. All questions answered. -Last labs on 12/01/17- labs as ordered BUN 8 Cr 0.51 GFR 151 AST 153 ALT 106 TSH 2.41 MACR positive Hyperlipidemia [id number] E78.5 Goal LDL is under 100 mg/dl. Last LDL: 130 on 12/01/17 Triglyceri selam: 134 Continue dietary changes as recommende d. Continue repatha per cardiology . Will call for recent FLP. Essential hypertension [id number] I10 Goal B.P is less than 140/90 mmHg. Continue current anti-hyper tensive medication s as appropriat e per patient s PCP. Obesity [id number] E66.9 Dietary recommenda tions as above. Exercise recommenda tions as above. [id number] RAY METZGER APRN END[facility] [address] [place] [address] 03/21/2019 13:12:33 03/22/2019 12:00:02 Uncontrolled type 2 diabetes mellitus [id number] E11.65 Diabetes mellitus Type 2, uncontroll ed. A 1c in office today 9.0%, down from 9.3% 12/20/18. G oal A1C by ADA criteria is less than 7%. Random blood glucose 305. Recommenda tions: -Discussed adding GLP-1 but pt reports previous intoleranc e. Discussed adding SGLT2 but pt had recurrent yeast infections in the past. Discussed insulin pump therapy (i.e. omnipod), pt declined. Offered referral to MNT again, pt declined. Advised pt that we cannot treat dietary indsicreti on, she verbalized understand ing. Agreed on the following: -Continue januvia 100mg daily -Continue Humulin R U-500. Inject 115u before breakfast, 115u before lunch, and 140 units before dinner before meals. Give this insulin 20-30 before the meal. - Patient is instructed to restrict her carbohydra rock (less than 45 g per meal and less than 15 g per snack). Reinforced importance of carbohydra te consistenc y and dietary discretion . - Monitor blood glucose at least 2 times per day before breakfast and before dinner or at bedtime and any time she feels low. Blood glucose goals reviewed (i.e. fasting 80-130, post-prand ial <180, and hypoglycem ia <70). Patient advised to call our office if recurrent hypoglycem ia. - Untoward consequenc es of uncontroll ed diabetes discussed, including but not limited to peripheral diabetic neuropathy , diabetic nephropath y, diabetic retinopath y, heart attack, and stroke. - Dietitian referral: Declined: - Encouraged to be active (30 minutes of moderate intensity exercise i.e. walking 5 times weekly). Weight loss will help with insulin sensitizat ion. - Hypoglycem ia symptoms explained and treatment for this reviewed. - Patient is up to date on foot exam. - Patient is up to date on eye exam. - Patient is up to date on urine testing for microalbum in. JIMBO yes; ARB no - Patient verbalized understand ing of treatment plan. All questions answered. -Last labs on 12/20/18 BUN 11 Cr 0.58 GFR 103 AST 66 ALT 50 TSH 1.510 MACR negative Hyperlipidemia 74809352 E78.5 Goal LDL is under 100 mg/dl. Last LDL: 130 on 12/01/17 Triglyceri selam: 134 Continue dietary changes as recommende d. Continue repatha per cardiology . Essential hypertension 15784659 I10 Goal B.P is less than 140/90 mmHg. Continue current anti-hyper tensive medication s as appropriat e per patient s PCP. Obesity 421743642 E66.9 Dietary recommenda tions as above. Exercise recommenda tions as above. [id number] RAY METZGER APRN END[facility]CR[facility] [address] [place] [address] 07/27/2019 11:19:21 07/27/2019 11:52:39 Uncontrolled type 2 diabetes mellitus [id number] E11.65 Diabetes mellitus Type 2, uncontroll ed. A 1c in office today 9.5%, up from 9.0%, 03/21/19. G oal A1C by ADA criteria is less than 7%. Random blood glucose 168. Recommenda tions: -(Intolera nce to GLP1, recurrent yeast infections , declines insulin pump therapy (i.e. omnipod), declines MNT). Again, advised pt that we cannot treat dietary indiscreti on, she verbalized understand ing. Agreed on the following: -Continue januvia 100mg daily -Increase Humulin R U-500. Inject 120u before breakfast, 120u before lunch, and 145 units before dinner before meals. Give this insulin 20-30 before the meal. - Patient is instructed to restrict her carbohydra rock (less than 45 g per meal and less than 15 g per snack). Reinforced importance of carbohydra te consistenc y and dietary discretion . Cut back on Freeze drinks to 1/day, limit bed time snacking, limit carbs at mealtime. - Monitor blood glucose at least 2 times per day before breakfast and before dinner or at bedtime and any time she feels low. Blood glucose goals reviewed (i.e. fasting 80-130, post-prand ial <180, and hypoglycem ia <70). Patient advised to call our office if recurrent hypoglycem ia. - Untoward consequenc es of uncontroll ed diabetes discussed AGAIN, including but not limited to peripheral diabetic neuropathy , diabetic nephropath y, diabetic retinopath y, heart attack, and stroke. - Dietitian referral: Declined: - Encouraged to be active (30 minutes of moderate intensity exercise i.e. walking 5 times weekly). Weight loss will help with insulin sensitizat ion. - Hypoglycem ia symptoms explained and treatment for this reviewed. - Patient is up to date on foot exam. - Patient is up to date on eye exam. - Patient is up to date on urine testing for microalbum in. JIMBO yes; ARB no - Patient verbalized understand ing of treatment plan. All questions answered. -Last labs on 12/20/18 BUN 11 Cr 0.58 GFR 103 AST 66 ALT 50 TSH 1.510 MACR negative Spent 25 total minutes with the patient today in counseling regarding informatio n documented in my assessment and plan above. The time represents more than 50% of the encounter. Hyperlipidemia 73115750 E78.5 Goal LDL is under 100 mg/dl. Last LDL: 130 on 12/01/17 Triglyceri selam: 134 Continue dietary changes as recommende d. Continue repatha per cardiology . Essential hypertension 55068305 I10 Goal B.P is less than 140/90 mmHg. Continue current anti-hyper tensive medication s as appropriat e per patient s PCP. Obesity 803549162 E66.9 Dietary recommenda tions as above. Exercise recommenda tions as above. Candidiasis of vagina 72 [id number] B37.3 -Will give courtesy one time RX for diflucan. [id number] RAY METZGER APRN [facility] [address] [place] [address] 11/05/2019 10:09:08 11/05/2019 11:01:11 Uncontrolled type 2 diabetes mellitus [id number] E11.65 Diabetes mellitus Type 2, uncontroll ed. A 1c in office today 9.1%, down from 9.5%, 07/25/19. G oal A1C by ADA criteria is less than 7%. Random blood glucose 215. Recommenda tions: -(Intolera nce to GLP1, recurrent yeast infections , declines insulin pump therapy (i.e. omnipod), declines MNT). Again, advised pt that we cannot treat dietary indiscreti on, she verbalized understand ing. Agree with recommenda tion for gastric sleeve, pt declined. Offered referral for MNT, pt states she is always scheduled with someone else in [facility]. Agreed on the following: -Continue januvia 100mg daily -Continue Humulin R U-500. Inject 120u before breakfast, 120u before lunch, and 140 units before dinner before meals. Give this insulin 20-30 before the meal. - Patient is instructed to restrict her carbohydra rock (less than 45 g per meal and less than 15 g per snack). Reinforced importance of carbohydra te consistenc y and dietary discretion . Cut back on Freeze drinks to 1/day, limit bed time snacking, limit carbs at mealtime. - Monitor blood glucose at least 2 times per day before breakfast and before dinner or at bedtime and any time she feels low. Blood glucose goals reviewed (i.e. fasting 80-130, post-prand ial <180, and hypoglycem ia <70). Patient advised to call our office if recurrent hypoglycem ia. - Untoward consequenc es of uncontroll ed diabetes discussed AGAIN, including but not limited to peripheral diabetic neuropathy , diabetic nephropath y, diabetic retinopath y, heart attack, and stroke. - Dietitian referral: Declined: - Encouraged to be active (30 minutes of moderate intensity exercise i.e. walking 5 times weekly). Weight loss will help with insulin sensitizat ion. - Hypoglycem ia symptoms explained and treatment for this reviewed. - Patient is up to date on foot exam. - Patient is up to date on eye exam. - Patient is up to date on urine testing for microalbum in. JIMBO yes; ARB no - Patient verbalized understand ing of treatment plan. All questions answered. -Last labs on 12/20/18 BUN 11 Cr 0.58 GFR 103 AST 66 ALT 50 TSH 1.510 MACR negative Spent 25 total minutes with the patient today in counseling regarding informatio n documented in my assessment and plan above. The time represents more than 50% of the encounter. Hyperlipidemia 55405102 E78.5 Goal LDL is under 100 mg/dl. Last LDL: 130 on 12/01/17 Triglyceri selam: 134 Continue dietary changes as recommende d. Continue repatha per cardiology . Essential hypertension 38187561 I10 Goal B.P is less than 140/90 mmHg. Continue current anti-hyper tensive medication s as appropriat e per patient s PCP. Obesity 956309670 E66.9 Dietary recommenda tions as above. Exercise recommenda tions as above. [id number] RAY METZGER APRN END[facility]CR[facility] [address] [place] [address] 02/04/2020 10:18:30 02/04/2020 14:15:19 Uncontrolled type 2 diabetes mellitus [id number] E11.65 Diabetes mellitus Type 2, uncontroll ed. A 1c in office today 8.2%, down from 9.1%, 11/05/19. G oal A1C by ADA criteria is less than 7%. Random blood glucose 132. Recommenda tions: -Hx: (Intoleran ce to GLP1, recurrent yeast infections , declines insulin pump therapy (i.e. omnipod), declines MNT). -Previousl y, pt reported intoleranc e to Tanzeum. She is interested in rybelsus. Advised pt that these meds are in the same class and she could have the same side effects (GI upset) with the rybelsus. She would like to try it. Agreed on the following: -Continue januvia 100mg daily -Continue Humulin R U-500. Inject up to 100u before breakfast, lunch, and 100-150 units before dinner before meals. Give this insulin 20-30 before the meal. -Start rybelsus 3mg once daily 30-60min before your first meal in the AM. Free medical sample provided. PT WILL CALL FOR 7MG DOSE IF SHE TOLERATES STARTER DOSE. Discussed stopping januvia if she is able to tolerate rybelsus. GLP-1 therapy benefits and risks were discussed in length with patient. Benefits include: lowering appetite, delaying gastric emptying, limiting hepatic glucose output, weight loss, improving insulin release at the time of a meal. Common side effects are nausea and vomiting, which are often self-limit ed with limiting portion size and meal fat content. Risk of pancreatit is was discussed and for what symptoms to go to the ER. We think the benefits of this medication outweigh the risk of pancreatit is. Questionab le concern of stimulatin g pancreatic cancer to grow is being evaluated at this time. In rats, therapy have been shown to cause thyroid C-cell tumors or hyperplasi a. At this time it is unclear if GLP1 therapy increases the risk of thyroid cancer in humans, and currently we think the benefits of this medication outweigh the risk. - Patient is instructed to restrict her carbohydra rock (less than 45 g per meal and less than 15 g per snack). Reinforced importance of carbohydra te consistenc y and dietary discretion . Cautioned against increasing carbs in a vegan/plan t-based diet. - Monitor blood glucose at least 2 times per day before breakfast and before dinner or at bedtime and any time she feels low. Blood glucose goals reviewed (i.e. fasting 80-130, post-prand ial <180, and hypoglycem ia <70). Patient advised to call our office if recurrent hypoglycem ia. - Untoward consequenc es of uncontroll ed diabetes discussed AGAIN, including but not limited to peripheral diabetic neuropathy , diabetic nephropath y, diabetic retinopath y, heart attack, and stroke. - Dietitian referral: Declined: Pt states she has an appt this afternoon. - Encouraged to be active (30 minutes of moderate intensity exercise i.e. walking 5 times weekly). Weight loss will help with insulin sensitizat ion. - Hypoglycem ia symptoms explained and treatment for this reviewed. - Patient is up to date on foot exam. - Patient is up to date on eye exam. - Patient is needs urine testing for microalbum in. JIMBO yes; ARB no - Patient verbalized understand ing of treatment plan. All questions answered. -Last labs on 11/05/19 BUN 10 Cr 0.40 GFR 165 AST 68 ALT 53 MACR negative 12/20/18 Spent 25 total minutes with the patient today in counseling regarding informatio n documented in my assessment and plan above. The time represents more than 50% of the encounter. Hyperlipidemia [id number] E78.5 Goal LDL is under 100 mg/dl. Last LDL: 130 on 12/01/17 Triglyceri selam: 134 Continue dietary changes as recommende d. Continue repatha per cardiology . Pt to forward recent lipid panel results. Essential hypertension [id number] I10 Goal B.P is less than 140/90 mmHg. Continue current anti-hyper tensive medication s as appropriat e per patient s PCP. Obesity 767526267 E66.9 Dietary recommenda tions as above. Exercise recommenda tions as above. [id number] RAY METZGER APRN [facility] [address] [place] [address] 05/05/2020 14:21:06 05/05/2020 15:07:00 Uncontrolled type 2 diabetes mellitus [id number] E11.65 Diabetes mellitus Type 2, uncontroll ed. A 1c in office today 8.5%, up from 8.2%, 02/04/20. G oal A1C by ADA criteria is less than 7%. Random blood glucose 223. Recommenda tions: -Hx: (Intoleran ce to GLP1 & metformin, recurrent yeast infections , declines insulin pump therapy (i.e. omnipod), declines MNT). Family history of CHF. -Continue januvia 100mg daily -Decrease Humulin R U-500. Inject up to 120u before breakfast, 110u before lunch, and 140 units before dinner before meals. Give this insulin 20-30 before the meal. - Patient is instructed to restrict her carbohydra rock (less than 45 g per meal and less than 15 g per snack). Reinforced importance of carbohydra te consistenc y and dietary discretion . - Monitor blood glucose at least 3 times per day before breakfast and before dinner or at bedtime and any time she feels low. Blood glucose goals reviewed (i.e. fasting 80-130, post-prand ial <180, and hypoglycem ia <70). Patient advised to call our office if recurrent hypoglycem ia. - Untoward consequenc es of uncontroll ed diabetes discussed AGAIN, including but not limited to peripheral diabetic neuropathy , diabetic nephropath y, diabetic retinopath y, heart attack, and stroke. - Dietitian referral: Declined: Pt states she has an appt this afternoon. - Encouraged to be active (30 minutes of moderate intensity exercise i.e. walking 5 times weekly). Weight loss will help with insulin sensitizat ion. - Hypoglycem ia symptoms explained and treatment for this reviewed. - Patient is up to date on foot exam. - Patient is up to date on eye exam. - Patient is needs urine testing for microalbum in. JIMBO yes; ARB no; Orders placed. - Patient verbalized understand ing of treatment plan. All questions answered. -Last labs on 11/05/19 BUN 10 Cr 0.40 GFR 165 AST 68 ALT 53 MACR negative 12/20/18 Hyperlipidemia [id number] E78.5 Goal LDL is under 100 mg/dl. Last LDL: 130 on 12/01/17 Triglyceri selam: 134 Continue dietary changes as recommende d. Continue repatha per cardiology . Pt to forward recent lipid panel results. Essential hypertension 58734644 I10 Goal B.P is less than 140/90 mmHg. Continue current anti-hyper tensive medication s as appropriat e per patient s PCP. Obesity 365181691 E66.9 Dietary recommenda tions as above. Exercise recommenda tions as above. [id number] RAY METZGER APRN [facility] [address] [place] [address] 07/30/2020 13:28:36 07/31/2020 10:18:12 Uncontrolled type 2 diabetes mellitus [id number] E11.65 Diabetes mellitus Type 2, uncontroll ed. A 1c in office today 9.0%, up from 8.5%, 05/05/20. G oal A1C by ADA criteria is less than 7%. Random blood glucose 206. Recommenda tions: -Hx: (Intoleran ce to GLP1 & metformin, recurrent yeast infections , declines insulin pump therapy (i.e. omnipod), declines MNT). Family history of CHF. Pt will optimize diet. -Continue januvia 100mg daily -Continue Humulin R U-500. Inject up to 120u before breakfast, 120u before lunch, and 140 units before dinner before meals. Give this insulin 20-30 before the meal. - Patient is instructed to restrict her carbohydra rock (less than 45 g per meal and less than 15 g per snack). Reinforced importance of carbohydra te consistenc y and dietary discretion . - Monitor blood glucose at least 3 times per day before breakfast and before dinner or at bedtime and any time she feels low. Blood glucose goals reviewed (i.e. fasting 80-130, post-prand ial <180, and hypoglycem ia <70). Patient advised to call our office if recurrent hypoglycem ia. - Untoward consequenc es of uncontroll ed diabetes discussed AGAIN, including but not limited to peripheral diabetic neuropathy , diabetic nephropath y, diabetic retinopath y, heart attack, and stroke. - Dietitian referral: Declined: Pt states she has an appt this afternoon. - Encouraged to be active (30 minutes of moderate intensity exercise i.e. walking 5 times weekly). Weight loss will help with insulin sensitizat ion. - Hypoglycem ia symptoms explained and treatment for this reviewed. - Patient is up to date on foot exam. - Patient is up to date on eye exam. - Patient is up to date on urine testing for microalbum in. JIMBO yes; ARB no; - Patient verbalized understand ing of treatment plan. All questions answered. -Last labs on 11/05/19 BUN 10 Cr 0.40 GFR 165 AST 68 ALT 53 MACR negative 05/05/20 Hyperlipidemia 59411929 E78.5 Goal LDL is under 100 mg/dl. Last LDL: 130 on 12/01/17 Triglyceri selam: 134 Continue dietary changes as recommende d. Continue repatha per cardiology . Pt to forward recent lipid panel results. Essential hypertension 66240126 I10 Goal B.P is less than 140/90 mmHg. Continue current anti-hyper tensive medication s as appropriat e per patient s PCP. Obesity 765757204 E66.9 Dietary recommenda tions as above. Exercise recommenda tions as above. [id number] RAY METZGER APRN [facility] [address] [place] [address] 10/22/2020 13:23:56 10/23/2020 10:41:18 Uncontrolled type 2 diabetes mellitus [id number] E11.65 Diabetes mellitus Type 2, uncontroll ed. A 1c in office today 8.5%, down from 9.0%, 07/30/20. G oal A1C by ADA criteria is less than 7%. Random blood glucose 149. Recommenda tions: -Hx: (Intoleran ce to GLP1 & metformin, recurrent yeast infections , declines insulin pump therapy (i.e. omnipod), declines MNT)). Family history of CHF. Pt will optimize diet. Agreed on the following: -Continue januvia 100mg daily -Continue Humulin R U-500. Inject up to 120u before breakfast, 120u before lunch, and 140 units before dinner before meals. Give this insulin 20-30 before the meal. - Patient is instructed to restrict her carbohydra rock (less than 45 g per meal and less than 15 g per snack). Reinforced importance of carbohydra te consistenc y and dietary discretion . - Monitor blood glucose at least 3 times per day before breakfast and before dinner or at bedtime and any time she feels low. Blood glucose goals reviewed (i.e. fasting 80-130, post-prand ial <180, and hypoglycem ia <70). Patient advised to call our office if recurrent hypoglycem ia. - Untoward consequenc es of uncontroll ed diabetes discussed AGAIN, including but not limited to peripheral diabetic neuropathy , diabetic nephropath y, diabetic retinopath y, heart attack, and stroke. - Dietitian referral: Declined: - Encouraged to be active (30 minutes of moderate intensity exercise i.e. walking 5 times weekly). Weight loss will help with insulin sensitizat ion. - Hypoglycem ia symptoms explained and treatment for this reviewed. - Patient is up to date on foot exam. - Patient is up to date on eye exam. - Patient is up to date on urine testing for microalbum in. JIMBO yes; ARB no; - Patient verbalized understand ing of treatment plan. All questions answered. -Last labs on 11/05/19- recent labs with PCP, we will request results BUN 10 Cr 0.40 GFR 165 AST 68 ALT 53 MACR negative 05/05/20 Hyperlipidemia 24913080 E78.5 Goal LDL is under 100 mg/dl. Last LDL: 130 on 12/01/17 Triglyceri selam: 134 Continue dietary changes as recommende d. Continue repatha per cardiology . Essential hypertension 81309412 I10 Goal B.P is less than 140/90 mmHg. Continue current anti-hyper tensive medication s as appropriat e per patient s PCP. Obesity 436801603 E66.9 Dietary recommenda tions as above. Exercise recommenda tions as above. [id number] RAY METZGER APRN [facility] [address] [place] [address] 01/21/2021 11:26:41 01/27/2021 12:57:25 Uncontrolled type 2 diabetes mellitus [id number] E11.65 Diabetes mellitus Type 2, uncontroll ed. A 1c in office today 7.7%, down from 8.5%, 10/22/20. G oal A1C by ADA criteria is less than 7%. Random blood glucose 277. Recommenda tions: -Hx: (Intoleran ce to GLP1 & metformin, recurrent yeast infections , declines insulin pump therapy (i.e. omnipod), declines MNT)). Family history of CHF. -Congratul ated pt on signficant improvemen t in A1c! Agreed on the following: -Continue januvia 100mg daily -Continue Humulin R U-500. Inject up to 120u before breakfast, 120u before lunch, and 140 units before dinner before meals. Give this insulin 20-30 before the meal. Decrease to 100 units if physical activity is anticipate d. - Patient is instructed to restrict her carbohydra rock (less than 45 g per meal and less than 15 g per snack). Reinforced importance of carbohydra te consistenc y and dietary discretion . - Monitor blood glucose at least 3 times per day before breakfast and before dinner or at bedtime and any time she feels low. Blood glucose goals reviewed (i.e. fasting 80-130, post-prand ial <180, and hypoglycem ia <70). Patient advised to call our office if recurrent hypoglycem ia. - Untoward consequenc es of uncontroll ed diabetes discussed, including but not limited to peripheral diabetic neuropathy , diabetic nephropath y, diabetic retinopath y, heart attack, and stroke. - Dietitian referral: Declined: - Encouraged to be active (30 minutes of moderate intensity exercise i.e. walking 5 times weekly). Weight loss will help with insulin sensitizat ion. - Hypoglycem ia symptoms explained and treatment for this reviewed. - Patient is up to date on foot exam. - Patient is up to date on eye exam. - Patient is up to date on urine testing for microalbum in. JIMBO yes; ARB no; - Patient verbalized understand ing of treatment plan. All questions answered. -Last labs on 09/13/20 BUN 9 Cr 0.40 GFR 165 AST 38 ALT 44TSH 3.38 MACR negative Hyperlipidemia 40628634 E78.5 Goal LDL is under 100 mg/dl. Last LDL: 79 on 09/13/20 Triglyceri selam: 139 Continue dietary changes as recommende d. Continue repatha per cardiology . Essential hypertension 99189442 I10 Goal B.P is less than 140/90 mmHg. Continue current anti-hyper tensive medication s as appropriat e per patient s PCP. Obesity 288004140 E66.9 Dietary recommenda tions as above. Exercise recommenda tions as above. [id number] RAY METZGER APRN [facility] [address] [place] [address] 04/15/2021 10:58:05 04/17/2021 14:36:31 Uncontrolled type 2 diabetes mellitus [id number] E11.65 Diabetes mellitus Type 2, uncontroll ed. A 1c in office today 8.1%, up from 7.7%, 01/21/21. G oal A1C by ADA criteria is less than 7%. Random blood glucose 336. Recommenda tions: -Hx: (Intoleran ce to GLP1 & metformin, recurrent yeast infections ). Family history of CHF. Discussed pump therapy (i.e. Omnipod). Pt is agreeable to MNT referral. Agreed on the following: -Continue januvia 100mg daily -Continue Humulin R U-500. Inject up to 120u before breakfast, 120u before lunch, and 140 units before dinner before meals. Give this insulin 20-30 before the meal. Decrease to 100 units if physical activity is anticipate d. - Patient is instructed to restrict her carbohydra rock (less than 45 g per meal and less than 15 g per snack). Reinforced importance of carbohydra te consistenc y and dietary discretion . - Monitor blood glucose at least 3 times per day before breakfast and before dinner or at bedtime and any time she feels low. Blood glucose goals reviewed (i.e. fasting 80-130, post-prand ial <180, and hypoglycem ia <70). Patient advised to call our office if recurrent hypoglycem ia. - Untoward consequenc es of uncontroll ed diabetes discussed, including but not limited to peripheral diabetic neuropathy , diabetic nephropath y, diabetic retinopath y, heart attack, and stroke. - Dietitian referral: Yes: Pt is agreeable. - Encouraged to be active (30 minutes of moderate intensity exercise i.e. walking 5 times weekly). Weight loss will help with insulin sensitizat ion. - Hypoglycem ia symptoms explained and treatment for this reviewed. - Patient is up to date on foot exam. - Patient is up to date on eye exam. - Patient is up to date on urine testing for microalbum in. JIMBO yes; ARB no; - Patient verbalized understand ing of treatment plan. All questions answered. -Last labs on 09/13/20 BUN 9 Cr 0.40 GFR 165 AST 38 ALT 44TSH 3.38 MACR negative Hyperlipidemia 65355457 E78.5 Goal LDL is under 100 mg/dl. Last LDL: 79 on 09/13/20 Triglyceri selam: 139 Continue dietary changes as recommende d. Continue repatha per cardiology . Essential hypertension 40357319 I10 Goal B.P is less than 140/90 mmHg. Continue current anti-hyper tensive medication s as appropriat e per patient s PCP. Obesity 508579348 E66.9 Dietary recommenda tions as above. Exercise recommenda tions as above. [id number] RAY METZGER APRN [facility] [address] [place] [address] 09/14/2021 13:34:31 09/14/2021 14:40:36 Uncontrolled type 2 diabetes mellitus 051441139 E11.65 Diabetes mellitus Type 2, uncontroll ed. A 1c in office today 7.6%, down from 8.1%, 04/15/21. G oal A1C by ADA criteria is less than 7%. Random blood glucose 252. Recommenda tions: -Hx: (Intoleran ce to GLP1 & metformin, recurrent yeast infections ). Family history of CHF. Recommend switching back to basal-bolu s insulin since requiremen ts have significan tly decreased. Recommend glucagon pen and CGM given variabilit y in BG readings and frequency of hypoglycem ia. We will see if it is covered by insurance. Agreed on the following: -Stop Humulin R U-500.-Sta rt tresiba (long-acti ng insulin). Inject 60 units once daily at bedtime.-S tart novolog (short-act ing insulin). Inject 25 units before meals 3x per day. If no meal, do not take this insulin.-C all in 1 week with logs.- Patient is instructed to restrict her carbohydra rock (less than 45 g per meal and less than 15 g per snack). Reinforced recommenda tions. - Monitor blood glucose at least 4 times per day before breakfast and before dinner or at bedtime and any time she feels low. Blood glucose goals reviewed (i.e. fasting 80-130, post-prand ial <180, and hypoglycem ia <70). Patient advised to call our office if recurrent hypoglycem ia. - Untoward consequenc es of uncontroll ed diabetes discussed, including but not limited to peripheral diabetic neuropathy , diabetic nephropath y, diabetic retinopath y, heart attack, and stroke. - Dietitian referral: Previously referred: - Encouraged to be active (30 minutes of moderate intensity exercise i.e. walking 5 times weekly). Weight loss will help with insulin sensitizat ion. - Hypoglycem ia symptoms explained and treatment for this reviewed. - Patient is up to date on foot exam. - Patient is up to date on eye exam. - Patient is up to date on urine testing for microalbum in. JIMBO yes; ARB no; - Patient verbalized understand ing of treatment plan. All questions answered. -Last labs on 09/13/20- request labs from recent hospitaliz ation BUN 9 Cr 0.40 GFR 165 AST 38 ALT 44TSH 3.38 MACR negative Hyperlipidemia 75509380 E78.5 Goal LDL is under 100 mg/dl. Last LDL: 79 on 09/13/20 Triglyceri selam: 139 Continue dietary changes as recommende d. Continue repatha per cardiology . Essential hypertension 27842551 I10 Goal B.P is less than 140/90 mmHg. Continue current anti-hyper tensive medication s as appropriat e per patient s PCP. Obesity 569307502 E66.9 Dietary recommenda tions as above. Exercise recommenda tions as above. Hypoglycem ia due to type 2 diabetes mellitus [id number] 76329 E11.649 -Hypoglyce vivek symptoms explained and treatment for this reviewed.- Recommend glucagon pen as a safety precaution (BG was as low as 46). [id number] RAY METZGER APRN [facility] [address] [place] [address] 12/24/2021 11:10:56 12/24/2021 12:21:38 Uncontrolled type 2 diabetes mellitus [id number] E11.65 Diabetes mellitus Type 2, uncontroll ed. A 1c in office today 7.4%, down from 7.6%, 09/14/21. G oal A1C by ADA criteria is less than 7%. Random blood glucose 95. Recommenda tions: -Hx: (Intoleran ce to GLP1 & metformin, recurrent yeast infections ). Family history of CHF. Agreed on the following: -Continue Januvia 100mg once daily.-Con tinue tresiba (long-acti ng insulin). Inject 72 units once daily at bedtime.-C ontinue novolog (short-act ing insulin). Inject up to 30 units before meals 3x per day. If no meal, do not take this insulin. - Patient is instructed to restrict her carbohydra rock (less than 45 g per meal and less than 15 g per snack). Reinforced recommenda tions. - Monitor blood glucose at least 4 times per day before breakfast and before dinner or at bedtime and any time she feels low. Blood glucose goals reviewed (i.e. fasting 80-130, post-prand ial <180, and hypoglycem ia <70). Patient advised to call our office if recurrent hypoglycem ia. - Untoward consequenc es of uncontroll ed diabetes discussed, including but not limited to peripheral diabetic neuropathy , diabetic nephropath y, diabetic retinopath y, heart attack, and stroke. - Dietitian referral: Previously referred: - Encouraged to be active (30 minutes of moderate intensity exercise i.e. walking 5 times weekly). Weight loss will help with insulin sensitizat ion. - Hypoglycem ia symptoms explained and treatment for this reviewed. - Patient is up to date on foot exam. - Patient is up to date on eye exam. - Patient needs urine testing for microalbum in. JIMBO yes; ARB no; - Patient verbalized understand ing of treatment plan. All questions answered. -Last labs on 12/09/21 BUN 9 Cr 0.39 GFR 114 AST 13 ALT 10 MACR negative (05/05/2020 ) Hyperlipidemia 80420364 E78.5 Goal LDL is under 100 mg/dl. Last LDL: 79 on 09/13/20 Triglyceri selam: 139 Continue dietary changes as recommende d. Continue repatha per cardiology . Essential hypertension 98391964 I10 Goal B.P is less than 140/90 mmHg. Continue current anti-hyper tensive medication s as appropriat e per patient s PCP. Obesity 860041640 E66.9 Dietary recommenda tions as above. Exercise recommenda tions as above. Hypoglycem ia due to type 2 diabetes mellitus [id number] 13872 E11.649 -Hypoglyce vivek symptoms explained and treatment for this reviewed.- Pt has glucagon pen at home. [id number] RAY METZGER APRN [facility] [address] [place] [address] 04/29/2022 10:58:51 04/29/2022 11:43:14 Uncontrolled type 2 diabetes mellitus 407666111 E11.65 Diabetes mellitus Type 2, uncontroll ed. A 1c in office today 9.1%, up from 7.4%, 12/24/21. G oal A1C by ADA criteria is less than 7%. Random blood glucose 235. Recommenda tions: -Hx: (Intoleran ce to GLP1 & metformin, recurrent yeast infections ). Family history of CHF. Agreed on the following: -Continue Januvia 100mg once daily.-Inc rease tresiba (long-acti ng insulin). Inject 44units once daily at bedtime.-I ncrease novolog (short-act ing insulin). Inject 20 units before meals 3x per day +SSI. If no meal, do not take this insulin.15 0-200= add 7l759-726= add 9d534-245= add 4y956-614= add 4u>351- add 5u - Patient is instructed to restrict her carbohydra rock (less than 45 g per meal and less than 15 g per snack). Reinforced recommenda tions. - Monitor blood glucose at least 4 times per day before breakfast and before dinner or at bedtime and any time she feels low. Blood glucose goals reviewed (i.e. fasting 80-130, post-prand ial <180, and hypoglycem ia <70). Patient advised to call our office if recurrent hypoglycem ia. - Untoward consequenc es of uncontroll ed diabetes discussed, including but not limited to peripheral diabetic neuropathy , diabetic nephropath y, diabetic retinopath y, heart attack, and stroke. - Dietitian referral: Previously referred: - Encouraged to be active (30 minutes of moderate intensity exercise i.e. walking 5 times weekly). Weight loss will help with insulin sensitizat ion. - Hypoglycem ia symptoms explained and treatment for this reviewed. - Patient is up to date on foot exam. - Patient is up to date on eye exam. - Patient needs urine testing for microalbum in. JIMBO yes; ARB no; - Patient verbalized understand ing of treatment plan. All questions answered. -Last labs on 12/09/21 BUN 9 Cr 0.39 GFR 114 AST 13 ALT 10 MACR negative (05/05/2020 ) Hyperlipidemia 79472267 E78.5 Goal LDL is under 100 mg/dl. Last LDL: 79 on 09/13/20 Triglyceri selam: 139 Continue dietary changes as recommende d. Continue repatha per cardiology . Essential hypertension 66934173 I10 Goal B.P is less than 140/90 mmHg. Continue current anti-hyper tensive medication s as appropriat e per patient s PCP. Obesity 265653346 E66.9 Dietary recommenda tions as above. Exercise recommenda tions as above. Hypoglycem ia due to type 2 diabetes mellitus [id number] 34196 E11.649 -Hypoglyce vivek symptoms explained and treatment for this reviewed.- Pt has glucagon pen at home. [id number] LUL LANZA PA-C [facility] [address] [place] [address] 07/06/2022 09:23:35 07/06/2022 10:18:31 Lentiginosis 110772476 L81.4 Benign reassuranc e Patient ad vised about exposure to the sun [id number] Z71.89 Counseled on sun protective clothing/h ats and daily UV protection with [facility] broad-spec trum SPF 30+ on exposed areas. Regular self-skin exams recommende d. Pt encouraged to RTC with any new/changi ng lesions. Inflamed s eborrheic keratosis [id number] L82.0 Benign reassuranc ePatient reports irritation due to location, requests treatment to remove lesion. Recommende d cryosurger yLN x 2see procedure notepatien t tolerated procedure wellAfter care instructio ns provided Raised maria c orrheic keratosis [id number] 44805 L82.1 Benign reassuranc e Acanthosis nigricans 402 [id number] L83 Benign reassuranc e Hemangioma [id number] D18 .00 Benign reassuranc e Skin tag [id number] L91.8 Benign reassuranc e [id number] RAY METZGER APRN [facility] [address] [place] [address] 09/02/2022 11:29:39 09/02/2022 12:08:53 Uncontrolled type 2 diabetes mellitus 302870195 E11.65 A 1c in office today 8.1%, down from 9.1%, 04/29/22. G oal A1C by ADA criteria is less than 7%. Random blood glucose 133. Recommenda tions: -Hx: (Intoleran ce to GLP1 & metformin, recurrent yeast infections ). Family history of CHF. Agreed on the following: -Continue Januvia 100mg once daily.-Inc rease tresiba (long-acti ng insulin). Inject 50units once daily at bedtime.-C ontinue novolog (short-act ing insulin). Inject 22 units before meals 3x per day +SSI. If no meal, do not take this insulin.15 0-200= add [id number]= add 4i063-138= add [id number]= add 4u>351- add 5u- Patient is instructed to restrict her carbohydra rock (less than 45 g per meal and less than 15 g per snack). Reinforced recommenda tions. - Monitor blood glucose at least 4 times per day before breakfast and before dinner or at bedtime and any time she feels low. Blood glucose goals reviewed (i.e. fasting 80-130, post-prand ial <180, and hypoglycem ia <70). Patient advised to call our office if recurrent hypoglycem ia. - Untoward consequenc es of uncontroll ed diabetes discussed, including but not limited to peripheral diabetic neuropathy , diabetic nephropath y, diabetic retinopath y, heart attack, and stroke. - Dietitian referral: Previously referred: - Encouraged to be active (30 minutes of moderate intensity exercise i.e. walking 5 times weekly). Weight loss will help with insulin sensitizat ion. - Hypoglycem ia symptoms explained and treatment for this reviewed. - Patient is up to date on foot exam. - Patient is up to date on eye exam. - Patient needs urine testing for microalbum in. JIMBO yes; ARB no; - Patient verbalized understand ing of treatment plan. All questions answered. -Last labs on 12/09/21 BUN 9 Cr 0.39 GFR 114 AST 13 ALT 10 MACR negative (05/05/2020 ) Hyperlipidemia 99548429 E78.5 Goal LDL is under 100 mg/dl. Last LDL: 79 on 09/13/20 Triglyceri selam: 139 Continue dietary changes as recommende d. Continue repatha per cardiology . Essential hypertension [id number] I10 Goal B.P is less than 140/90 mmHg. Continue current anti-hyper tensive medication s as appropriat e per patient s PCP. Obesity [id number] E66.9 Dietary recommenda tions as above. Exercise recommenda tions as above. Hypoglycem ia due to type 2 diabetes mellitus [id number] 68820 E11.649 -Hypoglyce vivek symptoms explained and treatment for this reviewed.- Pt has glucagon pen at home. [id number] RAY MEZTGER APRN [facility] [address] [place] [address] 12/09/2022 11:16:00 12/09/2022 13:39:22 Uncontrolled type 2 diabetes mellitus [id number] E11.65 A 1c in office today 8.6%, up from 8.1%, 09/02/22. G oal A1C by ADA criteria is less than 7%. Random blood glucose 209. Recommenda tions: -Hx: (Intoleran ce to GLP1 & metformin, recurrent yeast infections ). Family history of CHF. Agreed on the following: -Stop Januvia 100mg once daily.-Con tinue tresiba (long-acti ng insulin). Inject 50units once daily at bedtime.-C ontinue novolog (short-act ing insulin). Inject 22 units before meals 3x per day +SSI. If no meal, do not take this insulin.15 0-200= add [id number]= add [id number]= add 7i067-233= add 4u>351- add 5u-Start Jardiance 25mg once daily in the AM. *Free medical sample given.SGLT -2 inhibitor therapy mechanism of action, benefits [ A1c reduction and potential weight loss] and potential side effects including but not limited to polyuria, increased risk of genitourin kateryna tract infections i.e. yeast infection, hypotensio n and hyperkalem ia discuss in detail. Instructed patient to stop this medication should patient develop any nausea/vom iting/abdo dominguez pain/dehyd ration or severe hyperglyce vivek and call our office for further advice. Patient verbalized understand ing and agreed to start therapy. The [place]. Food and Drug Administra tion (FDA) is warning that cases of a rare but serious infection of the genitals and area around the genitals have been reported with the class of type 2 diabetes medicines called sodium-glu cose cotranspor ter-2 (SGLT2) inhibitors . This serious rare infection, called necrotizin g fasciitis of the perineum, is also referred to as Hilda s gangrene. Patients should seek medical attention immediatel y if you experience any symptoms of tenderness , redness, or swelling of the genitals or the area from the genitals back to the rectum, and have a fever above 100.4 F or a general feeling of being unwell.- Patient is instructed to restrict her carbohydra rock (less than 45 g per meal and less than 15 g per snack). Reinforced recommenda tions. - Monitor blood glucose at least 4 times per day before breakfast and before dinner or at bedtime and any time she feels low. Blood glucose goals reviewed (i.e. fasting 80-130, post-prand ial <180, and hypoglycem ia <70). Patient advised to call our office if recurrent hypoglycem ia. - Untoward consequenc es of uncontroll ed diabetes discussed, including but not limited to peripheral diabetic neuropathy , diabetic nephropath y, diabetic retinopath y, heart attack, and stroke. - Dietitian referral: Previously referred: - Encouraged to be active (30 minutes of moderate intensity exercise i.e. walking 5 times weekly). Weight loss will help with insulin sensitizat ion. - Hypoglycem ia symptoms explained and treatment for this reviewed. - Patient is up to date on foot exam. - Patient is up to date on eye exam. - Patient needs urine testing for microalbum in. JIMBO yes; ARB no; - Patient verbalized understand ing of treatment plan. All questions answered. -Last labs on 10/12/22 BUN 12 Cr 0.38 GFR 114 AST 18 ALT 13 MACR negative (05/05/2020 ) Hyperlipidemia 30530789 E78.5 Goal LDL is under 100 mg/dl. Last LDL: 79 on 09/13/20 Triglyceri selam: 139 Continue dietary changes as recommende d. Continue repatha per cardiology . Essential hypertension 81980365 I10 Goal B.P is less than 140/90 mmHg. Continue current anti-hyper tensive medication s as appropriat e per patient s PCP. Obesity 507847089 E66.9 Dietary recommenda tions as above. Exercise recommenda tions as above. Hypoglycem ia due to type 2 diabetes mellitus [id number] 01046 E11.649 -Hypoglyce vivek symptoms explained and treatment for this reviewed.- Pt has glucagon pen at home. [id number] RAY METZGER APRN [facility] [address] [place] [address] 04/13/2023 12:52:26 04/13/2023 13:58:06 Uncontrolled type 2 diabetes mellitus [id number] E11.65 A 1c in office today 8.2%, from 8.6%, 12/09/2022 G oal A1C by ADA criteria is less than 7%. Random blood glucose 157. Recommenda tions: -Hx: (Intoleran ce to GLP1 & metformin, recurrent yeast infections ). Family history of CHF. Discussed BG logs and A1c. Pt is discourage d. Recommend CGM for closer BG monitoring . Pt is agreeable to trial of [employer]. Sample sensor applied in office, instructed on use. Agreed on the following: -Continue Lantus (long-acti ng insulin). Inject 50units once daily at bedtime.-C ontinue novolog (short-act ing insulin). Inject 20-22 units before meals 3x per day +SSI. If no meal, do not take this insulin.15 0-200= add [id number]= add [id number]= add [id number]= add 4u>351- add 5u-Continu e Jardiance 25mg once daily in the AM.- Patient is instructed to restrict her carbohydra rock (less than 45 g per meal and less than 15 g per snack). Reinforced recommenda tions. - Monitor blood glucose at least 4 times per day before breakfast and before dinner or at bedtime and any time she feels low. Blood glucose goals reviewed (i.e. fasting 80-130, post-prand ial <180, and hypoglycem ia <70). Patient advised to call our office if recurrent hypoglycem ia. - Untoward consequenc es of uncontroll ed diabetes discussed, including but not limited to peripheral diabetic neuropathy , diabetic nephropath y, diabetic retinopath y, heart attack, and stroke. - Dietitian referral: Previously referred: - Encouraged to be active (30 minutes of moderate intensity exercise i.e. walking 5 times weekly). Weight loss will help with insulin sensitizat ion. - Hypoglycem ia symptoms explained and treatment for this reviewed. - Patient is up to date on foot exam. - Patient is up to date on eye exam. - Patient is up to date on urine testing for microalbum in. JIMBO yes; ARB no; - Patient verbalized understand ing of treatment plan. All questions answered. -Last labs on 10/12/22 BUN 12 Cr 0.38 GFR 114 AST 18 ALT 13 MACR negative 12/09/22 Hyperlipidemia 45710657 E78.5 Goal LDL is under 100 mg/dl. Last LDL: 79 on 09/13/20 Triglyceri selam: 139 Continue dietary changes as recommende d. Continue repatha per cardiology . Essential hypertension [id number] I10 Goal B.P is less than 140/90 mmHg. Continue current anti-hyper tensive medication s as appropriat e per patient s PCP. Obesity 514793732 E66.9 Dietary recommenda tions as above. Exercise recommenda tions as above. Hypoglycem ia due to type 2 diabetes mellitus [id number] 27848 E11.649 -Hypoglyce vivek symptoms explained and treatment for this reviewed.- Pt has glucagon pen at home. [id number] RAYANNALISA METZGER APRN [facility] [address] [place] [address] 07/27/2023 11:20:09 07/27/2023 12:12:01 Uncontrolled type 2 diabetes mellitus [id number] E11.65 A 1c in office today 8.3%, from 8.2%, 04/13/23. G oal A1C by ADA criteria is less than 7%. Random blood glucose 175. Recommenda tions: -Hx: (Intoleran ce to GLP1 & metformin, recurrent yeast infections ). Family history of CHF. UTT tanzeum d/t abd pain. UTT rybelsus d/t constant nausea. Discussed CGM reports. Agreed on the following: -Continue Basaglar (long-acti ng insulin). Inject 50units once daily at bedtime.-I ncrease novolog (short-act ing insulin). Inject 22 units before meals 3x per day +SSI. If no meal, do not take this insulin.15 0-200= add 6k791-525= add 4w748-175= add [id number]= add 4u>351- add 5u-Continu e Jardiance 25mg once daily in the AM.- Patient is instructed to restrict her carbohydra rock (less than 45 g per meal and less than 15 g per snack). Increase protein. Discussed balanced meals throughout the day. Limit evening snacking. - Monitor blood glucose at least 4 times per day before breakfast and before dinner or at bedtime and any time she feels low. Blood glucose goals reviewed (i.e. fasting 80-130, post-prand ial <180, and hypoglycem ia <70). Patient advised to call our office if recurrent hypoglycem ia. - Untoward consequenc es of uncontroll ed diabetes discussed, including but not limited to peripheral diabetic neuropathy , diabetic nephropath y, diabetic retinopath y, heart attack, and stroke. - Dietitian referral: Previously referred: - Encouraged to be active (30 minutes of moderate intensity exercise i.e. walking 5 times weekly). Weight loss will help with insulin sensitizat ion. - Hypoglycem ia symptoms explained and treatment for this reviewed. - Patient is up to date on foot exam. - Patient is up to date on eye exam. - Patient is up to date on urine testing for microalbum in. JIMBO yes; ARB no; - Patient verbalized understand ing of treatment plan. All questions answered. -Last labs on 10/12/22 BUN 12 Cr 0.38 GFR 114 AST 18 ALT 13 MACR negative 12/09/22 Hyperlipidemia [id number] E78.5 Goal LDL is under 100 mg/dl. Last LDL: 79 on 09/13/20 Triglyceri selam: 139 Continue dietary changes as recommende d. Continue repatha per cardiology . Essential hypertension 75037451 I10 Goal B.P is less than 140/90 mmHg. Continue current anti-hyper tensive medication s as appropriat e per patient s PCP. Obesity 861576917 E66.9 Dietary recommenda tions as above. Exercise recommenda tions as above. Hypoglycem ia due to type 2 diabetes mellitus [id number] 79680 E11.649 -Hypoglyce vivek symptoms explained and treatment for this reviewed.- Pt has glucagon pen at home. [id number] RAY METZGER APRN [facility] [address] [place] [address] 10/27/2023 11:42:15 10/27/2023 12:59:44 Uncontrolled type 2 diabetes mellitus [id number] E11.65 A 1c in office today 7.4%, from 8.3%, 07/27/23. G oal A1C by ADA criteria is less than 7%. Random blood glucose 212. Recommenda tions: -Hx: (Intoleran ce to GLP1 & metformin, recurrent yeast infections ). Family history of CHF. UTT tanzeum d/t abd pain. UTT rybelsus d/t constant nausea. Congratula boom pt on improvemen t in A1c! Discussed CGM reports. Agreed on the following: -Continue Basaglar (long-acti ng insulin). Inject 50units once daily at bedtime.-C ontinue novolog (short-act ing insulin). Inject 22 units before meals 3x per day +SSI. If no meal, do not take this insulin.15 0-200= add 6k026-553= add [id number]= add 8p867-554= add 4u>351- add 5u-Continu e Jardiance 25mg once daily in the AM.- Patient is instructed to restrict her carbohydra rock (less than 45 g per meal and less than 15 g per snack). Continue balanced meals throughout the day. - Monitor blood glucose at least 4 times per day before breakfast and before dinner or at bedtime and any time she feels low. Blood glucose goals reviewed (i.e. fasting 80-130, post-prand ial <180, and hypoglycem ia <70). Patient advised to call our office if recurrent hypoglycem ia. - Untoward consequenc es of uncontroll ed diabetes discussed, including but not limited to peripheral diabetic neuropathy , diabetic nephropath y, diabetic retinopath y, heart attack, and stroke. - Dietitian referral: Previously referred: - Encouraged to be active (30 minutes of moderate intensity exercise i.e. walking 5 times weekly). Weight loss will help with insulin sensitizat ion. - Hypoglycem ia symptoms explained and treatment for this reviewed. - Patient is up to date on foot exam. - Patient is up to date on eye exam. - Patient is up to date on urine testing for microalbum in. JIMBO yes; ARB no; - Patient verbalized understand ing of treatment plan. All questions answered. -Last labs on 07/26/23 BUN 14 Cr 0.67 GFR 100 AST 20 ALT 13 MACR negative 12/09/22 (lab orders printed for pt to have drawn at ) Hyperlipidemia 34361210 E78.5 Goal LDL is under 100 mg/dl. Last LDL: 58 on 07/26/23 Triglyceri selam: 140 Continue dietary changes as recommende d. Continue repatha per cardiology . Essential hypertension 34989478 I10 Goal B.P is less than 140/90 mmHg. Continue current anti-hyper tensive medication s as appropriat e per patient s PCP. Obesity 880160811 E66.9 Dietary recommenda tions as above. Exercise recommenda tions as above. Hypoglycem ia due to type 2 diabetes mellitus [id number] 39288 E11.649 -Hypoglyce vivek symptoms explained and treatment for this reviewed.- Pt has glucagon pen at home. [id number] RAY METZGER APRN [facility] [address] [address] 12/30/2023 10:34:08 01/02/2024 08:29:22 Uncontrolled type 2 diabetes mellitus [id number] E11.65 L ast A1c in office was 7.4%, 10/27/23. G oal A1C by ADA criteria is less than 7%. Recommenda tions: -Hx: (Intoleran ce to GLP1 & metformin, recurrent yeast infections ). Family history of CHF. UTT tanzeum d/t abd pain. UTT rybelsus d/t constant nausea. Congratula boom pt on improvemen t in BG readings! Discussed CGM reports. Agreed on the following: -Continue Basaglar (long-acti ng insulin). Inject 50units once daily at bedtime.-A djust novolog (short-act ing insulin). Inject 16*units before breakfast, decrease to 12-14*u before lunch, and 16-18u before dinner. Use SSI if needed. If no meal, do not take this insulin.15 0-200= add 0c429-741= add 2y854-293= add 2r394-477= add 4u>351- add 5u-Continu e Jardiance 25mg once daily in the AM.- Patient is instructed to restrict her carbohydra rock (less than 45 g per meal and less than 15 g per snack). Continue balanced meals throughout the day. - Monitor blood glucose at least 4 times per day before breakfast and before dinner or at bedtime and any time she feels low. Blood glucose goals reviewed (i.e. fasting 80-130, post-prand ial <180, and hypoglycem ia <70). Patient advised to call our office if recurrent hypoglycem ia. - Untoward consequenc es of uncontroll ed diabetes discussed, including but not limited to peripheral diabetic neuropathy , diabetic nephropath y, diabetic retinopath y, heart attack, and stroke. - Dietitian referral: Previously referred: - Encouraged to be active (30 minutes of moderate intensity exercise i.e. walking 5 times weekly). Weight loss will help with insulin sensitizat ion. - Hypoglycem ia symptoms explained and treatment for this reviewed. - Patient is up to date on foot exam. - Patient is up to date on eye exam. - Patient is up to date on urine testing for microalbum in. JIMBO yes; ARB no; - Patient verbalized understand ing of treatment plan. All questions answered. -Last labs on 07/26/23 BUN 14 Cr 0.67 GFR 100 AST 20 ALT 13 MACR negative 12/09/22 (lab orders printed for pt to have at ) Hyperlipidemia 71626680 E78.5 Goal LDL is under 100 mg/dl. Last LDL: 58 on 07/26/23 Triglyceri selam: 140 Continue dietary changes as recommende d. Continue repatha per cardiology . Essential hypertension 78404767 I10 Goal B.P is less than 140/90 mmHg. Continue current anti-hyper tensive medication s as appropriat e per patient s PCP. Obesity 576102138 E66.9 Dietary recommenda tions as above. Exercise recommenda tions as above. Hypoglycem ia due to type 2 diabetes mellitus [id number] 57637 E11.649 -Hypoglyce vivek symptoms explained and treatment for this reviewed.- Pt has glucagon pen at home. [id number] RAY METZGER APRN [facility] [address] [place] [address] 02/01/2024 11:12:24 02/01/2024 13:36:23 Uncontrolled type 2 diabetes mellitus [id number] E11.65 A 1c in office toady was 7.2%, from 7.4%, 10/27/23. G oal A1C by ADA criteria is less than 7%.Random BG in office 159. Recommenda tions: -Hx: (Intoleran ce to GLP1 & metformin, recurrent yeast infections ). Family history of CHF. UTT tanzeum d/t abd pain. UTT rybelsus d/t constant nausea. Congratula boom pt on improvemen t in BG readings! Discussed CGM reports. Discussed increasing basaglar, pt will decrease evening snacking instead. Agreed on the following: -Continue Basaglar (long-acti ng insulin). Inject 50units once daily at bedtime.-A djust novolog (short-act ing insulin). Inject 16*units before breakfast, decrease to 12-14*u before lunch, and 16-18u before dinner. Use SSI if needed. If no meal, do not take this insulin.15 0-200= add 9c867-065= add 6q886-370= add [id number]= add 4u>351- add 5u-Continu e Jardiance 25mg once daily in the AM.- Patient is instructed to restrict her carbohydra rock (less than 45 g per meal and less than 15 g per snack). Continue balanced meals throughout the day. - Monitor blood glucose at least 4 times per day before breakfast and before dinner or at bedtime and any time she feels low. Blood glucose goals reviewed (i.e. fasting 80-130, post-prand ial <180, and hypoglycem ia <70). Patient advised to call our office if recurrent hypoglycem ia. - Untoward consequenc es of uncontroll ed diabetes discussed, including but not limited to peripheral diabetic neuropathy , diabetic nephropath y, diabetic retinopath y, heart attack, and stroke. - Dietitian referral: Previously referred: - Encouraged to be active (30 minutes of moderate intensity exercise i.e. walking 5 times weekly). Weight loss will help with insulin sensitizat ion. - Hypoglycem ia symptoms explained and treatment for this reviewed. - Patient is up to date on foot exam. - Patient is up to date on eye exam. - Patient is up to date on urine testing for microalbum in. JIMBO yes; ARB no; - Patient verbalized understand ing of treatment plan. All questions answered. -Last labs on 07/26/23 BUN 14 Cr 0.67 GFR 100 AST 20 ALT 13 MACR negative 12/09/22 (lab orders printed for pt to have at ) Hyperlipidemia 50198765 E78.5 Goal LDL is under 100 mg/dl. Last LDL: 58 on 07/26/23 Triglyceri selam: 140 Continue dietary changes as recommende d. Continue repatha per cardiology . Essential hypertension 24161995 I10 Goal B.P is less than 140/90 mmHg. Continue current anti-hyper tensive medication s as appropriat e per patient s PCP. Obesity 696624977 E66.9 Dietary recommenda tions as above. Exercise recommenda tions as above. Hypoglycem ia due to type 2 diabetes mellitus [id number] 48331 E11.649 -Hypoglyce vivek symptoms explained and treatment for this reviewed.- Pt has glucagon pen at home. [id number] RAY METZGER APRN [facility] [address] [place] [address] 05/02/2024 11:23:22 05/02/2024 12:03:27 Uncontrolled type 2 diabetes mellitus [id number] E11.65 A 1c in office toady was 7.3%, from 7.2%, 02/01/24. G oal A1C by ADA criteria is less than 7%.Random BG in office 197. Recommenda tions: -Hx: (Intoleran ce to GLP1 & metformin, recurrent yeast infections ). Family history of CHF. UTT tanzeum d/t abd pain. UTT rybelsus d/t constant nausea. Discussed CGM reports. Agreed on the following: -Continue Basaglar (long-acti ng insulin). Inject 50units once daily at bedtime.-C ontinue novolog (short-act ing insulin). Inject 20units before breakfast, 20u before lunch, and 20u before dinner. Use SSI if needed. If no meal, do not take this insulin.15 0-200= add 8c185-715= add 6j365-069= add 3t687-319= add 4u>351- add 5u-Continu e Jardiance 25mg once daily in the AM.- Patient is instructed to restrict her carbohydra rock (less than 45 g per meal and less than 15 g per snack). Continue balanced meals throughout the day. Add protein with carbs at night. - Monitor blood glucose at least 4 times per day before breakfast and before dinner or at bedtime and any time she feels low. Blood glucose goals reviewed (i.e. fasting 80-130, post-prand ial <180, and hypoglycem ia <70). Patient advised to call our office if recurrent hypoglycem ia. - Untoward consequenc es of uncontroll ed diabetes discussed, including but not limited to peripheral diabetic neuropathy , diabetic nephropath y, diabetic retinopath y, heart attack, and stroke. - Dietitian referral: Previously referred: - Encouraged to be active (30 minutes of moderate intensity exercise i.e. walking 5 times weekly). Weight loss will help with insulin sensitizat ion. - Hypoglycem ia symptoms explained and treatment for this reviewed. - Patient is up to date on foot exam. - Patient is up to date on eye exam. - Patient is up to date on urine testing for microalbum in. JIMBO yes; ARB no; - Patient verbalized understand ing of treatment plan. All questions answered. -Last labs on 07/26/23 BUN 14 Cr 0.67 GFR 100 AST 20 ALT 13 MACR negative 12/09/22 (lab orders printed for pt to have at ) Hyperlipidemia 76345401 E78.5 Goal LDL is under 100 mg/dl. Last LDL: 58 on 07/26/23 Triglyceri selam: 140 Continue dietary changes as recommende d. Continue repatha per cardiology . Essential hypertension 83191817 I10 Goal B.P is less than 140/90 mmHg. Continue current anti-hyper tensive medication s as appropriat e per patient s PCP. Obesity 799575802 E66.9 Dietary recommenda tions as above. Exercise recommenda tions as above. Hypoglycem ia due to type 2 diabetes mellitus [id number] 93973 E11.649 -Hypoglyce vivek symptoms explained and treatment for this reviewed.- Pt has glucagon pen at home. [id number] RAY METZGER APRN [facility] [address] [place] [address] 08/22/2024 11:03:44 08/22/2024 11:45:18 Uncontrolled type 2 diabetes mellitus [id number] E11.65 A 1c in office today was 7.3%, same as 05/02/24. G oal A1C by ADA criteria is less than 7%.Random BG in office 154. Recommenda tions: -Hx: (Intoleran ce to GLP1 & metformin, recurrent yeast infections ). Family history of CHF. UTT tanzeum d/t abd pain. UTT rybelsus d/t constant nausea. Pt would like to try mounjaro. Discussed CGM reports. Agreed on the following: -Continue Basaglar (long-acti ng insulin). Inject 50units once daily at bedtime.-C ontinue novolog (short-act ing insulin). Inject 20units before breakfast, 20u before lunch, and 20u before dinner. Use SSI if needed. If no meal, do not take this insulin.15 0-200= add 6y073-593= add 8g680-969= add 5j906-588= add 4u>351- add 5u-Continu e Jardiance 25mg once daily in the AM.-Start mounjaro 2.5mg once weekly for 4 weeks, then increase to 5mg/wk thereafter . GLP-1 therapy benefits and risks were discussed in length with patient.Be nefits include: lowering appetite, delaying gastric emptying, limiting hepatic glucose output, weight loss, improving insulin release at the time of a meal.Commo n side effects are nausea and vomiting, which are often self-limit ed with limiting portion size and meal fat content.Ri sk of pancreatit is was discussed and for what symptoms to go to the ER. We think the benefits of this medication outweigh the risk of pancreatit is. Questionab le concern of stimulatin g pancreatic cancer to grow is being evaluated at this time.In rats, therapy have been shown to cause thyroid C-cell tumors or hyperplasi a. At this time it is unclear if GLP1 therapy increases the risk of thyroid cancer in humans, and currently we think the benefits of this medication outweigh the risk.There is a potential risk of retinopath y which may be temporary. - Patient is instructed to restrict her carbohydra rock (less than 45 g per meal and less than 15 g per snack). Continue balanced meals throughout the day. - Monitor blood glucose at least 4 times per day before breakfast and before dinner or at bedtime and any time she feels low. Blood glucose goals reviewed (i.e. fasting 80-130, post-prand ial <180, and hypoglycem ia <70). Patient advised to call our office if recurrent hypoglycem ia. - Untoward consequenc es of uncontroll ed diabetes discussed, including but not limited to peripheral diabetic neuropathy , diabetic nephropath y, diabetic retinopath y, heart attack, and stroke. - Dietitian referral: Previously referred: - Encouraged to be active (30 minutes of moderate intensity exercise i.e. walking 5 times weekly). Weight loss will help with insulin sensitizat ion. - Hypoglycem ia symptoms explained and treatment for this reviewed. - Patient is up to date on foot exam. - Patient is up to date on eye exam. - Patient is up to date on urine testing for microalbum in. JIMBO yes; ARB no; - Patient verbalized understand ing of treatment plan. All questions answered. -Last labs on 11/01/23BUN 13Cr 0.49GFR 107AST 21ALT 16TSH 1.79MACR negative Hyperlipidemia 65258692 E78.5 Goal LDL is under 100 mg/dl. Last LDL: 58 on 07/26/23 Triglyceri selam: 140 Continue dietary changes as recommende d. Continue repatha per cardiology . Essential hypertension 21066553 I10 Goal B.P is less than 140/90 mmHg. Continue current anti-hyper tensive medication s as appropriat e per patient s PCP. Obesity 611514289 E66.9 Dietary recommenda tions as above. Exercise recommenda tions as above. Hypoglycem ia due to type 2 diabetes mellitus [id number] 78349 E11.649 -Hypoglyce vivek symptoms explained and treatment for this reviewed.- Pt has glucagon pen at home. [id number] JAI ALVAREZ-C [address] [address] 09/03/2024 11:02:06 09/03/2024 12:55:11 Inflamed seborrheic keratosis [id number] L82.0 R20.8 - Benign appearing, reassuranc e given - Will TX with LN2 today given symptomati c nature (see proc note) - Sites may persist &/or recur after TX Acanthosis nigricans [id number] L83 692 No erythema/r emerita present on exam today. Acanthosis nigricans noted- Patient reports itching has been present for weeks-rickey hs. Reports itching is worse when she sweats- PCP thought cause was fungal. Pt reports no improvemen t with keto shampoo. Recommende d stopping antifungal rx- Pt has switched around/use d numerous different deodorants - Start HCT 2.5% ointment as directed- Recommende d trial of Vanicream deodorant & soap Pt to call with concerns or lack of improvemen t in pruritis [id number] KEARA LOPEZ MD [facility] [address] [place] [address] 10/18/2024 10:22:41 10/18/2024 12:18:09 Acanthosis nigricans [id number] L83 692 The nature of the diagnosis was discussed. Failed tx: ketoconazo le shampoo, HCT 2.5% ointmentPt has diabetes. Pt started Mounjaro 2 months ago. Disc once getting diabetes under control, can improve the skin.Pt has tried numerous types of deodorants .Rx prescribed for fluticason e propionate 0.005% topical ointment. Apply to AA on b/l axillae BID a9pptrx or until clear, then decrease to 1-2 times a week to maintain improvemen t. SE reviewed. Epidermoid cyst of skin [id number] L72.0 99255 The nature of the diagnosis was discussed. Will send order for excision. [id number] KEARA LOPEZ MD [address] [address] [place] [address] 11/28/2024 08:10:46 11/28/2024 08:46:17 Acanthosis nigricans [id number] L83 692 The nature of the diagnosis was discussed. Failed tx: ketoconazo le shampoo, HCT 2.5% ointmentPt has diabetes. Pt started Mounjaro, Disc once getting diabetes under control, can improve the skin.Pt has tried numerous types of deodorants .Start Desonide cream SE reviewed.R ec cerave itch cream for underarms ( samples given today) [id number] RAY METZGER APRN ENDOCRINO [address] [address] [place] [address] 12/06/2024 10:16:29 12/06/2024 11:01:36 Uncontrolled type 2 diabetes mellitus [id number] E11.65 A 1c in office today was 6.1%, from 7.3%, 7. G oal A1C by ADA criteria is less than 7%.Random BG in office 227. Recommenda tions: -Hx: (Intoleran ce to GLP1 & metformin, recurrent yeast infections ). Family history of CHF. UTT tanzeum d/t abd pain. UTT rybelsus d/t constant nausea. Pt would like to try mounjaro. Discussed CGM reports. Pt would like to wean off of novolog. Discussed increasing mounjaro dose. Pt will wait until next visit. Agreed on the following: -Continue Basaglar (long-acti ng insulin). Inject 44units once daily at bedtime.-C ontinue novolog (short-act ing insulin). Inject 10units before breakfast, 10u before lunch, and 10u before dinner. Use SSI if needed. If no meal, do not take this insulin.15 0-200= add 6u603-704= add 2f089-605= add 5s916-757= add 4u>351- add 5u-Continu e Jardiance 25mg once daily in the AM.-Contin ue mounjaro 5mg/wk.- Patient is instructed to restrict her carbohydra rock (less than 45 g per meal and less than 15 g per snack). Continue balanced meals throughout the day. Increase protein. - Monitor blood glucose at least 4 times per day before breakfast and before dinner or at bedtime and any time she feels low. Blood glucose goals reviewed (i.e. fasting 80-130, post-prand ial <180, and hypoglycem ia <70). Patient advised to call our office if recurrent hypoglycem ia. - Untoward consequenc es of uncontroll ed diabetes discussed, including but not limited to peripheral diabetic neuropathy , diabetic nephropath y, diabetic retinopath y, heart attack, and stroke. - Dietitian referral: Previously referred: - Encouraged to be active (30 minutes of moderate intensity exercise i.e. walking 5 times weekly). Weight loss will help with insulin sensitizat ion. - Hypoglycem ia symptoms explained and treatment for this reviewed. - Patient needs urine testing for microalbum in. JIMBO yes; ARB no; - Patient verbalized understand ing of treatment plan. All questions answered.- Last labs on 11/05/24 (reviewed oncology's note)BUN 8Cr 0.53GFR 104.7AST 24ALT 18MACR negative 11/01/23 Hyperlipidemia 24083506 E78.5 Goal LDL is under 100 mg/dl. Last LDL: 58 on 07/26/23 Triglyceri selam: 140 Continue dietary changes as recommende d. Continue repatha per cardiology . Essential hypertension 05217820 I10 Goal B.P is less than 140/90 mmHg. Continue current anti-hyper tensive medication s as appropriat e per patient s PCP. Obesity 117771885 E66.9 Dietary recommenda tions as above. Exercise recommenda tions as above. 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 Health Concerns Section Related Observation LastModified by Organization Detai ls LastModified Time None Recorded Concern Status LastModified by Organization Details LastModified Time None Recorded Advance Directives Directive None Recorded Payers Insurance Date Sequence Insurance Name Policy Number Policy Dobbs Covered Member ID Dobbs Member ID Guarantor Name 12/13/2024 1 [employer] [employer] [id number] Barrie Javier [id number] Milena Javier Notes Date Note Type Note Provider Name and Address Organization Details Recorded Time 08/22/2024 text/html ROS as noted in the HPI Mrs. Yaya (Rachael) is a 63 year old female patient with a past medical history significant for hypertension, hyperlipidemia, CAD with ME, cirrhosis, cancer of appendix (remission), and uncontrolled type 2 diabetes complicated by peripheral diabetic neuropathy, who is seen today for a follow up. At last visit, we continued her treatment regimen. Patient reports compliance. Oneal 3 is not accurate per pt. Pt wants to try mounjaro. 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 Current Treatment Regimen: Jardiance 25mg qAM Basaglar 50units qhsNovolog 22units acb and 22* acl, 22u acd + SS*150-200= add 6e209-538= add 2p198-547= add 8k514-313= add 4u>351- add 5u No recent episodes of hypoglycemia. Patient is able to recognize and treat appropriately. 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 155TIR 74%Low 0%Very low 0% Duration: chronic Self Care: monitoring glucose daily; seeing eye doctor regularly; checking feet regularly; Last dilated eye exam: 10/2022 [facility] ([facility] no DR per patient (retinal imaging) Associated Symptoms: no weight gain; no dizziness; no sweats; no headaches; no confusion; no increased appetite; no increase thirst; no increased urination; no blurred vision; no calluses on feet; no SOB; no heart palpitations/racing heart Reports: intermittent night sweats (menopause; stable); increased thirst/dry mouth (stable); burning/numbness of both feet (worse, taking amitriptyline); 8lb weight gain since last visit; Chronic Complications: Diabetic retinopathy: No Diabetic neuropathy: Yes-- Dr. Tejada- podiatry [place] Diabetic nephropathy: No Hypertension: Yes Hyperlipidemia: Yes RAY METZGER APRN [address] [place] [address], [phone], [facility] 08/22/2024 11:50:59 09/03/2024 text/html ROS as noted in the HPI LV 07/06/2022 PT is here to have some places removed. Spots are on left cheek and right forearm. PT also reports severe itching on underarms. JAMES ARORA PA-C [address] [place] [address], [phone], [facility] 09/04/2024 22:17:28 10/18/2024 text/html Here for: acanthosis nigricans, dx by James AroraLocation: under armsDuration: monthsFailed tx: hydorcortisone 2.5% ointment, keto shampooReports: gets worse with sweating, HCT does not seem strong enough KEARA LOPEZ MD [address] [place] [address], [phone], [facility] 10/18/2024 12:24:37 11/28/2024 text/html Here for: acanthosis nigricans, dx by James AroraLV: 10/15Location: under armsDuration: monthsFailed tx: hydorcortisone 2.5% ointment, keto shampooCurrent tx: fluticasone ointReports: burned the first time washed off after an hour. Burned on subsequent application. Tried using the hydorcortisone again - neither effective KEARA LOPEZ MD [address] [place], [address], [facility] 11/28/2024 08:47:02 12/06/2024 text/html ROS as noted in the HPI Mrs. Yaya (Rachael) is a 64 year old female patient with a past medical history significant for hypertension, hyperlipidemia, CAD with ME, cirrhosis, cancer of appendix (remission), and uncontrolled type 2 diabetes complicated by peripheral diabetic neuropathy, who is seen today for a follow up. At last visit, we started mounjaro. Patient reports compliance. Reports some nausea for 1-2 days after injection, controlled with jose enrique supplements. Oneal 3 is not accurate per pt. She has adjusted her insulin doses. Dental work recently, more soft foods. 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 Current Treatment Regimen: Jardiance 25mg qAM Basaglar 44*units qhsNovolog 10u TID*150-200= add 5l592-358= add 8k722-775= add 3a714-121= add 4u>351- add 5uMounjaro 5mg/wk No recent episodes of hypoglycemia. Patient is able to recognize and treat appropriately. 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 107TIR 99%Low 1%Very low 0% Last dilated eye exam: 10/2022 [facility] ([facility] no DR per patient (retinal imaging) Associated Symptoms: no weight gain; no dizziness; no sweats; no headaches; no confusion; no increased appetite; no increase thirst; no increased urination; no blurred vision; no calluses on feet; no SOB; no heart palpitations/racing heart Reports: intermittent night sweats (menopause; stable); increased thirst/dry mouth (stable); burning/numbness of both feet (worse, taking amitriptyline); 11lb weight loss since last visit; Chronic Complications: Diabetic retinopathy: No Diabetic neuropathy: Yes-- Dr. Tejada- podiatry [place] Diabetic nephropathy: No Hypertension: Yes Hyperlipidemia: Yes RAY METZGER, PATIENT INSURANCE CLERK [address] [place], [address], [facility] 12/06/2024 11:08:41 OBGyn Episode No OBEpisode recorded.
--- OUTSIDE RECORDS SUMMARY | 2024-12-14 15:46 | XMS_ITS | Encounter Summary ---
Author Organization Healthcare Address [address] [id number] Care Team Providers Care Photonics Engineering Technician Name Role Phone Rosalio Nunez MD Primary Care Provider [phone] Eddie Joy MD Unavailable Reason for Referral * Imaging (Routine) - Pending Review Specialty Diagnoses / Procedures [facility] Referred To Contact Radiology Diagnoses Mucinous adenocarcinoma of appendix (CMS/HCC) Procedures CT Abdomen Pelvis w IV Contrast Ondina Hooks MD [address] [address] Phone: tel: fax: Referral ID Status Reason Start Date Expiration Date V isits Requested Visits Authorized [id number] Pending Review 11/07/2024 05/09/2026 1 1 * Imaging (Routine) - Pending Review Specialty Diagnoses / Procedures [facility] Referred To Contact Radiology Diagnoses Mucinous adenocarcinoma of appendix (CMS/HCC) Procedures CT Chest w IV Contrast Ondina Hooks MD [address] [address] Phone: tel: fax: Referral ID Status Reason Start Date Expiration Date V isits Requested Visits Authorized [id number] Pending Review 11/07/2024 05/09/2026 1 1 Encounter Details Date Type Department Care Team (Latest Contact Info) Description 11/07/2024 Orders Only [facility] [address] [place] [phone] Isabel Fernandez, RN [id number] Mucinous adenocarcinoma of appendix (CMS/HCC) (Primary Dx) [...] drink first t keith in the morning (EYE-PEGGER) to steady your nerves or to get [...] No 12/09/2021 4:30 PM EDT Darinel Acosta ndrloulou * Do you have serious difficulty walking or climbing stairs? Answer Date of Assessment Author No 12/09/2021 4:30 PM EDT Eros Acosta * Do you have serious difficulty dressing or bathing? Answer Date of Assessment Author No 12/09/2021 4:30 PM EDT Darinel Acosta ndrloulou documented as of this encounter Mental Status * Because of a physical, mental, or emotional condition, do you have serious difficulty concentrating, remembering, or making decisions? (5 years old or older) Answer Entry Date Author No 12/09/2021 4:30 PM EDT Darinel Acosta documented in this encounter Plan of Treatment Upcoming Encounters Date Type Department Care Team (Late st Contact Info) Description 03/26/2025 1:30 PM EST Office Visit [facility] [address] [place] [address] Ab Blair, PA [address] [facility] [address] [place] [address] 04/29/2025 12:20 PM EDT Appointment [facility] G Radiology [address] [place] [address] 04/29/2025 3:10 PM EDT Office Visit [facility] [address] [place] [address] Ondina Hooks MD [address] [facility] Jackelin Goldberg [facility] [address] [place] [address] 09/24/2025 1:00 PM EDT Appointment [facility] CC Echo [address] [facility] [address] [place] [address] 09/24/2025 3:00 PM EDT Office Visit [facility] Head[facility] Neck [facility] Respiratory [address] [facility] [address] [place] [address] Scheduled Orders Name Type Priority Associated Diagnoses Orde r Schedule CT Chest w IV Contrast Imaging Routine Mucinous adenocarcinoma of appendix (CMS/HCC) Expected: 04/29/2025 (Approximate), Expires: 05/11/2026 CT Abdomen Pelvis w IV Contrast Imaging Routine Mucinous adenocarcinoma of appendix (CMS/HCC) Expected: 04/29/2025 (Approximate), Expires: 05/11/2026 documented as of this encounter Visit Diagnoses Diagnosis Mucinous adenocarcinoma [...] documented as of this encounter Care Teams Photonics Engineering Technician Relationship Specialty Start Date End Date Rosalio Nunez MD [address] [place] [address] PCP - General 07/04/20 Eddie Joy MD [address] [place] [phone] Service Attending Cardiology 01/01/22 documented as of this encounter
--- OUTSIDE RECORDS SUMMARY | 2024-12-14 15:46 | XMS_ITS | Encounter Summary ---
Author Organization Healthcare Address [address] [place] [address] Care Team Providers Care Ethics Officer Name Role Phone Rosalio Nunez MD Primary Care Provider [phone] Eddie Joy MD Unavailable Encounter Details Date Type Department Care Team (Latest Contact Info) Description 11/02/2024 Travel Social History Tobacco Use Types Packs/Day Years Used Date Smoking Tobacco: Every Day Cigarettes 1 46.8 Started: 02/21/1978 Passive Smoke Exposure: Current Smokeless Tobacco: Never Alcohol Use Standard Drinks/Week Comments Not Currently 0 (1 standard drink = 0.6 oz pur e alcohol) Prior history PHQ-2 Answer Date Recorded Patient Health Questionnaire-2 Score 0 09/21/2024 PHQ-9 Answer Date Recorded Patient Health Questionnaire-9 [...] drink first t keith in the morning (EYE-ELECTRICAL CONSTRUCTION PROJECT MANAGER) to steady your nerves or to get [...] 4:30 PM EDT Darinel Acosta ndrloulou * Are you blind or do you have serious difficulty seeing, even when wearing glasses? Answer Date of Assessment Author No 12/09/2021 4:30 PM EDT Darinel Acosta ndrew * Do you have serious difficulty walking or climbing stairs? Answer Date of Assessment Author No 12/09/2021 4:30 PM EDT Darinel Acosta * Do you have serious difficulty dressing or bathing? Answer Date of Assessment Author No 12/09/2021 4:30 PM EDT Darinel Acosta documented as of this encounter Mental Status [...] 03/26/2025 1:30 PM EST Office Visit [facility] Medicine Specialties [address] [place] [address] Ab Blair PA [address] [facility] [address] [place] [address] 04/29/2025 12:20 PM EDT Appointment [facility] G Radiology [address] [place] [address] 04/29/2025 3:10 PM EDT Office Visit [facility] [address] [place] [address] Ondina Hooks MD [address] [facility] Jackelin Goldberg [facility] [address] [place] [address] 09/24/2025 1:00 PM EDT Appointment [facility] CC Echo [address] [facility] [address]nd [place] [address] 09/24/2025 3:00 PM EDT Office Visit [facility] [address] [facility], [address]nd [place] [address] documented as of this encounter Visit Diagnoses Not on filedocumented in this encounter Additional Health Concerns Assessment Noted Time PHQ-9 Depression Total Score: 0 09/14/19 3:36 PM EDT A fall risk assessment has been complete d for the patient 09/21/2024 10:52 AM EDT A Body Mass Index follow-up plan has been documented for the patient 09/14/2024 9:17 AM EDT documented as of this encounter Care Teams Ethics Officer Relationship Specialty Start Date End Date Rosalio Nunez MD [address] [place] [address] PCP - General 07/04/20 Eddie Joy MD [address] [place] [address] Service Attending Cardiology 01/01/22 documented as of this encounter
--- OUTSIDE RECORDS SUMMARY | 2024-12-14 15:46 | XMS_ITS | Encounter Summary ---
Author Organization Healthcare Address [address] 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 0 01/22/2022 CAGE Questionnaire Score 0 022 Comments No Sex and Gender Information Value Date Recorded Sex Assigned at Not on file Legal Sex Female 7:48 PM EDT Gender Identity Female 12/08/2021 10:37 PM EDT Sexual Orientation Straight 12/08/2021 10 :37 PM EDT COVID-19 Exposure Response Date Recorded In the last 10 days, have yo u been in contact with someone who was confirmed or suspected to have Coronavirus/COVID-19? No / Unsure 01/22/2022 4:25 PM EST documented as of this encounter Functional Status [...] 12/09/2021 4:30 PM EDT Darinel Acosta * Calculated C-SSRS Risk Score (Lifetime/Recent) Answer Date of Assessment Author No Risk Indicated 01/22/2022 8:00 AM Sangita Diaz * Question Answer Date of Assessment Author 1. Wish to be (Past 1 Month) No 022 8:00 AM Sangita Diaz 2. Non-Specific Active Suici karthikeyan Thoughts (Past 1 Month) No 01/22/2022 8:00 AM Sangita Diaz 6. Suicidal Behavior (Lifetime) No 8:00 AM Sangita Diaz documented as of this encounter Mental Status [...] Description 03/26/2025 1:30 PM EST Office Visit [facility] [address] [place] [address] Ab Blair PA [address] [place] [phone] 04/29/2025 12:20 PM EDT Appointment [facility] G Radiology [address] [place] [address] 04/29/2025 3:10 PM EDT Office Visit [facility] [address] [place] [address] Ondina Hooks MD 800 [facility] [address] [place] [address] 09/24/2025 1:00 PM EDT Appointment [facility] CC Echo [address] [facility] [address] [place] [address] 09/24/2025 3:00 PM EDT Office Visit [facility] Neck [facility] Res[facility] [address] [facility] [place] [address] documented as of this encounter Procedures Procedure Name Priority Date/Time Associated Diagnosis Comments AP MISCELLANEOUS LAB TEST (SO) Routine 01/19/2022 4:18 PM EST 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) documented in this encounter Results * - AP Miscellaneous Test (01/19/2022 4:18 PM EST) Test name Brett Mariscalera 03/10/2022 7:38 AM EST ON LICENSE OF [facility] Comment:[id number] Test Result see scan 03/10/2022 7:38 AM EST ON LICENSE OF [facility] See Scanned Result 03/10/2022 7:38 AM EST ON LICENSE OF [facility] Tissue 01/19/2022 4:18 PM EST 01/19/2022 4:18 PM EST us Ondina Hooks MD LAB REF LAB BLOOD AND FLUID ORD Final Result [facility] documented in this encounter Visit Diagnoses Diagnosis Malignant carcinoid tumor of the appendix documented in this encounter Additional Health Concerns Assessment Noted Time A fall risk assessment has been complete d for the patient 01/12/2022 1:19 PM EST documented as of this encounter Care Teams Liquor Merchant Relationship Specialty Start Date End Date Rosalio Nunez MD [address] [place] [address] PCP - General 07/04/20 Eddie Joy MD [address] [place] [phone] Service Attending Cardiology 01/01/22 documented as of this encounter
--- OUTSIDE RECORDS SUMMARY | 2024-12-14 15:46 | XMS_ITS | Encounter Summary ---
Author Organization Healthcare Address [address] [place] [address] Care Team Providers Care Crystal Evaluator Name Role Phone Rosalio Nunez MD Primary Care Provider [phone] Eddie Joy MD Unavailable Encounter Details Date Type Department Care Team (Latest Contact Info) Description 11/05/2024 Travel Social History Tobacco Use Types Packs/Day [...] drink first t keith in the morning (EYE-DIRECTOR CARDIOVASCULAR) to steady your nerves or to get [...] Visit [place] [facility] [address], [address] [place] [address] Ab Blair PA [address] [place] [address] 04/29/2025 12:20 PM EDT Appointment [facility] G Radiology [address] [place] [address] 04/29/2025 3:10 PM EDT Office Visit [facility] 800 [place] [address] Ondina Hooks MD 800 [facility] Jackelin Goldberg [address] [place] [address] 09/24/2025 1:00 PM EDT Appointment [facility] CC Echo 800 [facility] 2nd [place] [address] 09/24/2025 3:00 PM EDT Office Visit [facility] Head[facility] Neck & Respiratory [address] [address] documented as of this encounter Visit Diagnoses [...] documented as of this encounter Care Teams Crystal Evaluator Relationship Specialty Start Date End Date Rosalio Nunez MD [address] [place] [address] PCP - General 07/04/20 Eddie Joy MD 800 [place] [address] Service Attending Cardiology 01/01/22 documented as of this encounter
--- OUTSIDE RECORDS SUMMARY | 2024-12-14 15:46 | XMS_ITS | Encounter Summary ---
Author Organization Healthcare Address [address] [id number] Care Team Providers Care Contact Center Professional Name Role Phone Rosalio Nunez MD Primary Care Provider [phone] Eddie Joy MD Unavailable Reason for Visit * Reason Comments Med Refill Encounter Details Date Type Department Care Team ([facility] st Contact Info) Description 10/15/2024 Refill Pav [facility] Head, Neck & Respiratory 800 [facility], 2nd [place] [address] Agustina Gerardo, SERVICES ENGINEER 800 [place] [address] Coronary artery disease involving [place] heart, unspecified vessel or lesion type, unspecified whether angina present Social History Tobacco Use Types Packs/Day Years [...] drink first t keith in the morning (EYE-POOL ATTENDANT) to steady your nerves or to get [...] Visit [place] [facility] [address], [address] [place] [address] Ab Blair PA [address] [place] [address] 04/29/2025 12:20 PM EDT Appointment [facility] G Radiology [address] [place] [address] 04/29/2025 3:10 PM EDT Office Visit [facility] 800 [place] [address] Ondina Hooks MD 800 [facility] [address] [place] [address] 09/24/2025 1:00 PM EDT Appointment [facility] CC Echo 800 [facility] 2nd [place] [address] 09/24/2025 3:00 PM EDT Office Visit Pav [facility] Head, Neck & Respiratory 800 [facility], [address] [place] [address] documented as of this encounter Visit Diagnoses Diagnosis Coronary artery disease involving [place] heart, unspecified vessel or lesion type, unspecified whether angina present documented in this encounter Additional Health Concerns Assessment Noted Time PHQ-9 Depression Total Score: 0 09/14/19 3:36 PM EDT A fall risk assessment has been complete d for the patient 09/21/2024 10:52 AM EDT A Body Mass Index follow-up plan has been documented for the patient 09/14/2024 9:17 AM EDT documented as of this encounter Care Teams Contact Center Professional Relationship Specialty Start Date End Date Rosalio Nunez MD [address] [place] [address] PCP - General 07/04/20 Eddie Joy MD 800 [place] [address] Service Attending Cardiology 01/01/22 documented as of this encounter
--- OUTSIDE RECORDS SUMMARY | 2024-12-14 15:46 | XMS_ITS | Encounter Summary ---
Author Organization [facility] Address [address] [id number] Care Team Providers Care Proposal Review Analyst Name Role Phone Rosalio Nunez MD Primary Care Provider [phone] Eddie Joy MD Unavailable Reason for Visit * Reason Comments Distress Screening f/u Encounter Details Date Type Department Care Team ([facility] st Contact Info) Description 12/17/2021 Social Work [facility] Oncology [facility] 800 [place] [address] [place] [address] Social History Tobacco Use Types Packs/Day Years Used Date Smoking Tobacco: Every Day Cigarettes 1 45 Smokeless Tobacco: Never Alcohol Use Standard Drinks/Week Comments Yes 0 (1 standard drink = 0.6 oz pur e alcohol) PHQ-2 Answer Date Recorded Patient Health Questionnaire-2 Score 1 12/17/2021 Comments No Sex and Gender Information Value [...] suspected to have Coronavirus/COVID-19? No / Unsure 12/17/2021 10:07 AM EDT documented as of this encounter Functional Status * Are you deaf or do you have serious difficulty hearing? Answer Date of Assessment Author No 12/09/2021 4:30 PM EDT Jerzak, A ndrew * Are you blind or do you have serious difficulty seeing, even when wearing glasses? Answer Date of Assessment Author No 12/09/2021 4:30 PM EDT Darinel Acostaew * Do you have serious difficulty walking [...] pleasure in doing things Not at all 12/17/2021 1:27 PM EDT Og Anton Feeling down, depressed, or hopeless Several days 12/17/2021 1:27 PM EDT Og Anton Patient Health Questionnaire -2 Score 1 12/17/2021 1:27 PM EDT Og Anton * Calculated C-SSRS Risk Score (Lifetime/Recent) Answer Date of Assessment Author No Risk Indicated 12/17/2021 10:18 AM EDT Cailin Rivera * How difficult have these problems made it for you to do your work, take care of things at home, or get along with other people? Answer Date of Assessment Author Not difficult at all 12/17/2021 1:27 PM EDT Og Munguia * Question Answer Date of Assessment Author 1. Wish to be (Past 1 Month) No 022 10:18 AM EDT Caiiln Eduardo 2. Non-Specific Active Suici karthikeyan Thoughts (Past 1 Month) No 12/17/2021 10:18 AM EDT Beny Eduardo 6. Suicidal Behavior (Lifetime) No 10:18 AM EDT Cailin Eduardo documented as of this encounter Mental Status * Because of a physical, mental, or emotional condition, do you have serious difficulty concentrating, remembering, or making decisions? (5 years old or older) Answer Entry Date Author No 12/09/2021 4:30 PM EDT Darinel Acosta documented in this encounter Miscellaneous Notes * Clinician Note - Rupert Thomas CSW - 12/17/2021 11:59 PM EDT Visit Type: PsychOncVT: Distress Screening Visit Time Spent with Patient and/or Caregivers: 15 minutes Services Provided: Emotional Support Referrals: None Education: Emotional/Physical Educational Materials, Financial Support/Aid, Psych-Onc Services, andTransportation Narrative: PIANO REGULATOR met with patient in clinic exam room during their regularly scheduled visit in regards to recent distress screen score. PIANO REGULATOR introduced himself and the nature of the visit, and inquiredabout patient's needs and wellbeing. PIANO REGULATOR provided education on psych-oncology services, including em otional and practical support, as well as dietitian and financial resources. This was pt's initial consult with oncology. Pt reported she had supportive family and had some of them with her at this appointment. Patient denied any needs at this time . PIANO REGULATOR provided the patient with his contact information for future reference and encouraged patient to follow up as needed. PIANO REGULATOR will be available for future resources and support. documented in this encounter Plan of Treatment Upcoming Encounters Date Type Department Care Team (Late st Contact Info) Description 03/26/2025 1:30 PM EST Office Visit [place] [facility] [address], [address]nd [place] [address] Ab Blair PA [address] [facility] [address] [place] [address] 04/29/2025 12:20 PM EDT Appointment [facility] G Radiology [address] [place] [address] 04/29/2025 3:10 PM EDT Office Visit [facility] 800 [place] [address] Ondina Hooks MD 800 [facility] [address] [place] [address] 09/24/2025 1:00 PM EDT Appointment [facility] CC Echo 800 [facility] 2nd [place] [address] 09/24/2025 3:00 PM EDT Office Visit Pav [facility] Head, Neck & Respiratory [address] [phone] documented as of this encounter Visit Diagnoses Not on filedocumented in this encounter Additional Health Concerns Assessment Noted Time A fall risk assessment has been complete d for the patient 12/17/2021 1:24 PM EDT documented as of this encounter Care Teams Proposal Review Analyst Relationship Specialty Start Date End Date Rosalio Nunez MD [address] [place] [address] PCP - General 07/04/20 Eddie Joy MD 800 [place] [address] Service Attending Cardiology 01/01/22 documented as of this encounter
--- OUTSIDE RECORDS SUMMARY | 2024-12-14 15:46 | XMS_ITS | Encounter Summary ---
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) to steady your nerves or to get [...] Description 03/26/2025 1:30 PM EST Office Visit [facility] Medicine Specialties [address], [address] [place] [address] Ab Blair PA [address] [facility] [address] [place] [address] 04/29/2025 12:20 PM EDT Appointment [facility] G Radiology [address] [place] [address] 04/29/2025 3:10 PM EDT Office Visit [facility] Oncology [facility] 800 [place] [address] Ondina Hooks MD 800 [facility] Jackelin Goldberg [facility] [address] [place] [address] 09/24/2025 1:00 PM EDT Appointment [facility] CC Echo 800 [facility] 2nd [place] [address] 09/24/2025 3:00 PM EDT Office Visit Pav CC Head, Neck & Respiratory 800 [facility], [address]nd [place] [address] documented as of this encounter Visit Diagnoses [...] documented as of this encounter Care Teams Retail Coverage Merchandiser Relationship Specialty Start Date End Date Rosalio Nunez MD [address] [place] [address] PCP - General 07/04/20 Eddie Joy MD 800 [place] [address] Service Attending Cardiology 01/01/22 documented as of this encounter
--- OUTSIDE RECORDS SUMMARY | 2024-12-14 15:46 | XMS_ITS | Encounter Summary ---
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 MOLDER) to steady your nerves or to get [...] Author No 12/09/2021 4:30 PM EDT Darinel Acosat documented in this encounter Plan of Treatment Upcoming Encounters Date Type Department Care Team (Late st Contact Info) Description 03/26/2025 1:30 PM EST Office Visit [facility] Medicine Specialties [address], [address] [place] [address] Ab Blair PA [address] [facility] [address] [place] [address] 04/29/2025 12:20 PM EDT Appointment [facility] G Radiology [address] [place] [address] 04/29/2025 3:10 PM EDT Office Visit [facility] 800 [place] [address] Ondina Hooks MD 800 [facility] Jackelin Goldberg [facility] [address] [place] [address] 09/24/2025 1:00 PM EDT Appointment [facility] CC Echo 800 [facility] 2nd [place] [address] 09/24/2025 3:00 PM EDT Office Visit Pav CC Head, Neck & Respiratory 800 [facility], 2nd [place] [address] documented as of this encounter Visit Diagnoses [...] documented as of this encounter Care Teams Optometric Technician Relationship Specialty Start Date End Date Rosalio Nunez MD [address] [place] [address] PCP - General 07/04/20 Eddie Joy MD 800 [place] [address] Service Attending Cardiology 01/01/22 documented as of this encounter
--- OUTSIDE RECORDS SUMMARY | 2024-12-14 15:47 | XMS_ITS | Encounter Summary ---
Author Organization Healthcare Address [address] [place] [address] Care Team Providers Care Program Director Substance Abuse Name Role Phone Rosalio Nunez MD Primary Care Provider [phone] Eddie Joy MD Unavailable Encounter Details Date Type Department Care Team (Late st Contact Info) Description 04/21/2022 Lab Requisition [facility] H Lab 800 [place] [address] Leslie Tobin MD [address] [place] [address] Malignant neoplasm of appendix (CMS/HCC) Social History Tobacco Use Types Packs/Day Years Used Date Smoking Tobacco: Every Day Cigarettes 0.5 46.8 Started: 1976 Smokeless Tobacco: Never Alcohol Use Standard Drinks/Week Comments Not Currently 0 (1 standard drink = 0.6 oz pur e alcohol) PHQ-2 Answer Date Recorded Patient Health Questionnaire-2 Score 0 04/13/2022 CAGE ASSESSMENT Answer Date Recorded Cage unable [...] drink first t keith in 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 No / Unsure 04/21/2022 7:33 AM EST documented as of this encounter Functional [...] No 12/09/2021 4:30 PM EDT Eros Acosta documented as of this encounter Mental [...] Description 03/26/2025 1:30 PM EST Office Visit [facility] [address], [address] [place] [address] Ab Blair PA [address] [place] [address] 04/29/2025 12:20 PM EDT Appointment [facility] G Radiology [address] [place] [address] 04/29/2025 3:10 PM EDT Office Visit [facility] 800 [place] [address] Ondina Hooks MD 800 [facility] [address]elin [address] [place] [address] 09/24/2025 1:00 PM EDT Appointment [facility] CC Echo 800 [facility] 2nd [place] [address] 09/24/2025 3:00 PM EDT Office Visit Pav CC Head, Neck & Respiratory 800 [facility], 2nd [place] [address] documented as of this encounter Procedures Procedure Name Priority Date/Time Associated Diagnosis Comments AP MISCELLANEOUS LAB TEST (SO) Routine 04/21/2022 12:00 AM EST Malignant neoplasm of appendix (CMS/HCC) documented in this encounter Results * - AP Miscellaneous Test (04/21/2022 12:00 AM EST) Test name PA Profile-Ca ris 05/13/2022 9:02 AM EDT [facility] Comment:[id number] Test Result see scan 05/13/2022 9:02 AM EDT [facility] See Scanned Result 05/13/2022 9:02 AM EDT [facility] Tissue 04/21/2022 04/21/2022 3:4 7 PM EST us Leslie Tobin MD LAB REF LAB BLOOD AND FLUID OR D Final Result [facility] [address] [place] [address] documented in this encounter Visit Diagnoses Diagnosis Malignant neoplasm of appendix (CMS/HCC) documented in this encounter Additional Health Concerns Assessment Noted Time A fall risk assessment has been complete d for the patient 04/21/2022 7:36 AM EST A Body Mass Index follow-up plan has been documented for the patient 03/25/2022 8:43 AM EST documented as of this encounter Care Teams Program Director Substance Abuse Relationship Specialty Start Date End Date Rosalio Nunez MD [address] [place] [address] PCP - General 07/04/20 Eddie Joy MD 800 [place] [address] Service Attending Cardiology 01/01/22 documented as of this encounter
--- OUTSIDE RECORDS SUMMARY | 2024-12-14 15:47 | XMS_ITS | Continuity of Care Document ---
Author Organization [facility], ENDOCRINOLOGY Address [address] [place] [address] Care Team Providers Care Hair Salon Manager Name Role Phone TRUNG YEH Primary Care Provider LA NENA ARMSTRONG Roastmaster [phone] DULCE MARIA ANDERSON [employer] Mica JAMES CALLE Leather Sponger Assessment No assessment recorded. Plan of Treatment Reminders Order Date Submit Date Provider Last Modified By Organization Details Last Modified Time Details Appointments DERM VISIT 2024 01:10P Sheng LOPEZ MD Not available Not available Not available DERM PROCEDUR E 2024 02:40P Sheng KNIGHT MD Not available Not available Not available RECHECK 2025 10:45A Sheng METZGER CHIP TESTER Not available Not available Not available Lab glucose, fingerst ick, blood 2024 025 [email or web address] [id number] [facility], [facility] [place], [address], 12/06/2024 10:59:28 hemoglob in A1C, fingerst ick 2024 025 [email or web address] 8 [facility] , [facility] [place], [address], 12/06/2024 10:59:28 Referral None recorded . Procedures None recorded . Surgeries None recorded . Imaging None recorded . Medication Orders Mounjaro 5 mg/0.5 mL subcutan eous pen injector 2024 [facility], [address], [place], [address], 12/06/2024 10:59:34 Basaglar KwikPen U-100 Insulin 100 unit/mL (3 mL) subcutan eous 2024 [facility], [address] [place] [address], [facility], [place], [address], 12/06/2024 11:06:28 insulin aspart (U-100) 100 unit/mL (3 mL) subcutan eous pen 2024 [facility], [address] [place] [address], [facility], [place], [address], 12/06/2024 11:06:27 Jardianc e 25 mg tablet 2024 [facility], [address] [place] [address], [facility], [place], [address], 12/06/2024 11:06:29 Patient TargetsNo targets recorded. Patient Instructions Encounter Date Encounter Id Patient Instructions Last Modified By Organization Details Last Modified Time 12/06/2024 [id number] medical record request* - Please send last lab results: BMP/CMP, TSH, LIPID PANEL, URINE MICROALBUMIN (if available). Thanks! [email or web address] Not available 12/13/2024 10:41:35 [email or web address] Not available 11/21 10:06:40 Reason for Referral None Reported. Results Created Date Observation Date Name Description Value Unit Range Abnormal Flag Note LastModifiedBy Organization Detail LastModifiedTime 12/07/1912/06/2024 hemog lobin A1C, finge rstic k hemoglobin A1C % 6.1 4.0 - 5.6 Not Available [facility] [address] [facility], [place], [address], 12/05/2024 10:06:42 12/07/1912/06/2024 gluco se, finge rstic k, blood glucose, fingerstick 227 mg/dL 70 - 100 Not Available [facility] [address] [place], [address], 12/05/2024 10:06:41 Result Notes None recorded. 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 Diagnosed Nov 2021 followed by [facility] LUL LANZA PA-C [address] [place], [address], [facility] 3 10:02:59 Uncontrol led type 2 diabetes mellitus 944869453 Active 2024 RAY METZGER, CHIP TESTER [address] [place], [address], [facility] 5 10:07:29 Hyperlipi demia 81132531 Active 2024 RAY METZGER, CHIP TESTER [address] [place], [address], [facility] 5 10:06:43 Hypoglyce vivek due to type 2 diabetes mellitus 164298103897 103 Active 2024 RAY METZGER, CHIP TESTER [address] [place], [address], [facility] 5 10:06:43 Essential hypertens ion 36474164 Active 2024 RAY METZGER APRN [address] [place], [address], [facility] 5 10:06:43 Obesity 264519944 Active 2024 RAY METZGER CHIP TESTER [address] [place], [address], [facility] 10:06:43 Problem Notes None recorded. Procedures Surgical History Date Name Laterality Status Provider Name and Address Organization Details Recorded Time DAK - Destruction BN Lesions completed Lul Huggins [facility] 09/03/2024 11:56:54 05/16/202 3 Destruction BN Lesions completed Sangita Marie [facility] 07/06/2022 09:44:45 tooth extraction, multiple completed Rebecca Ward [facility] 12/06/2024 10:36:05 Imaging Results None recorded. Procedure Notes None recorded. Medical Equipment None Reported. Allergies Allergen ID Allergen Name Allergen Category Reaction Reaction Severity Criticality Documentation Date Start Date Code Code System Note Provider Name and Address Organization Details Recorded Time 333187 Augmentin medicatio n Not available Not available Not available 01/16/20162006 88643 2 RxNorm Comme nt: Creat ed By: Gulshan mckeon;Cr eated Date: 2006 9:48: 09 AM; Not Available [facility] 6 02:49:04 [id number] Levaquin medicatio n Not available Not available Not available 01/16/20162006 52265 2 RxNorm Comme nt: Creat ed By: Gulshan mckeon;Cr eated Date: 2006 9:49: 17 AM; Not Available [facility] 6 02:49:05 955124 nadolol medicatio n Not available Not available Not available 01/16/20162006 7226 RxNorm Comme nt: Creat ed By: Gulshan mckeon;Cr eated Date: 2006 9:49: 43 AM; Not Available [facility] 6 02:49:05 [id number] Topamax medicatio n Not available Not available Not available 01/16/20162006 10522 3 RxNorm Comme nt: Creat ed By: Gulshan mckeon;Cr eated Date: 2006 9:48: 44 AM; Not Available [facility] 6 03:08:18 [id number] neomycin medicatio n Not available Not available Not available 12/19/2017 7299 RxNorm Isabel carbajal [facility] 8 10:27:25 297197 Tanzeum medicatio n Not available Not available Not available 12/19/2017 34755 01 RxNorm Isabel Juana [facility] 8 10:27:35 [id number] Substance with sulfonami de structure and antibacte rial mechanism of action (substanc e) medicatio n Not available Not available Not available 12/19/2017 05611 8003 SNOMED Isabel Arias [facility] 8 10:28:06 665822 atorvasta tin medicatio n myalgias (muscle pain) severe Not available 08/02/2018 47005 RxNorm Pt repor ts stati ns cause leg cramp s and pain. Meghann Gamezjonathan [facility] 9 13:19:59 Medications Name Sig Start Date Stop Date Status Note LastModified by Organization Details LastModified Time authoriza tion request 12/09 completed Not Available Not Available [...] Available Not Available Nasonex 50 mcg/actua tion [place] 2 sprays every day by intranas al [...] completed Not Available Not Available Not Available [place] 3 08/01 completed Not Available Not Available [...] completed Not Available Not Available Not Available FreeStyle Oneal 3 Sensor device CHANGE SENSOR EVERY 14 DAYS 2024 active Not Available Not Available Not Avai lable Vitals Date Recorded Body height Body mass index (BMI) Body weight Heart rate Systolic And Diastolic Provider Name and Address Organization Details Last Updated DateTime 12/06/2024 162.56 cm 32.8 kg/m2 83645.14 g 96 /min 110/66 mm[Hg] Rebecca [facility] 12/06/2024 10:31:21 Social History Question Answer Notes LastModified by Organizat ion Details LastModified Time Tobacco Smoking Status Current Every Day Smoker Isabel Arias [facility] 12/19/2017 10:33:40 What Is Your Level Of [...] Stones N Hyperthyroidism N Heart Arrhythmia N Hernia Y Emphysema Y Glaucoma N COPD Y Hypothyroidism N Depression Y Pneumonia Y Thyroid nodule mass N Varicose Veins N Anxiety Disorder N Hypercalcemia N Autoimmune disease N Arthritis N Shingles Y Esophagus/swallowing trouble N Acid Reflux (GERD) Y Cancer Y Melanoma N Stroke N Hypoglycemia N Thyroid cyst N Alcohol Overuse/Alcohol Abuse N High Cholesterol Y Skin Cancer N Liver Disease Y Rheumatoid Arthritis N Kidney Disease N Allergies/Hayfever Y Heart Problems Y Squamous Cell Carcinoma N Black Lung N Gallbladder Disease Y Migraines Y Kidney or Bladder Problems N Acne Y Goiter N Skin Problems N Nervous Breakdown N Chest Pain Y Stomach trouble Y Colon Polyps Y Heart Attack (FL) Y Ulcers N Osteopenia N Other Skin Condition Y Diabetes [...] preservative free, adsorbed 6 completed Not Available [facility] 12/06/2024 10:17:32 Tdap 2 completed Not Available [facility] 12/06/2024 10:17:32 Hep A, adult 2 completed Not Available [facility] 12/06/2024 10:17:32 Influenza, split virus, quadrivalent, PF 9 completed Not Available [facility] 12/06/2024 10:17:32 Influenza, split virus, quadrivalent, PF 1 completed Not Available [facility] 12/06/2024 10:17:32 COVID-19, mRNA, LNP-S, PF, 100 mcg/0.5mL dose or 50 mcg/0.25mL dose 1 completed Not Available [facility] 12/06/2024 10:17:32 Influenza, recombinant, quadrivalent, PF 2 completed Not Available [facility] 12/06/2024 10:17:32 COVID-19, mRNA, LNP-S, bivalent, PF, 50 mcg/0.5 mL or 25mcg/0.25 mL dose 2 completed Not Available [facility] 12/06/2024 10:17:32 Pneumococcal conjugate PCV20, polysaccharide LTY577 conjugate, adjuvant, PF 3 completed Not Available [facility] 12/06/2024 10:17:32 Influenza, split virus, quadrivalent, PF 3 completed Not Available [facility] 12/06/2024 10:17:32 RSV, bivalent, protein subunit RSVpreF, diluent reconstituted, 0.5 mL, PF 3 completed Not Available [facility] 12/06/2024 10:17:32 COVID-19, mRNA, LNP-S, PF, александр-sucrose, 30 mcg/0.3 mL 3 completed Not Available [facility] 12/06/2024 10:17:32 Influenza, split virus, quadrivalent, PF 3 completed Not Available [facility] 12/06/2024 10:17:32 zoster recombinant 4 completed Not Available [facility] 12/06/2024 10:17:32 Influenza, recombinant, quadrivalent, PF 4 completed Not Available [facility] 12/06/2024 10:17:32 COVID-19, mRNA, LNP-S, PF, 50 mcg/0.5 mL 4 completed Not Available [facility] 12/06/2024 10:17:32 Tdap 4 completed Not Available [facility] 12/06/2024 10:17:32 Influenza, split virus, quadrivalent, preservative 8 completed Isabel Arias [facility] 03/14/2018 12:09:27 Influenza, split virus, quadrivalent, preservative 0 completed RAY METZGER APRN [address] [place], [address], [facility] 02/04/2020 11:14:47 SARS-COV-2 (COVID-19) vaccine, UNSPECIFIED 1 completed RAY METZGER APRN [address] [place], [address], [facility] 05/05/2020 15:01:14 SARS-COV-2 (COVID-19) vaccine, UNSPECIFIED 1 completed RAY METZGER APRN [address] [place], [address], [facility] 05/05/2020 15:01:31 Past Encounters Encounter ID Performer Location Encounter Start Date Encounter Closed Date Diagnosis/Indication Diagnosis SNOMED-CT Code Diagnosis ICD10 Code Diagnosis IMO Codes Diagnosis Note [id number] KEARA LOPEZ MD [place] [address] [place] [address] 11/28/2024 08:10:46 11/28/2024 08:46:17 Acanthosis nigricans 220031557 L83 692 The nature of the diagnosis was discussed. Failed tx: ketoconazo le shampoo, HCT 2.5% ointmentPt has diabetes. Pt started Mounjaro, Disc once getting diabetes under control, can improve the skin.Pt has tried numerous types of deodorants .Start Desonide cream SE reviewed.R ec cerave itch cream for underarms ( samples given today) [id number] RAY METZGER APRN [facility] [address] [place] [address] 12/06/2024 10:16:29 12/06/2024 11:01:36 Uncontrolled type 2 diabetes mellitus 668862434 E11.65 A 1c in office today was 6.1%, from 7.3%, 08/22/24. G oal A1C by ADA criteria is [...] do not take this insulin.15 0-200= add 8y364-221= add 7f821-133= add 0q451-526= add 4u>351- add 5u-Continu e Jardiance 25mg [...] 0.53GFR 104.7AST 24ALT 18MACR negative 11/01/23 Hyperlipidemia 03045974 E78.5 Goal LDL is under 100 mg/dl. Last LDL: 58 on 07/26/23 Triglyceri selam: 140 Continue dietary changes as recommende d. Continue repatha per cardiology . Essential hypertension 34013158 I10 Goal B.P is less than 140/90 mmHg. Continue current anti-hyper tensive medication s as appropriat e per patient s PCP. Obesity 406429152 E66.9 Dietary recommenda tions as above. Exercise recommenda tions as above. Hypoglycem ia due to type 2 diabetes mellitus 6608133394 05482 E11.649 -Hypoglyce vivek symptoms explained and treatment for this reviewed.- Pt has glucagon pen at home. Health Concerns Section Related Observation LastModified by Organization Detai ls LastModified Time None Recorded Concern Status LastModified by Organization Details LastModified Time None Recorded Payers Encounter Date Sequence Insurance Name Policy Number Policy Dobbs Covered Member ID Dobbs Member ID Guarantor Name 12/06/2024 1 [employer] [employer] [id number] Barrie Javier [id number] Milena Javier Notes Date Note Type Note Provider Name and Address Organization Details Recorded Time 12/06/2024 text/html ROS as noted in the HPI Mrs. Yaya (Rachael) is a 64 year old female patient with a past medical history significant for hypertension, hyperlipidemia, CAD with FL, cirrhosis, cancer of appendix (remission), and uncontrolled [...] referred to oncology (colorectal sx, OBGYN sx, [id number]-[id number]-fnwjre nal chemotherapy), s/p hysterectomy, partial colectomy. Current Treatment Regimen: Jardiance 25mg qAM Basaglar 44*units qhsNovolog 10u TID*150-200= add 7c687-679= add 2l096-738= add 7g571-954= add 4u>351- add 5uMounjaro 5mg/wk No recent [...] low 0% Last dilated eye exam: 10/2022 [facility] no DR per patient (retinal imaging) Associated Symptoms: no weight gain; no dizziness; no sweats; no headaches; no confusion; no increased appetite; no increase thirst; no increased urination; no blurred vision; no calluses on feet; no SOB; no heart palpitations/racin g heart Reports: intermittent night sweats (menopause; stable); increased thirst/dry mouth (stable); burning/numbness of both feet (worse, taking amitriptyline); 11lb weight loss since last visit; Chronic Complications: Diabetic retinopathy: No Diabetic neuropathy: Yes-- Dr. Tejada- podiatry [place] Diabetic nephropathy: No Hypertension: Yes Hyperlipidemia: Yes RAY METZGER, CHIP TESTER [address] [place], [address], [facility] 12/06/2024 11:08:41 OBGyn Episode No OBEpisode recorded.
--- OUTSIDE RECORDS SUMMARY | 2024-12-14 15:47 | XMS_ITS | Continuity of Care Document ---
Author Organization [facility] DANILO Arizmendi ZEPHYR COVE Address [address] [place] [address] Care Team Providers Care Services Coordinator Name Role Phone TRUNG YEH Primary Care Provider [phone] LA NENA ARMSTRONG Space Scheduler DULCE MARIA ANDERSON Gaming Surveillance Observer [phone] JAMES ARORA Emergency Medical Tech Assessment Encounter Date Assessment Date Assessment LastModified by Organization Details LastModified Time 10/18/2024 10/18/2024 3 mo f/u [email or web address] Not available 09/22 10:50:47 Plan of Treatment Reminders Order Date Submit Date Provider Last Modified By Organization Details Last Modified Time Details Appointments DERM VISIT 2024 01:10P Sheng LOPEZ MD Not available Not available Not available DERM PROCEDURE 2024 02:40P Sheng KNIGHT MD Not available Not available Not available RECHECK 2025 10:45A Sheng METZGER PORTFOLIO ARCHITECT Not available Not available Not available Lab None recorded. Referral None recorded. Procedures None recorded. Surgeries excision of cyst (SURG) 2024 025 [id number] [facility], [address] [place] [address], [place], [address], 10/24/2024 10:07:09 Imaging None recorded. Medication Orders fluticaso ne propionat e 0.005 % topical ointment 2024 Cher [email or web address] [facility], [address], [address], [place], [address], 10/18/2024 12:31:11 Patient TargetsNo targets recorded. Patient InstructionsNo instructions recorded. Reason for Referral None Reported. Problems Name Problem SNOMED Code Status Onset Date Resolution Date Notes Provider Name and Address Organization Details Recorded Time Malignant neoplasm of appendix 798460862 Active 2022 Diagnosed Nov [address] [facility] LUL LANZA PA-C [address] [place], [address], [facility] 3 10:02:59 Uncontrol led type 2 diabetes mellitus 689410468 Active 2024 RAY METZGER APRN [address] [place], [address], [facility] 5 10:07:29 Hyperlipi demia 68430985 Active 2024 RAY METZGER APRN [address] [place], [address], [facility] 5 10:06:43 Hypoglyce vivek due to type 2 diabetes mellitus 104099100381 103 Active 2024 RAY METZGER APRN [address] [place], [address], [facility] 5 10:06:43 Essential hypertens ion 25195754 Active 2024 RAY METZGER APRN [address] [place], [address], [facility] 5 10:06:43 Obesity 752806321 Active 2024 RAY METZGER APRN [address] [place], [address], [facility] 5 10:06:43 Problem Notes None recorded. Procedures Surgical History Date Name Laterality Status Provider Name and Address Organization Details Recorded Time 5 DAK - Destruction BN Lesions completed Lul Huggins [facility] 09/03/2024 11:56:54 05/16/202 3 Destruction BN Lesions completed Sangita Marie [facility] 07/06/2022 09:44:45 tooth extraction, multiple completed Rebecca Ward [facility] 12/06/2024 10:36:05 Imaging Results None recorded. Procedure Notes None recorded. Medical Equipment None Reported. Allergies Allergen ID Allergen Name Allergen Category Reaction Reaction Severity Criticality Documentation Date Start Date Code Code System Note Provider Name and Address Organization Details Recorded Time 736067 Augmentin medicatio n Not available Not available Not available 01/16/20162006 43749 2 RxNorm Comme nt: Creat ed By: Gulshan mckeon;Cr eated Date: 2006 9:48: 09 AM; Not Available [facility] 6 02:49:04 389700 Levaquin medicatio n Not available Not available Not available 01/16/20162006 37380 2 RxNorm Comme nt: Creat ed By: Gulshan mckeon;Cr eated Date: 2006 9:49: 17 AM; Not Available [facility] 6 02:49:05 977773 nadolol medicatio n Not available Not available Not available 01/16/20162006 7226 RxNorm Comme nt: Creat ed By: Gulshan mckeon;Cr eated Date: 2006 9:49: 43 AM; Not Available [facility] 6 02:49:05 771908 Topamax medicatio n Not available Not available Not available 01/16/20162006 84474 3 RxNorm Comme nt: Creat ed By: Gulshan mckeon;Cr eated Date: 2006 9:48: 44 AM; Not Available [facility] 6 03:08:18 429556 neomycin medicatio n Not available Not available Not available 12/19/2017 7299 [facility] 8 10:27:25 041755 Tanzeum medicatio n Not available Not available Not available 12/19/2017 00102 01 [facility]Norm [facility] 8 10:27:35 183614 Substance with sulfonami de structure and antibacte rial mechanism of action (substanc e) medicatio n Not available Not available Not available 12/19/2017 74241 8003 SNOMED Isabel Arias [facility] 8 10:28:06 956757 atorvasta tin medicatio n myalgias (muscle pain) severe Not available 08/02/2018 85040 RxNorm Pt repor ts stati ns cause leg cramp s and pain. Meghann Sherwood [facility] 9 13:19:59 Medications Name Sig Start [...] Available Not Available Nasonex 50 mcg/actua tion [place] 2 sprays every day by intranas al [...] completed Not Available Not Available Not Available Bartelso 3 08/01 completed Not Available Not Available [...] active Not Available Not Available Not Avai christiano Omnipod Dash Pods (Gen 4) subcutane ous cartridge 09/14 completed Not Available Not Available Not Available Glucagon (HCl) Emergency Kit 1 mg solution for injection Inject 1mg in case of EMERGENC Y and call 92021 active Not Available Not Available Not Michael alvarado Mounjaro 5 mg/0.5 mL subcutane ous pen [...] Available Not Available Not Avai lable Vitals None Recorded Social History Question Answer Notes LastModified by Organizat ion Details LastModified Time Tobacco Smoking Status Current Every Day Smoker Isabel Arias [facility] 12/19/2017 10:33:40 What Is Your Level [...] History Condition Response Pancreatitis N Gout N Macular Degeneration N Thyroid Disease N Kidney Stones N Hyperthyroidism N Heart Arrhythmia N Hernia Y Emphysema Y Hypothyroidism N Depression Y COPD Y Glaucoma N Pneumonia Y Thyroid nodule mass N Varicose [...] trouble Y Colon Polyps Y Heart Attack ([place]) Y Ulcers N Osteopenia N Other Skin [...] preservative free, adsorbed 6 completed Not Available [facility] 12/06/2024 10:17:32 Tdap 2 completed [facility] 12/06/2024 10:17:32 Hep A, adult 2 completed [facility] 12/06/2024 10:17:32 Influenza, split virus, quadrivalent, PF 9 completed Not Available [facility] 12/06/2024 10:17:32 Influenza, split virus, quadrivalent, PF 1 completed Not Available [facility] 12/06/2024 10:17:32 COVID-19, mRNA, LNP-S, PF, 100 mcg/0.5mL dose or 50 mcg/0.25mL dose 1 completed [facility] 12/06/2024 10:17:32 Influenza, recombinant, quadrivalent, PF 2 completed Not Available [facility] 12/06/2024 10:17:32 COVID-19, mRNA, LNP-S, bivalent, PF, 50 mcg/0.5 mL or 25mcg/0.25 mL dose 2 completed Not Available [facility] 12/06/2024 10:17:32 Pneumococcal conjugate PCV20, polysaccharide [id number] conjugate, adjuvant, PF 3 completed Not Available [facility] 12/06/2024 10:17:32 Influenza, split virus, quadrivalent, PF 3 completed Not Available [facility] 12/06/2024 10:17:32 RSV, bivalent, protein subunit RSVpreF, diluent reconstituted, 0.5 mL, PF 3 completed Not Available [facility] 12/06/2024 10:17:32 COVID-19, mRNA, LNP-S, PF, александр-sucrose, 30 mcg/0.3 mL 3 completed Not Available [facility] 12/06/2024 10:17:32 Influenza, split virus, quadrivalent, PF 3 completed Not Available [facility] 12/06/2024 10:17:32 zoster recombinant 4 completed Not Available [facility] 12/06/2024 10:17:32 Influenza, recombinant, quadrivalent, PF 4 completed Not Available [facility] 12/06/2024 10:17:32 COVID-19, mRNA, LNP-S, PF, 50 mcg/0.5 mL 4 completed Not Available [facility] 12/06/2024 10:17:32 Tdap 4 completed Not Available [facility] 12/06/2024 10:17:32 Influenza, split virus, quadrivalent, preservative 8 completed Isabel Arias [facility] 03/14/2018 12:09:27 Influenza, split virus, quadrivalent, preservative 0 completed RAY METZGER APRN [address] [place], [address], [facility] 02/04/2020 11:14:47 SARS-COV-2 (COVID-19) vaccine, UNSPECIFIED 1 completed RAY METZGER APRN [address] [place], [address], [facility] 05/05/2020 15:01:14 SARS-COV-2 (COVID-19) vaccine, UNSPECIFIED 1 completed RAY METZGER APRN [address] [place], [address], [facility] 05/05/2020 15:01:31 Past Encounters Encounter ID Performer Location Encounter Start Date Encounter Closed Date Diagnosis/Indication Diagnosis SNOMED-CT Code Diagnosis ICD10 Code Diagnosis IMO Codes Diagnosis Note [id number] KEARA LOPEZ MD [address] [address] 10/18/2024 10:22:41 10/18/2024 12:18:09 Acanthosis nigricans 878317186 L83 692 The nature of the diagnosis was discussed. Failed tx: ketoconazo le shampoo, HCT 2.5% ointmentPt has diabetes. Pt started Mounjaro 2 months ago. Disc once getting diabetes under control, can improve the skin.Pt has tried numerous types of deodorants .Rx prescribed for fluticason e propionate 0.005% topical ointment. Apply to AA on b/l axillae BID e2dkoor or until clear, then decrease to 1-2 times a week to maintain improvemen t. SE reviewed. Epidermoid cyst of skin 924873967 L72.0 71163 The nature of the diagnosis was discussed. Will send order for excision. Health Concerns Section Related Observation LastModified by Organization Detai ls LastModified Time None Recorded Concern Status LastModified by Organization Details LastModified Time None Recorded Payers Encounter Date Sequence Insurance Name Policy Number Policy Dobbs Covered Member ID Dobbs Member ID Guarantor Name 10/18/2024 1 [place] - [employer] [employer] [id number] Barrie Javier [id number] Milena Javire Notes Date Note Type Note Provider Name and Address Organization Details Recorded Time 10/18/2024 text/html Here for: acanthosis nigricans, dx by James AroraLocation: under armsDuration: monthsFailed tx: hydorcortisone 2.5% ointment, keto shampooReports: gets worse with sweating, HCT does not seem strong enough KEARA LOPEZ MD [address] [place], [address], [facility] 10/18/2024 12:24:37 OBGyn Episode No OBEpisode recorded.
--- OUTSIDE RECORDS SUMMARY | 2024-12-14 15:47 | XMS_ITS | Continuity of Care Document ---
Author Organization [facility] DANILO Arizmendi LEBANON JUNCTION Address [address] [place] [address] Care Team Providers Care Rod Puller Name Role Phone TRUNG YEH Primary Care Provider [phone] LA NENA ARMSTRONG Big Data Admin DULCE MARIA ANDERSON Golf Course Mechanic [phone] JAMES ARORA Video Producer Assessment Encounter Date Assessment Date Assessment LastModified by Organization Details LastModified Time 11/28/2024 11/28/2024 3 mo f/u [email or web address] Not [...] Referral None recorded. Procedures None recorded. Surgeries None recorded. Imaging None recorded. Medication Orders desonide 0.05 % topical cream [email or web address], [address], [address], [place], [address], 11/28/2024 08:47:50 Patient TargetsNo targets recorded. Patient InstructionsNo instructions recorded. Reason for Referral None Reported. Problems Name Problem SNOMED Code Status Onset Date Resolution Date Notes Provider Name and Address Organization Details Recorded Time Malignant neoplasm of appendix 350198056 Active 2022 Diagnosed Nov 2021 followed by [facility] LUL LANZA PA-C [address] [place], [address], [facility] 3 10:02:59 Uncontrol led type 2 diabetes mellitus 360610316 Active 2024 RAY METZGER, HEAVY EQUIPMENT MECHANIC [address] [place], [address], [facility] 5 10:07:29 Hyperlipi demia 49631924 Active 2024 RAY METZGER, HEAVY EQUIPMENT MECHANIC [address] [place], [address], [facility] 5 10:06:43 Hypoglyce vivek due to type 2 diabetes mellitus 659618952600 103 Active 2024 RAY METZGER HEAV[employer] EQUIPMENT MECHANIC [address] [place], [address], [facility] 5 10:06:43 Essential hypertens ion 00195171 Active 2024 RAY METZGER, HEAVY EQUIPMENT MECHANIC [address] [place], [address], [facility] 5 10:06:43 Obesity 740956921 Active 2024 RAY METZGER, HEAVY EQUIPMENT MECHANIC [address] [place], [address], [facility] 5 10:06:43 Problem Notes None recorded. Procedures Surgical History Date Name Laterality Status Provider Name and Address Organization Details Recorded Time 5 DAK - Destruction BN Lesions completed Lul Huggins [facility] 09/03/2024 11:56:54 3 Destruction BN Lesions completed Sangita Marie [facility] 07/06/2022 09:44:45 tooth extraction, multiple completed Rebecca Kennedy [facility] 12/06/2024 10:36:05 Imaging Results None recorded. Procedure Notes None recorded. Medical Equipment None Reported. Allergies Allergen ID Allergen Name Allergen Category Reaction Reaction Severity Criticality Documentation Date Start Date Code Code System Note Provider Name and Address Organization Details Recorded Time 063175 Augmentin medicatio n Not available Not available Not available 01/16/20162006 48891 2 RxNorm Comme nt: Creat ed By: Gulshan mckeon;Cr eated Date: 2006 9:48: 09 AM; Not Available [facility] 6 02:49:04 702977 Levaquin medicatio n Not available Not available Not available 01/16/20162006 87394 2 RxNorm Comme nt: Creat ed By: Gulshan mckeon;Cr eated Date: 2006 9:49: 17 AM; Not Available [facility] 6 02:49:05 320390 nadolol medicatio n Not available Not available Not available 01/16/20162006 7226 RxNorm Comme nt: Creat ed By: Gulshan mckeon;Cr eated Date: 2006 9:49: 43 AM; Not Available [facility] 6 02:49:05 748427 Topamax medicatio n Not available Not available Not available 01/16/20162006 00437 3 RxNorm Comme nt: Creat ed By: Gulshan mckeon;Cr eated Date: 2006 9:48: 44 AM; Not Available [facility] 6 03:08:18 358248 neomycin medicatio n Not available Not available Not available 12/19/2017 7299 RxNorm Isabel carbajal [facility] 8 10:27:25 926645 Tanzeum medicatio n Not available Not available Not available 12/19/2017 34889 01 RxNorm Isabel carbajal [facility] 8 10:27:35 955291 Substance with sulfonami de structure and antibacte rial mechanism of action (substanc e) medicatio n Not available Not available Not available 12/19/2017 67309 8003 SNOMED Isabel carbajal [facility] 8 10:28:06 346523 atorvasta tin medicatio n myalgias (muscle pain) severe Not available 08/02/2018 95874 RxNorm Pt repor ts stati ns cause leg cramp s and pain. Meghann Sherwood [facility] 9 13:19:59 Medications Name Sig Start Date [...] Available Not Available Nasonex 50 mcg/actua tion Pelsor Pelsor 2 sprays every day by intranas al [...] completed Not Available Not Available Not Available Nemacolin 3 08/01 completed Not Available Not Available [...] completed Not Available Not Available Not Available Viktor CindyJames U-100 Insulin 100 unit/mL (3 mL) subcutane [...] Current Every Day Smoker Isabel Arias [facility] 12/19/2017 10:33:40 What Is Your [...] Pancreatitis N Gout N Macular Degeneration N Kidney Stones N Hyperthyroidism N Heart Arrhythmia N Emphysema Y COPD Y Depression Y Pneumonia Y Anxiety Disorder N Autoimmune disease N Arthritis N Acid Reflux (GERD) Y Cancer Y Stroke N Melanoma N Skin Cancer N Rheumatoid Arthritis N Kidney Disease N Heart Problems Y Squamous Cell Carcinoma N Black Lung N Gallbladder Disease Y Migraines Y Kidney or Bladder Problems N Acne Y Goiter N Skin Problems N Nervous Breakdown N Ulcers N Osteopenia N Other Skin Condition Y Rheumatic Fever N Bleeding Disorder N Tuberculosis N AIDS/HIV N Cataract N Asthma Y Thyroid Disease N Hernia Y Glaucoma N Hypothyroidism N Thyroid nodule mass N Varicose Veins N Hypercalcemia N Esophagus/swallowing trouble N Shingles Y Hypoglycemia N Thyroid cyst N Alcohol Overuse/Alcohol Abuse N High Cholesterol Y Liver Disease Y Allergies/Hayfever Y Chest Pain Y Stomach trouble Y Colon Polyps Y Heart Attack ([place]) Y Diabetes Y High triglycerides Y Congestive Heart Failure (CHF) N Eczema N Diverticulitis N Epilepsy/Seizures N Basal Cell Carcinoma N Sleep Apnea N Heart Disease Y Hypertension Y Osteoporosis N Gynecological HistoryNo gynecological history recorded. Obstetrics History GPAL:G 0 P 0 0 0 0 Immunizations Vaccine Type Date Status Note Provider Nam e and Address Organization Details Recorded Time Td (adult), 2 Lf tetanus toxoid, preservative free, adsorbed 6 completed Not Available [facility] 12/06/2024 10:17:32 Tdap 2 completed Not Available [facility] 12/06/2024 10:17:32 Hep A, adult 2 completed Not Available [facility] 12/06/2024 10:17:32 Influenza, split virus, quadrivalent, PF 9 completed Not Available [facility] 12/06/2024 10:17:32 Influenza, split virus, quadrivalent, PF 1 completed Not Available [facility] 12/06/2024 10:17:32 COVID-19, mRNA, LNP-S, PF, 100 mcg/0.5mL dose or 50 mcg/0.25mL dose 1 completed Not Available [facility] 12/06/2024 10:17:32 Influenza, recombinant, quadrivalent, PF 2 completed Not Available [facility] 12/06/2024 10:17:32 COVID-19, mRNA, LNP-S, bivalent, PF, 50 mcg/0.5 mL or 25mcg/0.25 mL dose 2 completed Not Available [facility] 12/06/2024 10:17:32 Pneumococcal conjugate PCV20, polysaccharide [id number] conjugate, adjuvant, PF 3 completed Not Available [facility] 12/06/2024 10:17:32 Influenza, split virus, quadrivalent, PF 3 completed Not Available [facility] 12/06/2024 10:17:32 RSV, bivalent, protein subunit RSVpreF, diluent reconstituted, 0.5 mL, PF 3 completed Not Available [facility] 12/06/2024 10:17:32 COVID-19, mRNA, LNP-S, PF, александр-sucrose, 30 mcg/0.3 mL 3 completed Not Available [facility] 12/06/2024 10:17:32 Influenza, split virus, quadrivalent, PF 3 completed Not Available [facility] 12/06/2024 10:17:32 zoster recombinant 4 completed Not Available [facility] 12/06/2024 10:17:32 Influenza, recombinant, quadrivalent, PF [address] [facility] 12/06/2024 10:17:32 COVID-19, mRNA, LNP-S, PF, 50 mcg/0.5 mL 4 completed Not Available [facility] 12/06/2024 10:17:32 [address]dap [address] [facility] 12/06/2024 10:17:32 Influenza, split virus, quadrivalent, preservative 8 completed Isabel Arias [facility] 03/14/2018 12:09:27 Influenza, split virus, quadrivalent, preservative 0 completed RAY METZGER, HEAVY EQUIPMENT MECHANIC [address] [place], [address], [facility] 02/04/2020 11:14:47 SARS-COV-2 (COVID-19) vaccine, UNSPECIFIED 1 completed RAY METZGER, HEAVY EQUIPMENT MECHANIC [address] [place], [address], [facility] 05/05/2020 15:01:14 SARS-COV-2 (COVID-19) vaccine, UNSPECIFIED 1 completed RAY METZGER HEAVY EQUIPMENT MECHANIC [address] [place], [address], [facility] 05/05/2020 15:01:31 Past Encounters Encounter ID Performer Location Encounter Start Date Encounter Closed Date Diagnosis/Indication Diagnosis SNOMED-CT Code Diagnosis ICD10 Code Diagnosis IMO Codes Diagnosis Note [id number] KEARA LOPEZ MD [address] [address] 11/28/2024 08:10:46 11/28/2024 08:46:17 Acanthosis nigricans [id number] L83 692 The nature of the diagnosis was discussed. Failed tx: ketoconazo le shampoo, HCT 2.5% ointmentPt has diabetes. Pt started Mounrubioro, Disc once getting diabetes under control, can improve the skin.Pt has tried numerous types of deodorants .Start Desonide cream SE reviewed.R ec cerave itch cream for underarms ( samples given today) Health Concerns Section Related Observation LastModified by Organization Detai ls LastModified Time None Recorded Concern Status LastModified by Organization Details LastModified Time None Recorded Payers Encounter Date Sequence Insurance Name Policy Number Policy Dobbs Covered Member ID Dobbs Member ID Guarantor Name 11/28/2024 1 [place] - [place] [employer]GRAM [id number] Barrie Javier [id number] Milena Javier Notes Date Note Type Note Provider Name and Address Organization Details Recorded Time 11/28/2024 text/html Here for: acanthosis nigricans, dx by James AroraLV: 10/15Location: under armsDuration: monthsFailed tx: hydorcortisone 2.5% ointment, keto shampooCurrent tx: fluticasone ointReports: burned the first time washed off after an hour. Burned on subsequent application. Tried using the hydorcortisone again - neither effective KEARA LOPEZ MD [address] [place], [address], [facility] 11/28/2024 08:47:02 OBGyn Episode No OBEpisode recorded.
--- OUTSIDE RECORDS SUMMARY | 2024-12-14 15:47 | XMS_ITS | Encounter Summary ---
Author Organization Healthcare Address [address] [id number] Care Team Providers Care High Density Finishing Operator Name Role Phone Rosalio Nunez MD Primary Care Provider [phone] Eddie Joy MD Unavailable Reason for Visit * Reason Comments Med Refill Encounter Details Date Type Department Care Team (Late st Contact Info) Description 11/17/2024 Refill [facility] [address] [facility] [place] [phone] Agustina Gerardo, DOLLY OPERATOR [address] [place] [address] Coronary artery disease involving capitan grande heart, unspecified vessel or lesion type, unspecified whether angina present; Primary hypertension Social History Tobacco Use Types Packs/Day Years [...] drink first t keith in the morning ([employer]) to steady your nerves or to get [...] Description 03/26/2025 1:30 PM EST Office Visit [facility] [address] [place] [address] Ab Blair PA [address] [place] [address] 04/29/2025 12:20 PM EDT Appointment [facility] Radiology [address] [place] [phone] 04/29/2025 3:10 PM EDT Office Visit [facility] [address] [place] [phone] Ondina Hooks MD [address] [facility] [address] [place] [phone] 09/24/2025 1:00 PM EDT Appointment [facility] Echo [address] [facility] [address] [place] [phone] 09/24/2025 3:00 PM EDT Office Visit [facility] [address] [facility] [place] [phone] documented as of this encounter Visit Diagnoses Diagnosis Coronary artery disease involving capitan grande heart, unspecified vessel or lesion type, unspecified whether angina present Primary hypertension Unspecified essential hypertension documented in this encounter Additional Health Concerns Assessment Noted Time PHQ-9 Depression Total Score: 0 09/14/19 3:36 PM EDT A fall risk assessment has been complete d for the patient 11/05/2024 3:14 PM EDT A Body Mass Index follow-up plan has been documented for the patient 09/14/2024 9:17 AM EDT documented as of this encounter Care Teams High Density Finishing Operator Relationship Specialty Start Date End Date Rosalio Nunez MD [address] [place] [address] PCP - General 07/04/20 Eddie Joy MD [address] [place] [phone] Service Attending Cardiology 01/01/22 documented as of this encounter
--- OUTSIDE RECORDS SUMMARY | 2024-12-14 15:47 | XMS_ITS | Clinical Summary ---
Author Organization Healthcare Address [facility] [place] [address] Care Team Providers Care Dry Cell And Battery Assembler Name Role Phone Rosalio Nunez MD Primary Care Provider [phone] Eddie Joy MD Unavailable Allergies Active Allergy Reactions Criticality Noted Date Comments Albiglutide Vomiting Low 12/17/2021 Tanzeum. and abdominal pain Atorvastatin Other - please document in the comment field Medium 09/10/2022 Muscle pain Amoxicillin-Pot Clavulanate Itching Medium 01/19/2022 Nadolol Hives Medium 12/08/2021 Neomycin Other - please document in the comment field Low 12/08/2021 Blisters Sulfacetamide Other - please document in the comment field Low 02/16/2013 Makes my tongue feel funny Medications amitriptyline (Elavil) 25 MG tablet Take 1 tablet by mouth nightly. Active pantoprazole (Protonix) 40 MG EC tablet Take 1 tablet by mouth daily before breakfast. Do not crush, chew, or split. Active rOPINIRole (Requip) 2 MG tablet Take 2 tablets by mouth nightly. Active budesonide-formot donal (Symbicort) 160-4.5 MCG/ACT inhaler Inhale 2 puffs 2 times a day. Rinse mouth with water after use to reduce aftertaste and incidence of candidiasis. Do not swallow. Active montelukast (Singulair) 10 MG tablet Take 1 tablet by mouth nightly. Active furosemide (Lasix) 20 MG tablet Take 1 tablet by mouth daily as needed. Active levalbuterol (Xopenex) 45 MCG/ACT inhaler Inhale 2 puffs every 6 hours as needed. Active insulin aspart (NovoLOG) 100 UNIT/ML injection vial Take as directed in writtensliding scale directions before meals. 2 units: 50 for glucose greater than 150 022 Active diazePAM (Valium) 5 MG tablet every 6 (six) hours if needed. 023 Active Lactobacillus Rhamnosus, GG, ( Probiotic Digestive Care) capsule Take 1 capsule by mouth 1 (one) time each day. Active nitroglycerin (Nitrostat) 0.[address] 1 tablet under the tongue. Active Procto-Med HC 2.5 % rectal cream 023 Active mometasone (Nasonex) 50 MCG/ACT nasal spray 023 Active levocetirizine (Xyzal Allergy 24HR) 5 MG tablet Take by mouth 1 (one) time each day in the evening. Active ELDERBERRY PO Take 1 tablet by mouth 1 (one) time each day. Active b complex vitamins capsule Take 1 capsule by mouth daily. Active Basaglar KwikPen 100 UNIT/ML injection pen 024 Active lidocaine-priloca ine (Emla) 2.5-2.5 % cream FOR PORT 30 g 1 024 Active Continuous Glucose Sensor (FreeStyle Oneal 3 Sensor) misc change every 14 days as directed 025 Active clopidogrel (Plavix) 75 MG tabletIndications :Coronary artery disease involving lovelock coronary artery of lovelock heart without angina pectoris Take 1 tablet (75 mg) by mouth 1 (one) time each day. 90 tablet 2 025 Active empagliflozin (Jardiance) 25 MGIndications:Typ e 2 diabetes mellitus with other specified complication, with long-term current use of insulin Take 1 tablet (25 mg) by mouth 1 (one) time each day. 90 tablet 2 025 Active losartan (Cozaar) 25 MG tabletIndications :Coronary artery disease involving lovelock heart, unspecified vessel or lesion type, unspecified whether angina present Take 0.5 tablets (12.5 mg) by mouth 1 (one) time each day. 45 tablet 3 025 2025 Active ondansetron ODT (Zofran-ODT) 4 MG disintegrating tablet Take 1 tablet (4 mg) by mouth every 8 hours as needed for nausea or vomiting. 20 tablet 025 Active bisacodyl (Bisacodyl EC) 5 MG EC tablet Take all 4 tablets at 4 PM on day before colonoscopy 4 tablet 025 Active EVA-OYg-JmGn-NaSu lf-Na Asc-C (MoviPrep) 100 g reconstituted solution At 5 PM on day before colonoscopy, mix and drink first dose. Mix and drink second dose 6 hours before you leave home on day of colonoscopy 1 each 025 Active Sodium Fluoride 5000 PPM 1.1 % gel dental gel 025 Active Insulin Aspart FlexPen 100 UNIT/ML solution pen-injector 025 Active ondansetron ODT (Zofran-ODT) 8 MG disintegrating tablet 025 Active potassium chloride ER (Micro-K) 10 MEQ ER capsule 025 Active fluconazole (Diflucan) 150 MG tablet 025 Active Nurtec 75 MG orally disintegrating tablet 025 Active Repatha SureClick 140 MG/ML solution auto-injector autoinjectorIndic ations:Coronary artery disease involving lovelock heart, unspecified vessel or lesion type, unspecified whether angina present INJECT 1 ML (140 MG) UNDER THE SKIN EVERY 14 (FOURTEEN) DAYS KEEP IN REFRIGERATOR 2 mL 2 025 Active traZODone (Desyrel) 100 MG tablet 025 Active hydrocortisone 2.5 % ointment 025 Active Mounjaro 5 MG/0.5ML solution auto-injector solution pen-injector INJECT 1 PEN SUBCUTANEOUSLY ONCE A WEEK 025 Active carvedilol (Coreg) 12.5 MG tabletIndications :Coronary artery disease involving lovelock heart, unspecified vessel or lesion type, unspecified whether angina present,Primary hypertension TAKE 1 TABLET BY MOUTH TWICE DAILY WITH MEALS 180 tablet 3 025 Active Eliquis 5 MG tablet TAKE 1 TABLET BY MOUTH 2 TIMES A DAY. 60 tablet 1 025 Active carvedilol (Coreg) 12.5 MG tabletIndications :Coronary artery disease involving lovelock heart, unspecified vessel or lesion type, unspecified whether angina present,Primary hypertension TAKE 1 TABLET (12.5 MG) BY MOUTH 2 (TWO) TIMES A DAY WITH MEALS 180 tablet 2 025 2024 Discontinued apixaban (Eliquis) 5 MG tablet Take 1 tablet by mouth 2 times a day. 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 Cancer Staging:Pathologic stage from 12/09/2021:Stage Unknown(pT3, pNX, cM0, G1) - Unsigned Pathologic stage from 01/20/2022:Stage IIIB(pT3, pN1a, cM0) - Signed by Ondina Hooks MD on 02/18/2022 Overview (12/17/2021): Added automatically from request for surgery [id number] Primary hypertension 12/17/2021 Obesity (BMI 30-39.9) 12/09/2021 LONI (obstructive sleep apnea) 12/09/2021 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 12/08/2021 Atelectasis of right lung 12/08/2021 Asthma 12/08/2021 COPD (chronic obstructive pulmonary disease) Type 2 diabetes mellitus wit hout complication, with long-term current use of insulin 12/08/2021 Cigarette nicotine dependence without complicati on 12/08/2021 CAD (coronary artery disease) 12/08/2021 Hx of CABG 12/08/2021 Acute appendicitis with perf oration, localized peritonitis, abscess, and gangrene 12/08/2021 Overview (12/09/2021): Added automatically from request for surgery [id number] Gastro-esophageal reflux disease without esophag itis 02/16/2013 Acute appendicitis with localized peritonitis Resolved Problems Problem Noted Date Diagnosed Date Resolved Date Encounter for monitoring car diotoxic drug therapy 07/13/2022 11/11/2024 Appendicitis with abscess 12/08/2021 Encounters Date Type Department Care Team Description 11/26/2024 Refill [facility] [address] [place] [address] Ondina Hooks MD 11/17/2024 Refill [facility] [address] [facility] [address] [place] [address] Agustina Gerardo, STOCK PREPARATION OPERATOR Coronary artery disease involving lovelock heart, unspecified vessel or lesion type, unspecified whether angina present; Primary hypertension 11/07/2024 Orders Only [facility] [address] [place] [address] Isabel Fernandez RN Mucinous adenocarcinoma of appendix (CMS/HCC) (Primary Dx) 11/05/2024 3:10 PM EDT Office Visit [facility] [address] [place] [address] Ondina Hooks MD Mucinous adenocarcinoma of appendix (CMS/HCC) (Primary Dx) 11/05/2024 11:38 AM EDT - 11/05/2024 11:59 PM EDT Hospital Encounter [facility] Rad[facility] [address] [place] [address] Mucinous adenocarcinoma of appendix (CMS/HCC) Discharge Disposition: Home or Self Care 11/05/2024 Travel 11/02/2024 Travel 11/01/2024 Travel 10/30/2024 Travel 10/15/2024 Refill [facility] [address] [facility] [place] [address] Agustina Gerardo, STOCK PREPARATION OPERATOR Coronary artery disease involving lovelock heart, unspecified vessel or lesion type, unspecified whether angina present 09/21/2024 11:20 AM EDT Office Visit [facility] [address] [facility] [address] [place] [address] Eddie Joy MD Coronary artery disease involving lovelock coronary artery of lovelock heart without angina pectoris (Primary Dx); Nonrheumatic aortic valve stenosis; Status post administration of cardiotoxic chemotherapy; Primary hypertension; Other hyperlipidemia 09/21/2024 11:00 AM EDT Clinical Support [facility] [address] [place] [address] Coronary artery disease involving lovelock coronary artery of lovelock heart without angina pectoris 09/21/2024 Travel 09/20/2024 Travel 09/13/2024 3:30 PM EDT Office Visit [facility] [address] [place] [id number] Giselle Miller, STOCK PREPARATION OPERATOR Cirrhosis of liver without ascites, unspecified hepatic cirrhosis type (CMS/HCC) (Primary Dx) from Last 3 Months Immunizations Immunization Administration Dates Next Due Hep A, Adult 10/13/2011 Influenza, injectable, quadrivalent 11/22/2019,1 Influenza, injectable, quadr ivalent, preservative free 02/07/2023,11/20/2022,12/02/2020,2019,12/20/2018,11/29/2017 Influenza, recombinant, quad rivalent, injectable, preservative free 11/15/2023,11/19/2021 Pneumococcal 20-wili Conj Vaccine 11/20/2022 Rsv, Bivalent, Protein Subun it Rsvpref, Diluent Reconstituted, 0.5mL, PF 02/07/2023 SARS-CoV-2, Unspecified 03/26/2020,02/27/2020 TD (adult), 2 Lf tetanus tox oid, preservative free, adsorbed 01/12/2006 Tdap 01/31/2024,10/13/2011 Zoster, Recombinant 11/15/2023 Family History Medical History Relation Name Comments Arthritis Brother Corwin Rose Colon polyps Brother Corwin Rose Diabetes Brother Corwin Rose Drug abuse Brother Corwin Rose Heart attack Brother Corwin Rose Heart disease Brother Corwin Rose Hypertension Brother Corwin Rose Arthritis Father Elijah Rose Cancer Father Elijah Rose Colon cancer Father Elijah Rose Heart attack Father Elijah Rose Hypertension Father Elijah Rose Cancer Mother Kamilah Rose Heart attack Mother Kamilah Rose Hypertension Mother Kamilah Rose Uterine cancer Mother Kamilah Rose Vision loss Mother Kamilah Rose Hypertension Other Arthritis Paternal Grandmother Silvia Paul on Arthritis Sister Brisa Demarco Colon polyps Sister Brisa Demarco Miscarriages / Stillbirths Sister Brisa Fofana t Anesthesia problems Neg Hx Malig Hyperthermia Neg Hx Relation Name Status Comments Brother Corwin Rose Father Elijah Rose Mother Kamilah Rose Other Paternal Grandmother Silvia Rose Sister Brisa Demarco Social History Tobacco Use Types Packs/Day Years Used Date Smoking Tobacco: Every Day Cigarettes 1 46.8 Started: 02/21/1978 Passive Smoke Exposure: Current Smokeless Tobacco: Never Tobacco Cessation:Ready to Q uit: Not Asked; Counseling Given: Not Answered Alcohol Use Standard Drinks/Week Comments Not Currently [...] drink first t keith in the morning ([employer]) to steady your nerves or to get [...] Orientation Straight 12/08/2021 10 :37 PM EDT Last Filed Vital Signs Vital Sign Reading Time Taken Comments Blood Pressure 121/73 11/05/2024 3:03 PM EDT Pulse 88 11/05/2024 3:03 PM EDT Temperature 36.8 C (98.2 F) 11/05/2024 3:03 PM EDT Respiratory Rate 19 09/21/2024 10:59 AM EDT Oxygen Saturation 97% 11/05/2024 3:03 PM EDT Inhaled Oxygen Concentration - - Weight 89.4 kg (197 lb 1.5 oz) 11/05/2024 3:03 P M EDT Height 175.3 cm (5' 9 ) 11/05/2024 3:03 PM EDT Body Mass Index 29.11 11/05/2024 3:03 PM EDT Plan of Treatment Upcoming Encounters Date Type Department Care Team (Late st Contact Info) Description 03/26/2025 1:30 PM EST Office Visit [facility] [address] [place] [address] Ab Blair PA [address] [facility] [address] [place] [address] 04/29/2025 12:20 PM EDT Appointment [facility] Rad[facility] [address] [place] [address] 04/29/2025 3:10 PM EDT Office Visit [facility] [address] [place] [address] Ondina Hooks MD [address] [facility] [address] [place] [address] 09/24/2025 1:00 PM EDT Appointment [facility] Echo [address] [facility] [address]nd [place] [address] 09/24/2025 3:00 PM EDT Office Visit [facility] [address] [facility], [address]nd [place] [address] Health Maintenance Due Date Last Done Comments CT Colonography 1962 FIT-DNA 1962 FIT 1962 FOBT 1962 Sigmoidoscopy 1962 [facility]-HIV Screening 1962 [facility]-Hepatitis C Screening 1962 [facility]-/Child/Adol SDOH Screenings 1962 Diabetes: Dental Exam 1972 [facility]- SDOH Screenings 1980 [facility]-Adult SDOH Screenings 1980 [facility]-Hepatitis A Vaccines (2 of 2 - Risk 2-dose series) 04/14/2012 10/13/2011 Lung Cancer Screening Shared Decision Making 2012 [facility]-Breast Cancer Screening 2012 [facility]-Zoster Vaccines (2 of 2) 01/10/2024 11/15/2023 [facility]-Diabetes: Hemoglobin A1C 01/31/2024 11/01/2023 [id number] Vaccine (7 - Mixed Product risk season) 2024 01/31/2024, 02/07/2023, 12/18/2021, Additional history exists [facility]-Influenza Vaccine (#1) 10/22/202411/14, 02/07/2023, 11/20/2022, Additional history exists [facility]-Depression Screening 11/05/2025 025, 09/13/2024, 12/17/2021 [facility]-Lung Cancer Screening 11/05/20252024, 07/23/2024, 04/24/2024, Additional history exists Colonoscopy 06/27/2029 06/28/2024, 01/03/2023 [facility]-Colorectal Cancer Screening 06/27/2029 [facility]-DTaP,Tdap,and Td Vaccines (3 - Td or Tdap) 01/30/2034 01/31/2024, 10/13/2011, 01/12/2006 [facility]-Pneumococcal Vaccine: 50+ Years Completed 11/20/2022 [facility]-RSV Vaccine: 60+ Years or Completed 02/07/2023 [facility]-Obesity Intervention Completed 025, 03/16/2024, 03/15/2024, Additional history exists HPV Vaccines Aged Out No longer eligi ble based on patient's age to complete this topic [facility]-HIB Vaccines Aged Out No longer e ligible based on patient's age to complete this topic [facility]-IPV Vaccines Aged Out No longer e ligible based on patient's age to complete this topic [facility]-Rotavirus Vaccines Aged Out No lo nger eligible based on patient's age to complete this topic Medical Devices Implanted Type Area Construction Field Engineer Device Identifier Shelf Expiration Date Model / Serial / Lot Port Clearvue Power 8fr - [id number] Implanted:Qty: 1 on 02/23/2022 by Jameel Washington MD at [facility] Catheter [employer]-[id number] 05/22/2023 [id number] / / [id number] Procedures Procedure Name Priority Date/Time Associated Diagnosis Comments SIGNATERA ONLY Routine 11/05/2024 2:28 PM EDT Mucinous adenocarcinoma of appendix (CMS/HCC) COMPREHENSIVE METABOLIC PANEL, PLASMA Routine 11/05/2024 2:28 PM EDT Mucinous adenocarcinoma of appendix (CMS/HCC) CBC WITH AUTO DIFFERENTIAL Routine 11/05/2024 2:28 PM EDT Mucinous adenocarcinoma of appendix (CMS/HCC) CT ABDOMEN PELVIS W IV CONTRAST Routine 11/05/2024 12:49 PM EDT Mucinous adenocarcinoma of appendix (CMS/HCC) CT CHEST W IV CONTRAST Routine 11/05/2024 12:49 PM EDT Mucinous adenocarcinoma of appendix (CMS/HCC) LIPID PROFILE, PLASMA Routine 09/21/2024 11:56 AM EDT Coronary artery disease involving lovelock coronary artery of lovelock heart without angina pectoris COLONOSCOPY Routine 06/28/2024 8:53 AM EDT Mucinous adenocarcinoma of appendix (CMS/HCC) HEMOGLOBIN A1C Add-On 11/01/2023 2:56 PM EDT Mucinous adenocarcinoma of appendix (CMS/HCC) from Last 3 Months or Most Recently Relevant to Health Maintenance Results * Signatera Only Single Draw (11/05/2024 2:28 PM EDT) SIGNATERA TEST RESULT NEGATIVE 6:02 PM EDT [facility] SIGNATERA MTM READOUT 0 MTM/ml 6:02 PM EDT [facility] Comment: Please see the attached PDF [...] due to limited ctDNA shed. 1 Paul DE, Edmar GREENEC, Janene LOVE, et al. Personalized circulating tumor DNA analysis as a predictive biomarker in solid tumor patients treated with pembrolizumab. Nature Cancer. 2020;1(9):873-881. 2 Alisa MENDEZ, Alina N, et al., Circulating Tumor DNA in Stage [...] samples collected in cell-free DNA blood tubes ([employer]) using the QIA[employer]innova Pharm[employer]ny automated or manual extraction method (Qiagen). Using a proprietary algorithm, putative, clonal variants present in the tumor but absent in the germline DNA are identified to design the customized multiplex PCR assay. Whole-exome sequencing is performed on tumor and peripheral blood DNA using the proprietary Bioniz whole-exome sequencing assay. Pathology services are performed at [facility], [address] [place] [address], and whole exome sequencing is performed at [facility] (CLIA ID# [id number]), [address] [place] [address]. Disclaimer The extraction, library preparation, and sequencing for this test were performed by [facility] [address] [facility] [address] [address] (CLIA ID [id number]). The data analysis and reporting for this test were performed by [facility] [address], [place] [address] (CLIA ID [id number]). This test was developed and its performance characteristics determined by [facility]. The test has not been cleared or approved by the U.S. Food and Drug Administration (FDA). CAP accredited, ISO 70547 certified, and CLIA certified. Pathology services and whole exome sequencing for this test were performed by [facility], [address] [place] [address] (CLIA ID [id number]). 2020 [employer]. All Rights Reserved. Blood Venous blood specimen / Unknown Venipuncture / Unknown 11/05/2024 2:28 PM EDT 11/05/2024 2:30 PM EDT us Ondina PINK BLOOD ORDERABLES Final R esult [facility] [address] [place] [address], [place] * (ABNORMAL) CBC and Differential (11/05/2024 2:28 PM EDT) Pathologist [facility] WBC Count 13.42(H) 3.70 - 10.30 10*3/uL LAB HEMATOLOGY METHOD 11/05/2024 3:48 PM EDT [facility] RBC Count 5.33(H) 3.90 - 5.20 10*6/uL LAB HEMATOLOGY METHOD 11/05/2024 3:48 PM EDT [facility] HGB 12.2 11.2 - 15.7 g/dL LAB HEMATOLOGY METHOD 11/05/2024 3:48 PM EDT [facility] HCT 39.3 34.0 - 45.0 % LAB HEMATOLOGY METHOD 11/05/2024 3:48 PM EDT [facility] Platelet Count 279 155 - 369 10*3/uL LAB HEMATOLOGY METHOD 11/05/2024 3:48 PM EDT [facility] MCV 74(L) 79 - 98 fL LAB HEMATOLOGY METHOD 11/05/2024 3:48 PM EDT [facility] MCH 22.9(L) 26.0 - 32.0 pg LAB HEMATOLOGY METHOD 11/05/2024 3:48 PM EDT [facility] MCHC 31.0 30.7 - 35.5 g/dL LAB HEMATOLOGY METHOD 11/05/2024 3:48 PM EDT [facility] RDW 20.1(H) 11.5 - 14.5 % LAB HEMATOLOGY METHOD 11/05/2024 3:48 PM EDT [facility] MPV 9.3 8.8 - 12.5 fL LAB HEMATOLOGY METHOD 11/05/2024 3:48 PM EDT [facility] nRBC 0.0 <=0.0 per 100 WBCs LAB HEMATOLOGY METHOD 11/05/2024 3:48 PM EDT [facility] Differential Type Automated LAB HEMATOLOGY METHOD 11/05/2024 3:48 PM EDT [facility] Neutrophils % 68 % LAB HEMATOLOGY METHOD 11/05/2024 3:48 PM EDT [facility] Lymphocytes % 23 % LAB HEMATOLOGY METHOD 11/05/2024 3:48 PM EDT [facility] Monocytes % 6 % LAB HEMATOLOGY METHOD 11/05/2024 3:48 PM EDT [facility] Eosinophils % 2 % LAB HEMATOLOGY METHOD 11/05/2024 3:48 PM EDT [facility] Basophils % 0 % LAB HEMATOLOGY METHOD 11/05/2024 3:48 PM EDT [facility] Immature Granulocytes % 1 % LAB HEMATOLOGY METHOD 11/05/2024 3:48 PM EDT [facility] Neutrophils Absolute 9.18(H) 1.60 - 6.10 10*3/uL LAB HEMATOLOGY METHOD 11/05/2024 3:48 PM EDT [facility] Lymphocytes Absolute 3.05 1.20 - 3.90 10*3/uL LAB HEMATOLOGY METHOD 11/05/2024 3:48 PM EDT [facility] Monocytes Absolute 0.86 0.30 - 0.90 10*3/uL LAB HEMATOLOGY METHOD 11/05/2024 3:48 PM EDT [facility] Eosinophils Absolute 0.20 0.00 - 0.50 10*3/uL LAB HEMATOLOGY METHOD 11/05/2024 3:48 PM EDT [facility] Basophils Absolute 0.06 0.00 - 0.10 10*3/uL LAB HEMATOLOGY METHOD 11/05/2024 3:48 PM EDT [facility] Immature Granulocytes Absolute 0.07(H) 0.00 - 0.06 10*3/uL LAB HEMATOLOGY METHOD 11/05/2024 3:48 PM EDT [facility] Blood Venous blood specimen / Unknown Venipuncture / Unknown 11/05/2024 2:28 PM EDT 11/05/2024 3:37 PM EDT Narrative [facility] - 11/05/2024 3:48 PM EDT Therapeutic decision making should be based on absolute values, rather than percentages. us Ondina A Hooks MD LAB BLOOD ORDERABLES Final Resu lt [facility] [address] [place] [address] * (ABNORMAL) Comprehensive Metabolic Panel, Plasma (11/05/2024 2:28 PM EDT) Glucose, Plasma 168(H) 74 - 99 mg/dL 11/05/2024 3:39 PM EDT [facility] BUN, Plasma 8 8 - 23 mg/dL 11/05/2024 3:39 PM EDT [facility] Creatinine, Plasma 0.53(L) 0.60 - 1.10 mg/dL 11/05/2024 3:39 PM EDT [facility] BUN/Creatinine Ratio 11/05/2024 3:39 PM EDT [facility] Sodium, Plasma 137 136 - 145 mmol/L 11/05/2024 3:39 PM EDT [facility] Potassium, Plasma 4.1 3.6 - 4.9 mmol/L 11/05/2024 3:39 PM EDT [facility] Chloride, Plasma 103 97 - 107 mmol/L 11/05/2024 3:39 PM EDT [facility] CO2, Plasma 22 22 - 29 mmol/L 11/05/2024 3:39 PM EDT [facility] Anion Gap 12 6 - 16 mmol/L 11/05/2024 3:39 PM EDT [facility] Total Calcium, Plasma 9.0 8.9 - 10.2 mg/dL 11/05/2024 3:39 PM EDT [facility] Total Protein 6.9 6.3 - 7.9 g/dL 11/05/2024 3:39 PM EDT [facility] Albumin, Plasma 4.0 3.5 - 5.2 g/dL 11/05/2024 3:39 PM EDT [facility] AST, Plasma 24 10 - 35 U/L 11/05/2024 3:39 PM EDT [facility] Comment:Hemolyzed, result ma y be falsely increased. ALT, Plasma 18 10 - 35 U/L 11/05/2024 3:39 PM EDT [facility] Alkaline Phosphatase, Plasma 89 46 - 142 U/L 11/05/2024 3:39 PM EDT [facility] Total Bilirubin, Plasma 0.4 0.2 - 1.1 mg/dL 11/05/2024 3:39 PM EDT [facility] eGFRcr 104.7 mL/min/1.7 3m*2 11/05/2024 3:39 PM EDT [facility] Comment:Reported eGFRcr in m L/min/1.73m2 is based the CKD-EPI 2020 equation that does not use a race coefficient. Blood Venous blood specimen / Unknown Venipuncture / Unknown 11/05/2024 2:28 PM EDT 11/05/2024 3:07 PM EDT us Ondina Hooks MD LAB BLOOD ORDERABLES Final Resu lt [facility] [address] [place] [address] * CT Abdomen Pelvis w IV Contrast [...] Total DLP (Dose-Length Product): 627.16 mGy.cm (accession [id number]), 627.16 mGy.cm (accession [id number]). Please note: The reported value represents the [...] Total DLP (Dose-Length Product): 627.16 mGy.cm (accession [id number]),627.16 mGy.cm (accession [id number]). Please note: The reported valuerepresents the total [...] Total DLP (Dose-Length Product): 627.16 mGy.cm (accession [id number]), 627.16 mGy.cm (accession [id number]). Please note: The reported value represents the [...] Total DLP (Dose-Length Product): 627.16 mGy.cm (accession [id number]),627.16 mGy.cm (accession [id number]). Please note: The reported valuerepresents the total [...] MD IMG CT PROCEDURES Final Result * Lipid Profile, Plasma (09/21/2024 11:56 AM EDT) Cholesterol, Plasma 113 <200 mg/dL 09/21/2024 12:46 PM EDT [facility] Comment: Cholesterol Reference Range (age >17 years): Desirable <200 mg/dL Borderline 200 to 239 mg/dL Undesirable >239 mg/dL HDL 67 >=50 mg/dL 09/21/2024 12:46 PM EDT [facility] Comment: HDL Cholesterol Reference Ranges (age >17 years): Female, acceptable > or = 50 mg/dL Male, acceptable > or = 40 mg/dL Triglycerides, Plasma 63 <150 mg/dL 09/21/2024 12:46 PM EDT [facility] [facility] Comment: Triglyceride Reference Range (age >17 years): Desirable: <150 mg/dL Borderline high: 150 to 199 mg/dL High: 200 to 499 mg/dL Very high: >499 mg/dL Increased risk of pancreatitis: >1000 mg/dL Cholesterol/HDL Ratio 2 09/21/2024 12:46 PM EDT [facility] LDL, Calculated 32 <100 mg/dL 12:46 PM EDT [facility] Comment: LDL Cholesterol Reference Range (age >17 years): Optimal: <100 mg/dL Near or above optimal: 100 - 129 mg/dL Borderline high: 130 - 159 mg/dL High: 160 - 189 mg/dL Very high: >189 mg/dL LDL Cholesterol Reference Range (age <18 years): Desirable: <110 mg/dL Borderline: 110 - 129 mg/dL Undesirable: >130 mg/dL LDL Cholesterol is calculated using the Puri/NIH equation. Fasting greater than or equal to 12 hours? No 09/21/2024 12:46 PM EDT [facility] Blood Venous blood specimen / Unknown Venipuncture / Unknown 09/21/2024 11:56 AM EDT 09/21/2024 12:17 PM EDT us Eddie Joy MD LAB BLOOD ORDERABLES Final Resul t [facility] [address] [place] [address] * Colonoscopy (06/28/2024 8:53 AM EDT) Anatomical Region Laterality Modality Endoscopy Narrative 06/28/2024 8:55 AM EDT Table formatting from the original result was not included. Impression: Small hemorrhoids Signs of previous surgery in the cecum Subcentimeter polyp in the descending colon was removed with cold snare Recommendations Repeat colonoscopy in 5 years, due: 06/27/2029 - Return home once discharge criteria met. - May resume previous diet. - Await pathology results. - Return to referring provider. - Discussed results with patient/family. Indication Order Indication: Mucinous adenocarcinoma of appendix (CMS/HCC) Medications See anesthesia record for anesthesia administered medications. Staff Staff Role Román Fletcher MD Proceduralist Mary Johnson Student Nurse Director Of Quantitative Research Annie Luna MD Anesthesiologist Seferino Jeffries MD Proceduralist Lindsay Slaughter RN Endo Nurse Anita Armenta CRNA, Erasmo Cook CRNA Endo Outpatient Services Director Preprocedure A history and physical has been performed, and patient medication allergies have been reviewed. The patient's tolerance of previous anesthesia has been reviewed. The risks and benefits of the procedure and the sedation options and risks were discussed with the patient. All questions were answered and informed consent obtained. Details of the Procedure The patient underwent monitored anesthesia care, which was administered by an anesthesia professional. The patient's blood pressure, heart rate, level of consciousness, respirations and oxygen were monitored throughout the procedure. A digital rectal exam was performed. A perianal exam was performed. The scope was introduced through the anus and advanced to the site of the end-to-side ileocolonic anastomosis. Retroflexion was performed in the rectum. The quality of bowel preparation was evaluated using the [place] Bowel Preparation Scale with scores of: right colon = 2, transverse colon = 2, left colon = 2. The total BBPS score was 6. Bowel prep was adequate. The patient experienced no blood loss. The procedure was not difficult. The patient tolerated the procedure well. There were no apparent adverse events. Attestation I was present for the entire procedure Events Procedure Events Event Event Time ENDO SCOPE IN TIME 06/28/2024 8:20 AM ENDO CECUM REACHED 06/28/2024 8:33 AM ENDO SCOPE OUT TIME 06/28/2024 8:51 AM Specimens ID Type Source Tests Collected by Time A : terminal ileum erosion biopsies Tissue Ileum SURGICAL PATHOLOGY EXAM Seferino Jeffries MD 06/28/2024 0835 B : descending colon polyp Tissue Descending Colon SURGICAL PATHOLOGY EXAM Seferino Jeffries MD 06/28/2024 0850 Findings External small hemorrhoids observed during digital rectal exam; no bleeding was observed Signs of previous surgery in the cecum. Few ulcers seen at anastomosis in Terminal Ileum. Biopsies obtained One 4 mm sessile and adenomatous-appearing polyp in the descending colon; performed cold snare with complete en bloc removal and retrieved specimen us Ondina Hooks MD GI PROCEDURE ORDERABLES Final R esult * (ABNORMAL) Hemoglobin A1c (11/01/2023 2:56 PM EDT) Hemoglobin A1c 7.0(H) <5.7 % 11/01/2023 5:23 PM EDT [facility] Blood Blood sample taken from central line / Unknown (Port) Long-term Catheter / Unknown 11/01/2023 2:56 PM EDT 11/01/2023 3:17 PM EDT Narrative [facility] - 11/01/2023 5:23 PM EDT HA1C Interpretive Data: Diagnosis of Diabetes: Diabetic > or = 6.5% Pre-diabetic 5.7 to 6.4% Non-diabetic < or = 5.6% Glycemic Targets for Type I and Type II Diabetics: Non- Adults <7.0% Adults <6.0% Children and Adolescents <7.5% Source: [place] [employer]. Standards of medical care in diabetes,2017. Diabetes Care.2017:40 (suppl 1):S1-S135. HbA1c assay performed by an ion-exchange chromatography method that is certified traceable to the DCCT. us Ondina Hooks MD LAB BLOOD ORDERABLES Final Resu lt [facility] [address] [place] [address] from Last 3 Months or Most Recently Relevant to Health Maintenance Insurance ANTH Advance Directives Documents on File Type Date Recorded Patient Shipping Technician Expl anation Advance Directives and Living Will 04/24/2024 Living Will * Full Code (Latest Code Status on File) Date Activated Date Inactivated Comments 12/08/2021 9:52 PM 12/09/2021 7:29 PM Question Answer Comments Patient has decision-making capacity? Yes Care Teams Dry Cell And Battery Assembler Relationship Specialty Start Date End Date Rosalio Nunez MD [address] [place] [address] PCP - General 07/04/20 Eddie Joy MD [address] [place] [phone] Service Attending Cardiology 01/01/22
--- OUTSIDE RECORDS SUMMARY | 2024-12-14 15:47 | XMS_ITS ---
Author Organization Healthcare Address [address] [place] [address] Care Team Providers Care Manager Speech Name Role Phone Rosalio Nunez MD Primary Care Provider [phone] Eddie Joy MD Unavailable Active Problems Problem Noted Date Diagnosed Date [...] (12/17/2021): Added automatically from request for surgery [id number] Primary hypertension 12/17/2021 Obesity (BMI 30-39.9) 12/09/2021 [...] (12/09/2021): Added automatically from request for surgery [id number] Gastro-esophageal reflux disease without esophag itis 02/16/2013 Acute appendicitis with localized peritonitis Current Treatment and Therapy Plans No current plan information found. Past Treatment and Therapy Plans Line Care Plan Name Start Date Discontinue Date Treatment Medications Discontinue Reason Plan Provider (ONC) MED ONC OUTPATIENT ELECTROLYTE REPLACEMENT PROTOCOL FOR OXALIPLATIN 05/04/2022 10/12/2022 No medications scheduled. Therapy Complete Ondina Hooks MD Oncology Treatment Plan Name Start Date Discontinue Date Treatment Medications Discontinue Reason Plan Provider Cycles [id number]: Leucovorin + Fluorouracil + OXALIplatin Every 14 Days x 2 Every 28 Days 3 10/12/2022 5-FU (Adrucil) infusion - for home use ([facility] supplied)OXALI platin (Eloxatin) IVPB Therapy Complete Ondina Hooks MD 5 of 5 cycles started [id number] Arm B: mitoMYcin Weight-Based HiPEC 01/21/20 22 02/17/2022 mitoMYcin (Mutamycin) Therapy Complete Ondina Hooks MD 1 of 1 cycle started Lifetime Dose Tracking * Chemical Lifetime Dose Automatic Entry Manual Entr y mitoMYcin 12.06 mg/m2 (24 mg) 12.06 mg/m2 (24 mg) 0 mg/m2 (0 mg) Fluoro Time 0.398 minutes 0.398 minutes 0 minutes Air Kerma 4.04 mGy 4.04 mGy 0 mGy Resolved Problems Problem Noted Date Diagnosed Date Resolved Date Encounter for monitoring car diotoxic drug therapy 07/13/2022 11/11/2024 Appendicitis with abscess 12/08/2021
--- OUTSIDE RECORDS SUMMARY | 2024-12-14 15:47 | XMS_ITS | Clinical Summary ---
Author Organization [employer] ([place], [place], [place], [place]) Address [address] [place] [address] Care Team Providers Care Electronic Technician Name Role Phone Rosalio Nunez MD Primary Care Provider + [phone] Allergies Active Allergy Reactions Criticality Noted Date Comments Albiglutide Nausea And Vomiting High 12/17/2021 Other reaction(s): Other Tanzeum. Vomiting and abdominal pain Erythromycin 03/03/2022 Other reaction(s): itching, palms itching Morphine 03/03/2022 Other reaction(s): Itching, Talkative Nadolol Hives,Rash High 12/08/2021 Neomycin Low 12/08/2021 Other reaction(s): Blisters, Other Blisters Penicillins Itching Medium 01/19/2022 Other reaction(s): Unsure 1pt cannot recall ever taken: has not taken because Mother had anaphylaxis reaction Rofecoxib 03/03/2022 Other reaction(s): mouth and tongue felt odd Sulfacetamide Low 02/16/2013 Other reaction(s): Other Makes my tongue feel funny Medications carvediloL (COREG) 12.5 MG tablet TAKE 1 TABLET BY MOUTH TWICE DAILY 180 tablet 2 2 Active amitriptyline (ELAVIL) 25 MG tablet Take 25 mg by mouth nightly. Active aspirin 81 MG EC tablet Take 81 mg by mouth daily. Active azelastine HCl (ASTELIN NASAL) by Nasal route. Acti ve SITagliptin phosphate (JANUVIA) 100 MG tablet Take 100 mg by mouth daily. Active furosemide (LASIX) 20 MG tablet Take 20 mg by mouth daily . Active losartan (COZAAR) 25 MG tablet Take 25 mg by mouth daily. Active montelukast (SINGULAIR) 10 mg tablet Take 10 mg by mouth nightly. Active nitroglycerin (NITROSTAT) 0.[address] 0.4 mg under the tongue every 5 (five) minutes as needed Put 1 pill under tongue every 5min as needed for chest pain.No more than 3 doses in 15min.Call 911 if pain unrelieved 5min after 1st dose. Active insulin aspart U-100 (NovoLOG) 100 unit/mL (3 mL) InPn Inject subcutaneously 3 (three) times daily before meals. Active pantoprazole (PROTONIX) 40 MG tablet Take 40 mg by mouth daily. Active potassium chloride (KLOR-CON-M) 10 MEQ CR tablet Take 10 mEq by mouth daily. Active evolocumab 140 mg/mL PnIj Inject 140 mg subcutaneously every 14 (fourteen) days. Active rOPINIRole (REQUIP) 2 MG tablet Take 2 mg by mouth nightly. Active budesonide-for moteroL (SYMBICORT) 160-4.5 mcg/actuation inhaler Inhale 2 puffs by mouth via inhaler 2 (two) times daily. Active levocetirizine (XYZAL) 5 MG tablet Take 5 mg by mouth every evening. Active insulin degludec (Tresiba FlexTouch U-100) 100 unit/mL (3 mL) InPn Inject subcutaneously. Active senna-docusate (sennosides-do cusate sodium) 8.6-50 mg per tablet Take 1 tablet by mouth daily. Active lactobacillus rhamnosus, GG, (CULTURELLE) 10 billion cell capsule Take 1 capsule by mouth daily. Active albuterol (ACCUNEB) 0.63 mg/3 mL nebulizer solution Take 1 ampule by nebulization every 6 (six) hours as needed for Wheezing. Active clopidogreL (PLAVIX) 75 mg tablet TAKE 1 TABLET BY MOUTH ONCE DAILY 90 tablet 3 3 Active Active Problems Problem Noted Date Diagnosed Date Arteriosclerosis of coronary artery 03/02/2022 Overview (03/02/2022): a. Status post coronary bypass grafting x3 (06/25/2019) b. History of multiple PCI Anxiety 03/02/2022 Hx of CABG 03/02/2022 Diabetic peripheral neuropathy 03/02/2022 COPD (chronic obstructive pulmonary disease) 11/2022 Hyperlipidemia 03/02/2022 Hypertension 03/02/2022 Obesity 03/02/2022 Osteoarthritis 03/02/2022 Smoker 03/02/2022 Type II diabetes mellitus 03/02/2022 Plantar fasciitis 03/02/2022 Cirrhosis of liver 03/02/2022 Social History Tobacco Use Types Packs/Day Years Used Date Smoking Tobacco: Never Assessed Food Insecurity Answer Date Recorded Food run out past 12 months Not on file 02/21 Food did not last past 12 months Not on file 03/11/2023 Employment Answer Date Recorded Help finding and keeping a job Not on file 0 03/11/2023 Family and Community Support Answer Mark Anthony e Recorded Help with Day to Day Activities Not on file 03/11/2023 Feeling Lonely or Isolated Not on file 03/11 Educational Attainment Answer Date Bobby rded Speak language other than Sami at home Not on file 03/11/2023 Want help with school or training Not on file 03/11/2023 Substance Use Answer Date Recorded Used prescription meds for non-medical reasons N ot on file 03/11/2023 Used illegal drugs past 12 months Not on file 03/11/2023 Comments Unknown Sex and Gender Information Value Date Recorded Sex Assigned at Female 08/18/2021 9:05 PM CDT Legal Sex Female 9:05 PM CDT Gender Identity Female 08/18/2021 9:05 PM CDT Sexual Orientation Not on file Last Filed Vital Signs Vital Sign Reading Time Taken Comments Blood Pressure 120/72 03/03/2022 10:43 AM EST Pulse 91 03/03/2022 10:43 AM EST Temperature - - Respiratory Rate - - Oxygen Saturation - - Inhaled Oxygen Concentration - - Weight 80.6 kg (177 lb 12.8 oz) 023 10:43 AM EST Height 162.6 cm (5' 4 ) 03/03/2022 10:4 3 AM EST Body Mass Index 30.52 03/03/2022 10:43 AM EST Plan of Treatment Health Maintenance Due Date Last Done Comments CT Colonography 1962 Colonoscopy 1962 Colorectal Cancer Screening 1962 Diabetic Kidney Health Evalu ation (KED) 1962 FOBT/FIT 1962 Fit-DNA (Cologuard) 1962 Sigmoidoscopy 1962 Diabetic Eye Exam 1972 Depression Screening (12+) 1974 Tobacco Cessation Counseling and Screening (12+) 1974 HIV Screening 1977 Hepatitis C Screening 1980 Pneumococcal 50+ years (1 of 2 - PCV) 1981 Pap Smear 10/11/1983 Breast Cancer Screening 2002 Shingles Vaccine (Zoster) (1 of 2) 2012 DTAP/TDAP/TD VACCINES (2 - T d or Tdap) 10/12/2021 10/13/2011 Hemoglobin A1C 03/02/2022 Respiratory Syncytial Virus (RSV) Adult or (1 - Risk 60-74 years 1-dose series) 2022 Lipid Panel 08/08/2024 08/08/2021, 06/19/2021 COVID-19 VACCINE (3 - 2024-2 6 season) 2024 03/26/2020, 02/27/2020 Influenza Vaccine (#1) 2024 , 11/22/2019, 11/16/2019, Additional history exists Procedures Procedure Name Priority Date/Time Associated Diagnosis Comments LIPID PANEL Routine 08/08/2021 5:38 AM EDT from Last 3 Months or Most Recently Relevant to Health Maintenance Results * LIPID PANEL (08/08/2021 5:38 AM EDT) Triglyceride 64 0 - 249 mg/dL 08/08/2021 10:20 AM EDT Cholesterol HDL 53.0 mg/dL 10:20 AM EDT Comment: Desirable > 60 mg/dl Increased Risk < 40 mg/dl Cholesterol Total 112 0 - 199 mg/dL 08/08/2021 10:20 AM EDT Comment: 200 to 239 mg/dL Moderate (borderline) >239 mg/dL High Cholesterol VLDL Calculation 12.8 5.0 - 40.0 mg/dL 08/08/2021 10:20 AM EDT Comment:Calculated by Discer n Rule GL_CHEM_TRIG_CMNT Cholesterol LDL Calculation 46.2 0.0 - 99.0 mg/dL 08/08/2021 10:20 AM EDT Comment: Calculated by Discern Rule GL_CHEM_TRIG_CMNTDESIRABLE <130 BORDERLINE 130 to 159 HIGH >=160 Cholesterol/HDL Ratio 2.1 0.0 - 3.2 08/08/2021 10:20 AM EDT LDL/HDL Ratio 0.9 0.0 - 3.2 08/08/2021 10:20 AM EDT Comment:Calculated by Discer n Rule GL_CHEM_TRIG_CMNT Blood 08/08/2021 5:38 AM EDT 08/08/2021 9:53 AM EDT [facility] Historical Provider PATHOLOGY/CYTOLOGY ORDE MAX Final Result Performing Organization Address City/State/[facility] Co de Phone Number [facility] [address] [phone] from Last 3 Months or Most Recently Relevant to Health Maintenance Insurance BLUE CROSS/BLUE SHIELD Member Subscriber Plan / Payer (Ef fective 2001-Present) Name:Milena Javier Relation to Subscriber:Spouse Name:Milena Javier Date of :1966 Address: [place] [address] Payer ID:Not on file Group ID:[id number] Type:Not on file Address: [facility] [id number] [place] [id number] Care Teams Electronic Technician Relationship Specialty Start Date End Date Rosalio Nunez MD [address] [place] [address] PCP - General Adolescent Medicine 03/03/22
--- OUTSIDE RECORDS SUMMARY | 2024-12-14 15:47 | XMS_ITS | Referral Summary ---
Author Organization [employer] ([place], [place], [place], [place]) Address [address] [place] [address] Care Team Providers Care Railway Track Plant Operator Name Role Phone Rosalio Nunez MD Primary Care Provider + [phone] Allergies Active Allergy Reactions Criticality Noted Date [...] Date Bobby rded Speak language other than Bengali at home Not on file 03/11/2023 Want [...] 03/03/2022 10:43 AM EST Plan of Treatment Not on file Procedures Procedure Name Priority Date/Time Associated Diagnosis [...] 5:38 AM EDT 08/08/2021 9:53 AM EDT [facility] Historical Provider PATHOLOGY/CYTOLOGY ORDE MAX Final Result [facility] [address] [place] [address], [facility] [phone] from Last 3 Months or Most Recently Relevant to Health Maintenance Insurance BLUE CROSS/BLUE SHIELD Care Teams Railway Track Plant Operator Relationship Specialty Start Date End Date Rosalio Nunez MD [address] [place] [address] PCP - General Adolescent Medicine 03/03/22
--- OUTSIDE RECORDS SUMMARY | 2024-12-14 15:47 | XMS_ITS | Encounter Summary ---
Author Organization Healthcare Address [address] [id number] Care Team Providers Care Automotive Parts Counterperson Name Role Phone Rosalio Nunez MD Primary Care Provider [phone] Eddie Joy MD Unavailable Reason for Visit * Reason Comments Med Refill Encounter Details Date Type Department Care Team ([facility] st Contact Info) Description 11/26/2024 Refill [facility] [address] [place] [address] Ondina Hooks MD [address] [facility] [address] [place] [address] Social History Tobacco Use Types Packs/Day Years [...] drink first t keith in the morning (EYE-JEWEL BEARING MAKER) to steady your nerves or to get [...] Description 03/26/2025 1:30 PM EST Office Visit [facility] [address] [place] [address] Ab Blair PA [address] [place] [address] 04/29/2025 12:20 PM EDT Appointment [facility] Radiology [address] [place] [address] 04/29/2025 3:10 PM EDT Office Visit [facility] [address] [place] [phone] Ondina Hooks MD [address] [facility] [address] [place] [address] 09/24/2025 1:00 PM EDT Appointment [facility] Echo [address] [facility] [address] [place] [phone] 09/24/2025 3:00 PM EDT Office Visit [facility] Respiratory [address] [facility] [place] [phone] documented as of this encounter Visit Diagnoses [...] documented as of this encounter Care Teams Automotive Parts Counterperson Relationship Specialty Start Date End Date Rosalio Nunez MD [address] [place] [address] PCP - General 07/04/20 Eddie Joy MD [address] [place] [phone] Service Attending Cardiology 01/01/22 documented as of this encounter
--- OUTSIDE RECORDS SUMMARY | 2024-12-14 15:47 | XMS_ITS | Encounter Summary ---
Author Organization [employer] ([place], [place], [place], [place]) Address [address] [place] [address] Care Team Providers Care Multi Township Assessor Name Role Phone Rosalio Nunez MD Primary Care Provider + [phone] Reason for Visit * Reason Comments Medication Refill Encounter Details Date Type Department Care Team (Late st Contact Info) Description 09/22/2022 Refill [facility] Cardiology [address] [place] [address] Shen Montanez, KEVIN [address] [facility] [address] [place] [id number] Social History Tobacco Use Types Packs/Day Years Used Date Smoking Tobacco: Never Assessed Comments Unknown Sex and Gender Information Value Date Recorded Sex Assigned at Female 08/18/2021 9:05 PM CDT Legal Sex Female 9:05 PM CDT Gender Identity Female 08/18/2021 9:05 PM CDT Sexual Orientation Not on file documented as of this encounter Miscellaneous Notes * Telephone Encounter - Sahara Morgan MA - 09/23/2022 11:49 AM EDT lv was 1.11.23 w/ Dr Naldo Benedict sent in refill as requested documented in this encounter Plan of Treatment Not on file documented as of this encounter Visit Diagnoses Not on filedocumented in this encounter Care Teams Multi Township Assessor Relationship Specialty Start Date End Date Rosalio Nunez MD [address] [place] [address] PCP - General Adolescent Medicine 03/03/22 documented as of this encounter
== END 2024-12-14 23:59 | disposition home or self-care (01) ==
LOC: RAD 15:43
PROVIDERS: PCP Nurse Practitioner Family; Visit Provider Nurse Practitioner Family
DX: Z12.31 Encounter for screening mammogram for malignant neoplasm of breast (principal); R92.323 Mammographic fibroglandular density, bilateral breasts
CPT/HCPCS: 77063; 77067

== ENCOUNTER 2025-01-25 09:24 | Outpatient (CLI) | payer BC, SELFPAY ==
--- NOTE | 2025-01-25 09:27 | CT_ITS ---
FINAL REPORT TECHNIQUE: Thin section axial images were obtained from the lung bases to the pubic symphysis without IV contrast. Coronal and sagittal reconstruction images were obtained from the axial data. Exam was performed using dose reduction technique. This study was performed with techniques to keep radiation doses as low as reasonably achievable (ALARA). Individualized dose reduction techniques using automated exposure control or adjustment of mA and/or kV according to the patient's size were employed. CLINICAL HISTORY: UMBILICAL HERNIA W/O OBSTRUCTION AND GANGRENE finished drinking at 7:22 a.m. scanned at 9:45 a.m. COMPARISON: 02/16/2022 FINDINGS: The lung bases are clear. There are nonobstructing left renal stones present. There are no ureteral stones. There is no hydronephrosis or perinephric stranding. The gallbladder is absent. The liver is somewhat nodular in appearance and slightly enlarged. No focal noncontrast abnormality is identified. The remaining unenhanced solid abdominal organs are unremarkable. There is an umbilical hernia containing a loop of small bowel. The hernia sac defect measures 5.5 cm Hamiter. Contrast had not reached the small bowel involved in the hernia sac, but there does not appear to be small bowel obstruction. The appendix is absent. Postoperative changes are noted in the right lower quadrant. GI tract is without acute abnormality. There is no lymphadenopathy or ascites. The uterus is absent. No acute osseous abnormality is identified. IMPRESSION: 1. Umbilical hernia containing a loop of small bowel without evidence of bowel obstruction. The hernia sac defect measures 5.5 cm in size. 2. Nonobstructing left renal stones without evidence of hydronephrosis. 3. The liver is nodular and slightly enlarged, which may be secondary to cirrhosis. Reviewed, Interpreted and Dictated by Brigitte Foster MD Transcribed by Marquita Lamas Authenticated and [facility]
[2025-01-25] MEDS: BARIUM SULFATE(READI-CAT2);450ML BOTTLE 450 ML PO (09:50)
== END 2025-01-25 23:59 | disposition home or self-care (01) ==
PROVIDERS: PCP Nurse Practitioner Family; Visit Provider Nurse Practitioner Family
DX: K42.9 Umbilical hernia without obstruction or gangrene (principal); N20.0 Calculus of kidney; K76.89 Other specified diseases of liver; R16.0 Hepatomegaly, not elsewhere classified
CPT/HCPCS: 74176